=== PATIENT | female | born 1985 | race Caucasian/White ===

== ENCOUNTER 2020-07-30 17:44 | Emergency (ER) | payer MEDICAID, SELFPAY ==
[2020-07-30 18:57] LABS: COVID-19 Test Positive (Negative); IDNOW Serial# 9DD0AD1C
[2020-07-30 19:10] VITALS: BP 122/77; PULSE 105; RESP 18; TEMP 37.6; O2SAT 99; BMI 33.6
--- NOTE | 2020-07-30 19:12 | ED_ITS ---
HPI - URI/Sore Throat General Chief Complaint: Upper Respiratory Symptoms Stated Complaint: Flu like Time Seen by Provider: 07/30/20 19:10 Source: patient Mode of arrival: ambulatory Limitations: no limitations History of Present Illness HPI Narrative: 35-year-old female with no significant past medical history presents with upper respiratory symptoms consistent with COVID-19 as well as COVID-19 positive contacts. She presents with her 3 sons. MD elicited complaint: fever, cough, sore throat and nasal congestion Onset (ago): day(s) Consistency: constant Severity: moderate Description of mucous: clear and watery Able to tolerate fluids by mouth: Yes Relieving factors: nothing Context: sick contacts Associated symptoms: fever, chills, myalgias, headache, rhinorrhea, nasal congestion, sore throat and cough Related Data Previous Rx's Medication Instructions Recorded ibuprofen 600 mg PO Q6H PRN #30 tab 07/30/20 Allergies Allergy/AdvReac Type Severity Reaction Status Date / Time penicillin V Allergy Unknown convulsion Verified 12/15/13 00:00 Penicillins AdvReac Mild SEIZURES Unverified 01/22/20 17:28 A CHILD Review of Systems Review of Systems: Constitutional: positive Fever, positive Chills, positive fatigue, positive Malaise ENT/Mouth: positive sore throat, positive runny nose Eyes: No Discharge Cardiovascular: No Chest Pain, No SOB Respiratory: No Cough, No Sputum, No Wheezing, No Smoke Exposure, No Dyspnea Gastrointestinal: No Nausea, No Vomiting, No Diarrhea Genitourinary: no irregular bleeding, No Dysuria, No Urinary Frequency, No Hematuria, No Urinary Incontinence, No Urgency, No Flank Pain, Musculoskeletal: positive Myalgia Skin: No rash Neuro: No Headache Yes all other systems are reviewed and are negative [facility] Past Medical History Attestation statement: The following information was validated with the patient. Source: old records reviewed Medical History (Updated 07/30/20 @ 19:40 by Radha Anthony NP) No known health problems Social History Social History Smoked in Last 30 Days: No Use of substances other than those prescribed or required for medical reasons: No Advance Directives: No Advance Directives Information Provided: Yes Physical Exam Vital Signs: Vital Signs: Last Vital Signs Temp 99.7 F 07/30/20 19:10 Pulse 105 H 07/30/20 19:10 Resp 18 07/30/20 19:10 BP 122/77 07/30/20 19:10 Pulse Ox 99 07/30/20 19:10 Body Mass Index 33.6 Appearance: Alert. Oriented X3. No acute distress. Eyes: Pupils equal, round and reactive to light. ENT: Pharynx normal. Neck: Normal inspection. Neck supple. CVS: Normal heart rate and rhythm. Pulses normal. Respiratory: No respiratory distress. Breath sounds normal. Positive cough Abdomen: Soft and nontender. Skin: Skin warm and dry. Normal skin color. Normal skin turgor. Extremities: No lower extremity edema. Neuro: No motor deficit. No sensory deficit. Course Course Course Narrative: 35-year-old female presents with her family for positive COVID-19 contacts, upper respiratory symptoms consistent with COVID-19. Patient did test positive. Patient verbalizes understanding of and agrees to plan of care discharge home. MDM - URI/Sore Throat MDM Narrative Medical decision making narrative: COVID-19 Differential Diagnosis Differential diagnosis: Likely upper respiratory infection, sinusitis, viral infection, bronchitis, influenza and pharyngitis Medical Records Attestation: I reviewed the patient's medical records. Lab Data Attestation: I reviewed the patient's lab results. Labs: Lab Results 07/30/20 Range/Units 18:31 COVID-19 (ABDOUL) Positive A (Negative) COVID-19 Clin Com See Note Discharge Plan Discharge Clinical Impression: COVID-19 Patient Disposition: Home, Self-Care Instructions: COVID-19 (Coronavirus Disease 2019) (ED) Additional Instructions: Arden positivo para COVID-19. Por favor, mantenga el aislamiento social seg?n las directrices estatales y federales. Es garcia responsabilidad mantener estas directrices. Yasmine por elegir rowan departamento de emergencias para garcia evaluaci?n. Por favor, jakub un seguimiento con el m?dico de atenci?n primaria seg?n sea necesario. Regrese al servicio de emergencias para cualquier s?ntoma nuevo, preocupante o que empeore. You tested positive for COVID-19. Please maintain social isolation per State and Federal guidelines. Is your responsibility to maintain these guidelines. Thank you for choosing this emergency department for evaluation. Please follow-up with primary care physician as needed. Return to the emergency department for any new, concerning, or worsening symptoms. Prescriptions: New ibuprofen 600 mg tablet 600 mg PO Q6H PRN (Reason: fever or pain) Qty: 30 RF: 0 Interventions: ED Discharge Assessment Last Done: 07/30/20 20:29 Discharge Date/Time: 07/30/20 20:29
== END 2020-07-30 20:29 | disposition home or self-care (01) ==
PROVIDERS: Emergency Provider Emergency Medicine
DX: U07.1 COVID-19 (principal)
CPT/HCPCS: 36415; 87635; 99283; 99284

== ENCOUNTER 2020-08-05 13:07 | Emergency (ER) | payer MEDICAID, SELFPAY ==
--- NOTE | ~2020-08-05 | XR_ITS ---
EXAMINATION: XR CHEST CLINICAL INFORMATION: Cough and fever COMPARISON: 01/02/2019 TECHNIQUE: Frontal view of the chest was obtained. FINDINGS: Lung volumes are low. Patchy bilateral airspace opacities are seen with relative sparing at the apices. No pleural effusion or pneumothorax. The cardiomediastinal silhouette is normal in size. No acute osseous abnormality. XR/XR chest 1V IMPRESSION: Patchy bilateral airspace opacities are nonspecific. This could be infectious or inflammatory. Viral pneumonia is a consideration.
[2020-08-05 13:17] VITALS: BP 112/78; PULSE 116; O2SAT 96
[2020-08-05 14:20] VITALS: BP 122/77; PULSE 121; RESP 24; TEMP 38.4; O2SAT 95; BMI 33.6
[2020-08-05] MEDS: Albuterol Sulfate 90 MCG 8 GM INHALER 4 PUFF INHALE (14:59)
[2020-08-05 15:02] VITALS: PULSE 119; O2SAT 95
[2020-08-05 15:27] LABS: MANUAL DIFF FLAG NO
[2020-08-05] MEDS: ondansetron HCL 4 MG/2 ML VIAL IVPUSH (15:33)
[2020-08-05] MEDS: Acetaminophen 325 MG TABLET 650 MG PO (15:33)
[2020-08-05 15:36] LABS: Basophils Percent Auto 0.2 % (0-2); Hematocrit 33.8 % (37-47); Hemoglobin 11.7 g/dl (12.0-16.0); Imm Gran Abs Auto 0.03 X10*3/uL (0.00-0.03); Imm Gran Pct Auto 0.5 % (0.0-0.4); Lymphocytes Absolute Auto 1.1 X10*3/uL (1.2-4.9); Lymphocytes Percent Auto 17.2 % (20-40); Mean Corpuscular HGB Conc 34.6 g/dl (31.0-35.0); Mean Corpuscular Hemoglobin 30.8 pg (27.0-33.0); Mean Corpuscular Volume 88.9 fL (80-98); Mean Platelet Volume 10.4 fL (9.4-12.3); Monocytes Absolute Auto 0.2 X10*3/uL (0.1-1.2); Monocytes Percent Auto 2.8 % (2-11); Neutrophils Absolute Auto 4.8 X10*3/uL (2.0-8.3); Neutrophils Percent Auto 79.3 % (45-73); Platelet Count 230 X10*3/uL (160-400); Red Cell Distribution Width 13.2 % (11.0-16.0); White Blood Count 6.1 X10*3/uL (4.8-10.8)
--- NOTE | 2020-08-05 15:45 | PC.NURSE ---
patient has known covid, tested positive 07/30 at [facility] 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
[2020-08-05 15:52] LABS: Alanine Aminotransferase 25 U/L (0-31); Albumin Level 3.8 g/dL (3.5-5.0); Alkaline Phosphatase 41 U/L (39-117); Anion Gap 11 (12-20); Aspartate Amino Transferase 33 U/L (5-31); Bilirubin Total 0.3 mg/dL (0.0-1.0); Blood Urea Nitrogen 9 mg/dL (9-16); C Reactive Protein 6.49 mg/dL (< or = 0.50); Calcium 7.9 mg/dL (8.4-10.2); Carbon Dioxide 29 mmol/L (22-29); Chloride 101 mmol/L (96-108); Estimated Glomerular Filt Rate > 60; Glucose Random 112 mg/dL (60-115); Potassium 3.7 mmol/L (3.3-5.1); Sodium 137 mmol/L (135-145); Total Protein 7.4 g/dL (6.5-8.0)
[2020-08-05 15:58] LABS: Troponin-I High Sensitivity < 3.5 ng/L (<3.5-17.0)
[2020-08-05 16:02] LABS: Lactic Acid 0.8 mmol/L (0.5-2.0)
[2020-08-05 16:04] LABS: INTERNATIONAL NORM RATIO 1.2 (0.9-1.1); Prothrombin Time 14.3 SEC (10.8-13.0)
[2020-08-05 16:07] LABS: D Dimer < 200 NG/ML; Partial Thromboplastin Time 31.8 SEC (24.1-38.0)
[2020-08-05 16:13] LABS: Procalcitonin 0.05 ng/mL
[2020-08-05 16:15] LABS: Ferritin 316 ng/mL (10-122)
--- NOTE | 2020-08-05 17:33 | ED.URI ---
HPI - URI/Sore Throat General Chief Complaint: Abdominal Pain <Bonilla Dupree NP - Last Filed: 08/06/20 16:02> Stated Complaint: SOB, +COVID <Bonilla Dupree NP - Last Filed: 08/06/20 16:02> Time Seen by Provider: 08/05/20 14:22 <Bonilla Dupree NP - Last Filed: 08/06/20 16:02> Source: patient <Bonilla Dupree NP - Last Filed: 08/06/20 16:02> Mode of arrival: ambulatory <Bonilla Dupree NP - Last Filed: 08/06/20 16:02> Limitations: language barrier (checkout supervisor present) <Bonilla Dupree NP - Last Filed: 08/06/20 16:02> History of Present Illness HPI Narrative: States having chills and for full cough for the past 3 days the cough is making her vomit and given her pain in the upper abdomen. <Bonilla Dupree NP - Last Filed: 08/06/20 16:02> MD elicited complaint: cough <Bonilla Dupree NP - Last Filed: 08/06/20 16:02> Onset (ago): day(s) (3) <Bonilla Dupree NP - Last Filed: 08/06/20 16:02> Consistency: intermittent <Bonilla Dupree NP - Last Filed: 08/06/20 16:02> Severity: moderate <Bonilla Dupree NP - Last Filed: 08/06/20 16:02> Description of mucous: clear <Bonilla Dupree NP - Last Filed: 08/06/20 16:02> Able to tolerate fluids by mouth: Yes <Bonilla Dupree NP - Last Filed: 08/06/20 16:02> Exacerbating factors: nothing <Bonilla Dupree NP - Last Filed: 08/06/20 16:02> Relieving factors: nothing <Bonilla Dupree NP - Last Filed: 08/06/20 16:02> Associated symptoms: myalgias and cough <Bonilla Dupree NP - Last Filed: 08/06/20 16:02> Treatments prior to arrival: none <Bonilla Dupree NP - Last Filed: 08/06/20 16:02> Related Data Home Medications: Previous Rx's Medication Instructions Recorded ibuprofen 600 mg PO Q6H PRN #30 tab 07/30/20 benzonatate [Tessalon Perles] 100 mg PO BID PRN #14 cap 08/05/20 doxycycline monohydrate 100 mg PO BID 7 Days #14 cap 08/05/20 prednisone 60 mg PO DAILY 5 Days #15 tab 08/05/20 <Bonilla Dupree NP - Last Filed: 08/06/20 16:02> Allergies/Adverse Reactions: Allergies Allergy/AdvReac Type Severity Reaction Status Date / Time penicillin V Allergy Unknown convulsion Verified 12/15/13 00:00 Penicillins AdvReac Mild SEIZURES Unverified 01/22/20 17:28 A CHILD <ROOPA Baeza Last Filed: 08/06/20 16:02> Review of Systems Review of Systems: Constitutional: No Weight loss, No Fever, No Chills, No Night Sweats, No Fatigue, No Malaise ENT/Mouth: No Hearing loss, No Ear Pain, No Nasal Congestion, No Sinus Pain, No Hoarseness, No sore throat, No Rhinorrhea, No Swallowing Difficulty Eyes: No Eye Pain, No Swelling, No Redness, No Foreign Body, No Discharge, No Vision Changes Cardiovascular: + Chest Pain that is associated with cough, No SOB, No Dyspnea on Exertion, No Orthopnea, No Edema, No Palpitations Respiratory: + Cough, No Sputum, No Wheezing, No Smoke Exposure, No Dyspnea Gastrointestinal: No Diarrhea, No Constipation, No abdominal Pain, No Hematochezia, No Melena Genitourinary: no irregular bleeding, No Dysuria, No Urinary Frequency, No Hematuria, No Urinary Incontinence, No Urgency, No Flank Pain, No Urinary Flow Changes, No Hesitancy Musculoskeletal: No joint pain, No Myalgias, No Joint Swelling Skin: No Skin Lesions, No rash Neuro: No Weakness, No Numbness, No Paresthesias, No Loss of Consciousness, No Dizziness, No Headache Psych: No Social Issues Heme/Lymph: No Bruising, No Bleeding,No Lymphadenopathy Endocrine: No Polyuria, No Polydipsia, No Temperature Intolerance <ROOPA Baeza Last Filed: 08/06/20 16:02> Yes all other systems are reviewed and are negative <Bonilla Dupree NP - Last Filed: 08/06/20 16:02> [facility] Past Medical History Medical History: Medical History (Updated 08/06/20 @ 00:01 by Julio Slater) No known health problems <Bonilla Dupree NP - Last Filed: 08/06/20 16:02> Social History Social History: Social History Smoking Status: Never smoker <Bonilla Dupree NP - Last Filed: 08/06/20 16:02> Physical Exam Vital Signs: Vital Signs: Last Vital Signs Temp 99.3 F 08/05/20 17:55 Pulse 112 H 08/05/20 17:55 Resp 22 H 08/05/20 17:55 BP 100/62 08/05/20 17:55 Pulse Ox 94 08/05/20 17:55 Body Mass Index 33.6 Reviewed <Bonilla Dupree NP - Last Filed: 08/06/20 16:02> Vital Signs: Last Vital Signs Temp 99.3 F 08/05/20 17:55 Pulse 112 H 08/05/20 17:55 Resp 22 H 08/05/20 17:55 BP 100/62 08/05/20 17:55 Pulse Ox 94 08/05/20 17:55 Body Mass Index 33.6 <Marifer Currie NP - Last Filed: 08/09/20 16:54> Vital Signs: Last Vital Signs Temp 99.3 F 08/05/20 17:55 Pulse 112 H 08/05/20 17:55 Resp 22 H 08/05/20 17:55 BP 100/62 08/05/20 17:55 Pulse Ox 94 08/05/20 17:55 Body Mass Index 33.6 <Joshua Curtis MD - Last Filed: 08/24/20 09:14> Const: General: cooperative and healthy appearing; No acute distress or intoxicated appearing <Bonilla Dupree NP - Last Filed: 08/06/20 16:02> Nutritional Appearance: average body habitus <Bonilla Dupree NP - Last Filed: 08/06/20 16:02> Orientation/consciousness: patient oriented x3 <Bonilla Dupree NP - Last Filed: 08/06/20 16:02> HENMT: Head: Yes normal to inspection <[facility], [facility] Last Filed: 08/06/20 16:02> Ears: hearing grossly normal bilaterally <[facility] - Last Filed: 08/06/20 16:02> Eyes: General: appearance normal, both eyes and all related structures <[facility] Dupree[facility] Last Filed: 08/06/20 16:02> Visual Locke: normal visual locke by confrontation <[facility] - Last Filed: 08/06/20 16:02> Neck: Neck: Yes normal visual inspection, No positive Brudzinski's sign, No positive Kernig's sign and No tender <[facility] Last Filed: 08/06/20 16:02> Thyroid: Thyroid normal <[facility] Last Filed: 08/06/20 16:02> Chest: Chest palpation & inspection: normal inspection of the chest <[facility] Joon [facility] Last Filed: 08/06/20 16:02> Resp: Effort & Inspection: normal respiratory effort <[facility] Last Filed: 08/06/20 16:02> Auscultation: clear to auscultation bilaterally <[facility] Last Filed: 08/06/20 16:02> Cardio: Jugular venous distension: no JVD <[facility] Last Filed: 08/06/20 16:02> Rhythm: regular rhythm <[facility] Last Filed: 08/06/20 16:02> Heart sounds: S1 normal heart sound present and S2 normal heart sound present <[facility] - Last Filed: 08/06/20 16:02> GI: Inspection: Yes normal to inspection <[facility] Last Filed: 08/06/20 16:02> Palpation (GI): Soft to palpation <[facility] - Last Filed: 08/06/20 16:02> Percussion: Yes normal to percussion <[facility] Last Filed: 08/06/20 16:02> Auscultation: normal bowel sounds <[facility] - Last Filed: 08/06/20 16:02> : General: Yes no CVA tenderness <Bonilla Dupree NP - Last Filed: 08/06/20 16:02> Back/Spine/Pelvis: Back: no CVA tenderness <Bonilal Dupree NP - Last Filed: 08/06/20 16:02> Skin: General skin exam: no rashes or lesions noted <Bonilla Dupree NP - Last Filed: 08/06/20 16:02> Neuro: General: patient oriented x3 <Bonilla Dupree NP - Last Filed: 08/06/20 16:02> Extrem: General: Yes normal to inspection <Bonilla Dupree NP - Last Filed: 08/06/20 16:02> Course Course Course Narrative: Labs overall stable. Hemodynamically stable, pulse ox 100% on room air, no hypoxia with ambulation. She was COVID positive 5 days ago. D-dimer negative. Will discharge home with prednisone, supportive care, return, follow-up instructions. Comfortable plan. Stable for discharge. <Bonilla Dupree NP - Last Filed: 08/06/20 16:02> I have reviewed the chart <Joshua Curtis MD - Last Filed: 08/24/20 09:14> MDM - URI/Sore Throat Lab Data Result diagrams: : 08/05/20 15:20 08/05/20 15:20 <Bonilla Dupree NP - Last Filed: 08/06/20 16:02> Labs: Lab Results 08/05/20 08/05/20 08/05/20 Range/Units 15:19 15:20 15:20 WBC 6.1 (4.8-10.8) X10*3/uL RBC 3.80 L (4.20-5.50) X10*6/uL Hgb 11.7 L (12.0-16.0) g/dl Hct 33.8 L (37-47) % MCV 88.9 (80-98) fL MCH 30.8 (27.0-33.0) pg MCHC 34.6 (31.0-35.0) g/dl RDW 13.2 (11.0-16.0) % Plt Count 230 (160-400) X10*3/uL MPV 10.4 (9.4-12.3) fL Immature Gran % (Auto) 0.5 H (0.0-0.4) % Neut % (Auto) 79.3 H (45-73) % Lymph % (Auto) 17.2 L (20-40) % Parmer % (Auto) 2.8 (2-11) % Eos % (Auto) 0.0 (0-4) % Baso % (Auto) 0.2 (0-2) % Lymph # (Auto) 1.1 L (1.2-4.9) X10*3/uL Parmer # (Auto) 0.2 (0.1-1.2) X10*3/uL Eos # (Auto) 0.0 (0.0-0.4) X10*3/uL Baso # (Auto) 0.0 (0.0-0.2) X10*3/uL Abs Immat Gran (auto) 0.03 (0.00-0.03) X10*3/uL Absolute Neuts (auto) 4.8 (2.0-8.3) X10*3/uL Absolute Nucleated RBC 0.000 (0.0-0.012) X10*3/uL Nucleated RBC % (auto) 0.0 (0.0-0.2) /100WBC PT (10.8-13.0) SEC INR (0.9-1.1) APTT (24.1-38.0) SEC D-Dimer NG/ML Sodium 137 (135-145) mmol/L Potassium 3.7 (3.3-5.1) mmol/L Chloride 101 (96-108) mmol/L Carbon Dioxide 29 (22-29) mmol/L Anion Gap 11 L (12-20) BUN 9 (9-16) mg/dL Creatinine 0.75 (0.5-1.4) mg/dL Estim Creat Clear Calc 111.0 Estimated GFR > 60 Random Glucose 112 (60-115) mg/dL Lactic Acid 0.8 (0.5-2.0) mmol/L Calcium 7.9 L (8.4-10.2) mg/dL Ferritin 316 H (10-122) ng/mL Total Bilirubin 0.3 (0.0-1.0) mg/dL AST 33 H (5-31) U/L ALT 25 (0-31) U/L Alkaline Phosphatase 41 (39-117) U/L Troponin I High Sens (<3.5-17.0) ng/L C-Reactive Protein 6.49 H (< or = 0.50) mg/dL Total Protein 7.4 (6.5-8.0) g/dL Albumin 3.8 (3.5-5.0) g/dL Procalcitonin ng/mL 08/05/20 08/05/20 08/05/20 Range/Units 15:20 15:20 15:52 WBC (4.8-10.8) X10*3/uL RBC (4.20-5.50) X10*6/uL Hgb (12.0-16.0) g/dl Hct (37-47) % MCV (80-98) fL MCH (27.0-33.0) pg MCHC (31.0-35.0) g/dl RDW (11.0-16.0) % Plt Count (160-400) X10*3/uL MPV (9.4-12.3) fL Immature Gran % (Auto) (0.0-0.4) % Neut % (Auto) (45-73) % Lymph % (Auto) (20-40) % Parmer % (Auto) (2-11) % Eos % (Auto) (0-4) % Baso % (Auto) (0-2) % Lymph # (Auto) (1.2-4.9) X10*3/uL Parmer # (Auto) (0.1-1.2) X10*3/uL Eos # (Auto) (0.0-0.4) X10*3/uL Baso # (Auto) (0.0-0.2) X10*3/uL Abs Immat Gran (auto) (0.00-0.03) X10*3/uL Absolute Neuts (auto) (2.0-8.3) X10*3/uL Absolute Nucleated RBC (0.0-0.012) X10*3/uL Nucleated RBC % (auto) (0.0-0.2) /100WBC PT 14.3 H (10.8-13.0) SEC INR 1.2 H (0.9-1.1) APTT 31.8 (24.1-38.0) SEC D-Dimer < 200 NG/ML Sodium (135-145) mmol/L Potassium (3.3-5.1) mmol/L Chloride (96-108) mmol/L Carbon Dioxide (22-29) mmol/L Anion Gap (12-20) BUN (9-16) mg/dL Creatinine (0.5-1.4) mg/dL Estim Creat Clear Calc Estimated GFR Random Glucose (60-115) mg/dL Lactic Acid (0.5-2.0) mmol/L Calcium (8.4-10.2) mg/dL Ferritin (10-122) ng/mL Total Bilirubin (0.0-1.0) mg/dL AST (5-31) U/L ALT (0-31) U/L Alkaline Phosphatase (39-117) U/L Troponin I High Sens < 3.5 (<3.5-17.0) ng/L C-Reactive Protein (< or = 0.50) mg/dL Total Protein (6.5-8.0) g/dL Albumin (3.5-5.0) g/dL Procalcitonin 0.05 ng/mL <Bonilla Dupree NP - Last Filed: 08/06/20 16:02> Lab Results 08/05/20 08/05/20 08/05/20 Range/Units 15:19 15:20 15:20 WBC 6.1 (4.8-10.8) X10*3/uL RBC 3.80 L (4.20-5.50) X10*6/uL Hgb 11.7 L (12.0-16.0) g/dl Hct 33.8 L (37-47) % MCV 88.9 (80-98) fL MCH 30.8 (27.0-33.0) pg MCHC 34.6 (31.0-35.0) g/dl RDW 13.2 (11.0-16.0) % Plt Count 230 (160-400) X10*3/uL MPV 10.4 (9.4-12.3) fL Immature Gran % (Auto) 0.5 H (0.0-0.4) % Neut % (Auto) 79.3 H (45-73) % Lymph % (Auto) 17.2 L (20-40) % Parmer % (Auto) 2.8 (2-11) % Eos % (Auto) 0.0 (0-4) % Baso % (Auto) 0.2 (0-2) % Lymph # (Auto) 1.1 L (1.2-4.9) X10*3/uL Parmer # (Auto) 0.2 (0.1-1.2) X10*3/uL Eos # (Auto) 0.0 (0.0-0.4) X10*3/uL Baso # (Auto) 0.0 (0.0-0.2) X10*3/uL Abs Immat Gran (auto) 0.03 (0.00-0.03) X10*3/uL Absolute Neuts (auto) 4.8 (2.0-8.3) X10*3/uL Absolute Nucleated RBC 0.000 (0.0-0.012) X10*3/uL Nucleated RBC % (auto) 0.0 (0.0-0.2) /100WBC PT (10.8-13.0) SEC INR (0.9-1.1) APTT (24.1-38.0) SEC D-Dimer NG/ML Sodium 137 (135-145) mmol/L Potassium 3.7 (3.3-5.1) mmol/L Chloride 101 (96-108) mmol/L Carbon Dioxide 29 (22-29) mmol/L Anion Gap 11 L (12-20) BUN 9 (9-16) mg/dL Creatinine 0.75 (0.5-1.4) mg/dL Estim Creat Clear Calc 111.0 Estimated GFR > 60 Random Glucose 112 (60-115) mg/dL Lactic Acid 0.8 (0.5-2.0) mmol/L Calcium 7.9 L (8.4-10.2) mg/dL Ferritin 316 H (10-122) ng/mL Total Bilirubin 0.3 (0.0-1.0) mg/dL AST 33 H (5-31) U/L ALT 25 (0-31) U/L Alkaline Phosphatase 41 (39-117) U/L Troponin I High Sens (<3.5-17.0) ng/L C-Reactive Protein 6.49 H (< or = 0.50) mg/dL Total Protein 7.4 (6.5-8.0) g/dL Albumin 3.8 (3.5-5.0) g/dL Procalcitonin ng/mL 08/05/20 08/05/20 08/05/20 Range/Units 15:20 15:20 15:52 WBC (4.8-10.8) X10*3/uL RBC (4.20-5.50) X10*6/uL Hgb (12.0-16.0) g/dl Hct (37-47) % MCV (80-98) fL MCH (27.0-33.0) pg MCHC (31.0-35.0) g/dl RDW (11.0-16.0) % Plt Count (160-400) X10*3/uL MPV (9.4-12.3) fL Immature Gran % (Auto) (0.0-0.4) % Neut % (Auto) (45-73) % Lymph % (Auto) (20-40) % Parmer % (Auto) (2-11) % Eos % (Auto) (0-4) % Baso % (Auto) (0-2) % Lymph # (Auto) (1.2-4.9) X10*3/uL Parmer # (Auto) (0.1-1.2) X10*3/uL Eos # (Auto) (0.0-0.4) X10*3/uL Baso # (Auto) (0.0-0.2) X10*3/uL Abs Immat Gran (auto) (0.00-0.03) X10*3/uL Absolute Neuts (auto) (2.0-8.3) X10*3/uL Absolute Nucleated RBC (0.0-0.012) X10*3/uL Nucleated RBC % (auto) (0.0-0.2) /100WBC PT 14.3 H (10.8-13.0) SEC INR 1.2 H (0.9-1.1) APTT 31.8 (24.1-38.0) SEC D-Dimer < 200 NG/ML Sodium (135-145) mmol/L Potassium (3.3-5.1) mmol/L Chloride (96-108) mmol/L Carbon Dioxide (22-29) mmol/L Anion Gap (12-20) BUN (9-16) mg/dL Creatinine (0.5-1.4) mg/dL Estim Creat Clear Calc Estimated GFR Random Glucose (60-115) mg/dL Lactic Acid (0.5-2.0) mmol/L Calcium (8.4-10.2) mg/dL Ferritin (10-122) ng/mL Total Bilirubin (0.0-1.0) mg/dL AST (5-31) U/L ALT (0-31) U/L Alkaline Phosphatase (39-117) U/L Troponin I High Sens < 3.5 (<3.5-17.0) ng/L C-Reactive Protein (< or = 0.50) mg/dL Total Protein (6.5-8.0) g/dL Albumin (3.5-5.0) g/dL Procalcitonin 0.05 ng/mL <Marifer Currie, [employer] - Last Filed: 08/09/20 16:54> Lab Results 08/05/20 08/05/20 08/05/20 Range/Units 15:19 15:20 15:20 WBC 6.1 (4.8-10.8) X10*3/uL RBC 3.80 L (4.20-5.50) X10*6/uL Hgb 11.7 L (12.0-16.0) g/dl Hct 33.8 L (37-47) % MCV 88.9 (80-98) fL MCH 30.8 (27.0-33.0) pg MCHC 34.6 (31.0-35.0) g/dl RDW 13.2 (11.0-16.0) % Plt Count 230 (160-400) X10*3/uL MPV 10.4 (9.4-12.3) fL Immature Gran % (Auto) 0.5 H (0.0-0.4) % Neut % (Auto) 79.3 H (45-73) % Lymph % (Auto) 17.2 L (20-40) % Parmer % (Auto) 2.8 (2-11) % Eos % (Auto) 0.0 (0-4) % Baso % (Auto) 0.2 (0-2) % Lymph # (Auto) 1.1 L (1.2-4.9) X10*3/uL Parmer # (Auto) 0.2 (0.1-1.2) X10*3/uL Eos # (Auto) 0.0 (0.0-0.4) X10*3/uL Baso # (Auto) 0.0 (0.0-0.2) X10*3/uL Abs Immat Gran (auto) 0.03 (0.00-0.03) X10*3/uL Absolute Neuts (auto) 4.8 (2.0-8.3) X10*3/uL Absolute Nucleated RBC 0.000 (0.0-0.012) X10*3/uL Nucleated RBC % (auto) 0.0 (0.0-0.2) /100WBC PT (10.8-13.0) SEC INR (0.9-1.1) APTT (24.1-38.0) SEC D-Dimer NG/ML Sodium 137 (135-145) mmol/L Potassium 3.7 (3.3-5.1) mmol/L Chloride 101 (96-108) mmol/L Carbon Dioxide 29 (22-29) mmol/L Anion Gap 11 L (12-20) BUN 9 (9-16) mg/dL Creatinine 0.75 (0.5-1.4) mg/dL Estim Creat Clear Calc 111.0 Estimated GFR > 60 Random Glucose 112 (60-115) mg/dL Lactic Acid 0.8 (0.5-2.0) mmol/L Calcium 7.9 L (8.4-10.2) mg/dL Ferritin 316 H (10-122) ng/mL Total Bilirubin 0.3 (0.0-1.0) mg/dL AST 33 H (5-31) U/L ALT 25 (0-31) U/L Alkaline Phosphatase 41 (39-117) U/L Troponin I High Sens (<3.5-17.0) ng/L C-Reactive Protein 6.49 H (< or = 0.50) mg/dL Total Protein 7.4 (6.5-8.0) g/dL Albumin 3.8 (3.5-5.0) g/dL Procalcitonin ng/mL 08/05/20 08/05/20 08/05/20 Range/Units 15:20 15:20 15:52 WBC (4.8-10.8) X10*3/uL RBC (4.20-5.50) X10*6/uL Hgb (12.0-16.0) g/dl Hct (37-47) % MCV (80-98) fL MCH (27.0-33.0) pg MCHC (31.0-35.0) g/dl RDW (11.0-16.0) % Plt Count (160-400) X10*3/uL MPV (9.4-12.3) fL Immature Gran % (Auto) (0.0-0.4) % Neut % (Auto) (45-73) % Lymph % (Auto) (20-40) % Parmer % (Auto) (2-11) % Eos % (Auto) (0-4) % Baso % (Auto) (0-2) % Lymph # (Auto) (1.2-4.9) X10*3/uL Parmer # (Auto) (0.1-1.2) X10*3/uL Eos # (Auto) (0.0-0.4) X10*3/uL Baso # (Auto) (0.0-0.2) X10*3/uL Abs Immat Gran (auto) (0.00-0.03) X10*3/uL Absolute Neuts (auto) (2.0-8.3) X10*3/uL Absolute Nucleated RBC (0.0-0.012) X10*3/uL Nucleated RBC % (auto) (0.0-0.2) /100WBC PT 14.3 H (10.8-13.0) SEC INR 1.2 H (0.9-1.1) APTT 31.8 (24.1-38.0) SEC D-Dimer < 200 NG/ML Sodium (135-145) mmol/L Potassium (3.3-5.1) mmol/L Chloride (96-108) mmol/L Carbon Dioxide (22-29) mmol/L Anion Gap (12-20) BUN (9-16) mg/dL Creatinine (0.5-1.4) mg/dL Estim Creat Clear Calc Estimated GFR Random Glucose (60-115) mg/dL Lactic Acid (0.5-2.0) mmol/L Calcium (8.4-10.2) mg/dL Ferritin (10-122) ng/mL Total Bilirubin (0.0-1.0) mg/dL AST (5-31) U/L ALT (0-31) U/L Alkaline Phosphatase (39-117) U/L Troponin I High Sens < 3.5 (<3.5-17.0) ng/L C-Reactive Protein (< or = 0.50) mg/dL Total Protein (6.5-8.0) g/dL Albumin (3.5-5.0) g/dL Procalcitonin 0.05 ng/mL <Joshua Curtis MD - Last Filed: 08/24/20 09:14> Discharge Plan Discharge Clinical Impression: COVID-19, Asthma <Bonilla Dupree NP - Last Filed: 08/06/20 16:02> Patient Disposition: Home, Self-Care <Bonilla Dupree NP - Last Filed: 08/06/20 16:02> Instructions: Asthma (ED), COVID-19 (Coronavirus Disease 2019) (ED) <Bonilal Dupree NP - Last Filed: 08/06/20 16:02> Additional Instructions: Drink plenty fluids Supportive care discussed Return if any concerns or worsening symptoms Take medication prescribed Otherwise follow-up as instructed Self-isolation/social distancing Thank you <Bonilla Dupree NP - Last Filed: 08/06/20 16:02> Prescriptions: New doxycycline monohydrate 100 mg capsule 100 mg PO BID 7 Days Qty: 14 RF: 0 prednisone 20 mg tablet 60 mg PO DAILY 5 Days Qty: 15 RF: 0 benzonatate [Tessalon Perles] 100 mg capsule 100 mg PO BID PRN (Reason: cough) Qty: 14 RF: 0 No Action ibuprofen 600 mg tablet 600 mg PO Q6H PRN (Reason: fever or pain) Qty: 30 RF: 0 <Bonilla Dupree NP - Last Filed: 08/06/20 16:02> Referrals: [facility] [Primary Care Provider] - 1 week (Phone visit) <Bonilla Dupree NP - Last Filed: 08/06/20 16:02> Interventions: ED Discharge Assessment Last Done: 08/05/20 23:34 <Bonilla Dupree NP - Last Filed: 08/06/20 16:02> Discharge Date/Time: 08/05/20 23:45 <Bonilla Dupree NP - Last Filed: 08/06/20 16:02>
[2020-08-05 17:55] VITALS: BP 100/62; PULSE 112; RESP 22; TEMP 37.4; O2SAT 94
[2020-08-05] MEDS: predniSONE 20 MG TABLET 60 MG PO (18:26)
== END 2020-08-05 23:45 | disposition home or self-care (01) ==
PROVIDERS: Nurse Practitioner Primary Care; Emergency Provider Emergency Medicine Emergency Medical Services
DX: R78.81 Bacteremia (principal); U07.1 COVID-19; J45.909 Unspecified asthma, uncomplicated
CPT/HCPCS: 36415; 71045; 80053; 82728; 83605; 84145; 84484; 85025; 85379; 85610; 85730; 86140; 87040; 87147; 87205; 94640; 96374; 99284; J2405

== ENCOUNTER 2020-08-11 15:00 | Outpatient (REF) | payer MEDICAID, SELFPAY ==
[2020-08-11 15:43] LABS: COVID-19 Test Negative (Negative); IDNOW Serial# 55D5AD1C
== END 2020-08-11 15:01 | disposition home or self-care (01) ==
LOC: HO.LAB 15:00
PROVIDERS: Visit Provider Internal Medicine
DX: Z20.822 Contact with and (suspected) exposure to COVID-19 (principal)
CPT/HCPCS: 36415; 87635; C9803

== ENCOUNTER → 2021-10-06 15:03 | Outpatient (BNVA) | payer MEDICAID, SELFPAY | PROVIDERS: Visit Provider Advanced Practice Midwife | DX: Z32.01 Encounter for pregnancy test, result positive (principal) | CPT/HCPCS: 81025; 99202 ==

== ENCOUNTER 2021-10-21 09:08 | Outpatient (REF) | payer MEDICAID, SELFPAY ==
--- NOTE | ~2021-10-21 | US_ITS ---
EXAMINATION: OBSTETRICAL ULTRASOUND, FIRST TRIMESTER HISTORY: 36-year-old at 9.5 weeks of gestation Uncertain dates LMP: 08/14/2021 COMPARISON: None TECHNIQUE: Real time transabdominal imaging with color and M-mode Doppler. FINDINGS: A single, live IUP CRL of 3.0 mm c/w 10.0wks is noted. Heart Rate: 169 beats per minute. Both maternal ovaries are seen and appear normal. GESTATIONAL AGE: 1. GA from LMP: 9.5 wks 2. GA from AUA: 10.0 wks ESTIMATED DATE OF DELIVERY: 1. JAMEL from LMP: 05/21/2022 2. JAMEL from AUA: 05/19/2022 US/US OB <= 14 weeks fetus IMPRESSION: 1. A single live IUP 2. Size equals dates 3. Normal ovaries Thank you very much for this referral.
== END 2021-10-21 09:09 | disposition home or self-care (01) ==
LOC: HO.US 09:08
PROVIDERS: Visit Provider Advanced Practice Midwife
DX: Z34.91 Encounter for supervision of normal pregnancy, unspecified, first trimester (principal); Z3A.09 9 weeks gestation of pregnancy
CPT/HCPCS: 76801

== ENCOUNTER → 2021-11-08 13:56 | Outpatient (BNVA) | payer MEDICAID, SELFPAY | PROVIDERS: Visit Provider Advanced Practice Midwife | DX: O09.211 Supervision of pregnancy with history of pre-term labor, first trimester (principal); O09.291 Supervision of pregnancy with other poor reproductive or obstetric history, first trimester; Z3A.12 12 weeks gestation of pregnancy | CPT/HCPCS: 99212 ==

== ENCOUNTER 2021-11-11 09:19 | Outpatient (REF) | payer MEDICAID, SELFPAY ==
--- NOTE | ~2021-11-11 | US_ITS ---
EXAMINATION: OBSTETRICAL ULTRASOUND, FIRST TRIMESTER HISTORY: 36-year-old at 12.5 weeks of gestation NT screening AMA at delivery COMPARISON: 10/21/2021 TECHNIQUE: Real time transabdominal imaging with color and M-mode Doppler. FINDINGS: A single, live IUP CRL of 65.1 mm c/w 12.6wks is noted. Heart Rate: 145 beats per minute. Normal yolk sac seen. NT was 1.5.mm. NB Present The embryo appears sonographically wnl for this GA. Right ovary is normal. Left was not visualized. GESTATIONAL AGE: 1. Established GA: 12.5 wks 2. GA from AUA: 12.6 wks ESTIMATED DATE OF DELIVERY: 1. Established JAMEL: 05/21/2022 2. JAMEL from AUA: 05/20/2022 US/US OB 1T nuc measure IMPRESSION: 1. A single live IUP 2. Size equals dates 3. NT 1.5 mm MFM Consultation: I reviewed the ultrasound findings along with significance of NT measurement. The NT of less than 3mm is generally reassuring. However, the sensitivity for T21 detection is only 60%. I reviewed the availability of serum aneuploidy screening which includes cell-free DNA and placental protein based tests. I discussed the sensitivity, false-positive rate, and other limitations associated with each test. I also reviewed the availability of invasive diagnostic tests that are associated small but definite risk of miscarriage. We also reviewed the differences between screening tests and diagnostic tests. After our discussion, she opted for the First trimester screening that is based on cell-free DNA or non-invasive testing (NIPT). The result will be faxed to your office in approximately 7 days. A follow up at 18 weeks for survey has been scheduled. Thank you very much for this referral. Total time 30 minutes. The time spent was devoted to counseling the patient about the disease and diagnosis, coordinating care including reviewing her records, pertinent lab data and studies, as well as discussing diagnostic evaluation and workup, plan therapeutic interventions and future disposition of care. This includes any additional research needed to obtain further information in formulating the plan of care of this patient. This note was generated with a voice recognition program. Please excuse any errors which may have been overlooked during my review of this note. Sometimes these errors may affect the content or meaning of a given sentence.
== END 2021-11-11 09:20 | disposition home or self-care (01) ==
LOC: HO.US 09:19
PROVIDERS: Visit Provider Advanced Practice Midwife
DX: Z34.91 Encounter for supervision of normal pregnancy, unspecified, first trimester (principal); Z3A.12 12 weeks gestation of pregnancy
CPT/HCPCS: 76813

== ENCOUNTER 2022-01-14 15:58 | Emergency (ER) | payer MEDICAID, SELFPAY ==
[2022-01-14 16:23] VITALS: BP 144/82; PULSE 124; RESP 20; TEMP 37.4; O2SAT 94; BMI 38.9
--- NOTE | 2022-01-14 16:25 | ECG_ITS ---
Test Reason : TACHYCARDIA Blood Pressure : / mmHG Vent. Rate : 135 BPM Atrial Rate : 135 BPM P-R Int : 116 ms QRS Dur : 074 ms QT Int : 316 ms P-R-T Axes : 047 062 029 degrees QTc Int : 474 ms Sinus tachycardia Nonspecific ST abnormality Abnormal ECG No previous ECGs available Referred By: Generic ED Physician Electronically Signed By:YOEL TIERNEY
[2022-01-14 16:51] LABS: MANUAL DIFF FLAG NO
[2022-01-14 16:52] LABS: Basophils Absolute Auto 0.1 X10*3/uL (0.0-0.2); Basophils Percent Auto 0.4 % (0-2); Eosinophils Absolute Auto 0.1 X10*3/uL (0.0-0.4); Eosinophils Percent Auto 0.5 % (0-4); Hematocrit 32.3 % (37.0-47.0); Hemoglobin 11.1 g/dl (12.0-16.0); Imm Gran Abs Auto 0.24 X10*3/uL (0.00-0.03); Imm Gran Pct Auto 1.9 % (0.0-0.4); Lymphocytes Absolute Auto 1.8 X10*3/uL (1.2-4.9); Lymphocytes Percent Auto 14.3 % (20-40); Mean Corpuscular HGB Conc 34.4 g/dl (31.0-35.0); Mean Corpuscular Hemoglobin 31.5 pg (27.0-33.0); Mean Corpuscular Volume 91.8 fL (80.0-98.0); Mean Platelet Volume 11.1 fL (9.4-12.3); Monocytes Absolute Auto 0.8 X10*3/uL (0.1-1.2); Monocytes Percent Auto 6.6 % (2-11); Neutrophils Absolute Auto 9.7 x10*3/uL (2.0-8.3); Neutrophils Percent Auto 76.3 % (45-73); Platelet Count 222 X10*3/uL (160-400); Red Blood Count 3.52 X10*6/uL (4.20-5.50); Red Cell Distribution Width 14.4 % (11.0-16.0); White Blood Count 12.7 X10*3/uL (4.8-10.8)
[2022-01-14 17:05] LABS: Anion Gap 14 (12-20); Blood Urea Nitrogen 9 mg/dL (9-16); Calcium 8.8 mg/dL (8.4-10.2); Carbon Dioxide 20 mmol/L (22-29); Chloride 104 mmol/L (96-108); Creatinine Clr Calc Pharmacy 133.2; Estimated Glomerular Filt Rate > 60; Glucose Random 79 mg/dL (60-115); Potassium 3.8 mmol/L (3.3-5.1); Sodium 134 mmol/L (135-145)
[2022-01-14 17:14] LABS: COVID-19 Test Positive (Negative)
[2022-01-14 19:38] VITALS: BP 123/77; PULSE 119; RESP 20; TEMP 36.7; O2SAT 99
--- NOTE | 2022-01-14 22:55 | ED.GENADULT ---
HPI - General Adult General Chief complaint: Nausea/Vomiting/Diarrhea Stated complaint: 5 months preg, pain in throat , vomiting Time Seen by Provider: 01/14/22 22:46 Source: patient Mode of arrival: ambulatory Limitations: no limitations History of Present Illness HPI narrative: patient is a at 21 weeks of gestational age, comes emergency room complaining of 3 days of vomiting, sore throat, burning sensation in both lungs, no diarrhea, no abdominal pain. Related Data Previous Rx's Medication Instructions Recorded doxylamine succinate 25 mg tablet 25 mg PO BEDTIME PRN sleep #30 tabs 10/06/21 (Unisom (doxylamine)) vitamin with calcium 1 tab PO DAILY #90 tabs 10/06/21 no.72-iron 27 mg-folic acid 1 mg tablet ( Vitamins Plus Low Iron) pyridoxine (vitamin B6) 25 mg 25 mg PO TID #90 tabs 10/06/21 tablet prochlorperazine maleate 5 mg 5 mg PO TID PRN nausea and 01/15/22 tablet (Compazine) vomiting #14 tabs Allergies Allergy/AdvReac Type Severity Reaction Status Date / Time penicillin V Allergy Unknown convulsion Verified 11/08/21 14:09 Penicillins AdvReac Mild SEIZURES Unverified 11/08/21 14:09 A CHILD Review of Systems Review of Systems: Constitutional : No Weight loss, No Fever, No Chills, No Night Sweats, complaining of fatigue, generalized malaise ENT/Mouth : No Hearing loss, No Ear Pain, No Nasal Congestion, No Sinus Pain, No Hoarseness, No sore throat, No Rhinorrhea, No Swallowing Difficulty Eyes: No Eye Pain, No Swelling, No Redness, No Foreign Body, No Discharge, No Vision Changes Cardiovascular : No Chest Pain, No SOB, No Dyspnea on Exertion, No Orthopnea, No Edema, No Palpitations Respiratory : No Cough, No Sputum, No Wheezing, No Smoke Exposure, No Dyspnea Gastrointestinal : complaining of nausea and vomiting, No Diarrhea, No Constipation, No abdominal Pain, No Hematochezia, No Melena Genitourinary : no irregular bleeding, No Dysuria, No Urinary Frequency, No Hematuria, No Urinary Incontinence, No Urgency, No Flank Pain, No Urinary Flow Changes, No Hesitancy Musculoskeletal : No joint pain, No Myalgias, No Joint Swelling Skin : No Skin Lesions, No rash Neuro : No Weakness, No Numbness, No Paresthesias, No Loss of Consciousness, No Dizziness, No Headache Psych : No Anxiety/Panic, No Depression, No SI/HI/AH/VH, No Social Issues, Heme/Lymph: No Bruising, No Bleeding,No Lymphadenopathy Endocrine : No Polyuria, No Polydipsia, No Temperature Intolerance COUNT INCLUDES THE [facility] Past Medical History Medical History (Updated 01/14/22 @ 23:06 by Kalpana Franklin MD) Asthma COVID-19 Family History Family History (Updated 11/08/21 @ 15:14 by Ritika Ross LPN) Mother History of depression Diabetes Sister Sickle cell anemia Social History Social History (Updated 11/08/21 @ 15:15 by Ritika Ross LPN) Household Members: Spouse and Children Housing: Apartment Alcohol intake: never Patient Tobacco Use Status: Never used Tobacco Special ministerio needs: No Agree to transfusion: Yes Advance Directives: No Advance Directives Information Provided: No Gender identity: Female Physical Exam ED Vital Signs: Vital Signs - 24 hr 01/14/22 16:23 01/14/22 19:38 01/14/22 22:59 Temperature 99.4 F 98.0 F 98.9 F Pulse Rate 124 H 119 H 117 H Respiratory Rate 20 20 16 Blood Pressure 144/82 H 123/77 130/83 Pulse Oximetry 94 99 94 Oxygen Delivery Method Room Air Room Air Room Air 01/14/22 23:59 Temperature 98.6 F Pulse Rate 102 H Respiratory Rate 16 Blood Pressure 112/68 Pulse Oximetry 98 Oxygen Delivery Method Room Air BMI result Body Mass Index 38.9 Const Other: Appearance: Alert. Oriented X3. No acute distress. Eyes: Pupils equal, round and reactive to light. ENT: Pharynx normal. Neck: Normal inspection. Neck supple. No lymph nodes noted. No crepitus CVS: Normal heart rate and rhythm. Pulses normal. Normal S1 and S2 Respiratory: No respiratory distress. Breath sounds normal. No Wheezing. No rales Abdomen: Soft and nontender. No rigidity. No distention. Skin: Skin warm and dry. Normal skin color. Normal skin turgor. Extremities: No lower extremity edema. No Lacerations. No Rash Neuro: Oriented X 3. No motor deficit. No sensory deficit. Moving all extremities. No slurred speech. CN 2 through 12 grossly intact Psych: calm, cooperative, normal affect Course Course Course Narrative: I discussed with the patient that she will need IV fluids, Compazine. Then, patient will be referred to the monoclonal antibody clinic at [facility]. Patient agrees with plan. At this time, patient has no chest pain, no lower extremity pain, oxygen saturation 99% on room air with no desaturation. Pulmonary embolism not suspected. Patient is against her likely secondary to dehydration after IV fluids and Compazine, patient states that she feels much better. No longer having any pain, no nausea vomiting. I discussed with the patient that she would be a candidate for monoclonal antibody treatment since she is and has an elevated BMI. Referral has been sent to [facility], copy provided to the patient. Medical Decision Making Lab Data Result diagrams: 01/14/22 16:33 01/14/22 16:33 Labs: Lab Results 01/14/22 01/14/22 01/14/22 Range/Units 16:33 16:33 16:33 WBC 12.7 H (4.8-10.8) X10*3/uL RBC 3.52 L (4.20-5.50) X10*6/uL Hgb 11.1 L (12.0-16.0) g/dl Hct 32.3 L (37.0-47.0) % MCV 91.8 (80.0-98.0) fL MCH 31.5 (27.0-33.0) pg MCHC 34.4 (31.0-35.0) g/dl RDW 14.4 (11.0-16.0) % Plt Count 222 (160-400) X10*3/uL MPV 11.1 (9.4-12.3) fL Immature Gran % (Auto) 1.9 H (0.0-0.4) % Neut % (Auto) 76.3 H (45-73) % Lymph % (Auto) 14.3 L (20-40) % Edgar % (Auto) 6.6 (2-11) % Eos % (Auto) 0.5 (0-4) % Baso % (Auto) 0.4 (0-2) % Lymph # (Auto) 1.8 (1.2-4.9) X10*3/uL Edgar # (Auto) 0.8 (0.1-1.2) X10*3/uL Eos # (Auto) 0.1 (0.0-0.4) X10*3/uL Baso # (Auto) 0.1 (0.0-0.2) X10*3/uL Abs Immat Gran (auto) 0.24 H (0.00-0.03) X10*3/uL Absolute Neuts (auto) 9.7 H (2.0-8.3) x10*3/uL Absolute Nucleated RBC 0.000 (0.0-0.012) X10*3/uL Nucleated RBC % (auto) 0.0 (0.0-0.2) /100WBC Sodium 134 L (135-145) mmol/L Potassium 3.8 (3.3-5.1) mmol/L Chloride 104 (96-108) mmol/L Carbon Dioxide 20 L (22-29) mmol/L Anion Gap 14 (12-20) BUN 9 (9-16) mg/dL Creatinine 0.67 (0.5-1.4) mg/dL Estim Creat Clear Calc 133.2 Estimated GFR > 60 Random Glucose 79 (60-115) mg/dL Calcium 8.8 D (8.4-10.2) mg/dL Total Bilirubin 0.2 (0.0-1.0) mg/dL Direct Bilirubin < 0.2 (0.0-0.5) mg/dL AST 11 D (5-31) U/L ALT 11 (0-31) U/L Alkaline Phosphatase 57 D (39-117) U/L Total Protein 7.1 (6.5-8.0) g/dL Albumin 3.6 (3.5-5.0) g/dL Beta HCG, Quant 8047 mIU/mL COVID-19 (ABDOUL) Positive A (Negative) COVID-19 Clin Com See Note Scores Wells PE Heart rate > 100 p/min: 1.5 Score: 1.5 2-tier Risk: unlikely risk (5%) 3-tier Risk: low risk (3.4%) Discharge Plan Discharge Clinical Impression: Nausea & vomiting, COVID-19 affecting in second trimester Patient Disposition: Home, Self-Care Instructions: Nausea and Vomiting in (ED), COVID-19 (Coronavirus Disease 2019) (ED) Additional Instructions: Please follow-up with your primary care physician tomorrow. If you have any worsening or new symptoms, please return to the emergency room or call 911 Prescriptions: New prochlorperazine maleate [Compazine] 5 mg tablet 5 mg PO TID PRN (Reason: nausea and vomiting) Qty: 14 0RF No Action pyridoxine (vitamin B6) 25 mg tablet 25 mg PO TID Qty: 90 2RF Unisom (doxylamine) 25 mg tablet 25 mg PO BEDTIME PRN (Reason: sleep) Qty: 30 2RF Vitamin Plus Low Iron 27 mg iron- 1 mg tablet 1 tab PO DAILY Qty: 90 6RF
[2022-01-14 22:59] VITALS: BP 130/83; PULSE 117; RESP 16; TEMP 37.2; O2SAT 94
[2022-01-14 23:09] LABS: Alanine Aminotransferase 11 U/L (0-31); Albumin Level 3.6 g/dL (3.5-5.0); Alkaline Phosphatase 57 U/L (39-117); Aspartate Amino Transferase 11 U/L (5-31); Bilirubin Direct < 0.2 mg/dL (0.0-0.5); Bilirubin Total 0.2 mg/dL (0.0-1.0); Total Protein 7.1 g/dL (6.5-8.0)
[2022-01-14] MEDS: Prochlorperazine Edisylate 10 MG/2 ML VIAL IVPUSH (23:11)
[2022-01-14] MEDS: 0.9 % Sodium Chloride 1,000 ML 999 ML IVCONT (23:11)
[2022-01-14 23:15] LABS: HCG Quantitative 8047 mIU/mL
[2022-01-14 23:59] VITALS: BP 112/68; PULSE 102; RESP 16; TEMP 37; O2SAT 98
[2022-01-15 00:29] VITALS: BP 111/60; PULSE 100; RESP 16; TEMP 37.2; O2SAT 98
== END 2022-01-15 00:30 | disposition home or self-care (01) ==
PROVIDERS: Emergency Provider Emergency Medicine
DX: O98.512 Other viral diseases complicating pregnancy, second trimester (principal); U07.1 COVID-19; O21.8 Other vomiting complicating pregnancy; Z3A.21 21 weeks gestation of pregnancy
CPT/HCPCS: 36415; 80048; 80076; 84702; 85025; 87635; 93005; 96361; 96374; 99284; 99285

== ENCOUNTER 2023-01-11 14:49 | Emergency (ER) | payer MEDICAID, SELFPAY ==
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
[2023-01-11 15:19] VITALS: BP 111/75; PULSE 92; RESP 18; TEMP 36.9; O2SAT 100; BMI 35.4
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
--- OUTSIDE RECORDS SUMMARY | 2023-01-11 17:08 | XMS_ITS | Continuity of Care Document ---
Author Name Unknown Organization [facility] Address [address] [place] [id number]- Care Team Providers Care Police Stenographer Name Role Phone Jason Vitale MD, Pearl Petersen Primary Care Physici an Encounter [facility] Date(s): 05/26/22 - 08/09/[address] [address]- Attending Physician: Tiana Redmond CNM Admitting Physician: Tiana Redmond CNM Allergies, Adverse Reactions, Alerts Substance Reaction Severity Status penicillin Active Immunizations Given and Recorded Vaccine Date Status Refusal Reason tetanus/diphtheria/pertussis, acel(Tdap) 03/09/22 Given tetanus/diphtheria/pertussis, acel(Tdap) 02/13/17 Given tetanus/diphtheria/pertussis, acel(Tdap) 1 01/04/16 Given influenza virus vaccine, inactivated 03/09/22 Give n tetanus-diphtheria toxoids (Td) 01/22/17 Given 1Admin Note: VIS on TDAP given to patient in lao. Medications Nancy 0.35 mg oral tablet 1 tablet = 0.35 mg, By Mouth, Daily, # 84 tablet, 0 Refills, Maintenance, 05/28/22 7:28:00 EST, Tablet, [facility]/pharmacy #[id number], Partial fill upon patient request if the prescription is for a schedule II opioid drug., 160, cm, 05/28/22 0:09:00 EST, Height,... Start Date: 05/28/22 Status: Ordered ProAir HFA 2 puffs, Inhalation, Every 6 hours, PRN Wheezing/Shortness of Breath, 0 Refills, Maintenance, 05/25/22 14:50:00 EST, Partial fill upon patient request if the prescription is for a schedule II opioid drug. Start Date: 05/25/22 Status: Ordered Problem List Condition Confirmation Course Effective Dates Status Health St [facility] Informant Asthma Confirmed Active tubal ligation planned Confirmed Active Upper Sorbian speaking patient Confirmed Active Obese class II Confirmed Active Obesity Confirmed Active Hernia, umbilical Confirmed Active Social History Social History Type Response Smoking Status Never (less than 100 in lifetime) entered on: 06/02/22 Sex Patient Care team information Care Team Personnel Name: Pearl Chahal MD Position: [facility] Outreach Member Role: PCP Address: Address: [address] [place] [address]- Name: Vladimir Del Valle DO Position: [facility] SEO MANAGER MD Member Role: Lifetime SEO MANAGER Physician Address: Address: [address] [place], [place] [address] [facility] Supervisor [employer] [place] [place] [address]- Name: Michelle Anne RN Position: [facility] OB RN Member Role: Primary Care Nurse Care Team Related Persons Name: WALDO FORD Name: ROSCOE MENDEZ Address: [id number] Address: [address] [place] [address] [place] Name: MERARI DUNHAM Address: [address] [place] [address] Name: SAMARIA CHIANG Address: home [address] [place] [id number]
--- OUTSIDE RECORDS SUMMARY | 2023-01-11 17:08 | XMS_ITS | Continuity of Care Document ---
Author Name Unknown Organization [facility] Address [address] [place] [id number]- Care Team Providers Care Ocean Fishing Guide Name Role Phone Jason Vitale MD, Pearl Petersen Primary Care Physici an Encounter [facility] Date(s): 01/13/22 - 02/12/[address] [address]- Allergies, Adverse Reactions, Alerts Substance Reaction Severity Status penicillin Active Immunizations Given and Recorded Vaccine Date Status Refusal Reason tetanus/diphtheria/pertussis, acel(Tdap) 02/13/17 Given tetanus/diphtheria/pertussis, acel(Tdap) 1 01/04/16 Given tetanus-diphtheria toxoids (Td) 01/22/17 Given 1Admin Note: VIS on TDAP given to patient in kyrgyz. Medications aspirin 81 mg oral delayed release tablet 2 tablet = 162 mg, By Mouth, Daily, At bedtime, # 90 tablet, 0 Refills, Maintenance, 12/29/21 15:39:00 EDT, CR Tablet, [facility], Partial fill upon patient request if the prescription is for a schedule II opioid drug., 160, cm, 08... Start Date: 12/29/21 Status: Ordered famotidine 10 mg oral tablet 1 tablet = 10 mg, By Mouth, 2 times a day, # 60 tablet, 0 Refills, Maintenance, 02/10/22 11:34:00 EDT, Tablet, [facility], Partial fill upon patient request if the prescription isfor a schedule II opioid drug., 160, cm, 12/27/21 1... Start Date: 02/10/22 Status: Ordered Multivitamins with Folic Acid 1 mg oral tablet 1 tablet, By Mouth, Daily, # 90 tablet, 2 Refills, Maintenance, 11/24/21 18:18:00 EDT, Tablet, [facility], Partial fill upon patient request if the prescription is for a schedule II opioid drug., 1 tablet By Mouth Daily, 160, cm, 0... Start Date: 11/24/21 Status: Ordered promethazine 12.5 mg rectal suppository 1 supp = 12.5 mg, Rectally, Every 4 hours, PRN for nausea/vomiting, # 12 supp, 0 Refills, Maintenance, 01/24/22 23:52:00 EDT, Suppository, [facility], Partial fill upon patient request if the prescription is for a schedule II opioi... Start Date: 01/24/22 Status: Ordered Problem List Condition Confirmation Course Effective Dates Status Health St at[facility] Informant Asthma Confirmed Active GDM, class A1 Confirmed Active tubal ligation planned Confirmed Active Stateless speaking patient Confirmed Active Obese class II Confirmed Active Obesity Confirmed Active Hernia, umbilical Confirmed Active Social History Social History Type Response Smoking Status Former smoker, quit more than 30 days ago entered on: 11/22/21 Sex Patient Care team information Personnel Name: Jason Vitale MD, Pearl Petersen Address: Address: [address] [place] [address] [address] [place], [place] [address]
--- OUTSIDE RECORDS SUMMARY | 2023-01-11 17:08 | XMS_ITS | Continuity of Care Document ---
Author Name Unknown Organization [facility] Address [address] [place] [id number]- Care Team Providers Care Design Engineer Products Name Role Phone Jason Vitale MD, Pearl Petersen Primary Care Physici an [id number] Date(s): 12/27/21 - 03/25/[address] [address]- Attending Physician: Aury Retana CNM Admitting Physician: Aury Retana CNM Allergies, Adverse Reactions, Alerts Substance Reaction Severity Status penicillin Active Immunizations Given and Recorded Vaccine Date Status Refusal Reason tetanus/diphtheria/pertussis, acel(Tdap) 03/09/22 Given tetanus/diphtheria/pertussis, acel(Tdap) 02/13/17 Given tetanus/diphtheria/pertussis, acel(Tdap) 1 01/04/16 Given influenza virus vaccine, inactivated 03/09/22 Give n tetanus-diphtheria toxoids (Td) 01/22/17 Given 1Admin Note: VIS on TDAP given to patient in palauan. Medications aspirin 81 mg oral delayed release tablet 2 tablet = 162 mg, By Mouth, Daily, At bedtime, # 90 tablet, 0 Refills, Maintenance, 12/29/21 15:39:00 EDT, CR Tablet, [facility], Partial fill upon patient request if the prescription is for a schedule II opioid drug., 160, cm, 08... Start Date: 12/29/21 Status: Ordered famotidine 10 mg oral tablet 1 tablet = 10 mg, By Mouth, 2 times a day, # 60 tablet, 0 Refills, Maintenance, 02/10/22 11:34:00 EDT, Tablet, [facility], Partial fill upon patient request if the prescription isfor a schedule II opioid drug., 160, cm, 12/27/21 1... Start Date: 02/10/22 Status: Ordered famotidine 10 mg oral tablet 1 tablet = 10 mg, By Mouth, 2 times a day, # 60 tablet, 4 Refills, Maintenance, 03/09/22 13:53:00 EDT, Tablet, [facility], Partial fill upon patient request if the prescription isfor a schedule II opioid drug., 160, cm, 03/09/22 1... Start Date: 03/09/22 Status: Ordered Multivitamins with Folic Acid 1 mg oral tablet 1 tablet, By Mouth, Daily, # 90 tablet, 2 Refills, Maintenance, 11/24/21 18:18:00 EDT, Tablet, [facility], Partial fill upon patient request if the prescription is for a schedule II opioid drug., 1 tablet By Mouth Daily, 160, cm, 0... Start Date: 11/24/21 Status: Ordered promethazine 12.5 mg rectal suppository 1 supp = 12.5 mg, Rectally, Every 4 hours, PRN for nausea/vomiting, # 12 supp, 0 Refills, Maintenance, 01/24/22 23:52:00 EDT, Suppository, [facility], Partial fill upon patient request if the prescription is for a schedule II opioi... Start Date: 01/24/22 Status: Ordered Problem List Condition Confirmation Course Effective Dates Status Health St at[facility] Informant Asthma Confirmed Active GDM, class A1 Confirmed Active tubal ligation planned Confirmed Active Iranian speaking patient Confirmed Active Obese class II Confirmed Active Obesity Confirmed Active Hernia, umbilical Confirmed Active Social History Social History Type Response Smoking Status Former smoker, quit more than 30 days ago entered on: 11/22/21 Sex Patient Care team information Care Team Personnel Name: Pearl Chahal MD Position: [facility] Outreach Member Role: PCP Address: Address: [address] [place] [address] [address] [place] [address]- Name: Vladimir Del Valle DO Position: [facility] FAMILY MEDICINE RESIDENT MD Member Role: Lifetime FAMILY MEDICINE RESIDENT Physician Address: Address: [address] [place], [place] [address] [facility] Director Of Pupil Personnel Program [place] [address]- [place] Name: Dayana ISAACS, Michelle Position: S OB RN Member Role: Primary Care Nurse Care Team Related Persons Name: WALDO FORD Name: SAMARIA CHIANG Address: home [address] [place] [id number]
--- OUTSIDE RECORDS SUMMARY | 2023-01-11 17:08 | XMS_ITS | Continuity of Care Document ---
Author Name Unknown Organization [facility] Address [address] [place] [address]- Care Team Providers Care Assurance Analyst Name Role Phone Jason Vitale MD, Pearl Petersen Primary Care Physici an Encounter [facility] [place] Date(s): 04/05/21 - 05/12/[address] [address]- Attending Physician: Not on Staff, Attending MD Allergies, Adverse Reactions, Alerts Substance Reaction Severity Status penicillin Active Immunizations Given and Recorded Vaccine Date Status Refusal Reason tetanus/diphtheria/pertussis, acel(Tdap) 02/13/17 Given tetanus/diphtheria/pertussis, acel(Tdap) 1 01/04/16 Given tetanus-diphtheria toxoids (Td) 01/22/17 Given 1Admin Note: VIS on TDAP given to patient in serbian. Medications doxylamine 25 mg oral tablet See Instructions, one half tablet 2 x day, # 8 tablet, 0 Refills, Maintenance, 10/18/16 15:41:44 Start Date: 10/18/16 Status: Ordered ethinyl estradiol-norelgestromin 35 mcg-150 mcg/24 hr transdermal film, extended release 1 patch, Topically, Every week, apply a new patch weekly for 3 weeks, remove for 1 week, then repeat cycle, # 3 each, 11 Refills, Maintenance, 12/19/19 11:42:00 EDT, [facility], 1patch Topically Every week,Instr:apply a new patch... Start Date: 12/19/19 Status: Ordered ibuprofen 600 mg oral tablet 600 mg, 1, tablet, By Mouth, 4 times a day, PRN, # 40 tablet, Refills 1, Tot. Refills 1, Maintenance, Pain , Mild, 04/05/21 10:12:00 EST, Route to Pharmacy Electronically, [facility], Partial fill upon patient request if the prescr... Start Date: 04/05/21 Status: Ordered miSOPROStol 200 mcg oral tablet See Instructions, Place 4 tablets in your vagina and then place another 4 tablets in your vagina four hours later., # 8 tablet, 0 Refills, Soft Stop, 04/05/21 10:16:00 EST, Tablet, [facility], Partial fill upon patient request if t... Start Date: 04/05/21 Status: Ordered Multivitamins with Folic Acid 1 mg oral tablet 1 tablet, By Mouth, Daily, # 90 tablet, 3 Refills, Maintenance, 03/08/21 13:32:00 EDT, Tablet, [facility], Partial fill upon patient request if the prescription is for a schedule II opioid drug., 1 tablet By Mouth Daily, 160, cm, 0... Start Date: 03/08/21 Status: Ordered promethazine 12.5 mg oral tablet 1 tablet = 12.5 mg, By Mouth, Every 4 hours, PRN for nausea/vomiting, # 10 tablet, 0 Refills, Maintenance, 04/05/21 10:13:00 EST, Tablet, [facility], Partial fill upon patient request if the prescription is for a schedule II opioid... Start Date: 04/05/21 Status: Ordered Problem List Condition Effective Dates Status Health Status Inform ant Asthma(Confirmed) Active GDM, class A1(Confirmed) Active tubal ligation planned(Confirmed) Active Armenian speaking patient(Confirmed) Active Obese class II(Confirmed) Active Obesity(Confirmed) Active Hernia, umbilical(Confirmed) Active Social History Social History Type Response Smoking Status Current every day sm oker; Tobacco user in household: Yes entered on: 08/15/16 Sex
--- OUTSIDE RECORDS SUMMARY | 2023-01-11 17:08 | XMS_ITS | Continuity of Care Document ---
Author Name Unknown Organization [facility] Address [address], [address] [place] [address]- Care Team Providers Care Case Sealer Name Role Phone Jason Vitale MD, Pearl Petersen Primary Care Physici an [id number] Date(s): 01/10/22 - 02/09/22 [facility] [address], [address]th [place] [address]- Allergies, Adverse Reactions, Alerts Substance Reaction Severity Status penicillin Active Immunizations Given and Recorded Vaccine Date Status Refusal Reason tetanus/diphtheria/pertussis, acel(Tdap) 02/13/17 Given tetanus/diphtheria/pertussis, acel(Tdap) 1 01/04/16 Given tetanus-diphtheria toxoids (Td) 01/22/17 Given 1Admin Note: VIS on TDAP given to patient in icelandic. Medications aspirin 81 mg oral delayed release tablet 2 tablet = 162 mg, By Mouth, Daily, At bedtime, # 90 tablet, 0 Refills, Maintenance, 12/29/21 15:39:00 EDT, CR Tablet, [facility], Partial fill upon patient request if the prescription is for a schedule II opioid drug., 160, cm, 08... Start Date: 12/29/21 Status: Ordered Multivitamins with Folic Acid 1 mg oral tablet 1 tablet, By Mouth, Daily, # 90 tablet, 2 Refills, Maintenance, 11/24/21 18:18:00 EDT, Tablet, [facility], Partial fill upon patient request if the prescription is for a schedule II opioid drug., 1 tablet By Mouth Daily, 160, cm, 0... Start Date: 11/24/21 Status: Ordered promethazine 12.5 mg rectal suppository 1 supp = 12.5 mg, Rectally, Every 4 hours, PRN for nausea/vomiting, # 12 supp, 0 Refills, Maintenance, 01/24/22 23:52:00 EDT, Suppository, [facility], Partial fill upon patient request if the prescription is for a schedule II opioi... Start Date: 01/24/22 Status: Ordered Problem List Condition Confirmation Course Effective Dates Status Health [facility] Informant Asthma Confirmed Active GDM, class A1 Confirmed Active tubal ligation planned Confirmed Active Cambodian speaking patient Confirmed Active Obese class II Confirmed Active Obesity Confirmed Active Hernia, umbilical Confirmed Active Social History Social History Type Response Smoking Status Former smoker, quit more than 30 days ago entered on: 11/22/21 Sex Patient Care team information Personnel Name: Jason Vitale MD, Pearl Petersen Address: Address: [address] [place] [address] [address] [place], [place] [address]
--- OUTSIDE RECORDS SUMMARY | 2023-01-11 17:08 | XMS_ITS | Continuity of Care Document ---
Author Name Unknown Organization [facility] Address [address] [place] [address]- Care Team Providers Care Valve Technician Name Role Phone Jason Vitale MD, Pearl Petersen Primary Care Physici an Encounter [facility] [place] Date(s): 03/09/22 - 06/24/[address] [address] Attending Physician: Not on Staff, Attending MD Allergies, Adverse Reactions, Alerts Substance Reaction Severity Status penicillin Active Immunizations Given and Recorded Vaccine Date Status Refusal Reason tetanus/diphtheria/pertussis, acel(Tdap) 03/09/22 Given tetanus/diphtheria/pertussis, acel(Tdap) 02/13/17 Given tetanus/diphtheria/pertussis, acel(Tdap) 1 01/04/16 Given influenza virus vaccine, inactivated 03/09/22 Give n tetanus-diphtheria toxoids (Td) 01/22/17 Given 1Admin Note: VIS on TDAP given to patient in cambodian. Medications docusate sodium 100 mg oral capsule 1 capsule = 100 mg, By Mouth, 2 times a day, # 60 capsule, 0 Refills, Maintenance, 05/28/22 7:20:00EST, Capsule, [id number], Partial fill upon patient request if the prescription is for a schedule II opioid drug., 160, cm, 05/28/22 0:09:00 ES... Start Date: 05/28/22 Status: Ordered Nancy 0.35 mg oral tablet 1 tablet = 0.35 mg, By Mouth, Daily, # 84 tablet, 0 Refills, Maintenance, 05/28/22 7:28:00 EST, Tablet, [id number], Partial fill upon patient request if the prescription is for a schedule II opioid drug., 160, cm, 05/28/22 0:09:00 EST, Height,... Start Date: 05/28/22 Status: Ordered famotidine 20 mg oral tablet 20 mg, 1, tablet, By Mouth, 2 times a day, # 60 tablet, Refills 0, Tot. Refills 0, Maintenance, 04/06/22 12:22:00 EST, Route to Pharmacy Electronically, [facility], Partial fill upon patient request if the prescription is for a lindsey... Start Date: 04/06/22 Status: Ordered MiraLax oral powder for reconstitution = 17 Gm, By Mouth, Daily, dissolve in water before taking, # 527 Gm, 0 Refills, Maintenance, 06/02/22 6:47:00 EST, REC Powder, [facility], Partial fill upon patient request if theprescription is for a schedule II opioid drug., 17... Start Date: 06/02/22 Status: Ordered ProAir HFA 2 puffs, Inhalation, [...] Confirmed Active tubal ligation planned Confirmed Active [place] speaking patient Confirmed Active Obesity Confirmed Active Severe obesity Confirmed Active Hernia, umbilical Confirmed Active Social History Social History Type Response Smoking Status Never (less than 100 in lifetime) entered on: 06/02/22 Sex Patient Care team information Care Team Personnel Name: Pearl Chahal MD Position: [facility] Outreach Member Role: PCP Address: Address: [address] [place] [address] [address] [place] [address]- [place] Name: Vladimir Del Valle DO Position: [facility] BEAN WEIGHER Member Role: Lifetime BEAN WEIGHER Physician Address: Address: [address] [place] [address] [place] [address]- [place] Name: Dayana ISAACS, Michelle Position: [facility] OB RN Member Role: Primary Care Nurse Care Team Related Persons Name: WALDO FORD Name: ROSCOE MENDEZ Address: [address] Address: [address] [place] [address] Name: MERARI DUNHAM Address: [address] [place] [address] Name: SAMARIA CHIANG Address: home [address] [place] [id number]
--- OUTSIDE RECORDS SUMMARY | 2023-01-11 17:08 | XMS_ITS | Continuity of Care Document ---
Author Name Unknown Organization [facility] Address [address] [place] [address]- Care Team Providers Care Optometry Professor Name Role Phone Jason Vitale MD, Pearl Petersen Primary Care Physici an Encounter [facility] [place] Date(s): 12/19/19 - 01/18/20 [facility] [address] [address]- [facility] Attending Physician: Admamadou, Glynn Admitting Physician: AdmtrGlynn Referring Physician: Admtr, ArCamden Allergies, Adverse Reactions, Alerts Substance Reaction Severity Status penicillin Active Immunizations Given and Recorded Vaccine Date Status Refusal Reason tetanus/diphtheria/pertussis, acel(Tdap) 02/13/17 Given tetanus/diphtheria/pertussis, acel(Tdap) 1 01/04/16 Given tetanus-diphtheria toxoids (Td) 01/22/17 Given 1Admin Note: VIS on TDAP given to patient in tamazight. Medications doxylamine 25 mg oral tablet See [...] each, 11 Refills, Maintenance, 12/19/19 11:42:00 EDT, [facility], 1patch Topically Every week,Instr:apply a new patch... Start Date: 12/19/19 Status: Ordered Problem List Condition Effective Dates Status Health Status Inform ant Asthma(Confirmed) Active GDM, class A1(Confirmed) Active tubal ligation planned(Confirmed) Active Sudanese speaking patient(Confirmed) Active Obesity(Confirmed) Active Hernia, umbilical(Confirmed) Active Vital Signs Most recent to oldest [Reference Range]: 1 Height 157.20 cm (09/28/15 10:45 AM) Social History Social History Type Response Smoking Status Current every day mark allen; Tobacco user in household: Yes entered on: 08/15/16 Sex
--- OUTSIDE RECORDS SUMMARY | 2023-01-11 17:08 | XMS_ITS | Continuity of Care Document ---
Author Name Unknown Organization [facility] Address [address] [place] [address]- Care Team Providers Care Quality Assurance Supervisor Chassis Name Role Phone Jason Vitale MD, Pearl Petersen Primary Care Physici an [place] [facility] [place] [id number] Date(s): 01/07/22 - 02/12/[address] [address]- Attending Physician: Frank Pacheco MD Admitting Physician: Frank Pacheco MD Referring Physician: Annalee Haywood DO Allergies, Adverse Reactions, Alerts Substance Reaction Severity Status penicillin Active Immunizations Given and Recorded Vaccine Date Status Refusal Reason tetanus/diphtheria/pertussis, acel(Tdap) 02/13/17 Given tetanus/diphtheria/pertussis, acel(Tdap) 1 01/04/16 Given tetanus-diphtheria toxoids (Td) 01/22/17 Given 1Admin Note: VIS on TDAP given to patient in syrian. Medications aspirin 81 mg oral delayed release tablet 2 tablet = 162 mg, By Mouth, Daily, At bedtime, # 90 tablet, 0 Refills, Maintenance, 12/29/21 15:39:00 EDT, CR Tablet, [facility], Partial fill upon patient request if the prescription is for a schedule II opioid drug., 160, cm, 08... Start Date: 12/29/21 Status: Ordered famotidine 10 mg oral tablet 1 tablet = 10 mg, By Mouth, 2 times a day, # 60 tablet, 0 Refills, Maintenance, 02/10/22 11:34:00 EDT, Tablet, [facility], Partial fill upon patient request if the prescription isfor a schedule II opioid drug., 160, cm, 12/27/21 1... Start Date: 02/10/22 Status: Ordered Multivitamins with Folic Acid 1 mg oral tablet 1 tablet, By Mouth, Daily, # 90 tablet, 2 Refills, Maintenance, 11/24/21 18:18:00 EDT, Tablet, [facility], Partial fill upon patient request if the prescription is for a schedule II opioid drug., 1 tablet By Mouth Daily, 160, cm, 0... Start Date: 11/24/21 Status: Ordered promethazine 12.5 mg rectal suppository 1 supp = 12.5 mg, Rectally, Every 4 hours, PRN for nausea/vomiting, # 12 supp, 0 Refills, Maintenance, 01/24/22 23:52:00 EDT, Suppository, [facility], Partial fill upon patient request if the prescription is for a schedule II opioi... Start Date: 01/24/22 Status: Ordered Problem List Condition Confirmation Course Effective Dates Status Health [facility] Informant Asthma Confirmed Active GDM, class A1 Confirmed Active tubal ligation planned Confirmed Active Lao speaking patient Confirmed Active Obese class II Confirmed Active Obesity Confirmed Active Hernia, umbilical Confirmed Active Social History Social History Type Response Smoking Status Former smoker, quit more than 30 days ago entered on: 11/22/21 Sex Patient Care team information Personnel Name: Jason Vitale MD, Pearl Petersen Address: Address: [address] [place] [address] [address] [place] [id number]
--- OUTSIDE RECORDS SUMMARY | 2023-01-11 17:08 | XMS_ITS | Continuity of Care Document ---
Author Name Unknown Organization [facility] Address [address] [place] [address]- Care Team Providers Care Rail Switchman Name Role Phone aJson Vitale MD, Pearl Petersen Primary Care Physici an [place] [facility] [place]18[place] - 11/17/[address] [address] Attending Physician: Glynn Sosa Admitting Physician: Glynn Sosa Referring Physician: AdmtrGlynn Allergies, Adverse Reactions, Alerts Substance Reaction Severity Status penicillin Active Immunizations Given and Recorded Vaccine Date Status Refusal Reason tetanus/diphtheria/pertussis, acel(Tdap) 03/09/22 Given tetanus/diphtheria/pertussis, acel(Tdap) 02/13/17 Given tetanus/diphtheria/pertussis, acel(Tdap) 1 01/04/16 Given influenza virus vaccine, inactivated 03/09/22 Give n tetanus-diphtheria toxoids (Td) 01/22/17 Given 1Admin Note: VIS on TDAP given to patient in german. Medications Liletta 52 mg intrauterine device 1 each = 52 mg, Once, Inserted 10/16/22, 0 Refills, Maintenance, 10/16/22 13:37:00 EDT, Partial fillupon patient request if the prescription is for a schedule II opioid drug. Start Date: 10/16/22 Status: Ordered Problem List Condition Confirmation Course Effective Dates Status Health [facility] Informant Asthma Confirmed Active Croatian speaking patient Confirmed Active Obese class II Confirmed Active Hernia, umbilical Confirmed Active Vital Signs Most recent to oldest [Reference Range]: 1 Height 157.20 cm (09/28/15 10:45 AM) Social History Social History Type Response Smoking Status Never (less than 100 in lifetime) entered on: 06/02/22 Sex Patient Care team information Care Team Personnel Name: Pearl Chahal MD Position: [facility] Outreach Member Role: PCP Address: Address: [address] [place] [address]- Name: Vladimir Del Valle DO Position: [facility] MINE WIRER MD Member Role: Lifetime MINE WIRER Physician Address: Address: [address] [place] [address] [place] [address]- [place] Name: Michelle Anne RN Position: [facility] OB RN Member Role: Primary Care Nurse Care Team Related Persons Name: WALDO FORD Name: ROSCOE MENDEZ Address: [address] Address: [address] [place] [address] Name: MERARI DUNHAM Address: [address] [place] [address] Name: SAMARIA CHIANG Address: home [address] [place] [address]
--- OUTSIDE RECORDS SUMMARY | 2023-01-11 17:08 | XMS_ITS | Continuity of Care Document ---
Author Name Unknown Organization [facility] Address [address] [place] [address]- Care Team Providers Care Professor Of Geography Name Role Phone Jason Vitale MD, Pearl Petersen Primary Care Physici an [place] [facility] [place]/29[place] - 01/28/[address] [address]- Allergies, Adverse Reactions, Alerts Substance Reaction Severity Status penicillin Active Immunizations Given and Recorded Vaccine Date Status Refusal Reason tetanus/diphtheria/pertussis, acel(Tdap) 02/13/17 Given tetanus/diphtheria/pertussis, acel(Tdap) 1 01/04/16 Given tetanus-diphtheria toxoids (Td) 01/22/17 Given 1Admin Note: VIS on TDAP given to patient in azeri. Medications aspirin 81 mg oral delayed release tablet 2 tablet = 162 mg, By Mouth, Daily, At bedtime, # 90 tablet, 0 Refills, Maintenance, 12/29/21 15:39:00 EDT, CR Tablet, [facility], Partial fill upon patient request if the prescription is for a schedule II opioid drug., 160, cm, 08... Start Date: 12/29/21 Status: Ordered Multivitamins with Folic Acid 1 mg oral tablet 1 tablet, By Mouth, Daily, # 90 tablet, 2 Refills, Maintenance, 11/24/21 18:18:00 EDT, Tablet, [facility], Partial fill upon patient request if the prescription is for a schedule II opioid drug., 1 tablet By Mouth Daily, 160, cm, 0... Start Date: 11/24/21 Status: Ordered promethazine 12.5 mg rectal suppository 1 supp = 12.5 mg, Rectally, Every 4 hours, PRN for nausea/vomiting, # 12 supp, 0 Refills, Maintenance, 01/24/22 23:52:00 EDT, Suppository, [facility], Partial fill upon patient request if the prescription is for a schedule II opioi... Start Date: 01/24/22 Status: Ordered Problem List Condition Effective Dates Status Health Status Inform ant Asthma(Confirmed) Active GDM, class A1(Confirmed) Active tubal ligation planned(Confirmed) Active Tajik speaking patient(Confirmed) Active Obese class II(Confirmed) Active Obesity(Confirmed) Active Hernia, umbilical(Confirmed) Active Social History Social History Type Response Smoking Status Former smoker, quit more than 30 days ago entered on: 11/22/21 Sex Care Team Personnel Name: Jason Vitale MD, Pearl Petersen Address: [address] [place] [address] [address] [place] [id number]
--- OUTSIDE RECORDS SUMMARY | 2023-01-11 17:08 | XMS_ITS | Continuity of Care Document ---
Author Name Unknown Organization [facility] ter Address [address] [place] [id number]- Care Team Providers Care Education Faculty Member Name Role Phone Jason Vitale MD, Pearl Petersen Primary Care Physici an [place] [facility] [place]): [place] - 05/15/[address] [address]- Discharge Disposition: A-D/C Home Attending Physician: Venecia Frausto MD Admitting Physician: Venecia Frausto MD Referring Physician: Venecia Frausto MD Allergies, Adverse Reactions, Alerts Substance Reaction Severity Status penicillin Active Immunizations Given and Recorded Vaccine Date Status Refusal Reason tetanus/diphtheria/pertussis, acel(Tdap) 03/09/22 Given tetanus/diphtheria/pertussis, acel(Tdap) 02/13/17 Given tetanus/diphtheria/pertussis, acel(Tdap) 1 01/04/16 Given influenza virus vaccine, inactivated 03/09/22 Give n tetanus-diphtheria toxoids (Td) 01/22/17 Given 1Admin Note: VIS on TDAP given to patient in vincentian. Medications aspirin 81 mg oral delayed release tablet 2 tablet = 162 mg, By Mouth, Daily, At bedtime, # 90 tablet, 0 Refills, Maintenance, 12/29/21 15:39:00 EDT, CR Tablet, [facility], Partial fill upon patient request if the prescription is for a schedule II opioid drug., 160, cm, 08... Start Date: 12/29/21 Status: Ordered famotidine 20 mg oral tablet 20 mg, 1, tablet, By Mouth, 2 times a day, # 60 tablet, Refills 0, Tot. Refills 0, Maintenance, 04/06/22 12:22:00 EST, Route to Pharmacy Electronically, [facility], Partial fill upon patient request if the prescription is for a lindsey... Start Date: 04/06/22 Status: Ordered Multivitamins with Folic Acid 1 mg oral tablet 1 tablet, By Mouth, Daily, # 90 tablet, 2 Refills, Maintenance, 11/24/21 18:18:00 EDT, Tablet, [facility], Partial fill upon patient request if the prescription is for a schedule II opioid drug., 1 tablet By Mouth Daily, 160, cm, 0... Start Date: 11/24/21 Status: Ordered Sleep Aid (doxylamine) 25 mg tablet Sleep Aid (doxylamine) 25 mg tablet, 0.5, tablet, By Mouth, 3 times a day, PRN, # 45 each, 1 Refills, Maintenance, TAKE WITH vitamin b-6 TABLET, 04/28/22 10:54:00 EST, 160, cm, 04/06/22 11:25:00 EST,Height, 90.9, kg, 11/24/21 17:33:00 EDT, Dry Weight Start Date: 04/28/22 Status: Ordered Problem List Condition Confirmation Course Effective Dates Status Health St atus Informant Asthma Confirmed Active GDM, class A1 Confirmed Active tubal ligation planned Confirmed Active Burundian speaking patient Confirmed Active Obesity Confirmed Active Severe obesity Confirmed Active Hernia, umbilical Confirmed Active Vital Signs Most recent to oldest [Reference Range]: 1 Weight 105.2 kg (05/15/22 11:23 AM) Blood Pressure [90-138/55-84 mm Hg] 117/ 76mm Hg (05/15/22 11:45 AM) Respiratory Rate [16-30 br/min] 18 br/mi n (05/15/22 11:45 AM) Temperature [96.8-100.4 DegF] 97.9 DegF (05/15/22 11:23 AM) Mode of Delivery (Oxygen) Room air (05/15/22 11:45 AM) Blood pressure sites Arm, left (05/15/22 11:45 AM) Temperature Route Oral (05/15/22 11:23 AM) Dry Weight 105.2 kg (05/15/22 11:23 AM) Social History Social History Type Response Smoking Status Former smoker, quit more than 30 days ago entered on: 11/22/21 Sex Note * Allie Rivera: PERFORM Event Display: Discharge/Transfer Note Hospital Authored Date: [id number] Nursing Discharge Note Entered On: 05/15/2022 13:14 EST Performed On: 05/15/2022 13:13 EST by Allie Rivera Nursing Discharge Note 2 Discharge Time : 05/15/2022 13:09 EST Discharge Level of Care at Discharge : Home/Senior Care/Foster Care Patient Left Unit Via : Ambulatory Patient Accompanied Off Unit with : Other: Self DC Instructions Provided & Signed by Pt : Yes Patient Understands D/C Instructions : Yes Patient Instructions Discharge Signed : Yes Did Pt have Specialty Bed or Wound Vac : No Allie Rivera - 05/15/2022 13:13 EST * Allie Rivera: PERFORM Event Display: Patient Education/Instruction Authored Date: [id number] Inpatient Adult Discharge Instructions [address] [address] Name: CHENG CAMARA : 1985 Visit: 05/15/2022 10:26:00 Current Date: 05/15/2022 13:05 Account: [id number] Inpatient Adult Discharge Instructions We would like to thank you for allowing us to assist you with your healthcare needs. The following includes patient education materials and information regarding your injury/illness. Our entire staffstrives to provide an excellent experience for our patients and their families. PLEASE ENSURE YOU FOLLOW-UP PER THE INSTRUCTIONS BELOW! ?? YOUR OPINION IS IMPORTANT TO US! Please complete the survey you may receive by mail or email. Your feedback will be used to make improvements to the healthcare experiences of our patients and their families. Surveys are administered by [employer] ?? If further treatment with your primary care physician or another doctor is recommended, it is important for you to keep the appointment. Call your primary care physician or return to the Emergency Department immediately if your condition worsens, fails to improve, or new symptoms develop. If you need to find a doctor, you can call [facility] [employer] for a referral at [phone] or toll free at [phone] ([phone]) or log in to [email or web address].. ?? You can view and manage your care through the patient portal or by using a health care maida of your choosing. [employer] is a website that allows you to securely view your medical information including your hospital discharge summary, office visit summaries, medications and follow-up visits. You can also request appointments, renew medications, and request access to your medical information using a health care maida of your choosing, or just ask a question. You can enroll at [email or web address] or register during your next office visit. You have been discharged from [facility], Patient Care Unit: [id number]. If you have any questions regarding these instructions after you leave, please call us and we will be happy to assist you. [facility] Your Care Team Attending Physician Jett SHIELDS, Venecia Henderson Tests Performed Below is a partial list of the tests performed during your hospitalization. You may have had other tests and procedures not included in this list. Please discuss all test results with your provider. Primary Care Provider Jason Vitale MD, Pearl Petersen Advance Directive Health Care Proxy on File No Patient has a Designated Caregiver: No Discharge Vitals Temperature: 97.9 DegF Weight: 105.2 kg Respiratory Rate: 18 br/min ?? Systolic Blood Pressure: 117 mm Hg ?? Diastolic Blood Pressure: 76 mm Hg ?? Studies Pending All tests and labs ordered during this hospital stay have been completed unless listed below. Please discuss all pending results with your provider listed above in these instructions. ?? No incomplete studies found What to do next Instructions From Your Doctor Discharge Orders Scheduled Follow-Up Appointments Sunday 4:20 PM EST ?? With: Katie Ovalle DO Where: [facility] [address] [place] [address]- 2022 2:40 PM EST ?? With: Leeanna Gonsalez MD Where: [facility] [address] [place] [phone]- You Need to Schedule the Following Appointments Follow Up with??[facility] [phone] When?? Why: Please keep next scheduled appointment Where: Discharge Medications CHENG CAMARA :1985 Visit Date:05/15/2022 Medications: Please continue your medications until treatment is completed or stopped by your provider. Medications not listed below should be discontinued. Discuss any questions related to medications with your provider. What How Much When Instructions Next Dose Unchanged Aspirin (aspirin 81 mg oral delayed release tablet) 2 tab(s) Oral Daily At bedtime ?? Unchanged Famotidine (famotidine 20 mg oral tablet) 1 tab(s) Oral Twice a day Unchanged Miscellaneous Rx (Sleep Aid (doxylamine) 25 mg tablet) 0.5 tab(s) Oral 3 times a day as needed for NEEDED FOR NAUSEA AND VOMITING TAKE WITH vitamin b-6 TABLET ?? Unchanged Multivitamin, ( Multivitamins with Folic Acid 1 mg oral tablet) 1 tab(s) Oral Daily Test Results Below is a partial list of the most recent Laboratory test results done prior to this discharge. You may have had other tests and procedures not included in this list. Please discuss all test resultswith your provider. Allergies (NKA means No Known Allergies) penicillin Problems Active Problems??(11) Asthma?? Echogenic bowel of fetus on ultrasound?? GBS (group B streptococcus) UTI complicating ?? GDM, class A1?? Hernia, umbilical?? History of delivery, currently ?? Obesity?? tubal ligation planned? Severe obesity?? Burundian speaking patient?? Education Materials Below is the list of Educational Leaflet Providered with your Discharge Instructions. Labor and Childbirth: Active Labor?? How to Know You Are in Labor?? Recognizing Labor?? False Labor?? Kick Counts?? Valuables and Belongings I fully understand and agree that [facility] accepts no responsibility for all my personal property including clothing, toilet articles, radios, jewelry, dentures, hearing aids, rings, money, or any other property that is in my possession or is brought to me after admission. I understand certain valuables may be placed in a hospital safe for a short period of time. I understand that the hospital is not liable for loss or damage due to accident, fire, or other natural occurrence while said property is in the safe. I accept full responsibility for any personal property that I keep with me, and will not hold the hospital responsible in case of loss or disappearance. I acknowledge that i have been encouraged to send valuables and belongings home. ? Other Discharge Information ? Pulmonary Rehab Status?? Pulmonary Rehab Discharge Status?? Respiratory Rate: 18 br/min ? Common Emergency Awareness Tips IS IT A STROKE? Act FAST and Check for these signs: FACE Does the face look uneven? ARM Does one arm drift down? SPEECH Does their speech sound strange? TIME Call at any sign of stroke ?? Heart Attack Signs Chest discomfort: Most heart attacks involve discomfort in the center of the chest and lasts more than a few minutes, or goes away and comes back. It can feel like uncomfortable pressure, squeezing, fullness or pain. Discomfort in upper body: Symptoms can include pain or discomfort in one or both arms, back, neck, jaw or stomach. Shortness of breath: With or without discomfort. Other signs: Breaking out in a cold sweat, nausea, or lightheaded. Remember, MINUTES DO MATTER. If you experience any of these heart attack warning signs, call to get immediate medical attention! ?? Smoking can increase your chances of developing chronic health problems and can cause harmful effects to other family members in your house. If you smoke, you are strongly encouraged to quit. Please call [facility] [employer] at [phone] or [phone] [employer]rics ([phone]) or log in to [email or web address] for referrals to smoking cessation programs. ?? The National Suicide Prevention Hotline is available 27/11 if you or someone you know needs to find a reason to keep living. By calling 8-206-793-Design2Launch (4121) you'll be connected to a skilled, trained counselor at a crisis center in your area. INPATIENT DISCHARGE INSTRUCTIONS SIGNATURE PAGE CHENG CAMARA Location:[facility] Registration Date and Time:05/15/2022 10:26 [facility] Primary Care Physician: Jason Vitale MD, Pearl Petersen, Soni ELIZA CAMARAISA, have received the above patient education materials/instructions and have verbalized understanding. If ambulance or transport services are being used I further acknowledge being givena choice of service. ?? If you need to contact me, please call me at this number: . Patient/News Director Name: Patient/News Director Signature: Relationship to Patient: Witness Name/Signature: Date: * Allie Rivera: PERFORM Event Display: Patient Education Leaflets Authored Date: [id number] Labor and Childbirth: Active Labor ?? [address] El trabajo de parto y el parto: Trabajo de parto activo Ruth el trabajo de parto activo, las contracciones se hacen m??s silvino y m??s r??tmicas que enla etapa inicial. Alcanzan garcia punto de m??xima intensidad y luego disminuyen, delvis ondas. Pueden presentarse en intervalos de dos a dave minutos y johnson aproximadamente de 45 a 60 segundos. Esta etapa del trabajo de parto puede ser muy dif??cil. Arline suele ser m??s corta que la etapa inicial. Cuando alcanza la etapa del trabajo de parto activo, le jarrett??n ciertas pruebas para comprobar c??mo se encuentran usted y el beb??. Ruth el trabajo, el mateo uterino comienza a perder espesor y a dilatarse (abrirse). Evaluaci??n f??braxton suya y de garcia beb?? Un examen le dir?? c??mo est??n respondiendo usted y garcia beb?? a las contracciones. Le medir??n la presi??n arterial, la temperatura y el pulso. Tambi??n es posible que le tomen hawk muestra de orina. Se utilizar?? un monitor para vigilar la frecuencia card??tara de garcia beb??. En ciertos casos se utiliza hawk v??a IV (intravenosa) para administrarle l??quidos y medicamentos. ?? Evoluci??n del trabajo de parto Empezar?? a sentir las contracciones en todo el abdomen, en vez de sentirlas s??lo en la parte inferior (delvis en la etapa inicial). Si no se charles roto todav??a el saco amni??carmen, es probable que se rompa ahora. O shira, se lo romper??n. Para ayudar al beb?? a avanzar por el canal del parto, cambie deposici??n a menudo. Caminar o sentarse en hawk mecedora o un asiento reclinable puede proporcionar alivio. Es posible que le resulte dif??cil relajarse, a??n cuando est?? cansada. Tambi??n es posible que tenga menos ganas de??hablar que antes. Si le van a administrar anestesia, es posible que quierarecibirla en esta fase.? Problemas especiales ruth el trabajo de parto Si el trabajo de parto no progresa correctamente o surge alg??n problema, es posible que necesite hawk merlyn??david.??Arline samuel proveedores de atenci??n m??dica pueden priti alexa ciertas medidas para ayudar a evitar la merlyn??david: ??? Si el matoe uterino no se est?? dilatando, se puede usar un medicamento llamado oxitocina para estimular el trabajo de parto. ??? Si ruth el monitoreo se observa que el beb?? no est?? recibiendo suficiente ox??alicia, puede ser ??til que cambie la posici??n de garcia cuerpo. Tambi??n es posible que le den ox??alicia a usted a tali??s de hawk m??scara. ??? Si usted tiene preeclampsia??(un trastorno que causa hipertensi??n arterial, hinchaz??n y otros s??ntomas) es posible que le administren medicamentos por v??a intravenosa. Tambi??n es posible que le pidan que se acueste sobre el costado julieth. ?? C??mo responder a las contracciones Ruth las contracciones, trate de mantenerse relajada. Los m??sculos tensos consumen m??s ox??alicia, agotan la energ??a del cuerpo y aumentan el dolor. Utilice las t??cnicas de respiraci??n y relajaci??n que haya aprendido. Y explique a garcia persona que est?? a garcia lado, apoy??ndola, de qu?? forma puede ayudarla. Si charles tenido problemas en un parto anterior, conc??ntrese en el presente. Recuerde queno hay dos partos iguales. ?? Aviso para la persona de apoyo Usted puede ayudar de las siguientes maneras: ??? Pida a la madre que est?? dando a denisa que camine o cambie de posici??n al menos hawk vez por hora. [place] mejora la circulaci??n y ayuda a que el beb?? descienda. ??? Contin??e record??ndole que respire y se relaje ruth cada contracci??n. ??? Tranqui l??abdirizak. Intente evitar que se ponga ansiosa o se estrese demasiado. ??? Cu??dese usted tambi??n. Jakub hawk breve pausa para comer o vaya al ba??o cuando lo necesite. ??? Aproveche a descansar cuando la madre lo jakub; Ambos se beneficiar??n. ?? Last Reviewed Date: 2020 ?? 9317-5968 [employer]. Todos los derechos reservados. Esta informaci??n no pretende sustituir la atenci??n m??dica profesional. S??lo garcia m??dico puede diagnosticar y tratar un problema de rajendra. ?? * Tanner CNGASTON-Allie ISAACS: PERFORM Event Display: Patient Education Leaflets Authored Date: [id number] How to Know You Are in Labor ?? C??mo saber que est?? en trabajo de parto - Video La mayor??a de las mujeres entran en trabajo de parto hacia el final del embarazo. [place] generalmente ocurre alrededor de las 40 semanas de gestaci??n. To view the video go to this web address: [email or web address] Or, scan this QR code with your smart phone Last Reviewed Date: 2019 ?? 6891-9735 [employer]. All rights reserved. This information is not intended as a substitute for professional medical care. Always follow your healthcare professional's instructions. ?? * Tanner CNGASTON-Allie ISAACS: PERFORM Event Display: Patient Education Leaflets Authored Date: [id number] Recognizing Labor ?? [address] C??mo reconocer los s??ntomas del trabajo de parto El comienzo del trabajo de parto es el inicio del alumbramiento. Empezar?? a sentir contracciones silivno. Es decir, los m??sculos del ??tero se contraer??n para ayudar a empujar al beb?? hacia afuera ruth el parto. S??, es probable que haya empezado el trabajo de parto?? Signos del trabajo de parto: ??? Las contracciones son cada vez m??s silvino y m??s dolorosas, y nom??s d??zoraida. Jose Alfredo vez las sienta en todo el ??tero. ??? Las contracciones son regulares. [place] quiere decir que las siente m??s o menos cada 5??a??10??minutos. Y la frecuencia entre ellas es cada vezmenor. ??? Le sale de la vagina un l??quido prince o sanguinolento. ??? Siente que el beb?? charles desce ndido hacia la pelvis.? Se le rompe la radha. Puede ser hawk p??rdida repentina y abundante, olenta y mariposa de un l??quido johnnie de la vagina. ?? Probablemente no sea el trabajo de parto?? Signos de un falso trabajo de parto: ??? Las contracciones no son regulares ni silvino. ??? Siente las contracciones solo en la parte baja del ??tero. ??? Las contracciones desaparecen cuando camina o cambia de posici??n. ??? Las contracciones desaparecen despu??s de priti l??quidos. ?? Cu??ndo llamar a garcia proveedor de atenci??n m??dica Llame inmediatamente al proveedor de atenci??n m??dica o la cl??carrington si nota algo de lo siguiente: ??? Pierde l??quido de la vagina, con o sin contracciones. ??? Sangrado abundante delvis para necesitar hawk toalla sanitaria. ??? No siente que el beb?? se mueve tanto delvis antes. ?? Nota: Las contracciones se miden de dos maneras: ??? La duraci??n de cada contracci??n desde que empieza hasta que termina. ??? Cu??nto tiempo pasa entre hawk contracci??n y otra , es decir el tiempo entre el comienzo de hawk contracci??n y el comienzo de la siguiente. ?? Last Reviewed Date: 2019 ?? 5104-7733 [employer]. Todos los derechos reservados. Esta informaci??n no pretende sustituir la atenci??n m??dica profesional. S??lo garcia m??dico puede diagnosticar y tratar un problema de rajendra. ?? Patient Care team information Care Team Personnel Name: Pearl Chahal MD Position: [facility] Outreach Member Role: PCP Address: Address: [address] [place] [address] [address] [place] [address]- Name: Vladimir Del Valle DO Position: [facility] MATTRESS INSPECTOR MD Member Role: [employer] MATTRESS INSPECTOR Physician Address: Address: [address] [place], [place] [address]s Health Analytical Research Program Manager [place] [address]- Name: Dayana ISAACS, Michelle Position: [facility] OB RN Member Role: Primary Care Nurse Care Team Related Persons Name: WALDO FORD Name: MERARI DUNHAM Address: [address] [place] [address] Name: SAMARIA CHIANG Address: home [address] [place] [address]
--- OUTSIDE RECORDS SUMMARY | 2023-01-11 17:08 | XMS_ITS | Continuity of Care Document ---
Author Name Unknown Organization [facility] Address [address] [place] [address]- Care Team Providers Care Director Counseling Bureau Name Role Phone Pearl Chahal MD Primary Care Physici an [place] [facility] [place] 11[place]17/[place] [facility] [address] [address]- Attending Physician: Not on Staff, Attending MD Allergies, Adverse Reactions, Alerts Substance Reaction Severity Status penicillin Active Immunizations Given and Recorded Vaccine Date Status Refusal Reason tetanus/diphtheria/pertussis, acel(Tdap) 03/09/22 Given tetanus/diphtheria/pertussis, acel(Tdap) 02/13/17 Given tetanus/diphtheria/pertussis, acel(Tdap) 1 01/04/16 Given influenza virus vaccine, inactivated 03/09/22 Give n tetanus-diphtheria toxoids (Td) 01/22/17 Given 1Admin Note: VIS on TDAP given to patient in chilean. Medications Liletta 52 mg intrauterine device 1 each = 52 mg, Once, Inserted 10/16/22, 0 Refills, Maintenance, 10/16/22 13:37:00 EDT, Partial fillupon patient request if the prescription is for a schedule II opioid drug. Start Date: 10/16/22 Status: Ordered Problem List Condition Confirmation Course Effective Dates Status Health St [facility] Informant Asthma Confirmed Active Tunisian speaking patient Confirmed Active Obese class II Confirmed Active Hernia, umbilical Confirmed Active Social History Social History Type Response Smoking Status Never (less than 100 in lifetime) entered on: 06/02/22 Sex Patient Care team information Care Team Personnel Name: Pearl Chahal MD Position: [facility] Outreach Member Role: PCP Address: Address: [address] [address] [place] [address]- [place] Name: Vladimir Del Valle DO Position: [facility] SCIENTIFIC SOFTWARE DEVELOPER MD Member Role: [employer] SCIENTIFIC SOFTWARE DEVELOPER Physician Address: Address: [address] [facility] Gage Designer [place] [address]- [place] Name: Michelle Anne RN Position: [facility] OB RN Member Role: Primary Care Nurse Care Team Related Persons Name: WALDO FORD Name: ROSCOE MENDEZ Address: [address] Address: [address] [place] [address] [place] Name: MERARI DUNHAM Address: [address] [place] [address] Name: SAMARIA CHIANG Address: home [address] [place] [address]
--- OUTSIDE RECORDS SUMMARY | 2023-01-11 17:08 | XMS_ITS | Continuity of Care Document ---
Author Name Unknown Organization [facility] Address [address] [place] [address]- Care Team Providers Care Radio Equipment Installer Name Role Phone Jason Vitale MD, Pearl Petersen Primary Care Physici an Encounter [facility] [place] Date(s): 05/06/22 - 06/11/[address] [address]- Attending Physician: Frank Pacheco MD Admitting Physician: Frank Pacheco MD Referring Physician: Katie Ovalle DO Allergies, Adverse Reactions, Alerts Substance Reaction Severity Status penicillin Active Immunizations Given and Recorded Vaccine Date Status Refusal Reason tetanus/diphtheria/pertussis, acel(Tdap) 03/09/22 Given tetanus/diphtheria/pertussis, acel(Tdap) 02/13/17 Given tetanus/diphtheria/pertussis, acel(Tdap) 1 01/04/16 Given influenza virus vaccine, inactivated 03/09/22 Give n tetanus-diphtheria toxoids (Td) 01/22/17 Given 1Admin Note: VIS on TDAP given to patient in greenlandic. Medications docusate sodium 100 mg oral capsule 1 capsule = 100 mg, By Mouth, 2 times a day, # 60 capsule, 0 Refills, Maintenance, 05/28/22 7:20:00EST, Capsule, [id number], Partial fill upon patient request if the prescription is for a schedule II opioid drug., 160, cm, 05/28/22 0:09:00 ES... Start Date: 05/28/22 Status: Ordered Nancy 0.35 mg oral tablet 1 tablet = 0.35 mg, By Mouth, Daily, # 84 tablet, 0 Refills, Maintenance, 05/28/22 7:28:00 EST, Tablet, [facility] #[id number], Partial fill upon patient request if the prescription is for a schedule II opioid drug., 160, cm, 05/28/22 0:09:00 EST, Height,... Start Date: 05/28/22 Status: Ordered famotidine 20 mg oral tablet 20 mg, 1, tablet, By Mouth, 2 times a day, # 60 tablet, Refills 0, Tot. Refills 0, Maintenance, 04/06/22 12:22:00 EST, Route to Pharmacy Electronically, [facility], Partial fill upon patient request if the prescription is for a lindsey... Start Date: 04/06/22 Status: Ordered MiraLax oral powder for reconstitution = 17 Gm, By Mouth, Daily, dissolve in water before taking, # 527 Gm, 0 Refills, Maintenance, 06/02/22 6:47:00 EST, REC Powder, [facility], Partial fill upon patient [...] Confirmed Active tubal ligation planned Confirmed Active Bhutanese speaking patient Confirmed Active Obesity Confirmed Active Severe obesity Confirmed Active Hernia, umbilical Confirmed Active Social History Social History Type Response Smoking Status Never (less than 100 in lifetime) entered on: 06/02/22 Sex Patient Care team information Care Team Personnel Name: Pearl Chahal MD Position: [facility] Outreach Member Role: PCP Address: Address: [address] [place] [address] [address] [place] [address]- [place] Name: Vladimir Del Valle DO Position: [facility] PATTERN CHECKER MD Member Role: Lifetime PATTERN CHECKER Physician Address: Address: [address] [place] [address]s [facility] [place] [address]- [place] Name: Dayana ISAACS, Michelle Position: [facility] OB RN Member Role: Primary Care Nurse Care Team Related Persons Name: WALDO FORD Name: ROSCOE MENDEZ Address: [address] Address: [address] [place] [address] Name: MERARI DUNHAM Address: [address] [place] [address] Name: SAMARIA CHIANG Address: [address] [place] [address]
--- OUTSIDE RECORDS SUMMARY | 2023-01-11 17:08 | XMS_ITS | Continuity of Care Document ---
Author Name Unknown Organization [facility] Address [address] [place] [address]- Care Team Providers Care Nuclear Worker Technician Name Role Phone Jason Vitale MD, Pearl Petersen Primary Care Physici an [place] [facility] [place]11[place] - 04/10/[address] [address]- Allergies, Adverse Reactions, Alerts Substance Reaction Severity Status penicillin Active Immunizations Given and Recorded Vaccine Date Status Refusal Reason tetanus/diphtheria/pertussis, acel(Tdap) 02/13/17 Given tetanus/diphtheria/pertussis, acel(Tdap) 1 01/04/16 Given tetanus-diphtheria toxoids (Td) 01/22/17 Given 1Admin Note: VIS on TDAP given to patient in bahraini. Medications doxylamine 25 mg oral tablet See [...] each, 11 Refills, Maintenance, 12/19/19 11:42:00 EDT, [facility], 1patch Topically Every week,Instr:apply a new patch... Start Date: 12/19/19 Status: Ordered ibuprofen 600 mg oral tablet 600 mg, 1, tablet, By Mouth, 4 times a day, PRN, # 40 tablet, Refills 1, Tot. Refills 1, Maintenance, Pain , Mild, 04/05/21 10:12:00 EST, Route to Pharmacy Electronically, [facility], Partial fill upon patient request if the prescr... Start Date: 04/05/21 Status: Ordered miSOPROStol 200 mcg oral tablet See Instructions, Place 4 tablets in your vagina and then place another 4 tablets in your vagina four hours later., # 8 tablet, 0 Refills, Soft Stop, 04/05/21 10:16:00 EST, Tablet, [facility], Partial fill upon patient request if t... Start Date: 04/05/21 Status: Ordered Multivitamins with Folic Acid 1 mg oral tablet 1 tablet, By Mouth, Daily, # 90 tablet, 3 Refills, Maintenance, 03/08/21 13:32:00 EDT, Tablet, [facility], Partial fill upon patient request if the prescription is for a schedule II opioid drug., 1 tablet By Mouth Daily, 160, cm, 0... Start Date: 03/08/21 Status: Ordered promethazine 12.5 mg oral tablet 1 tablet = 12.5 mg, By Mouth, Every 4 hours, PRN for nausea/vomiting, # 10 tablet, 0 Refills, Maintenance, 04/05/21 10:13:00 EST, Tablet, [facility], Partial fill upon patient request if the prescription is for a schedule II opioid... Start Date: 04/05/21 Status: Ordered Problem List Condition Effective Dates Status Health Status Inform ant Asthma(Confirmed) Active GDM, class A1(Confirmed) Active tubal ligation planned(Confirmed) Active Portuguese speaking patient(Confirmed) Active Obese class II(Confirmed) Active Obesity(Confirmed) Active Hernia, umbilical(Confirmed) Active Social History Social History Type Response Smoking Status Current every day sm tiffany; Tobacco user in household: Yes entered on: 08/15/16 Sex
--- OUTSIDE RECORDS SUMMARY | 2023-01-11 17:08 | XMS_ITS | Continuity of Care Document ---
Author Name Unknown Organization [facility] Address [address] [place] [address]- Care Team Providers Care Roller Gold Leaf Name Role Phone Jaosn Vitale MD, Pearl Petersen Primary Care Physici an [place] [facility] [place] Date(s): 01/24/22 - 01/25/[address] [address]- Encounter Diagnosis Asthma exacerbation(Final) - 01/25/22 Discharge Disposition: A-D/C Home Attending Physician: Tiana Gary MD Admitting Physician: Tiana Gary MD Referring Physician: Not on Staff, Referring MD Allergies, Adverse Reactions, Alerts Substance Reaction Severity Status penicillin Active Immunizations Given and Recorded Vaccine Date Status Refusal Reason tetanus/diphtheria/pertussis, acel(Tdap) 02/13/17 Given tetanus/diphtheria/pertussis, acel(Tdap) 1 01/04/16 Given tetanus-diphtheria toxoids (Td) 01/22/17 Given 1Admin Note: VIS on TDAP given to patient in bengali. Medications aspirin 81 mg oral delayed release tablet 2 tablet = 162 mg, By Mouth, Daily, At bedtime, # 90 tablet, 0 Refills, Maintenance, 12/29/21 15:39:00 EDT, CR Tablet, [facility], Partial fill upon patient request if the prescription is for a schedule II opioid drug., 160, cm, 08... Start Date: 12/29/21 Status: Ordered predniSONE 20 mg oral tablet 1 tablet = 20 mg, By Mouth, 2 times a day, for 4 days, Start tomorrow 01/24 as first dose was givenin ED., # 8 tablet, 0 Refills, Acute 01/28/22 23:52:00 EDT, 01/24/22 23:52:00 EDT, Tablet, [facility], Partial fill upon patient re... Start Date: 01/24/22 Stop Date: 01/28/22 Status: Ordered Multivitamins with Folic Acid 1 mg oral tablet 1 tablet, By Mouth, Daily, # 90 tablet, 2 Refills, Maintenance, 11/24/21 18:18:00 EDT, Tablet, [facility], Partial fill upon patient request if the prescription is for a schedule II opioid drug., 1 tablet By Mouth Daily, 160, cm, 0... Start Date: 11/24/21 Status: Ordered promethazine 12.5 mg rectal suppository 1 supp = 12.5 mg, Rectally, Every 4 hours, PRN for nausea/vomiting, # 12 supp, 0 Refills, Maintenance, 01/24/22 23:52:00 EDT, Suppository, [facility], Partial fill upon patient request if the prescription is for a schedule II opioi... Start Date: 01/24/22 Status: Ordered Vitamin B6 25 mg oral tablet 1 tablet = 25 mg, By Mouth, 3 times a day, PRN Nausea & Vomiting, Take 1 tab three times a day with 1/2 tab of doxylamine for pevention of N/V in , # 90 tablet, 1 Refills, Acute 01/26/2218:18:00 EDT, 11/24/21 18:18:00 EDT, [facility]... Start Date: 11/24/21 Stop Date: 01/26/22 Status: Ordered Problem List Condition Effective Dates Status Health Status Inform ant Asthma(Confirmed) Active GDM, class A1(Confirmed) Active tubal ligation planned(Confirmed) Active Indonesian speaking patient(Confirmed) Active Obese class II(Confirmed) Active Obesity(Confirmed) Active Hernia, umbilical(Confirmed) Active Results Radiology Reports * Exam Date Time Procedure Performing Provider Status 01/24/22 6:09 PM Chest 2 Views Frontal and Lat Alireza Beckham; Auth (Verified) Notes: (Chest 2 Views Frontal and Lat) Reason For Exam: Chest Pain;Other: RESULT: Chest 2 Views Frontal and Lat Chest 2 Views Frontal and Lat CLINICAL INDICATION: Hx of Present Illness: pt states she is having an asthma exacerbation. Endorses increased SOB x 2 days, recent COVID infection on 01 10.; Reason: Other:; Chest Pain; Clinical Question(s): Other: COMPARISON: Chest x-ray, 01/23/2016. FINDINGS: The cardiac silhouette is within normal limits. Hilar and mediastinal contours are normal. The lungs are clear. There is no pleural effusion, pneumothorax, or evidence of CHF. No acute osseous abnormality is noted. IMPRESSION: No acute cardiopulmonary process. WSN: [id number] Ordering Physician: Lea Rae Dictated By: So Rodriguez MD Dictated Date/Time: 01/24/22 6:41 pm Reviewed By: So Rodriguez MD Signed By: So Rodriguez MD Signed Date/Time: 01/24/22 6:41 pm Transcribed By: FELICIANO Transcribed Date/Time: 01/24/22 6:41 pm Vital Signs Most recent to oldest [Reference Range]: 1 2 3 Oxygen Saturation [94-100 %] 100 % (01/24/22 11:16 PM) 100 % (01/24/22 10:17 PM) 100 % (01/24/22 3:38 PM) Pulse Rate [55-90 bpm] 88 bpm (01/24/22 11:16 PM) 64 bpm (01/24/22 10:17 PM) 114 bpm *H* (01/24/22 5:18 PM) Blood Pressure [90-138/55-84 mm Hg] 113/70mm Hg (01/24/22 11:16 PM) 115/71mm Hg (01/24/22 10:17 PM) 126/74mm Hg (01/24/22 5:18 PM) Respiratory Rate [16-30 br/min] 17 br/min (01/24/22 11:16 PM) 16 br/min (01/24/22 10:17 PM) 18 br/min (01/24/22 5:18 PM) Temperature [96.8-100.4 DegF] 98.3 DegF (01/24/22 10:17 PM) 98.0 DegF (01/24/22 5:18 PM) 98.3 DegF (01/24/22 3:38 PM) Mode of Delivery (Oxygen) Room air (01/24/22 11:16 PM) Room air (01/24/22 10:17 PM) Room air (01/24/22 5:18 PM) Blood pressure sites Arm, right (01/24/22 11:16 PM) Arm, right (01/24/22 10:17 PM) Arm, right (01/24/22 5:18 PM) Temperature Route Oral (01/24/22 10:17 PM) Oral (01/24/22 5:18 PM) Oral (01/24/22 3:38 PM) Social History Social History Type Response Smoking Status Former smoker, quit more than 30 days ago entered on: 11/22/21 Sex Note * BHSP[employer]ers[employer] , CIS S: TRANSCRIBE So Rodriguez MD: VERIFY Event Display: Result: Authored Date: Chest 2 Views Frontal and Lat CLINICAL INDICATION: Hx of Present Illness: pt states she is having an asthma exacerbation. Endorses increased SOB x 2 days, recent COVID infection on 01 10.; Reason: Other:; Chest Pain; Clinical Question(s): Other: COMPARISON: Chest x-ray, 01/23/2016. FINDINGS: The cardiac silhouette is within normal limits. Hilar and mediastinal contours are normal. The lungs are clear. There is no pleural effusion, pneumothorax, or evidence of CHF. No acute osseous abnormality is noted. IMPRESSION: No acute cardiopulmonary process. WSN: [id number] Ordering Physician: Lea Rae Dictated By: So Rodriguez MD Dictated Date/Time: 01/24/22 6:41 pm Reviewed By: So Rodriguez MD Signed By: So Rodriguez MD Signed Date/Time: 01/24/22 6:41 pm Transcribed By: FELICIANO Transcribed Date/Time: 01/24/22 6:41 pm Care Team Personnel Name: Pearl Chahal MD Address: [address] [place] [address] [address] [place] [address]-
--- OUTSIDE RECORDS SUMMARY | 2023-01-11 17:08 | XMS_ITS | Continuity of Care Document ---
Author Name Unknown Organization [facility] Address [address] [place] [address]- Care Team Providers Care Orchard Pruner Name Role Phone Jason Vitale MD, Pearl Petersen Primary Care Physici an [place] [facility] [place](s): 05/29/22 - 06/28/[address] [address]- Allergies, Adverse Reactions, Alerts Substance Reaction Severity Status penicillin Active Immunizations Given and Recorded Vaccine Date Status Refusal Reason tetanus/diphtheria/pertussis, acel(Tdap) 03/09/22 Given tetanus/diphtheria/pertussis, acel(Tdap) 02/13/17 Given tetanus/diphtheria/pertussis, acel(Tdap) 1 01/04/16 Given influenza virus vaccine, inactivated 03/09/22 Give n tetanus-diphtheria toxoids (Td) 01/22/17 Given 1Admin Note: VIS on TDAP given to patient in uzbek. Medications docusate sodium 100 mg oral capsule [...] 04/06/22 12:22:00 EST, Route to Pharmacy Electronically, [facility], Partial fill upon patient request if the prescription is for a lindsey... Start Date: 04/06/22 Status: Ordered MiraLax oral powder for reconstitution = 17 Gm, By Mouth, Daily, dissolve in water before taking, # 527 Gm, 0 Refills, Maintenance, 06/02/22 6:47:00 EST, REC Powder, [facility], Partial fill upon patient request [...] Confirmed Active tubal ligation planned Confirmed Active Bahraini speaking patient Confirmed Active Obesity Confirmed Active Severe obesity Confirmed Active Hernia, umbilical Confirmed Active Social History Social History Type Response Smoking Status Never (less than 100 in lifetime) entered on: 06/02/22 Sex Patient Care team information Care Team Personnel Name: Pearl Chahal MD Position: [facility] Outreach Member Role: PCP Address: Address: [address] [facility] [place] [address] [place] [address]- Name: Vladimir Del Valle DO Position: [facility] PAPER PROCESSING MACHINE HELPER MD Member Role: Lifetime PAPER PROCESSING MACHINE HELPER Physician Address: Address: [address] [place] [address] [place] [address]- Name: Michelle Anne RN Position: [facility] OB RN Member Role: Primary Care Nurse Care Team Related Persons Name: WALDO FORD Name: ROSCOE MENDEZ Address: [address] Address: [address] Name: MERARI DUNHAM Address: [address] [place] [address] Name: SAMARIA CHIANG Address: [address] [place] [address]
--- OUTSIDE RECORDS SUMMARY | 2023-01-11 17:08 | XMS_ITS | Continuity of Care Document ---
Author Name Unknown Organization [facility] Address [address] [place] [address]- Care Team Providers Care Deck Molder Name Role Phone Jason Vitale MD, Pearl Petersen Primary Care Physici an Encounter [facility] Date(s): 04/28/22 - 06/01/[address] [address]- Attending Physician: Frank Pacheco MD Admitting Physician: [...] VIS on TDAP given to patient in occitan. Medications acetaminophen 325 mg oral tablet 650 mg, By Mouth, Every 4 hours, PRN, for 14 days, (1-3), may give 325mg per patient preference lynn-dose with 325mg within 4 hours, if needed. Patient should only receive a total of 650mg of Acetaminophen every 4 hours., # 50 tablet, Refills 0, T... Start Date: 05/28/22 Stop Date: 06/11/22 Status: Ordered docusate sodium 100 mg oral capsule 1 [...] 0 Refills, Maintenance, 05/28/22 7:28:00 EST, Tablet, [facility] #[id number], Partial fill upon patient request if the prescription is for a schedule II opioid drug., 160, cm, 05/28/22 0:09:00 EST, Height,... Start Date: 05/28/22 Status: Ordered famotidine 20 mg oral tablet 20 mg, 1, tablet, By Mouth, 2 times a day, # 60 tablet, Refills 0, Tot. Refills 0, Maintenance, 04/06/22 12:22:00 EST, Route to Pharmacy Electronically, [facility], Partial fill upon patient request if the prescription is for a lindsey... Start Date: 04/06/22 Status: Ordered ibuprofen 800 mg oral tablet 800 mg, 1, tablet, By Mouth, Every 8 hours, PRN, for 14 days, (4-6), may give 400mg per patient preference and re-dose with 400mg within 8 hours if needed. Patient should only receive a total of 800mg of Ibuprofen every 8 hours., # 50 tablet, Refill... Start Date: 05/28/22 Stop Date: 06/11/22 Status: Ordered oxyCODONE 5 mg oral capsule 1 capsule = 5 mg, By Mouth, Every 6 hours, PRN as needed for pain, # 5 capsule, 0 Refills, Acute 06/04/22 7:30:00 EST, 05/28/22 7:22:00 EST, Capsule, [facility]/pharm[facility] #[id number], Partial fill upon patient request if the prescription is for a schedule II opioid... Start Date: 05/28/22 Stop Date: 06/04/22 Status: Ordered ProAir HFA 2 puffs, Inhalation, [...] Confirmed Active tubal ligation planned Confirmed Active Tanzanian speaking patient Confirmed Active Obesity Confirmed Active Severe obesity Confirmed Active Hernia, umbilical Confirmed Active Social History Social History Type Response Smoking Status Former smoker, quit more than 30 days ago entered on: 11/22/21 Sex Patient Care team information Care Team Personnel Name: Pearl Chahal MD Position: [facility] Outreach Member Role: PCP Address: Address: [address] [place] [address] [address] [place] [address]- Name: Vladimir Del Valle DO Position: [facility] STONE RUBBER MD Member Role: Lifetime STONE RUBBER Physician Address: Address: [address] [place] [address] [place] [address]- Name: Michelle Anne RN Position: [facility] OB RN Member Role: Primary Care Nurse Care Team Related Persons Name: WALDO FORD Name: ROSCOE MENDEZ Address: [id number] Address: [address] [place] [address] [place] Name: MERARI DUNHAM Address: [address] [place] [address] Name: SAMARIA CHIANG Address: [address] [place] [address]
--- OUTSIDE RECORDS SUMMARY | 2023-01-11 17:08 | XMS_ITS | Continuity of Care Document ---
Author Name Unknown Organization [facility] ter Address [address] [place] [id number]- Care Team Providers Care Foot Press Operator Name Role Phone Jason Vitale MD, Pearl Petersen Primary Care Physici an [place] [facility] [place]): [place] - 05/28/[address] [address]- Discharge Disposition: A-D/C Home Attending Physician: Julissa Winn MD Admitting Physician: Julissa Winn MD Referring Physician: Julissa Winn MD Allergies, Adverse Reactions, Alerts Substance Reaction Severity Status penicillin Active Immunizations Given and Recorded Vaccine Date Status Refusal Reason tetanus/diphtheria/pertussis, acel(Tdap) 03/09/22 Given tetanus/diphtheria/pertussis, acel(Tdap) 02/13/17 Given tetanus/diphtheria/pertussis, acel(Tdap) 1 01/04/16 Given influenza virus vaccine, inactivated 03/09/22 Give n tetanus-diphtheria toxoids (Td) 01/22/17 Given 1Admin Note: VIS on TDAP given to patient in german. Medications acetaminophen 325 mg oral tablet 650 mg, By Mouth, Every 4 hours, PRN, for 14 days, (1-3), may give 325mg per patient preference lynn-dose with 325mg within 4 hours, if needed. Patient should only receive a total of 650mg of Acetaminophen every 4 hours., # 50 tablet, Refills 0, T... Start Date: 05/28/22 Stop Date: 06/11/22 Status: Ordered Acetaminophen Tablet 650 mg, Tablet, By Mouth, Every 4 hours, PRN for Pain , Mild, (1-3), may give 325mg per patient preference and re-dose with 325mg within 4 hours, if needed. Patient should only receive a total of 650mg of Acetaminophen every 4 hours., Routine, 05/26... Start Date: 05/26/22 Stop Date: 05/29/22 Status: Discontinued docusate sodium 100 mg oral capsule 1 capsule = 100 mg, By Mouth, 2 times a day, # 60 capsule, 0 Refills, Maintenance, 05/28/22 7:20:00EST, Capsule, [facility]/pharmacy #[id number], Partial fill upon patient request if the prescription is for a schedule II opioid drug., 160, cm, 05/28/22 0:09:00 ES... Start Date: 05/28/22 Status: Ordered Nancy 0.35 mg oral tablet 1 tablet = 0.35 mg, By Mouth, Daily, # 84 tablet, 0 Refills, Maintenance, 05/28/22 7:28:00 EST, Tablet, [facility]/pharmacy #[id number], Partial fill upon patient request if the prescription is for a schedule II opioid drug., 160, cm, 05/28/22 0:09:00 EST, Height,... Start Date: 05/28/22 Status: Ordered famotidine 20 mg oral tablet 20 mg, 1, tablet, By Mouth, 2 times a day, # 60 tablet, Refills 0, Tot. Refills 0, Maintenance, 04/06/22 12:22:00 EST, Route to Pharmacy Electronically, [facility], Partial fill upon patient request if [...] Date: 05/28/22 Stop Date: 06/11/22 Status: Ordered Ibuprofen Tablet 800 mg, Tablet, By Mouth, Every 8 hours, PRN for Pain , Moderate, (4-6), may give 400mg per patientpreference and re-dose with 400mg within 8 hours if needed. Patient should only receive a total of 800mg of Ibuprofen every 8 hours., Routine, ... Start Date: 05/26/22 Stop Date: 05/29/22 Status: Discontinued oxyCODONE 5 mg oral capsule 1 capsule = 5 mg, By Mouth, Every 6 hours, PRN as needed for pain, # 5 capsule, 0 Refills, Acute 06/04/22 7:30:00 EST, 05/28/22 7:22:00 EST, Capsule, [facility]/pharmacy #[id number], Partial fill upon patient [...] Confirmed Active tubal ligation planned Confirmed Active [place] speaking patient Confirmed Active Obesity Confirmed Active Severe obesity Confirmed Active Hernia, umbilical Confirmed Active Results Radiology Reports * Exam Date Time Procedure Performing Provider Status 05/27/22 11:[address] Abd/Pelvis W/ Ora l Contrast Only Oksana Cedeno (Verified) Notes: (CT Abd/Pelvis W/ Oral Contrast Only) Reason For Exam: umbilical hernia;Other: RESULT: CT Abd/Pelvis W/ Oral Contrast Only CT Abd/Pelvis W/ Oral Contrast Only Reason: Other:; umbilical hernia; Clinical Question(s): Other:; incarcerated hernia; Order Comment: TECHNIQUE: Spiral CT through the abdomen and pelvis without IV contrast formatted in 3 planes. Thisstudy was performed with oral contrast. Weight-based protocol using automatic tube modulation was used to optimize exposure parameters. COMPARISON: No relevant prior studies FINDINGS: Slot Supervisor View Findings, Lines and Tubes: None. Visualized Chest: Lung bases are clear. No pleural effusion. The heart is normal in size. No pericardial effusion. Diaphragm: Intact. Liver: Unremarkable for noncontrast exam. Gallbladder: No CT evidence of gallbladder pathology. Bile ducts: No biliary ductal dilation. Spleen: Normal. Pancreas: Normal. Adrenal glands: Normal. Kidneys and ureters: No hydronephrosis, stones, or noncontrast evidence of suspicious masses. Bladder: Nondistended state. Reproductive organs: Diffusely enlarged uterus. No gas or fluid within the endometrial-cervical canal. Stomach, small bowel, and large bowel: Enteric contrast has reached the mid ileum. There is no evidence for a bowel obstruction. There is no wall thickening to indicate diverticulitis or colitis. No constipation. Appendix: A normal appendix is seen. Peritoneum and retroperitoneum: No free fluid or hemoperitoneum. No free air. No abscess. No omental or mesenteric lesions. Lymph nodes: No enlarged lymph nodes. Blood vessels: Normal. No aneurysm. Abdominal and pelvic wall: There is a tiny fat-containing umbilical hernia which measures only 1.4 x 1.1 x 1.2 cm on image 93 series 201. There is mild thickening of the skin overlying the umbilicus.No abscess or gas. Bones: No acute abnormality. IMPRESSION: There is a very small fat-containing umbilical hernia measuring 1.4 x 1.2 x 1.1 cm. There is mild thickening of the skin overlying the hernia which could be due to cellulitis. Diffusely enlarged uterus consistent with postgravid state. No endometrial- endocervical gas or fluid. No free fluid, free air or abscess. WSN: [id number] Ordering Physician: Mehul Dey Dictated By: Al Kovacs MD Dictated Date/Time: 05/27/22 11:30 p Reviewed By: Al Kovacs MD Signed By: Al Kovacs MD Signed Date/Time: 05/27/22 11:30 pm Transcribed By: FELICIANO Transcribed Date/Time: 05/27/22 11:23 pm Vital Signs Most recent to oldest [Reference Range]: 1 2 3 Height 160 cm (05/28/22 8:00 AM) 160 cm (05/28/22 12:09 AM) 160 cm (05/27/22 4:07 PM) Weight 105.1 kg (05/25/22 2:59 PM) 105.1 kg (05/25/22 11:24 AM) Oxygen Saturation [94-100 %] 100 % (05/28/22 8:00 AM) 99 % (05/28/22 12:09 AM) 100 % (05/27/22 4:07 PM) Pulse Rate [55-90 bpm] 95 bpm *H* (05/28/22 8:00 AM) 73 bpm (05/28/22 12:09 AM) 78 bpm (05/27/22 4:07 PM) Body Mass Index [18.5-24.99 kg/m2] 41.05 kg/m2 *>HHI* (05/25/22 2:59 PM) Blood Pressure [90-138/55-84 mm Hg] 108/59mm Hg (05/28/22 8:00 AM) 115/60mm Hg (05/28/22 12:09 AM) 112/61mm Hg (05/27/22 4:07 PM) Respiratory Rate [16-30 br/min] 20 br/min (05/28/22 10:30 AM) 20 br/min (05/28/22 10:30 AM) 18 br/min (05/28/22 8:00 AM) Temperature [96.8-100.4 DegF] 98.7 DegF (05/28/22 8:00 AM) 97.7 DegF (05/28/22 12:09 AM) 97.4 DegF (05/27/22 4:07 PM) Mode of Delivery (Oxygen) Room air (05/28/22 8:00 AM) Room air (05/28/22 12:09 AM) Room air (05/27/22 4:07 PM) Blood pressure sites Arm, right (05/28/22 8:00 AM) Arm, right (05/28/22 12:09 AM) Arm, left (05/27/22 4:07 PM) Temperature Route Oral (05/28/22 8:00 AM) Oral (05/28/22 12:09 AM) Oral (05/27/22 4:07 PM) Dry Weight 105.1 kg (05/25/22 2:59 PM) 105.1 kg (05/25/22 11:24 AM) Social History Social History Type Response Smoking Status Former smoker, quit more than 30 days ago entered on: 11/22/21 Sex History and physical note * Franny Couch MD: PERFORM Event Display: History and Physical Hospital Authored Date: [id number] Patient: ??ZAINAB CAMARA ? Age:??37 Years?Sex:??Female?:??1985?? OB Reason for Admission OB Reason for Admission Reason for admission: Labor LMP/EGA/JAMEL Gestational Age (EGA) and JAMEL? * Note: EGA calculated as of 05/25/2022 ?? JAMEL:??05/21/2022?EGA*:??40 weeks 4 days ? History?(4,1,1,5)?Method:??Last Menstrual Period??(08/14/2021) History of Present Illness Zainab is a 37 yo at 40+4 being admitted in labor. She is shiloh uncomfortably every 7 minutes. Review of Systems Denies loss of fluid, vaginal bleeding. Endorses good movement. Physical Exam Vitals & Measurements T:??98?F ?? HR:??84(Monitored)?? RR:??18?? BP:??100/61?? SpO2:??100%?? HT:??160??cm?? WT:??105.1??kg?? Constitutional:??No acute distress, resting comfortably. Respiratory:??Normal work of breathing. Lungs clear to auscultation bilaterally. Cardiovascular:??Regular rate and rhythm, no murmurs.? Abdomen/GI:??Gravid uterus. Soft, nontender. Extremities:??No calf tenderness or edema. Skin:??No rash or jaundice. Neurological/Psychiatric:??Mood and affect congruent and stable. OB Assessment /- Cephalic EFW 3900 Cat I tracing Assessment/Plan Assessment:??Zainab is a 37 yo at 40+4 being admitted in labor. GBS positive, allergic to penicillin. GBS susceptibility testing revealed clindamycin resistance, plan to treat with vancomycin. ?? Expectant management. Cat I tracing. Re-assess in 2 hours or PRN. ?? 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 -PCN Allergy, dutch resistant.? -Vancomycin 1 gram IV 12 hours ?? History of fourth degree perineal laceration (Z87.59):? G1: 4th degree episiotomy in 2006 Last delivery 2017, intact perineum ?? Labor without complication (O80):? - CBC, T&S, IV access - Expectant management - Continuous monitoring - Labor coping: PRN - PPH risk level:??High (BMI+grand multip) - GBS prophylaxis: Vancomycin prophylaxis - Rhogam: not indicated - Cephalic by US - EFW: 3900 - Reassess in 2hr or PRN ?? Obesity in (O99.210):? BMI 41 ?? Request for sterilization (Z30.2):? - Consents signed 03/09/22 - Pt had palpable umbilical hernia.??not a candidate for immediate salpingectomy via mini-laparotomy. Will need to consider laparoscopic or interval procedure. ?? Rubella non-immune status, antepartum (O09.899):? PP Rhogam if indicated ?? Umbilical hernia (K42.9):? - Has had the hernia since her last delivery but it has never been painful - met with GNS.??plan??to follow-up 6 months ??per pt report ? Patient history and plan discussed with OB team. ?? OB History History?(4,1,1,5)? # 1 ?Baby 1 ?Outcome Date:??2005 ?Outcome or Result:??Vaginal ?Gest Age:??40 weeks ? Outcome:??Live ? Sex:??Male ?Comment:??4 degree episiotomy ?? # 2 ?Baby 1 ?Outcome Date:??2010 ?Outcome or Result:??Vaginal ?Gest Age:??38 weeks ? Outcome:??Live ? Sex:??Male ?Comment:??vanishing twin ?? # 3 ?Baby 1 ?Outcome Date:??2012 ?Outcome or Result:??Spontaneous ?Gest Age:??-- ? Outcome:? Sex:??-- ?? # 4 ?Baby 1 ?Outcome Date:??2014 ?Outcome or Result:??Vaginal ?Gest Age:??34 weeks ? Outcome:??Live ? Sex:??Male ?Comment:??placenta abruption ?? # 5 ?Baby 1 ?Outcome Date:??02/06/2016?Outcome or Result:??Vaginal ?Gest Age:??40 weeks 1 days ? Outcome:??Live ? Sex:??Male ?? # 6 ?Baby 1 ?Outcome Date:??03/22/2017?Outcome or Result:??Vaginal ?Gest Age:??Fullterm ? Outcome:??Live ? Sex:??Male ?Maternal Complications:??High risk ?Hospital:??[facility] Labs Labs & Tests ABO: O (02/10/22) Antibody Screen: Negative (02/10/22) Chlamydia Trachomatis Amplified Probe: NEGATIVE (04/06/22) Creatinine-Blood: 0.6 mg/dL (01/24/22) Glucose 3hr Gest Veronika, +120 minutes: 135 mg/dL (03/21/22) Glucose 3hr Gest Veronika, +180 minutes: 95 mg/dL (03/21/22) Glucose 3hr Gest Veronika, +60 minutes: 174 mg/dL (03/21/22) Glucose 50 Gm, +60 Minutes:??143 mg/dL??High (03/09/22) Glucose Tolerance, Fastin mg/dL (03/21/22) Hct:??34 %??Low (05/25/22) Hemoglobinopathy Interpretation: Normal hemoglobins, with anemia. (02/10/22) Hepatitis B Surface Antigen: NEGATIVE (02/10/22) Hepatitis C Ab: NEGATIVE (02/10/22) Hgb:??11.3 Gm/dL??Low (05/25/22) HIV 4th Generation Ab-Ag Result: NEGATIVE (02/10/22) RH Test Only: Positive (02/10/22) RPR Titer Result: NOT INDICATED (03/09/22) Rubella IgG Ab: EQUIVOCAL (02/10/22) Syphilis Screen by HUMBERTO: NEGATIVE (03/09/22) Urine Culture: Urine Culture (02/10/22) Varicella IgG Ab: POSITIVE (02/10/22) Problem List Active Active Problem List Asthma: (Medical) Echogenic bowel of fetus on ultrasound: (Obstetric) GBS (group B streptococcus) UTI complicating : (Obstetric) Scanned records from [facility] (06/19/15) GDM, class A1: (Medical) Hernia, umbilical: (Medical) History of delivery, currently : (Obstetric) Obesity: (Medical) tubal ligation planned: (Medical) : (Obstetric) (08/14/21) Severe obesity: (Medical) [place] speaking patient: (Medical) Procedure/Surgical History No qualifying data available. Home Medications Aspirin: 162 mg = 2 tablet, By Mouth, Daily, At bedtime Famotidine: 20 mg = 1 tablet, By Mouth, 2 times a day Miscellaneous Rx (Sleep Aid (doxylamine) 25 mg tablet): 0.5 tablet, By Mouth, 3 times a day, PRN ( NEEDED FOR NAUSEA AND VOMITING), TAKE WITH vitamin b-6 TABLET Multivitamin, : 1 tablet, By Mouth, Daily Allergies penicillin Social History Alcohol Use: denies., 06/28/2013 Electronic Cigarette/Vaping Electronic Cigarette Use: Never., 11/22/2021 Employment/School Status: Employed., 11/24/2021 Exercise Self assessment: Good condition., 11/22/2021 Home/Environment Living situation: Home/Independent., 11/24/2021 Nutrition/Health Diet: Regular., 11/24/2021 Sexual Sexually involved in last 6 months: Yes. Gender identity: Identifies as female. Self described orientation: Straight or heterosexual. Preferred pronoun: She/her., 11/24/2021 Substance Abuse Use: denies., 06/28/2013 Tobacco Use: Former smoker, quit more than 30 days ago., 11/22/2021 Current every day smoker, Tobacco user in household: Yes., 08/15/2016 Family History Mother: Diabetes mellitus; Hypertension Plan OB Plan Feeding Plan: Breast milk & Formula (05/25/22) Labor Coping Mechanisms: Epidural (05/25/22) Patient Requests: Having a girl![facility] (05/25/22) * Yarely Glaser CNM: PERFORM Event Display: History and Physical Hospital Authored Date: [id number] This note was completed??by Dr Couch, ??I personally performed all components of the visit including a chart review, the HPI, ROS, examination, and medical decision making. The note has been verifiedfor accuracy and I agree as written above.?? Plan is for pt to get an epidural and re-evaluate whencomfortable. Hospital Progress note * Yin ISAACS, Linsey Elizabeth: PERFORM Event Display: Progress Note Hospital Authored Date: [id number] Patient alert and oriented x3. Tolerating walking and pain management. Voiding and passing. Bowel movement noted on05/27/2021, without complications. Discharge orders in and reviewed. Patient signed and placed copy in front of mom's chart. * Yarely Rai RN: PERFORM, SIGN, VERIFY Event Display: Progress Note Hospital Authored Date: [id number] Patient: ZAINAB CAMARA Age: 37 years Sex: Female : 1985 Associated Diagnoses: None Author: Yarely Rai RN Findings pt ob stable, abd soft, fundus firm and @ umbilicus . pt c/o umb hernia pain dr dey notified. pt reports +voiding without difficulty. +bm today. will cont to assess. Problem Related to Alteration in Comfort : Alteration in Comfort/new 05/27/2022 21:00 EST Alteration in Comfort Related to Other: vaginal delivery Goals & Outcomes: Comfort Pt will report acceptable level of comfort & pain control Interventions Implemented: Comfort Assess pain using appropriate pain scale/tools, Assess aggravating factors & prevent them accordingly, Assess alleviating factors & promote them accordingly BH Goals/Interventions, Comfort Yes Comfort, Problem Start 05/26/2022 11:00 Reviewed plan with, Comfort Patient Patient Progression, Comfort Pt progressing according to plan Comfort, Problem Ongoing Yes . * Frieda Naranjo RN: PERFORM, SIGN, VERIFY Event Display: Progress Note Hospital Authored Date: [id number] Patient: ZAINAB CAMARA Age: 37 years Sex: Female : 1985 Associated Diagnoses: None Author: Frieda Naranjo RN Findings Patient doing well. Denies the need for pain medication this morning. Increased cramping this afternoon- medicated with tylenol, motrin, and stool softners. Lochia is minimal, fundus firm. Peridium intact. IV catheter removed per pt request. EPDS left bedside. Pt plans to breastfeed and formula feed. Mostly formula feeding throughout the day- assist with this morning. Infant able tolatch and had a few sucks but had a formula feed 1hr prior. Will be seen by this afternoon. Plan of care discussed. will continue to monitor Discharge Information Case Management Discharge Plan : Case Management Discharge Plan Data 05/23/2022 8:45 EST Discharge Level of Care at Discharge Home/Longterm/Foster Care Note * Linsey Esqueda RN: PERFORM Event Display: Discharge/Transfer Note Hospital Authored Date: [id number] Nursing Discharge Note Entered On: 05/28/2022 14:37 EST Performed On: 05/28/2022 13:45 EST by Linsey Esqueda RN Nursing Discharge Note 2 Discharge Time : 05/28/2022 13:45 EST Discharge Level of Care at Discharge : Home/Longterm/Foster Care Patient Left Unit Via : Ambulatory Patient Accompanied Off Unit with : Significant other DC Instructions Provided & Signed by Pt : Yes Patient Understands D/C Instructions : Yes Patient Instructions Discharge Signed : Yes Did Pt have Specialty Bed or Wound Vac : No Yni ISAACS, Linsey Elizabeth - 05/28/2022 14:37 EST * Mehul Dey MD: PERFORM, MODIFY Event Display: Discharge/Transfer Note Hospital Authored Date: [id number] Patient: ??ZAINAB CAMARA ? Age:??37 Years?Sex:??Female?:??1985?? Admit Date Admission Date: 05/25/2022 OB Reason for Admission OB Reason for Admission Reason for admission: Labor [facility] Hospital Course Zainab is a 37 yo at 40+4 admitted in labor. Proceeded to uncomplicated 05/26 of F , no tears On PPD1 she c/o severe pain from her known hernia requirinf oxycodone for pain control. A CT was obtained to r/o incarceration or strangulation, which were ruled out. A CBC w differential is pending to rule out pp endometritis but she has no fever ?Patient would like to be discharged today.?Discussed self care, and depression. Patient was counseled on warning signs for calling or returning to care including but not limited to fever of 100.4 orgreater, heavy vaginal bleeding, foul-smelling vaginal discharge, difficulty or burning with urination, nausea and vomiting with inability to tolerate food, pain not controlled by medications, shortness of breath or chest pain, and depression. Counseled to place nothing in the vagina in the next 4-6wks. Patient verbalized understanding. ? Objective/Physical Exam on Day of Discharge Vitals & Measurements T:??97.7?F ?? HR:??83(Monitored)?? WV:??73?? RR:??18?? BP:??115/60?? SpO2:??99%?? HT:??160??cm?? WT:??3.148??kg?? BMI:??41.05?? General: pleasant, cooperative,??laying comfortably in bed, well appearing, in no acute distress Pulm: Patient is speaking unlabored, not coughing Abd: soft, appropriately tender, fundus firm, above umbilicus. 2-3cm hernia periumbilical is mildly??tender to palpation, not hot or red Machine Whitener: Minimal spotting on peripad. Psych: appropriate mood and affect. answering questions appropriately. Ext: non-tender, non-edematous ?? (05/27/2022 23:[address] Abd/Pelvis W/ Oral Contrast Only) There is a tiny fat-containing umbilical hernia which measures only 1.4 x 1.1 x 1.2 cm on image 93 series 201. There is mild thickening of the skin overlying the umbilicus. No abscess or gas. [1] Assessment/Plan/Discharge Diagnosis Assessment:??Pt is a 37 yo PPD2 after of F at 40+4. Pt is meeting appropriate milestones. Pain is well controlled with ibuprofen/Tylenol. Pt desires??OCPs and interval tubal ?? state (Z39.2):??Continue regular care Ibuprofen/Tylenol for pain control Breast/Bottle feeding: breast and bottle PPBC: OCPs--> BTL Plan for discharge: home Follow up at [facility] weeks ?? Request for sterilization (Z30.2):??- Consents signed 03/09/22 ??- Pt had palpable umbilical hernia. not a candidate for immediate salpingectomy via mini-laparotomy. Will need to consider laparoscopic or interval procedure or joint procedure ?? Rubella non-immune status, antepartum (O09.899):??[??] offer PP vax ?? Umbilical hernia (K42.9):??became painful and tender this admission, CT showing no incarceration orstrangulation CBC wnl, no concern for infection was given oxycodone for pain control pain improved by morning round ?? Uses [place] as primary spoken language (Z78.9):??clockmaker used for visit ?? Future Appointments Sunday 3:00 PM EST ?? With: Tiana Redmond CNM Where: [facility] - [facility] [address] [place] [address]- Delivery Summary Delivery Summary Maternal Information ??Labor Information ?Baby A ?Labor Onset Methods: ??Spontaneous, Augmented ?Augmentation Methods: ??Oxytocin infusion ??Delivery Information ?Gestational Age at Delivery: ??40W 5D ?Anesthesia OB: ??Epidural ??05/26/22 08:02:14, Epidural ??05/25/22 17:33:33, Epidural ??05/25/22 16:09:56, Epidural ??05/25/22 15:57:48, Epidural ??05/25/22 15:49:24 ?Blood Loss - Quantitative: ??100 mL ? Baby A ??Delivery Information ?Delivery Type: ??Vaginal ?Date, Time of : ??05/26/22 04:24:00 ? Position: ??Supine ?Foot of bed removed: ??Yes ?Delayed Cord Clamping: ??Yes ?Placenta Delivery Date/Time: ??05/26/22 04:34:00 ?Placenta Delivery Method: ??Assisted ?Placenta Appearance: ??Normal ?Placenta to Pathology: ??No ??Care Team ?Attending Provider: ??Xavier SHIELDS, Darryl Pace ?Delivery Physician: ??Ama Pina MD, Dwaine ?Eye Specialist Provider #1: ??Patrick SHIELDS, Lea Pace ?facing machine operator #1: ??Zackery ISAACS, Zoë ?facing machine operator #2: ??Eliezer ISAACS, Jazmin ?Identification Technician: ??Latrice SHIELDS, Renea Cruz ?Anesthesiology Attending: ??Gerry SHIELDS, Krystian Waller ??Labor Information ?ROM Date, Time: ??05/26/22 02:27:00 ?ROM to Delivery Total Time: ??117 min ?2nd Stage, Length of Labor: ??3 min ?3rd Stage, Length of Labor: ??10 min ? monitoring: ??External monitor ?? Information ? Outcome: ??Live ? Position: ??Occiput anterior ? Weight: ??3.148 kg ? Score 1 minute: ??8 ? Score 5 minute: ??9 ? Score 10 minute: ??9 ?Transferred To: ?? Care area with Family ?Umbilical Cord Description: ??3 vessel cord ? Complications: ??None ?Gender: ??Female ? Procedures Performed Vaginal delivery ? Discharge Medications ???Acetaminophen (acetaminophen 325 mg oral tablet)???Albuterol (ProAir HFA)???Docusate (docusate sodium 100 mg oral capsule)???Famotidine (famotidine 20 mg oral tablet)???Ibuprofen (ibuprofen 800 mgoral tablet)???Norethindrone (Nancy 0.35 mg oral tablet)???Oxycodone (oxyCODONE 5 mg oral capsule) Stop taking these medications ???Aspirin (aspirin 81 mg oral delayed release tablet)???Miscellaneous Rx (Sleep Aid (doxylamine) 25 mg tablet)???Multivitamin, ( Multivitamins with Folic Acid 1 mg oral tablet) Immunizations during Hospitalization Vaccine Date Status Commentstetanus/diphtheria/pertussis, acel(Tdap) 03/09/2022 Given influenza virus vaccine, inactivated 03/09/2022 Given tetanus/diphtheria/pertussis, acel(Tdap) 02/13/2017 Given tetanus-diphtheria toxoids (Td) 01/22/2017 Given tetanus/diphtheria/pertussis, acel(Tdap) 01/04/2016 Given VIS on TDAP given to patient in german. Contraception Interval tubal ligation ? Feeding Method Warrior Feeding Method: , Formula (05/26/22 04:45:00) Patient Instructions Discharge: home, Call your the office with any concerns including:?? Heavy vaginal bleeding?? Fever of 100.4 or greater Foul-smelling vaginal discharge Difficulty or burning with urination?? Nausea and vomiting with inability to tolerate food,?? Pain not controlled by your prescribed medications Shortness of breath or chest pain. Swelling of the extremities. ?? General Instructions: - Avoid lifting anything 15 lbs or greater until cleared by doctor. - Stairs are OK but avoid multiple trips/ skipping steps and go slowly. - Walk as often as you are able. - Do not put anything in the vagina. No intercourse, tampons, or douching - Continue your stool softeners (examples: colace/docusate, senna, miralax) - Shower as usual. Avoid tubs/ soaking/ pools. [1]??CT Abd/Pelvis W/ Oral Contrast Only; Bethanie SHIELDS, Al Olea 05/27/2022 23:22 EST * Scott SHIELDS, Noreen Snowden: PERFORM Event Display: Discharge/Transfer Note Hospital Authored Date: [id number] ?Attending Attestation:??I have seen and evaluated this patient. ??I have discussed the caseand its management with ?Lauren and agree with the findings and plan as documented in the note below. Plan for outpt interval tubal. * Yin ISAACS, Linsey Elizabeth: PERFORM Event Display: Patient Education/Instruction Authored Date: [id number] Inpatient Adult Discharge Instructions [address] [address] Name: ZAINAB CAMARA : 1985 Visit: 05/25/2022 13:05:00 Current Date: 05/28/2022 13:27 Account: [id number] Inpatient Adult Discharge Instructions We would like [...] and their families. Surveys are administered by [employer], [employer]. ?? If further treatment with your primary care physician or another doctor is recommended, it is important for you to keep the appointment. Call your primary care physician or return to the Emergency Department immediately if your condition worsens, fails to improve, or new symptoms develop. If you need to find a doctor, you can call [facility] bewarket for a referral at [phone] or toll free at [phone] or log in to [email or web address].. ?? You can view and manage your care through the patient portal or by using a health care maida of your choosing. [employer] is a website that allows you to securely view your medical information including your hospital discharge summary, office visit summaries, medications and follow-up visits. You can also request appointments, renew medications, and request access to your medical information using a health care maida of your choosing, or just ask a question. You can enroll at [email or web address] or register during your next office visit. You have been discharged from [facility], Patient Care Unit: WIN2. If you have any questions regarding these instructions after you leave, please call us and we will be happy to assist you. [facility] Your Care Team Attending Physician Pa SHIELDS, Julissa Henderson Discharging Providers Janet Toure MD Reason for Admission Labor Your Diagnosis Labor without complication GBS carrier Obesity in Request for sterilization Umbilical hernia Rubella non-immune status, antepartum History of fourth degree perineal laceration Uses [place] as primary spoken language state Tests Performed Below is a partial list of the tests performed during your hospitalization. You may have had other tests and procedures not included in this list. Please discuss all test results with your provider. CBC CBC w/ Differential Type and Screen CT Abd/Pelvis W/ Oral Contrast Only Primary Care Provider Pearl Chahal MD Advance Directive Health Care Proxy on File No Patient has a Designated Caregiver: No Discharge Vitals Temperature: 98.7 DegF Height: 160 cm Pulse Rate:??95 bpm??High Weight: 105.1 kg Respiratory Rate: 18 br/min Body Mass Index:??41.05 kg/m2??Critical Systolic Blood Pressure: 108 mm Hg Body surface area: 2.16 Diastolic Blood Pressure: 59 mm Hg ?? Oxygen Saturation: 100 % ?? Studies Pending All tests and labs ordered during this hospital stay have been completed unless listed below. Please discuss all pending results with your provider listed above in these instructions. ?? COVID-19 (2019 Novel Coronavirus) PCR RBCs on Hold What to do next Instructions From Your Doctor Discharge: home, Call your the office with any concerns including:?? Heavy vaginal bleeding?? Fever of 100.4 or greater Foul-smelling vaginal discharge Difficulty or burning with urination?? Nausea and vomiting with inability to tolerate food,?? Pain not controlled by your prescribed medications Shortness of breath or chest pain. Swelling of the extremities. ?? General Instructions: - Avoid lifting anything 15 lbs or greater until cleared by doctor. - Stairs are OK but avoid multiple trips/ skipping steps and go slowly. - Walk as often as you are able. - Do not put anything in the vagina. No intercourse, tampons, or douching - Continue your stool softeners (examples: colace/docusate, senna, miralax) - Shower as usual. Avoid tubs/ soaking/ pools. Discharge Orders Scheduled Follow-Up Appointments Sunday 3:00 PM EST ?? With: Tiana Redmond CNM Where: [facility] [address] [place] [address]- You Need to Schedule the Following Appointments Follow Up with??[facility] When??Within 1 to 2 days Why: prop setter Discharge Medications ZAINAB CAMARA :1985 Visit Date:05/25/2022 Medications: Please continue your medications until treatment is completed or stopped by your provider. Medications not listed below should be discontinued. Discuss any questions related to medications with your provider. What How Much When Instructions Next Dose New Acetaminophen (acetaminophen 325 mg oral tablet) 650 Milligram Oral Every 4 hours as needed for Pain , Mild Duration: 14 Days (1-3), may give 325mg per patient preference and re-dose with 325mg within 4 hours, if needed. ?? Patient should only receive a total of 650mg of Acetaminophen every 4 hours. ?? Pickup at [facility]/pharmacy #2070 New Docusate (docusate sodium 100 mg oral capsule) 1 capsule Oral Twice a day Pickup at [facility]/pharmacy #2070 tonight New Ibuprofen (ibuprofen 800 mg oral tablet) 1 tab(s) Oral Every 8 hours as needed for Pain , Moderate Duration: 14 Days (4-6), may give 400mg per patient preference and re-dose with 400mg within 8 hours if needed. ?? Patient should only receive a total of 800mg of Ibuprofen every 8 hours. ?? Pickup at [facility]/pharmacy #2070 New Norethindrone (Nancy 0.35 mg oral tablet) 1 tab(s) Oral Daily Pickup at [facility]/pharmacy #2070 daily New Oxycodone (oxyCODONE 5 mg oral capsule) 1 capsule Oral Every 6 hours as needed for as needed for pain Pickup at [facility]/pharmacy #2070 as needed Unchanged Albuterol (ProAir HFA) 2 puff(s) Inhalation Every 6 hours as needed for Wheezing/Shortness of Breath Unchanged Famotidine (famotidine 20 mg oral tablet) 1 tab(s) Oral Twice a day Pharmacy Information [facility]/pharmacy #2070: [address], [place] [id number] [phone] ?? What How Much When Comments Stop Taking Aspirin (aspirin 81 mg oral delayed release tablet) 2 tab(s) Oral Daily At bedtime ?? Stop Taking Miscellaneous Rx (Sleep Aid (doxylamine) 25 mg tablet) 0.5 tab(s) Oral 3 times a day as needed for NEEDED FOR NAUSEA AND VOMITING TAKE WITH vitamin b-6 TABLET ?? Stop Taking Multivitamin, ( Multivitamins with Folic Acid 1 mg oral tablet) 1 tab(s) Oral Daily Test Results Below is a partial list of the most recent Laboratory test results done prior to this discharge. You may have had other tests and procedures not included in this list. Please discuss all test resultswith your provider. RBC Available - RE (05/25/2022) RBC Unit ID - [id number] (05/25/2022) CBC (05/25/2022) ???WBC - 13.6 k/mm3???RBC - 3.63 m/mm3???Hgb - 11.3 Gm/dL???Hct - 34.0 %???MCV - 93.7 femtoliters???MCH - 31.1 pg???MCHC - 33.2 g/dL???Platelet Count - 208 k/mm3???RDW-SD - 47.8 femtoliters???MPV - 11.9 femtoliters???Nucleated RBC (Automated) - 0.0 #/100 WBC'S???Abs. NRBC - 0.0 k/mm3 CBC w/ Differential (05/28/2022) ???WBC - 9.4 k/mm3???RBC - 3.20 m/mm3???Hgb - 9.9 Gm/dL???Hct - 30.0 %???MCV - 93.8 femtoliters???MCH - 30.9 pg???MCHC - 33.0 g/dL???Platelet Count - 213 k/mm3???RDW-SD - 47.5 femtoliters???MPV - 11.6 femtoliters???Nucleated RBC (Automated) - 0.0 #/100 WBC'S???Abs. NRBC - 0.0 k/mm3???Abs. Neut - 6.1 k/mm3???Abs. Lymph - 2.4 k/mm3???Abs. [place] - 0.6 k/mm3???Abs. Eo - 0.2 k/mm3???Abs. Baso - 0.0 k/mm3???Neut % - 64.8 %???Lymph % - 25.1 %???[place] % - 6.2 %???Eos % - 2.4 %???Baso % - 0.3 %???Imm Gran- 1.2 %???Abs. Imm Gran - 0.1 k/mm3 Type and Screen (05/25/2022) ???Blood Type - O Positive???Antibody Screen - Negative Allergies (NKA means No Known Allergies) penicillin Problems Active Problems??(11) Asthma?? Echogenic bowel of fetus on ultrasound?? GBS (group B streptococcus) UTI complicating ?? GDM, class A1?? Hernia, umbilical?? History of delivery, currently ?? Obesity?? tubal ligation planned? Severe obesity?? [place] speaking patient?? Education Materials Below is the list of Educational Leaflet Providered with your Discharge Instructions. [facility]- Discharge Instructions?? COVID-19 Information for Families?? Valuables and Belongings I fully understand and agree that [facility] accepts no responsibility for all my personal [...] encouraged to send valuables and belongings home. ?? Date for Pt to Sign Valuables/Belongings: 05/25/22 21:21:00 ?? Other Discharge Information ? Pulmonary Rehab Status?? [...] are strongly encouraged to quit. Please call [facility] [employer] Link at [phone] or [phone] ([phone]) or log in to [email or web address] for referrals to smoking cessation programs. ?? The National Suicide Prevention Hotline is available 27/11 if you or someone you know needs to find a reason to keep living. By calling 8-748-303-[employer] (2073) you'll be connected to a skilled, trained counselor at a crisis center in your area. INPATIENT DISCHARGE INSTRUCTIONS SIGNATURE PAGE JAX ZAINAB Location:[facility] Registration Date and Time:05/25/2022 13:05 [facility] Primary Care Physician: Jason Vitale MD, Pearl Petersen, I ZAINAB CAMARA, have received the above patient education materials/instructions and have verbalized understanding. If ambulance or transport services are being used I further acknowledge being givena choice of service. ?? If you need to contact me, please call me at this number: . Patient/Software Applications Engineer Name: Patient/Software Applications Engineer Signature: Relationship to Patient: Witness Name/Signature: Date: * Linsey Esqueda RN: PERFORM, SIGN, VERIFY Event Display: Patient Education Handout Authored Date: [id number] * Linsey Esqueda RN: PERFORM Event Display: Patient Education Leaflets Authored Date: [id number] OB [facility]- Discharge Instructions ?? 209 Discharge Care Instructions for the New Mom and Baby Please take a few moments to read through these helpful instructions before you leave the hospital.?? Your nurse will be glad to answer any questions you may have.?? You can also find this and more information throughout the purple Becoming a Family booklet, [facility]???s New Beginnings Guide and the Consultation Services Guide given to you after the of your baby.?? You may also phone our nurses stations if you have further questions.?? [facility]:?? First Floor ([phone]), Second Floor ([phone]).?? Please call your provider if you have any questions or concerns?? before your next appointment. For ongoing support please ???Like?? us on our Facebook page ???[facility]???s New Beginnings?? andsign up for our email newsletter at [email or web address].?? News and information will besent to you until your baby???s third birthday. Instructions for the New Mother Activity: For the next 2 weeks at home ??? no heavy lifting, avoid unnecessary stair climbing, and no driving(especially if you are taking medicine that may make you sleepy or feel that you are sleep deprived).?? For the next 4-6 weeks - no tampons, no douches, no sexual intercourse. Use your ximena bottle to rinse your perineum until your vaginal flow stops.?? If you have stitches in your bottom, they generally dissolve within 7-10 days.?? Apply Tucks/witch korey pads until your soreness subsides.?? Use your bathroom at home every 3 to 4 hours, rinse, and change your pads. Warm showers feel great on achy muscles, sore backs and sore bottoms. Exercise: Walking is the best form of exercise.?? Wait until your follow up appointment with your provider in4-6 weeks before engaging in more strenuous activity. Diet: Drink plenty of fluids to avoid constipation and to help support your recovery. Eat plenty of iron rich foods such as red meat, iron fortified cereals like Total and Cream of Wheat, raisins, prunes, greens and spinach.?? These will help to build your blood count back up as all women lose some blood after delivery.?? Also add foods rich in Vitamin C such as strawberries, oranges, papayas, kale and jansen peppers. Continue to take your vitamins if you are .?? If you are not follow the instructions of your provider.?? If you were prescribed iron supplements such as ferrous sulfate, it is important to continue these until your doctor or weasand trimmer tells you to stop. Breast Care for Nursing Mothers: Wear a comfortable fitting, supportive nursing bra.?? An underwire bra is not recommended. Express drops of breast milk and rub over your nipples and areola (brown area) before and after each feeding to protect and heal sensitive skin and then air dry your nipples.?? If you are experiencing any soreness, you may purchase nipple cream such as TenderCare or Lansinoh.?? Use it in the following manner:?? finish your feeding or pumping session, self-express colostrum onto your nipple and air dry, apply the nipple cream to the nipple and areola.?? Use only small amounts for best results. If you are having difficulty getting the baby to latch onto the breast due to swelling of the areola, try applying pressure with your fingers for a couple of minutes above and below your nipple and walk your fingers outward softening the area and pushing the swelling away.?? This technique is knownas reverse pressure softening.?? For demonstrations of this and other techniques such as the [place] Hand Expression technique, please refer to the resources section of the Consultation Services Guide that you received from services. When your milk first comes in, usually within 3 to 5 days after delivery, you may experience engorgement.?? Your breasts may become swollen and very tender.?? Cold compresses work great to help with discomfort and reduce swelling. It will get better in a couple of days.?? Continue to nurse your baby frequently.?? Call [facility]???s Consultation Service at [phone], press 1 to schedule an outpatient appointment or press 3 and a it sales consultant will return your call that day or the next if you call after 3pm. Breast Care for Bottle Feeding Mothers: Engorgement may occur within the first week after delivery.?? Your breasts may become hard and verytender.?? A cool compress of cleaned raw green cabbage leaves applied to the breast and changed as leaves wilt has been proven helpful for many women.?? Ice packs or frozen bags of peas also work nicely to ease the discomfort.?? The soreness will only last a couple of days. Keep your back turned to the water while showering to decrease breast stimulation. Wear a snug fitting bra such as a sports bra. Incision Care Following Tubal or Section: You may shower as directed by your doctor or weasand trimmer.?? Pat your incision dry with a clean towel.??You will not need a bandage after the first day. Call your doctor or weasand trimmer with any signs of infection such as a hard, hot swollen tender incision, especially if the skin around the incision looks pink or red.?? Yellow drainage with an odor may also be a sign of infection to report. Call your doctor or weasand trimmer if the incision begins to separate. If you have steri-strips on the incision, they will likely fall off in the first week.?? If they have not fallen off by 10 days after delivery, you may remove them. Control: Your doctor or weasand trimmer will discuss control methods with you when you are discharged from thespital or at your checkup.?? Be sure to let your provider know if you are . You had a Paragard IUD placed on .?? This control method is effective for 10 years. You had a Liletta placed on .?? This control method is effective for up to 5 years. You had a Nexplanon placed on .?? This control method is effective for up to 3 years. You received a Depo Provera injection on .?? This control method is effective as longas you repeat it every 3 months.?? Schedule your next dose before . You have a prescription for control pills .?? It is important to take a pill everyday at around the same time of day for effective control protection.?? Pain Management: Cramping after is common and increases in strength with each baby you have.?? If you experience painful cramps, and have no allergies to acetaminophen (Tylenol) or ibuprofen (Motrin), you may continue to take these medications as you did in the hospital.?? Ibuprofen is also helpful with back aches following epidurals, perineal pain following a vaginal delivery, and moderate incisional pain after a section or a tubal ligation.?? If you experience gas distention, especially after surgery, you may take an over the counter medication called simethicone.?? Take these chewable tablets 4 times a day as needed and directed on the package.?? Keep moving.?? Walking or rocking in a chair, will help to move the gas along.?? Zachary tea made with heated zachary wendi (instead of water) and a tea bag, stirred to dissolve carbonation (bubbles) is a helpful drink to soothe a gassy stomach. Warning Signs of a Problem to Notify Your Doctor or Soft Shoe Dancer of: Heavy vaginal bleeding ??? which is soaking a pad every hour with bright red blood. Passing blood clots the size of an egg or larger. An incision that is not healing. A temperature greater than or equal to 100.4 especially if accompanied by any of the following symptoms ??? painful, frequent urination; extreme back or flank pain; lower belly pain with a foul smellto your vaginal flow; a red hard hot area on your breast.?? Severe headache that does not go away after taking acetaminophen or ibuprofen.?? A headache that changes your vision, including seeing spots or blurring. Right sided upper abdominal pain along the rib cage area. Pain in your legs that is warm and tender to the touch. depression signs may include ??? loss of interest in your baby, weepiness, difficulty focusing, weight loss with no appetite, exhaustion, feeling overwhelmed or anxious, feelings of despair, or thoughts of harming yourself or your baby.?? These symptoms are important and should be discussed with your doctor or weasand trimmer. depression may develop over a period of time and needs prompt medical attention.?? Do not suffer in silence.?? In both the Becoming a Family booklet and the[facility] New Beginnings Guide there is a screening tool used to identify women at risk, called the [place] Scale which you have taken in the office prior to delivery and again during your hospital s dany.?? Three to four weeks after your delivery, and before your check with your provider, take this test and share your results with your provider.?? Be sure to mention any score of 10 or more.?? Many women, and even some partners, may experience the ???baby blues?? .?? This is a state of feeling overwhelmed and weepy.?? Discomfort from childbirth, hormonal changes, exhaustion, changes to your body and lifestyle are a few of the things that contribute to the highs and lows new parents go through.?? Don???t be afraid to ask your partner or family and friends for some help at home so you can get some rest and a few minutes to yourself.?? The blues will quickly pass. Personal Safety: Every person has the right to feel safe at home and live free from physical or emotional harm.?? Ifyou have suffered mental or physical abuse at home, you are not alone.?? There is help.?? Please call HOTLINE or the [employer] ARCH Program at [phone]. CARE Bathing: Give your baby a sponge bath until the cord falls off in about 1-3 weeks.?? It is not necessary to bathe your baby every day, usually every few days is sufficient. ??Keep the cord area dry.?? Some baby girls will have a small bloody vaginal discharge. No need to worry as this is normal. It is not necessary to use lotions on the baby???s skin.?? Powders and oils are not recommended.?? Babies often get rash on their skin which comes and goes quickly and does not require any special care.?? Diaper rash can be treated with a zinc oxide preparation such as Desitin or Balmex diaper cream. Circumcision Care: Your nurse will teach you how to care for your baby???s circumcision depending on the type of circumcision your doctor or weasand trimmer performed.?? Most circumcisions require A&& ointment for about 4-5 days.?? Be generous with the amount of A&& used as this will prevent the diaper from sticking when you go to change it. If a plastibell circumcision was done, the plastic ring around the penis will fall off in a week orso. Diapers: After the 1st??few days, the baby will start wetting more often.?? A breast fed baby will wet about6-8 times a day once mom???s milk comes in ??? usually day 4 or 5.?? This is a good sign that the baby is getting plenty to eat.?? You may notice an orangey-pink stain in the diaper which is normal for the first few days. The baby???s first bowel movements are sticky, black and tarry.?? As the baby starts to feed more often over the next couple of days, the stool will change to a seedy yellowish green color and eventually a loose mustard like stool for a breast fed baby and a more formed yellow stool for a bottle fed baby. your Baby: ??Congratulations on deciding to breastfeed your baby! You are providing your baby with the most nourishing food source on the planet, your breast milk.?? Cues such as rooting, suckling, licking and fussing may be telling you that your baby is ready to eat ??? and it is time to offer your breasts. The first weeks following the are a time for you and your baby to learn.?? The baby may be sleepy the first day after with 8 to 12 attempts ??? including 2 to 4 good feedings.?? Over the next couple of days the baby will become more wakeful, feed 8 to 12 times a day and have more wet and poopy diapers.?? Cluster feeding, especially during the evening/night time, is normal. ?? Listen for swallowing sounds and watch the baby as they become more relaxed at the breast ??? both good signs that the baby is getting a good amount of milk.?? Refrain from smoking or eating edible marijuana while you are . Even though marijuana is legal in the state of [place],??it is harmful for your baby.??It stays in breast milk for along period of time and THC can be found in the baby's urine for up to 3 weeks. Second hand smoke can also increase the risk??of Sudden Infant Syndrome / SIDS. ?? Nursing is wonderful but many moms and babies have some degree of difficulty with at first. Don???t give up!?? There are many resources available to help you overcome these temporary problems. Your prop setter wants to hear from you if you are having difficulties and can offermany helpful suggestions.?? Some offices have consultants on staff. [facility]???s Consultation Service is available 7 days a week, 8am to 3pm at [phone].?? Press 1 to schedule an outpatient appointment.?? Press 3 to leave a message for the client care consultant, a it sales consultant will return your call that day or the next if you call after 3pm. Support Groups ??? [facility] offers free gatherings for moms and babies weekly.?? All groups meet at the [facility]???[facility] 2nd??floor, typically in the [facility] Conference Room, Sunday???s 1 to 2 pm.?? [employer] is a worldwide organization with local community support, mother to mother support.?? Information can be found at https://www.[employer]lusa.org Formula Feeding your Baby: Formula fed babies should eat every 3 to 4 hours.?? Look for cues that your baby is ready ??? such as rooting and sucking, licking and fussing.?? At the baby???s stomach is small and may take 10-15ml of formula.?? Over the next few days the baby will become more wakeful and feed more frequently, gradually increasing the amounts of formula taken at a feeding.?? Your prop setter will provideinstructions on how to increase the amount.?? Refer to packaging for formula preparation directions, depending on the type of formula you purchase ??? powder, concentrate or ready to feed. Safety: ALWAYS REMEMBER - BACK TO SLEEP! Babies sleep safest on their backs.?? Every sleep.?? Every time.?? Every nap. Babies need a firm sleep surface with a tight fitting bottom sheet.?? NO loose bedding.?? NO pillows.?? NO bumper pads or rolls.?? NO heavy or fluffy blankets. NO stuffed toys. It is not safe for your baby to sleep in your bed, in a chair, or on a sofa.?? Your baby should notsleep with you or anyone else. Car Seat: Always place your baby in a rear facing car seat in the backseat of the car. Car seat inserts that come with the car seat can be used as they are crash tested with the seat.?? You should not buy additional inserts.?? Dress the baby in a weather appropriate outfit.?? Avoid bulky clothing such as snowsuits or jackets as the baby may squirm in the seat, loosening the shoulder straps and come out of the top of the harness if you need to brake hard or are in an accident.?? Once the baby issecured in the seat you can cover your little one with a blanket if needed.?? If your baby was bornprematurely, follow the directions given to you.?? If you have not already done so, check to make sure your car seat is installed correctly. Check with your local Fire and Police Department to see if they offer car seat inspections at a location close to you. Babies Can Move: ?? Never leave your baby unattended on any surface, raised or flat, or while bathing.?? They can squirm, fall or hurt themselves.?? Always fasten the safety belt when using an infantseat or swing ??? as they may lean forward and fall. Good Handwashing is the number one way you can protect the baby from too?? many germs and prevent infection.?? When family and friends visit ask that they wash their hands before holding your baby.??Also avoid crowds the first month of your baby???s life to protect from colds and flus. Shaking a baby out of frustration can cause severe and lasting damage, even to a baby.?? If you feel you are becoming angry or overwhelmed, place the baby in a safe place and walk away.?? Call a friend or family member.?? If they are not able to offer immediate help call the Parental Stress Hotline at?? , an anonymous 27/11 source of help. Warning Signs to notify your prop setter of: Most babies develop a small amount of jaundice (a yellowish skin color) in the face and upper chest, by about 3 days of age.?? If the yellow color extends below the baby???s belly or if the baby is very sleepy and not feeding well, call your prop setter. A rectal temperature of 100.4F as it could be a sign of infection. Projectile vomiting that continues with each feeding could indicate reflux or a problem with the formula. Extreme sleepiness or very fussy. Cold symptoms with nasal stuffiness, especially if the baby is having difficulty feeding. Constipation with hard stools. Blue or dusky color, call 911. If Your Baby Needs to Remain in the Hospital: Please leave your baby???s ID bracelets on if your baby needs to remain in the hospital after you are discharged home. The phone number to NICU is [phone]. The phone number to [facility] is [phone]. The phone number to [facility] is [phone]. moms should pump every 2-3 hours or 8-12 times in 24 hours.?? If unable to place the baby to breast, if you are having difficulty getting the baby to latch on, or if the baby remains inthe hospital after you are discharged ??? bring the pumped milk to the hospital, labeled with name,date and time.?? Carry it in a small cooler or diaper bag with an ice pack and bring it the next time you visit your baby.?? Consultation Services is available if you need to rent or purchase a pump or products.?? Call and leave a message at [phone] ??? press 3 and a it sales consultant will return your call that day or the next if you call after 3pm. ? * Yin ISAACS, Linsey Elizabeth: PERFORM Event Display: Patient Education Leaflets Authored Date: [id number] COVID-19 Information for Families ?? 87 COVID-19 Information for Families Information from: www.cdc.gov/COVID19 ? What is coronavirus disease 2019 (COVID-19)? Coronavirus disease 2019 (COVID-19) is a respiratory illness that can spread from person to person.The virus that causes COVID-19 is a NEW coronavirus that [facility]. ?? How does COVID-19 spread? The virus that causes COVID-19 probably emerged from an animal source, but is now spreading from person to person. The virus spreads mainly between people who are in close contact with one another (within 6 feet) through respiratory droplets produced when an infected person coughs or sneezes. It may be possible that a person can get COVID-19 by touching a surface or object that has the virus on it and then touching their own mouth, nose or eyes. ?? What are the symptoms? (*Most common in children) ??? Fever* ??? Runny nose ??? Aching muscles ??? Cough* ??? Sore throat ??? Congestion ??? A few can have vomiting &&diarrhea ?? When should a symptomatic person seek medical care? When symptoms are getting worse ??? Breathing is more difficult ?? Call the doctor immediately if: ??? Breathing is labored ??? Tightness in chest ??? Bluish lips or face ??? New confusion or cannotarouse BEFORE seeking care, call your doctor and tell them you are Being evaluated for COVID-19. ?? What can I do to protect myself and my family from getting COVID-19? Avoid close contact with people who are sick ??? Avoid touching your eyes, nose and mouth with unwashed hands ??? Wash your hands often with soap and water for at least 20 seconds. Especially: - Before you eat, prepare food or feed your children - After diapering an infant or using the bathroom - Use an alcohol-based hand hoop riveting machine operator helper if soap and water are not available ?? For cleaning use: ? ? Soap &&water For disinfection use: ??? Most common EPA-registered household disinfectants should be effective ??? Alcohol solutions with at least 70% alcohol ??? Diluted bleach: - 1 tsp bleach - 1 cup of water ?? What if someone I live with has symptoms? Symptomatic people should: ??? Stay home: - In an area apart from family and pets - With a separate bathroom if possible ??? Restrict activities outside your home except for medical care ??? Cover coughs or sneezes with a tissue or your elbow (discard tissue immediately) ??? Clean and disinfect frequently touched objects and surfaces every day ??? Avoid sharing personal household items: food, drink, dishes, utensils, towels, and bedding ? Is it okay for a mother with symptoms to breastfeed her ? Breast milk is the best source of nutrition for most infants. However, much is unknown about COVID-19. Whether to start or continue should be determined by the mother in coordination with her healthcare provider. A mother with confirmed or symptoms of COVID-19 should take all possibleprecautions to avoid spreading the virus to her infant, including washing her hands before touchingthe and wearing a face mask, if possible, while feeding at the breast. If expressing breast milk with a manual or electric breast pump, the mother should wash her hands before touching any pump or bottle parts and follow recommendations for proper pump cleaning after each use. If possible, consider having someone who is well feed the expressed breast milk to the infant. ? * Lea Gomez RN: PERFORM Event Display: Care Team Progress Note Authored Date: [id number] Patient: ??ZAINAB CAMARA ? Age:??37 Years?Sex:??Female?:??1985?? Assessment/Plan IBCLC in to see patient 3 times throughout the day. First 2 times, patient was sleeping. 3rd time, patient was awake with visitors present. She said she'd like to both breast and formula feed and requested a visit tomorrow. OB Summary : 7 . Baby A - Weight: 3.148 kg Baby A - Date, Time of : 05/26/22 04:24:00 Baby A - Gender: Female Baby A - Complications: None EGA at Documented Date, Time: 40W 5D Weight at Delivery Baby A - Delivery Type: Vaginal OB History History?(4,1,1,5)? # 1 ?Baby 1 ?Outcome Date:??2005 ?Outcome or Result:??Vaginal ?Gest Age:??40 weeks ? Outcome:??Live ? Sex:??Male ?Comment:??4 degree episiotomy ?? # 2 ?Baby 1 ?Outcome Date:??2009 ?Outcome or Result:??Vaginal ?Gest Age:??38 weeks ? Outcome:??Live ? Sex:??Male ?Comment:??vanishing twin ?? # 3 ?Baby 1 ?Outcome Date:??2011 ?Outcome or Result:??Spontaneous ?Gest Age:??-- ? Outcome:? Sex:??-- ?? # 4 ?Baby 1 ?Outcome Date:??2013 ?Outcome or Result:??Vaginal ?Gest Age:??34 weeks ? Outcome:??Live ? Sex:??Male ?Comment:??placenta abruption ?? # 5 ?Baby 1 ?Outcome Date:??02/06/2016?Outcome or Result:??Vaginal ?Gest Age:??40 weeks 1 days ? Outcome:??Live ? Sex:??Male ?? # 6 ?Baby 1 ?Outcome Date:??03/22/2017?Outcome or Result:??Vaginal ?Gest Age:??Fullterm ? Outcome:??Live ? Sex:??Male ?Maternal Complications:??High risk ?Hospital:[facility] Active Problem List Active Problem List Asthma: (Medical) Echogenic bowel of fetus on ultrasound: (Obstetric) GBS (group B streptococcus) UTI complicating : (Obstetric) Scanned records from [facility] (06/19/15) GDM, class A1: (Medical) Hernia, umbilical: (Medical) History of delivery, currently : (Obstetric) Obesity: (Medical) tubal ligation planned: (Medical) : (Obstetric) (08/14/21) Severe obesity: (Medical) [place] speaking patient: (Medical) Home Medications Albuterol: 2 puffs, Inhalation, Every 6 hours, PRN (Wheezing/Shortness of Breath) Aspirin: 162 mg = 2 tablet, By Mouth, Daily, At bedtime Famotidine: 20 mg = 1 tablet, By Mouth, 2 times a day Miscellaneous Rx (Sleep Aid (doxylamine) 25 mg tablet): 0.5 tablet, By Mouth, 3 times a day, PRN ( NEEDED FOR NAUSEA AND VOMITING), TAKE WITH vitamin b-6 TABLET Multivitamin, : 1 tablet, By Mouth, Daily Medications Medications (11) Active SCHEDULED: (5) Docusate Sodium 100 mg Capsule (Docusate Sodium Capsule) ??100 mg 1 capsule, By Mouth, 2 times a day Multivitamin Tablet ( Multivitamin Tablet) ??1 tablet, By Mouth, Daily Senna Tablet (Senna 8.6 mg oral tablet) ??17.2 mg 2 tablet, By Mouth, Daily Simethicone 80 mg Chewable Tablet (simethicone 80 mg oral tablet, chewable) ??80 mg, Chew, 3 times a day Vancomycin 1 Gm / D5%W 200 mL (Vancomycin IVPB) ??1 Gm 200 mL, IVPB, Every 12 hours CONTINUOUS: (2) Lactated Ringers (1000 mL) Cont IV 1,000 mL (LR 1,000 mL) ??1,000 mL, IV Infusion, 125 mL/hr Lactated Ringers (1000 mL) Cont IV 1,000 mL (Lactated Ringers 1,000 mL) ??1,000 mL, IV Infusion, 125 mL/hr PRN: (4) Acetaminophen 325 mg Tablet (Acetaminophen Tablet) ??650 mg, By Mouth, Every 4 hours Calcium Carbonate 500 mg (Calcium 200 mg) Chewable Tablet (Tums 500 mg Tablet) ??1,000 mg 2 tablet,Chew, 3 times a day Ibuprofen 800 mg Tablet (Ibuprofen Tablet) ??800 mg, By Mouth, Every 8 hours Ondansetron 2mg/mL Inj (2mL Vial) (Ondansetron Inj) ??4 mg, IV Push, Every [address] Abdomen and Pelvis * BHSPowerscrimirna , CIS S: TRANSCRIBE Bethanie SHIELDS, Al Olea: VERIFY Event Display: Result: Authored Date: CT Abd/Pelvis W/ Oral Contrast Only Reason: Other:; umbilical hernia; Clinical Question(s): Other:; incarcerated hernia; Order Comment: TECHNIQUE: Spiral CT through the abdomen and pelvis without IV contrast formatted in 3 planes. Thisstudy was performed with oral contrast. Weight-based protocol using automatic tube modulation was used to optimize exposure parameters. COMPARISON: No relevant prior studies FINDINGS: Slot Supervisor View Findings, Lines and Tubes: None. Visualized Chest: Lung bases are clear. No pleural effusion. The heart is normal in size. No pericardial effusion. Diaphragm: Intact. Liver: Unremarkable for noncontrast exam. Gallbladder: No CT evidence of gallbladder pathology. Bile ducts: No biliary ductal dilation. Spleen: Normal. Pancreas: Normal. Adrenal glands: Normal. Kidneys and ureters: No hydronephrosis, stones, or noncontrast evidence of suspicious masses. Bladder: Nondistended state. Reproductive organs: Diffusely enlarged uterus. No gas or fluid within the endometrial-cervical canal. Stomach, small bowel, and large bowel: Enteric contrast has reached the mid ileum. There is no evidence for a bowel obstruction. There is no wall thickening to indicate diverticulitis or colitis. No constipation. Appendix: A normal appendix is seen. Peritoneum and retroperitoneum: No free fluid or hemoperitoneum. No free air. No abscess. No omental or mesenteric lesions. Lymph nodes: No enlarged lymph nodes. Blood vessels: Normal. No aneurysm. Abdominal and pelvic wall: There is a tiny fat-containing umbilical hernia which measures only 1.4 x 1.1 x 1.2 cm on image 93 series 201. There is mild thickening of the skin overlying the umbilicus.No abscess or gas. Bones: No acute abnormality. IMPRESSION: There is a very small fat-containing umbilical hernia measuring 1.4 x 1.2 x 1.1 cm. There is mild thickening of the skin overlying the hernia which could be due to cellulitis. Diffusely enlarged uterus consistent with postgravid state. No endometrial- endocervical gas or fluid. No free fluid, free air or abscess. WSN: [id number] Ordering Physician: Mehul Dye Dictated By: Al Kovacs MD Dictated Date/Time: 05/27/22 11:30 p Reviewed By: Al Kovacs MD Signed By: Al Kovacs MD Signed Date/Time: 05/27/22 11:30 pm Transcribed By: FELICIANO Transcribed Date/Time: 05/27/22 11:23 pm Patient Care team information Care Team Personnel Name: Pearl Chahal MD Position: [facility] Outreach Member Role: PCP Address: Address: [address] [place] [address]- [place] Name: Vladimir Del Valle DO Position: [facility] DEEP FAT FRY COOK MD Member Role: Lifetime DEEP FAT FRY COOK Physician Address: Address: [address] [place] [address]'s [facility] Computer Assistant [place] [address]- [place] Name: Michelle Anne RN Position: [facility] OB RN Member Role: Primary Care Nurse Name: Frieda Naranjo RN Position: [facility] OB RN Member Role: Patient Care Provider Care Team Related Persons Name: WALDO FORD Name: MERARI DUNHAM Address: [address] [place] [address] Name: ZAINAB CAMARA GIRL Address: [address] Address: [address] [place] [address] [place] Name: SAMARIA CHIANG Address: home [address] [place] [id number]
--- OUTSIDE RECORDS SUMMARY | 2023-01-11 17:08 | XMS_ITS | Continuity of Care Document ---
Author Name Unknown Organization [facility] Address [address] [place] [address]- Care Team Providers Care Clarifying Plant Operator Name Role Phone Jason Vitale MD, Pearl Petersen Primary Care Physici an [place] [facility] [place] 11/23/21 - 12/23/[address] [address]- Allergies, Adverse Reactions, Alerts Substance Reaction Severity Status penicillin Active Immunizations Given and Recorded Vaccine Date Status Refusal Reason tetanus/diphtheria/pertussis, acel(Tdap) 02/13/17 Given tetanus/diphtheria/pertussis, acel(Tdap) 1 01/04/16 Given tetanus-diphtheria toxoids (Td) 01/22/17 Given 1Admin Note: VIS on TDAP given to patient in [place]. Medications Multivitamins with Folic Acid 1 mg oral tablet 1 tablet, By Mouth, Daily, # 90 tablet, 2 Refills, Maintenance, 11/24/21 18:18:00 EDT, Tablet, [facility], Partial fill upon patient request if the prescription is for a schedule II opioid drug., 1 tablet By Mouth Daily, 160, cm, 0... Start Date: 11/24/21 Status: Ordered Unisom 25 mg oral tablet 1/2 tablet, By Mouth, 3 times a day, PRN Nausea & Vomiting, for 30 days, Take 1/2 a tab three times a day with one tab of pyridoxine for pevention of N/V in , # 45 tablet, 1 Refills, Acute 01/23/22 18:18:00 EDT, 11/24/21 18:18:00 EDT, [place]... Start Date: 11/24/21 Stop Date: 01/23/22 Status: Ordered Vitamin B6 25 mg oral tablet 1 tablet = 25 mg, By Mouth, 3 times a day, PRN Nausea & Vomiting, Take 1 tab three times a day with 1/2 tab of doxylamine for pevention of N/V in , # 90 tablet, 1 Refills, Acute 01/26/2218:18:00 EDT, 11/24/21 18:18:00 EDT, [facility]... Start Date: 11/24/21 Stop Date: 01/26/22 Status: Ordered Problem List Condition Effective Dates Status Health Status Inform ant Asthma(Confirmed) Active GDM, class A1(Confirmed) Active tubal ligation planned(Confirmed) Active [place] speaking patient(Confirmed) Active Obese class II(Confirmed) Active Obesity(Confirmed) Active Hernia, umbilical(Confirmed) Active Social History Social History Type Response Smoking Status Former smoker, quit more than 30 days ago entered on: 11/22/21 Sex
--- OUTSIDE RECORDS SUMMARY | 2023-01-11 17:08 | XMS_ITS | Continuity of Care Document ---
Author Name Unknown Organization [facility] Address [address] [place] [address]- Care Team Providers Care Group Segment Consultant Name Role Phone Jason Vitale MD, Pearl Petersen Primary Care Physici an Encounter [facility] Date(s): 04/12/21 - 05/12/[address] [address]- Attending Physician: Glynn Sosa Admitting Physician: AdmGlynn tobar Referring Physician: AdmtrGlynn Allergies, Adverse Reactions, Alerts Substance Reaction Severity Status penicillin Active Immunizations Given and Recorded Vaccine Date Status Refusal Reason tetanus/diphtheria/pertussis, acel(Tdap) 02/13/17 Given tetanus/diphtheria/pertussis, acel(Tdap) 1 01/04/16 Given tetanus-diphtheria toxoids (Td) 01/22/17 Given 1Admin Note: VIS on TDAP given to patient in [place]. Medications doxylamine 25 mg oral tablet See [...] each, 11 Refills, Maintenance, 12/19/19 11:42:00 EDT, [facility], 1patch Topically Every week,Instr:apply a new patch... Start Date: 12/19/19 Status: Ordered ibuprofen 600 mg oral tablet 600 mg, 1, tablet, By Mouth, 4 times a day, PRN, # 40 tablet, Refills 1, Tot. Refills 1, Maintenance, Pain , Mild, 04/05/21 10:12:00 EST, Route to Pharmacy Electronically, [facility], Partial fill upon patient request if the prescr... Start Date: 04/05/21 Status: Ordered miSOPROStol 200 mcg oral tablet See Instructions, Place 4 tablets in your vagina and then place another 4 tablets in your vagina four hours later., # 8 tablet, 0 Refills, Soft Stop, 04/05/21 10:16:00 EST, Tablet, [facility], Partial fill upon patient request if t... Start Date: 04/05/21 Status: Ordered Multivitamins with Folic Acid 1 mg oral tablet 1 tablet, By Mouth, Daily, # 90 tablet, 3 Refills, Maintenance, 03/08/21 13:32:00 EDT, Tablet, [facility], Partial fill upon patient request if the prescription is for a schedule II opioid drug., 1 tablet By Mouth Daily, 160, cm, 0... Start Date: 03/08/21 Status: Ordered promethazine 12.5 mg oral tablet 1 tablet = 12.5 mg, By Mouth, Every 4 hours, PRN for nausea/vomiting, # 10 tablet, 0 Refills, Maintenance, 04/05/21 10:13:00 EST, Tablet, [facility], Partial fill upon patient request if the prescription is for a schedule II opioid... Start Date: 04/05/21 Status: Ordered Problem List Condition Effective Dates Status Health Status Inform ant Asthma(Confirmed) Active GDM, class A1(Confirmed) Active tubal ligation planned(Confirmed) Active [place] speaking patient(Confirmed) Active Obese class II(Confirmed) Active Obesity(Confirmed) Active Hernia, umbilical(Confirmed) Active Vital Signs Most recent to oldest [Reference Range]: 1 Height 157.20 cm (09/28/15 10:45 AM) Social History Social History Type Response Smoking Status Current every day sm tiffany; Tobacco user in household: Yes entered on: 08/15/16 Sex
--- OUTSIDE RECORDS SUMMARY | 2023-01-11 17:09 | XMS_ITS | Continuity of Care Document ---
Author Name Unknown Organization [facility] ter Address [address] [place] [id number]- Care Team Providers Care Getter Welder Name Role Phone Jason Vitale MD, Pearl Petersen Primary Care Physici an Encounter [facility] Date(s): 06/02/22 - 06/02/[address] [address] Discharge Disposition: A-D/C Home Attending Physician: Negro SHIELDS [OB], Светлана Pace Admitting Physician: Negro SHIELDS [OB]Светлана Referring Physician: Negro SHIELDS [OB], Светлана Pace Allergies, Adverse Reactions, Alerts Substance Reaction Severity Status penicillin Active Immunizations Given and Recorded Vaccine Date Status Refusal Reason tetanus/diphtheria/pertussis, acel(Tdap) 03/09/22 Given tetanus/diphtheria/pertussis, acel(Tdap) 02/13/17 Given tetanus/diphtheria/pertussis, acel(Tdap) 1 01/04/16 Given influenza virus vaccine, inactivated 03/09/22 Give n tetanus-diphtheria toxoids (Td) 01/22/17 Given 1Admin Note: VIS on TDAP given to patient in azeri. Medications acetaminophen 325 mg oral tablet 650 [...] 0 Refills, Maintenance, 05/28/22 7:28:00 EST, Tablet, [facility] #[id number], Partial fill upon patient request if the prescription is for a schedule II opioid drug., 160, cm, 05/28/22 0:09:00 EST, Height,... Start Date: 05/28/22 Status: Ordered famotidine 20 mg oral tablet 20 mg, 1, tablet, By Mouth, 2 times a day, # 60 tablet, Refills 0, Tot. Refills 0, Maintenance, 04/06/22 12:22:00 EST, Route to Pharmacy Electronically, [facility], Partial fill upon patient [...] Date: 05/28/22 Stop Date: 06/11/22 Status: Ordered MiraLax oral powder for reconstitution = 17 Gm, By Mouth, Daily, dissolve in water before taking, # 527 Gm, 0 Refills, Maintenance, 06/02/22 6:47:00 EST, REC Powder, [facility], Partial fill upon patient request if theprescription is for a schedule II opioid drug., 17... Start Date: 06/02/22 Status: Ordered oxyCODONE 5 mg oral capsule 1 capsule = 5 mg, By Mouth, Every 6 hours, PRN as needed for pain, # 5 capsule, 0 Refills, Acute 06/04/22 7:30:00 EST, 05/28/22 7:22:00 EST, Capsule, [facility]/pharmacy #[id number], Partial fill upon patient request if [...] Confirmed Active tubal ligation planned Confirmed Active Maori speaking patient Confirmed Active Obesity Confirmed Active Severe obesity Confirmed Active Hernia, umbilical Confirmed Active Vital Signs Most recent to oldest [Reference Range]: 1 Height 160 cm (06/02/22 4:08 AM) Weight 101.2 kg (06/02/22 3:51 AM) Oxygen Saturation [94-100 %] 98 % (06/02/22 3:51 AM) Pulse Rate [55-90 bpm] 72 bpm (06/02/22 3:51 AM) Blood Pressure [90-138/55-84 mm Hg] 120/ 75mm Hg (06/02/22 3:51 AM) Respiratory Rate [16-30 br/min] 18 br/mi n (06/02/22 3:51 AM) Temperature [96.8-100.4 DegF] 97.4 DegF (06/02/22 3:56 AM) Mode of Delivery (Oxygen) Room air (06/02/22 3:51 AM) Blood pressure sites Arm, right (06/02/22 3:51 AM) Temperature Route Oral (06/02/22 3:56 AM) Dry Weight 101.2 kg (06/02/22 3:51 AM) Weight Obtained Via Standing scale (06/02/22 3:51 AM) Dry Weight Obtained Via Standing scale (06/02/22 3:51 AM) Social History Social History Type Response Smoking Status Never (less than 100 in lifetime) entered on: 06/02/22 Sex Note * Anne Marie Jarquin RN: PERFORM Event Display: Discharge/Transfer Note Hospital Authored Date: [id number] Nursing Discharge Note Entered On: 06/02/2022 5:39 EST Performed On: 06/02/2022 5:39 EST by Anne Marie Jarquin RN Nursing Discharge Note 2 Discharge Time : 06/02/2022 5:39 EST Discharge Level of Care at Discharge : Home/Assisted/Foster Care Patient Left Unit Via : Ambulatory Patient Accompanied Off Unit with : Responsible adult DC Instructions Provided & Signed by Pt : Yes Patient Understands D/C Instructions : Yes Patient Instructions Discharge Signed : Yes Did Pt have Specialty Bed or Wound Vac : No Anne Marie Jarquin RN - 06/02/2022 5:39 EST * Event Display: Discharge/Transfer Note Hospital Authored Date: * Anne Marie Jarquin RN: PERFORM Event Display: Patient Education/Instruction Authored Date: Inpatient Adult Discharge Instructions [address] [address] Name: CHENG CAMARA : 1985 Visit: 06/02/2022 03:33:00 Current Date: 06/02/2022 05:08 Account: [id number] Inpatient Adult Discharge Instructions We would like [...] and their families. Surveys are administered by [employer] ?? If further treatment with your primary care physician or another doctor is recommended, it is important for you to keep the appointment. Call your primary care physician or return to the Emergency Department immediately if your condition worsens, fails to improve, or new symptoms develop. If you need to find a doctor, you can call [facility] for a referral at [phone] or toll free at [phone] or log in to [email or web address].. ?? You can view and manage your care through the patient portal or by using a health care maida of your choosing. [employer] is a website that allows you to securely view your medical information including your hospital discharge summary, office visit summaries, medications and follow-up visits. You can also request appointments, renew medications, and request access to your medical information using a health care maida of your choosing, or just ask a question. You can enroll at [email or web address] or register during your next office visit. You have been discharged from [facility], Patient Care Unit: [id number]. If you have any questions regarding these instructions after you leave, please call us and we will be happy to assist you. [facility] Your Care Team Attending Physician Negro SHIELDS [OB], Светлана Pace Reason for Admission POST RIGHTSIDE ABD PAIN Tests Performed Below is a partial list of the tests performed during your hospitalization. You may have had other tests and procedures not included in this list. Please discuss all test results with your provider. Primary Care Provider Jason Vitale MD, Pearl Petersen Advance Directive Health Care Proxy on File Yes - Health Care Proxy No qualifying data available. Discharge Vitals Temperature: 97.4 DegF Height: 160 cm Pulse Rate: 72 bpm Weight: 101.2 kg Respiratory Rate: 18 br/min ?? Systolic Blood Pressure: 120 mm Hg ?? Diastolic Blood Pressure: 75 mm Hg ?? Oxygen Saturation: 98 % ?? Studies Pending All tests and labs ordered during this hospital stay have been completed unless listed below. Please discuss all pending results with your provider listed above in these instructions. ?? No incomplete studies found What to do next Instructions From Your Doctor Discharge Orders Scheduled Follow-Up Appointments Sunday 3:00 PM EST ?? With: Tiana Redmond CNM Where: [facility] [address] [place] [address]- You Need to Schedule the Following Appointments Follow Up with??[facility] [phone] When?? Discharge Medications CHENG CAMARA :1985 Visit Date:06/02/2022 Medications: Please continue your medications until treatment is completed or stopped by your provider. Medications not listed below should be discontinued. Discuss any questions related to medications with your provider. What How Much When Instructions Next Dose Unchanged Acetaminophen (acetaminophen 325 mg oral tablet) 650 Milligram Oral Every 4 hours as needed for Pain , Mild Duration: 14 Days (1-3), may give 325mg per patient preference and re-dose with 325mg within 4 hours, if needed. ?? Patient should only receive a total of 650mg of Acetaminophen every 4 hours. ?? Unchanged Albuterol (ProAir HFA) 2 puff(s) Inhalation Every 6 hours as needed for Wheezing/Shortness of Breath Unchanged Docusate (docusate sodium 100 mg oral capsule) 1 capsule Oral Twice a day Unchanged Famotidine (famotidine 20 mg oral tablet) 1 tab(s) Oral Twice a day Unchanged Ibuprofen (ibuprofen 800 mg oral tablet) 1 tab(s) Oral Every 8 hours as needed for Pain , Moderate Duration: 14 Days (4-6), may give 400mg per patient preference and re-dose with 400mg within 8 hours if needed. ?? Patient should only receive a total of 800mg of Ibuprofen every 8 hours. ?? Unchanged Norethindrone (Nancy 0.35 mg oral tablet) 1 tab(s) Oral Daily Unchanged Oxycodone (oxyCODONE 5 mg oral capsule) 1 capsule Oral Every 6 hours as needed for as needed for pain Test Results Below is a partial list of the most recent Laboratory test results done prior to this discharge. You may have had other tests and procedures not included in this list. Please discuss all test resultswith your provider. Allergies (NKA means No Known Allergies) penicillin Problems Active Problems??(10) Asthma?? Echogenic bowel of fetus on ultrasound?? GBS (group B streptococcus) UTI complicating ?? GDM, class A1?? Hernia, umbilical?? History of delivery, currently ?? Obesity?? tubal ligation planned?? Severe obesity?? Maori speaking patient?? Education Materials Below is the list of Educational Leaflet Providered with your Discharge Instructions. Treating Constipation?? Constipation (Adult)?? After a Vaginal ?? Valuables and Belongings I fully understand and agree that [facility] accepts no responsibility for all my [...] are strongly encouraged to quit. Please call [facility] [employer] [facility] at [phone] or [phone] or log in to [email or web address] for referrals to smoking cessation programs. ?? The National Suicide Prevention Hotline is available 27/11 if you or someone you know needs to find a reason to keep living. By calling 5-145-827-SmartH[employer]itat (6172) you'll be connected to a skilled, trained counselor at a crisis center in your area. INPATIENT DISCHARGE INSTRUCTIONS SIGNATURE PAGE CHENG CAMARA Location:[facility] Registration Date and Time:06/02/2022 03:33 EST Primary Care Physician: Jason Vitale MD, Pearl Petersen, CHENG SOLIMAN, have received the above patient education materials/instructions and have verbalized understanding. If ambulance or transport services are being used I further acknowledge being givena choice of service. ?? If you need to contact me, please call me at this number: . Patient/Portrait Photographer Name: Patient/Portrait Photographer Signature: Relationship to Patient: Witness Name/Signature: Date: * Milka ISAACS, Anne Marie Parker: PERFORM Event Display: Patient Education Leaflets Authored Date: [id number] Treating Constipation ?? [address] Tratamiento del estre??imiento El estre??imiento es un problema com??n y, a menudo, molesto. Significa que evac??a samuel intestinos menos de 3 veces a la semana. O que hace fuerza al ir al ba??o porque las heces son duras y secas. Puede durar poco tiempo. O puede ser un problema que parece no terminar nunca. La buena noticia es que, a menudo, puede tratarse y mantenerse bajo control. Coma m??s fibra Hawk de las mejores maneras de tratar el estre??imiento es aumentar la fibra que come. Usted puede hacer esto a tali??s de la dieta o mediante suplementos de fibra. La fibra (que est?? en los granos enteros, las frutas y los vegetales) se agranda en los intestinos y absorbe agua, lo cual ablanda lasheces. [place] ayuda a que las heces pasen m??s f??cilmente por el colon. Cuando coma m??s fibra, h??sandra poco a poco para evitar efectos secundarios tales delvis la hinchaz??n. Tambi??n debe priti m??s agua. Si come m??s de estos alimentos, estar?? agregando fibra a salguero dieta: ??? Cereales altos en fibra ??? Granos enteros, salvado y arroz integral ??? Vegetales tales delvis las zanahorias, el br??coli y las hojas verdes ??? Frutas frescas (en especial las manzanas y las peras, y frutas secas delvis lasuvas pasas y los albaricoques) ??? Bruno secos y legumbres (en especial, frijoles, lentejas, frijoles rojos y frijoles verdes) ?? Establezca hawk rutina adecuada ??? Vaya al ba??o cuando sienta la necesidad. No reprima la necesidad de evacuar los intestinos. ??? T??mese un tiempo despu??s de las comidas para ir al ba??o. ?? Noemi actividad f??braxton El ejercicio ayuda a mejorar el funcionamiento del colon, lo que puede aliviar el estre??imiento. Trate de hacer actividad f??braxton todos los d??as. Si no charles hecho actividad en alg??n tiempo, hable con salguero proveedor de atenci??n m??dica antes de volver a empezar. ?? Considere otras opciones ??? Laxantes. Es posible que salguero proveedor de atenci??n m??dica le sugiera usar alg??n producto de venta maryuri para aliviar el estre??imiento. Podr??a sugerir productos formadores de masa o laxantes. Los laxantes son comunes y seguros si se usan seg??n las indicaciones. Sigalas instrucciones al pie de la letra para usarlos. Visite al proveedor si tiene un estre??imiento reciente o de ochoa plazo. Es para descartar otras causas, delvis determinados medicamentos u otras afecciones. Consulte al proveedor si tiene sangrado rectal. ??? Entrenamiento del piso p??lvico. La biorretroalimentaci??n y la fisioterapia p??lvica pueden ser ??tiles. Pueden ayudarlo si tiene problemas del piso p??lvico que causen estre??imiento. En la biorretroalimentaci??n, el proveedor de atenci??n m??dica le coloca sensores dentro y fuera del ano. [place] le permite aprender c??mo encontrar y relajar los m??sculos braulio la evacuaci??n para no estre??irse. Con la fisioterapia, aprender?? ejercicios que le permitir??n tener evacuaciones normales y evitar el estre??imiento. Quiz?? le ense??en distintas posiciones para evitar el estre??imiento braulio la evacuaci??n. ?? Last Reviewed Date: 2021 ?? [id number] [employer]. Todos los derechos reservados. Esta informaci??n no pretende sustituir la atenci??n m??dica profesional. S??lo salguero m??dico puede diagnosticar y tratar un problema de rajendra. ?? * Milka ISAACS, Anne Marie D.: PERFORM Event Display: Patient Education Leaflets Authored Date: [id number] Constipation (Adult) ?? [id number] Estre??imiento (adultos) Si padece de estre??imiento, significa que evacua samuel intestinos con menos frecuencia que lo habitual. A menudo, las heces se vuelven muy duras y dif??ciles de evacuar. El estre??imiento es muy com??n. Afecta a jaime todas las personas en alg??n momento de salguero cody. Losh??bitos intestinales josé??an de hawk persona a otra y, por ello, lo que es estre??imiento en hawk puede no serlo en otra. El proveedor de atenci??n m??dica puede hacer algunas pruebas para diagnosticar el estre??imiento. Depender?? de los hallazgos cuando lo examinen. Los siguientes son algunos s??ntomas del estre??imiento: ??? Dolor abdominal ??? Hinchaz??n abdominal ??? V??mitos ??? Evacuaciones dolorosas ??? Comez??n, hinchaz??n, sangrado o dolor alrededor del ano Causas El estre??imiento puede tener muchas causas. Por ejemplo: ??? Alimentaci??n con poca fibra ??? Exceso de l??cteos ??? No beber suficiente cantidad de l??quidos ??? Falta de ejercicio o de actividad f??braxton (especialmente en los adultos mayores) ??? Cambios en el estilo de cody o la rutina, delvis embarazos, envejecimiento, trabajo y viajes ??? Uso frecuente o inadecuado de laxantes ??? Dejar pasar el momento en que siente la necesidad de evacuar los intestinos o demorarlo ??? Medicamentos, delvis algunos analg??sicos recetados, anne, anti??cidos, algunos antidepresivos y suplementos de calcio ??? Afecciones delvis el s??ndrome del intestino irritable, obstrucciones intestinales, derrame cerebral, diabetes, enfermedad de la tiroides, Parkinson, hemorroides y c??ncer de colon ?? Complicaciones Las siguientes son algunas complicaciones posibles del estre??imiento: ??? Hemorroides ??? Sangradorectal por hemorroides o fisuras anales (desgarros en la piel) ??? Hernias ??? Estre??imiento cr??cee ??? Impactaci??n fecal, hawk forma grave de estre??imiento en la que hay hawk gran cantidad de heces en el recto que no se puede evacuar ??? Obstrucci??n o perforaci??n de los intestinos ?? Cuidados en el hogar Consulte a salguero proveedor de atenci??n m??dica antes de comenzar un tratamiento. Siga esta recomendaci??n especialmente si tiene otra afecci??n m??dica, guicho medicamentos recetados o es un adulto mayor. El tratamiento a menudo requiere cambios en el estilo de cody. Tambi??n es posible que necesite administrarse medicamentos. Salguero proveedor de atenci??n m??dica le dir?? qu?? tipo de tratamiento es mejor para usted. Siga las recomendaciones a continuaci??n para prevenir rowan problema en el futuro. ?? Cambios en el estilo de cody Estos cambios en el estilo de cody pueden ayudar a prevenir el estre??imiento: ??? Dieta. Coma alimentos con alto contenido de fibra, con frutas y verduras frescas, y reduzca la ingesta de productos l??cteos, marisel y alimentos procesados ??? L??quidos. Es importante que tome suficientes l??quidos todos los d??as. Katie abundante agua cuando coma m??s fibra. Hable con salguero proveedor de atenci??n m??dica si lleva hawk alimentaci??n que limite la cantidad de l??quidos. ??? Actividad f??braxton regular. Hable con salguero proveedor de atenci??n m??dica alexa. ?? Medicamentos [place] todos los medicamentos seg??n le indiquen. Algunos laxantes son seguros solo si los guicho de vez en cuando. Otros pueden tomarse de manera frecuente. Los laxantes no causan dependencia en los intestinos, sino que tratan los s??ntomas. Por eso, podr??a estre??irse nuevamente si no incorpora otros cambios. Hable con salguero proveedor de atenci??n m??dica o farmac??utico si tiene dudas. Los analg??sicos recetados pueden causar estre??imiento. Si guicho rowan tipo de medicamento, preguntea salguero proveedor de atenci??n m??dica si es recomendable usar un ablandador de heces. Los siguientes son algunos medicamentos que puede priti para tratar el estre??imiento: ??? Suplementos de fibra ??? Ablandadores de heces ??? Laxantes ??? Enemas ??? Supositorios rectales ?? Visita de seguimiento Programe hawk visita de control con salguero proveedor de atenci??n m??dica si samuel s??ntomas no se alivianen los d??as siguientes. Scot vez deba realizarse otros an??lisis o emely a un especialista. ?? Cu??ndo llamar al?? 911 Llame al?? 911 si ocurre algo de lo siguiente: ??? Dificultad para respirar ??? Abdomen r??gido condolor jg al tocarlo ??? Cantidades grandes de junaid en las heces ??? Confusi??n ??? Desmayos o p??rdida del conocimiento ??? Frecuencia card??tara acelerada ??? Dolor de pecho ?? Cu??ndo buscar atenci??n m??dica Llame a salguero proveedor de atenci??n m??dica de inmediato ante cualquiera de las siguientes situaciones: ??? Fiebre de 100.4?F (38?C) o superior, o seg??n lo indicado por salguero proveedor de atenci??nm??dica ??? Imposibilidad de retomar las evacuaciones intestinales normales ??? Dolor en el abdomeno en la espalda que empeora ??? N??useas o v??mitos ??? Hinchaz??n abdominal ??? Cantidades rubi??as de junaid en las heces ??? Heces alquitranadas o negras ??? P??rdida de peso involuntaria ??? Debilidad ?? Last Reviewed Date: 2021 ?? [employer]. Todos los derechos reservados. Esta informaci??n no pretende sustituir la atenci??n m??dica profesional. S??lo salguero m??dico puede diagnosticar y tratar un problema de rajendra. ?? * Milka ISAACS, Anne Marie D.: PERFORM Event Display: Patient Education Leaflets Authored Date: [id number] After a Vaginal ?? [id number] Despu??s de un parto vaginal Despu??s de tener un beb??, es posible que salguero cuerpo est?? muy cansado. La recuperaci??n de un parto vaginal puede llevar tiempo. Es posible que tenga que permanecer en el hospital o en el centro de maternidad entre 1??y??4??d??as.??En algunos casos, scot vez pueda regresar a casa el mismo d??a. Inmediatamente despu??s del parto Le vigilar??n la temperatura y la presi??n arterial hasta que se hayan estabilizado. Un enfermero uotro proveedor de atenci??n m??dica la vigilar?? mientras descansa. Puede tener azucena posparto. Son calambres provocados por la contracci??n del ??tero. Se utilizan toallas sanitarias para absorberel flujo del endometrio (la mucosa que recubre el interior del ??tero). Se examinar?? la toalla sanitaria para controlar que no est?? sangrando demasiado. Tambi??n se revisar?? la firmeza del ??tero.Para esto, hawk enfermera le presionar?? suavemente el est??lachelle. Si le administraron anestesia, la vigilar??n con atenci??n hasta que pueda sentir y irrigation equipment remover los dedos de los pies. Si tiene dolor entre la vagina y el ano (dolor perineal), se puede aliviar con hawk compresa de hielo. ?? Cuidados del reci??n nacido Mientras permanezca en el hospital o en el centro de maternidad, aprender?? c??mo sostener y alimentar al beb??. Antes de salir del hospital, le brenda??n instrucciones sobre el cuidado del beb??, incluidas la higiene y la alimentaci??n.? Los preparativos para volver a casa Es posible que est?? ansiosa de regresar a casa lo antes posible. Antes de que usted y salguero beb?? regresen a casa, un proveedor de atenci??n m??dica los revisar?? para asegurarse de que usted ya est?? saludable para cuidarse y cuidar a salguero beb??. Usted estar?? lista para regresar a casa cuando: ??? Pueda caminar hasta el ba??o y usarlo sin ayuda. ??? Pueda comer alimentos s??lidos y tragar pastillas (en kiana de ser necesario). ??? No presente ludwig??n signo de infecci??n ni otros problemas de rajendra, incluida la fiebre.? Se le haya aliviado el dolor. ??? No tenga sangrado excesivo. ???Pueda cuidar al beb?? y est?? emocionalmente estable. Antes de ir a casa, le brenda??n instrucciones por escrito para el cuidado despu??s de un parto vaginal. Siga estas instrucciones cuidadosamente. Si tiene alguna pregunta o inquietud, resu??lvalas ahora. ?? Si le hicieron puntos Puede que haya necesitado puntos en la piel cerca de la vagina. Quiz??s le hicieron puntos para cerrar un tameka que se practic?? para agrandar la abertura de la vagina (episiotom??a). O quiz??s se usaron para reparar un desgarro de la piel. De cualquier forma, los puntos deber??an disolverse en unas semanas. Hasta entonces, es importante que los mantenga limpios. Puede priti medidas para aliviar el dolor leve, ayudar a la cicatrizaci??n y reducir el riesgo de infecci??n. Estos consejos pueden resultar ??tiles: ??? Limpie con cuidado de adelante hacia atr??s despu??s de orinar o evacuar los intestinos. ??? Despu??s de limpiar, collins??e la melva con agua tibia. O puede darse un ba??o de asiento. [place] significa sentarse en la grady con un poco de agua. Luego d?? golpecitos suaves en la melva parasecarla o use un secador de kavin en modo de aire fr??o. ??? No use jab??n ni otras soluciones enla melva, solo agua. ??? Puede priit hawk ducha, a menos que se le indique lo contrario. ??? C??mbiese las toallas sanitarias por lo menos cada 2??a??4??horas. ??? Aplique compresas fr??as o calientes en la melva, seg??n le indiquen los proveedores de atenci??n m??dica o el personal de enfermer??a. Ponga hawk toalla delgada entre la compresa y la piel. ??? Si??ntese sobre un asiento firme para que los puntos no se tensen demasiado. ?? Control posnatal Programe un examen de control posparto con el proveedor de atenci??n m??dica para 6??semanas despu??s del parto. En rowan examen, se revisar??n el ??tero y la vagina. Comun??quese con el proveedor de atenci??n m??dica si roberta que usted o salguero beb?? est??n teniendo alg??n problema. ?? Cu??ndo llamar a salguero proveedor de atenci??n m??dica Llame a salguero proveedor de atenci??n m??dica de inmediato ante cualquiera de las siguientes situaciones: ??? Fiebre de 100.4? F ( 38.0?C) o m??s, o seg??n le indique salguero proveedor ??? Sangrado que necesita hawk toalla sanitaria cada hawk hora, o co??gulos grandes ??? Dolor en la vagina que empeora y no se miriam con los medicamentos ??? Hinchaz??n, flujo o aumento de dolor del desgarro o de la episiotom??a vaginal ??? Ardor, dolor, estr??as allison o zonas con protuberancias en las mamas que pueden presentarse con s??ntomas delvis los de la gripe ??? [place]et[place], ampollas o junaid en los pezones ??? Ardor o dolor al orinar ??? N??useas o v??mitos ??? Mareos o desmayos ??? Sensaci??n de alanna tristeza o ansiedad, o de que no quiere estar con salguero beb? Dolor abdominal que no se miriam con los medicamentos ??? Secreci??n vaginal con olor desagradable ??? Falta de evacuaci??n por 5??d??as ??? Dolor al orinar o imposibilidad de retener la orina ??? Enrojecimiento, calor o dolor en la parte inferior de la pierna ??? Dolor en el pecho ?? Last Reviewed Date: 2019 ?? [id number] [employer]. Todos los derechos reservados. Esta informaci??n no pretende sustituir la atenci??n m??dica profesional. S??lo salguero m??dico puede diagnosticar y tratar un problema de rajendra. ?? Patient Care team information Care Team Personnel Name: Pearl Chahal MD Position: [facility] Outreach Member Role: PCP Address: Address: [address] [place] [address]- Name: Vladimir Del Valle DO Position: [facility] WARE FINISHER MD Member Role: Lifetime WARE FINISHER Physician Address: Address: [address] [place] [address]'s [facility] [place] [address]- Name: Dayana ISAACS, Michelle Position: [facility] OB RN Member Role: Primary Care Nurse Care Team Related Persons Name: WALDO FORD Name: ROSCOE MENDEZ Address: [id number] Address: [address] [place] [address] Name: MERARI DUNHAM Address: [address] [place] [address] Name: SAMARIA CHIANG Address: home [address] [place] [address]
--- OUTSIDE RECORDS SUMMARY | 2023-01-11 17:09 | XMS_ITS | Continuity of Care Document ---
Author Name Unknown Organization [facility] ter Address [address] [place] [address]- Care Team Providers Care Community Organization Director Name Role Phone Jason Vitale MD, Pearl Petersen Primary Care Physici an Encounter [facility] [place] Date(s): 06/02/22 - 06/02/[address] [address]- Discharge Disposition: Disch/Trans to a [facility] Attending Physician: Latrell Page MD Admitting Physician: Latrell Page MD Referring Physician: Not on Staff, Referring MD Allergies, Adverse Reactions, Alerts Substance Reaction Severity Status penicillin Active Immunizations Given and Recorded Vaccine Date Status Refusal Reason tetanus/diphtheria/pertussis, acel(Tdap) 03/09/22 Given tetanus/diphtheria/pertussis, acel(Tdap) 02/13/17 Given tetanus/diphtheria/pertussis, acel(Tdap) 1 01/04/16 Given influenza virus vaccine, inactivated 03/09/22 Give n tetanus-diphtheria toxoids (Td) 01/22/17 Given 1Admin Note: VIS on TDAP given to patient in lao. Medications acetaminophen 325 mg oral tablet 650 [...] 0 Refills, Maintenance, 05/28/22 7:20:00EST, Capsule, [id number], Partial fill upon patient request if the prescription is for a schedule II opioid drug., 160, cm, 05/28/22 0:09:00 ES... Start Date: 05/28/22 Status: Ordered Nancy 0.35 mg oral tablet 1 tablet = 0.35 mg, By Mouth, Daily, # 84 tablet, 0 Refills, Maintenance, 05/28/22 7:28:00 EST, Tablet, [id number], Partial fill upon patient request if the prescription is for a schedule II opioid drug., 160, cm, 05/28/22 0:09:00 EST, Height,... Start Date: 05/28/22 Status: Ordered famotidine 20 mg oral tablet 20 mg, 1, tablet, By Mouth, 2 times a day, # 60 tablet, Refills 0, Tot. Refills 0, Maintenance, 04/06/22 12:22:00 EST, Route to Pharmacy Electronically, [facility], Partial fill upon patient request [...] Refills, Maintenance, 06/02/22 6:47:00 EST, REC Powder, [facility], Partial fill upon patient request if theprescription is for a schedule II opioid drug., 17... Start Date: 06/02/22 Status: Ordered oxyCODONE 5 mg oral capsule 1 capsule = 5 mg, By Mouth, Every 6 hours, PRN as needed for pain, # 5 capsule, 0 Refills, Acute 06/04/22 7:30:00 EST, 05/28/22 7:22:00 EST, Capsule, [id number], Partial fill upon patient request [...] Confirmed Active tubal ligation planned Confirmed Active Lebanese speaking patient Confirmed Active Obesity Confirmed Active Severe obesity Confirmed Active Hernia, umbilical Confirmed Active Vital Signs Most recent to oldest [Reference Range]: 1 Oxygen Saturation [94-100 %] 94 % (06/02/22 3:11 AM) Pulse Rate [55-90 bpm] 67 bpm (06/02/22 3:11 AM) Mode of Delivery (Oxygen) Room air (06/02/22 3:11 AM) Social History Social History Type Response Smoking Status Never (less than 100 in lifetime) entered on: 06/02/22 Sex Patient Care team information Care Team Personnel Name: Pearl Chahal MD Position: [facility] Outreach Member Role: PCP Address: Address: [address] [place] [address] [address] [place] [address]- Name: Vladimir Del Valle DO Position: [facility] FINANCIAL SERVICES SPECIALIST MD Member Role: Lifetime FINANCIAL SERVICES SPECIALIST Physician Address: Address: [address] [place] [address]'s [facility] [place] [address]- Name: Michelle Anne RN Position: [facility] OB RN Member Role: Primary Care Nurse Care Team Related Persons Name: WALDO FORD Name: ROSCOE MENDEZ Address: [address] Address: home [address] [place] [address] [place] Name: MERARI DUNHAM Address: home [address] [place] [address] Name: SAMARIA CHIANG Address: home [address] [place] [address]
--- OUTSIDE RECORDS SUMMARY | 2023-01-11 17:09 | XMS_ITS | Continuity of Care Document ---
Author Name Unknown Organization [facility] Address [address] [place] [address]- Care Team Providers Care Nonfarm Animal Caretaker Name Role Phone Jason Vitale MD, Pearl Petersen Primary Care Physici an Encounter [facility] [place] Date(s): 12/27/21 - 04/22/[address] [address]- Attending Physician: Aury Retana CNM Admitting Physician: Aury Retana CNM Allergies, Adverse Reactions, Alerts Substance Reaction Severity Status penicillin Active Immunizations Given and Recorded Vaccine Date Status Refusal Reason tetanus/diphtheria/pertussis, acel(Tdap) 03/09/22 Given tetanus/diphtheria/pertussis, acel(Tdap) 02/13/17 Given tetanus/diphtheria/pertussis, acel(Tdap) 1 01/04/16 Given influenza virus vaccine, inactivated 03/09/22 Give n tetanus-diphtheria toxoids (Td) 01/22/17 Given 1Admin Note: VIS on TDAP given to patient in sao tomean. Medications aspirin 81 mg oral delayed release tablet 2 tablet = 162 mg, By Mouth, Daily, At bedtime, # 90 tablet, 0 Refills, Maintenance, 12/29/21 15:39:00 EDT, CR Tablet, [facility], Partial fill upon patient request if the prescription is for a schedule II opioid drug., 160, cm, 08... Start Date: 12/29/21 Status: Ordered famotidine 20 mg oral tablet 20 mg, 1, tablet, By Mouth, 2 times a day, # 60 tablet, Refills 0, Tot. Refills 0, Maintenance, 04/06/22 12:22:00 EST, Route to Pharmacy Electronically, [facility], Partial fill upon patient request if the prescription is for a lindsey... Start Date: 04/06/22 Status: Ordered Multivitamins with Folic Acid 1 mg oral tablet 1 tablet, By Mouth, Daily, # 90 tablet, 2 Refills, Maintenance, 11/24/21 18:18:00 EDT, Tablet, [facility], Partial fill upon patient request if the prescription is for a schedule II opioid drug., 1 tablet By Mouth Daily, 160, cm, 0... Start Date: 11/24/21 Status: Ordered Problem List Condition Confirmation Course Effective Dates Status Health St atus Informant Asthma Confirmed Active GDM, class A1 Confirmed Active tubal ligation planned Confirmed Active Costa Rican speaking patient Confirmed Active Obese class II Confirmed Active Obesity Confirmed Active Hernia, umbilical Confirmed Active Social History Social History Type Response Smoking Status Former smoker, quit more than 30 days ago entered on: 11/22/21 Sex Patient Care team information Care Team Personnel Name: Pearl Chahal MD Position: [facility] Outreach Member Role: PCP Address: Address: [address] [place] [address] [address] [place] [address]- Name: Vladimir Del Valle DO Position: [facility] SKIN PILER Member Role: Lifetime SKIN PILER Physician Address: Address: [address] [place] [address]'s Health Design Director [place] [address]- Name: Michelle Anne RN Position: [facility] OB RN Member Role: Primary Care Nurse Care Team Related Persons Name: WALDO FORD Name: SAMARIA CHIANG Address: home [address] [place] [address]
--- OUTSIDE RECORDS SUMMARY | 2023-01-11 17:09 | XMS_ITS | Continuity of Care Document ---
Author Name Unknown Organization [facility] Address [address] [place] [address]- Care Team Providers Care Field Operations Coordinator Name Role Phone Jason Vitale MD, Pearl Petersen Primary Care Physici an [place] [facility] [place](s): 05/25/22 - 06/24/[address] [address]- Allergies, Adverse Reactions, Alerts Substance Reaction Severity Status penicillin Active Immunizations Given and Recorded Vaccine Date Status Refusal Reason tetanus/diphtheria/pertussis, acel(Tdap) 03/09/22 Given tetanus/diphtheria/pertussis, acel(Tdap) 02/13/17 Given tetanus/diphtheria/pertussis, acel(Tdap) 1 01/04/16 Given influenza virus vaccine, inactivated 03/09/22 Give n tetanus-diphtheria toxoids (Td) 01/22/17 Given 1Admin Note: VIS on TDAP given to patient in romanian. Medications docusate sodium 100 mg oral capsule [...] 04/06/22 12:22:00 EST, Route to Pharmacy Electronically, [facility], Partial fill upon patient request if the prescription is for a lindsey... Start Date: 04/06/22 Status: Ordered MiraLax oral powder for reconstitution = 17 Gm, By Mouth, Daily, dissolve in water before taking, # 527 Gm, 0 Refills, Maintenance, 06/02/22 6:47:00 EST, REC Powder, [facility], Partial fill upon patient request [...] Confirmed Active tubal ligation planned Confirmed Active Yemeni speaking patient Confirmed Active Obesity Confirmed Active Severe obesity Confirmed Active Hernia, umbilical Confirmed Active Social History Social History Type Response Smoking Status Never (less than 100 in lifetime) entered on: 06/02/22 Sex Patient Care team information Care Team Personnel Name: Pearl Chahal MD Position: [facility] Outreach Member Role: PCP Address: Address: [address] [facility] [address] [place] [address]- Name: Vladimir Del Valle DO Position: [facility] HELP DESK ANALYST MD Member Role: Lifetime HELP DESK ANALYST Physician Address: Address: [address] [place] [address] Human Resources [place] [address]- Name: Michelle Anne RN Position: [facility] OB RN Member Role: Primary Care Nurse Care Team Related Persons Name: WALDO FORD Name: ROSCOE MENDEZ Address: [address] Address: [address] Name: MERARI DUNHAM Address: [address] [place] [address] Name: SAMARIA CHIANG Address: [address] [place] [address]
--- OUTSIDE RECORDS SUMMARY | 2023-01-11 17:09 | XMS_ITS | Continuity of Care Document ---
Author Name Unknown Organization [facility] Address [address] [place] [address]- Care Team Providers Care [id number] Consultant Name Role Phone aJson Vitale MD, Pearl Petersen Primary Care Physici an Encounter [facility] [place] Date(s): 05/23/22 - 05/23/[address] [address] Discharge Disposition: A-D/C Home Attending Physician: Negro SHIELDS [OB], Светлана Pace Admitting Physician: Negro SHIELDS [OB], Светлана Pace Referring Physician: Negro SHIELDS [OB], Светлана Pace Allergies, Adverse Reactions, Alerts Substance Reaction Severity Status penicillin Active Immunizations Given and Recorded Vaccine Date Status Refusal Reason tetanus/diphtheria/pertussis, acel(Tdap) 03/09/22 Given tetanus/diphtheria/pertussis, acel(Tdap) 02/13/17 Given tetanus/diphtheria/pertussis, acel(Tdap) 1 01/04/16 Given influenza virus vaccine, inactivated 03/09/22 Give n tetanus-diphtheria toxoids (Td) 01/22/17 Given 1Admin Note: VIS on TDAP given to patient in welsh. Medications aspirin 81 mg oral delayed release tablet 2 tablet = 162 mg, By Mouth, Daily, At bedtime, # 90 tablet, 0 Refills, Maintenance, 12/29/21 15:39:00 EDT, CR Tablet, [facility], Partial fill upon patient request if the prescription is for a schedule II opioid drug., 160, cm, 08... Start Date: 12/29/21 Status: Ordered famotidine 20 mg oral tablet 20 mg, 1, tablet, By Mouth, 2 times a day, # 60 tablet, Refills 0, Tot. Refills 0, Maintenance, 04/06/22 12:22:00 EST, Route to Pharmacy Electronically, [facility], Partial fill upon patient request if the prescription is for a lindsey... Start Date: 04/06/22 Status: Ordered Multivitamins with Folic Acid 1 mg oral tablet 1 tablet, By Mouth, Daily, # 90 tablet, 2 Refills, Maintenance, 11/24/21 18:18:00 EDT, Tablet, [facility], Partial [...] Confirmed Active tubal ligation planned Confirmed Active Australian speaking patient Confirmed Active Obesity Confirmed Active Severe obesity Confirmed Active Hernia, umbilical Confirmed Active Vital Signs Most recent to oldest [Reference Range]: 1 Weight 105.7 kg (05/23/22 7:28 AM) Oxygen Saturation [94-100 %] 99 % (05/23/22 7:42 AM) Blood Pressure [90-138/55-84 mm Hg] 114/ 72mm Hg (05/23/22 7:42 AM) Respiratory Rate [16-30 br/min] 18 br/mi n (05/23/22 7:42 AM) Temperature [96.8-100.4 DegF] 98.8 DegF (05/23/22 7:28 AM) Mode of Delivery (Oxygen) Room air (05/23/22 7:42 AM) Blood pressure sites Arm, left (05/23/22 7:42 AM) Temperature Route Oral (05/23/22 7:28 AM) Dry Weight 105.7 kg (05/23/22 7:28 AM) Weight Obtained Via Standing scale (05/23/22 7:28 AM) Dry Weight Obtained Via Standing scale (05/23/22 7:28 AM) Social History Social History Type Response Smoking Status Former smoker, quit more than 30 days ago entered on: 11/22/21 Sex Note * Rosanne Robledo RN: PERFORM Event Display: Discharge/Transfer Note Hospital Authored Date: [id number] Nursing Discharge Note Entered On: 05/23/2022 8:53 EST Performed On: 05/23/2022 8:45 EST by Rosanne Robledo RN Nursing Discharge Note 2 Discharge Time : 05/23/2022 8:45 EST Discharge Level of Care at Discharge : Home/Shelter/Foster Care Patient Left Unit Via : Ambulatory Patient Accompanied Off Unit with : Other: self DC Instructions Provided & Signed by Pt : Yes Patient Understands D/C Instructions : Yes Patient Instructions Discharge Signed : Yes Did Pt have Specialty Bed or Wound Vac : No Rosanne Robledo RN - 05/23/2022 8:53 EST * Rosanne Robledo RN: PERFORM Event Display: Patient Education/Instruction Authored Date: [id number] Inpatient Adult Discharge Instructions [address] [address] Name: CHENG CAMARA : 1985 Visit: 05/23/2022 07:07:00 Current Date: 05/23/2022 08:30 Account: [id number] Inpatient Adult Discharge Instructions We would like [...] and their families. Surveys are administered by [employer] ?? If further treatment with your primary care physician or another doctor is recommended, it is important for you to keep the appointment. Call your primary care physician or return to the Emergency Department immediately if your condition worsens, fails to improve, or new symptoms develop. If you need to find a doctor, you can call [facility] for a referral at [phone] or toll free at [phone] ([phone]) or log in to [email or web address].. ?? You can view and manage your care through the patient portal or by using a health care maida of your choosing. [employer] is a website that allows you to securely view your medical information including your hospital discharge summary, office visit summaries, medications and follow-up visits. You can also request appointments, renew medications, and request access to your medical information using a health care maida of your choosing, or just ask a question. You can enroll at [email or web address] or register during your next office visit. You have been discharged from [facility], Patient Care Unit: WETU1. If you have any questions regarding these instructions after you leave, please call us and we will be happy to assist you. [facility] Your Care Team Attending Physician Nergo SHIELDS [OB], Светлана Pace Tests Performed Below is a partial list of the tests performed during your hospitalization. You may have had other tests and procedures not included in this list. Please discuss all test results with your provider. Primary Care Provider Jason Vitale MD, Pearl Petersen Advance Directive Health Care Proxy on File No No qualifying data available. Discharge Vitals Temperature: 98.8 DegF Weight: 105.7 kg Respiratory Rate: 18 br/min ?? Systolic Blood Pressure: 114 mm Hg ?? Diastolic Blood Pressure: 72 mm Hg ?? Oxygen Saturation: 99 % ?? Studies Pending All tests and labs ordered during this hospital stay have been completed unless listed below. Please discuss all pending results with your provider listed above in these instructions. ?? No incomplete studies found What to do next Instructions From Your Doctor Discharge Orders Scheduled Follow-Up Appointments 2022 2:40 PM EST ?? With: Sofia Kilpatrick DO Where: [facility] - Consultant Nurse [address] [place] [address]- You Need to Schedule the Following Appointments Follow Up with??[facility] [phone] When?? Discharge Medications CHENG CAMARA :1985 Visit Date:05/23/2022 Medications: Please continue your medications until treatment [...] ?? Obesity?? tubal ligation planned? Severe obesity?? Australian speaking patient?? Education Materials Below is the list of Educational Leaflet Providered with your Discharge Instructions. Kick Counts?? Stages of Labor?? Recognizing Labor?? Valuables and Belongings I fully understand and agree that [facility] accepts no responsibility for all my personal [...] are strongly encouraged to quit. Please call [facility] [employer] [facility] at [phone] or [phone] ([phone]) or log in to [email or web address] for referrals to smoking cessation programs. ?? The National Suicide Prevention Hotline is available 27/11 if you or someone you know needs to find a reason to keep living. By calling 5-250-850-Izooble (1332) you'll be connected to a skilled, trained counselor at a crisis center in your area. INPATIENT DISCHARGE INSTRUCTIONS SIGNATURE PAGE CHENG CAMARA Location:[facility] Registration Date and Time:05/23/2022 07:07 EST Primary Care Physician: Jason Vitale MD, Pearl Petersen, CHENG SOLIMAN, have received the above patient education materials/instructions and have verbalized understanding. If ambulance or transport services are being used I further acknowledge being givena choice of service. ?? If you need to contact me, please call me at this number: . Patient/Box Lining Machine Feeder Name: Patient/Box Lining Machine Feeder Signature: Relationship to Patient: Witness Name/Signature: Date: * Rosanne Robledo RN: PERFORM Event Display: Patient Education Leaflets Authored Date: [id number] Kirill Herrera ?? [address] Conteo de patadas Es normal que le preocupe la rajendra de salguero beb??. Para saber si el beb?? est?? shira, hawk de las cosasque puede hacer es anotar los movimientos del beb?? hawk vez al d??a. A esto se le llama conteo de patadas. ??Recuerde llevar samuel anotaciones del conteo de patadas del beb?? a todas las citas con salguero proveedor de atenci??n m??dica. C??mo contar las patadas de salguero beb?? Cuente el tiempo que le lleva sentir 10??patadas, ondeos, vuelcos o giros. Lo ideal es que sienta al menos 10??movimientos en 2??horas. Es probable que sienta 10??movimientos en menos tiempo. A partir de las 28??semanas, cuente los movimientos del beb?? todos los d??as. Siga las instrucciones sobre conteo de patadas que le d?? salguero proveedor de atenci??n m??dica. Aqu?? tiene algunos consejos para contar las patadas de salguero beb??: ??? Escoja hawk hora cuando el beb?? est?? activo, delvis por ejemplo despu??s de hawk comida.? Si??ntese c??modamente o acu??stese de lado.? La primera vez que el beb?? se mueva, anote la hora.? Cuente cada movimiento hasta que el beb?? se haya movido?? 10??veces. Melfa puede llevar entre 20??minutos y 2??horas.? Si cuando termina la segunda hora no siente 10??patadas, espere unas horas. Luego vuelva a intentarlo. ??? Trate de hacer esto a la misma hora todos los d??as. ?? Cu??ndo llamar a salguero proveedor de atenci??n m??dica Llame?? de inmediato??a salguero proveedor de atenci??n m??dica en los siguientes casos: ??? Hace un par de series de conteo de patadas en el d??a y el beb?? se mueve menos de?? 10??veces en 2??horas. ??? El beb?? se mueve con alanna menos frecuencia que en d??as anteriores. ??? No charles sentido movimientos del beb?? en todo el d??a. ?? Last Reviewed Date: 2019 ?? 6091-1005 [employer]. Todos los derechos reservados. Esta informaci??n no pretende sustituir la atenci??n m??dica profesional. S??lo salguero m??dico puede diagnosticar y tratar un problema de rajendra. ?? * Meena ISAACS, Rosanne: PERFORM Event Display: Patient Education Leaflets Authored Date: [id number] Stages of Labor ?? [address] Etapas del parto El parto tiene dave etapas. Salguero proveedor de atenci??n m??dica puede describir el progreso de salguero trabajo de parto en t??rminos de la ???presentaci??n y posici??n?? del feto, as?? delvis en t??rminos del ???borramiento y dilataci??n?? del mateo del ??tero (c??rvix). A continuaci??n, emely?? m??s informaci??n sobre estos t??rminos y las dave etapas del trabajo de parto. El parto tiene 3??etapas. Salguero proveedor de atenci??n m??dica puede describir el progreso de salguero partoen determinados t??rminos. Eduardo de estos es la presentaci??n del beb??. Otro es la??etapa en la que se encuentre el beb??. Y se anotar?? el borramiento y la dilataci??n del mateo uterino. Anna a continuaci??n para conocer estos t??rminos y las 3??etapas del parto. Salguero beb?? se coloca en determinada posici??n La presentaci??n es la manera en que el feto est?? colocado dentro del ??tero. Puede estar con la charan hacia la izquierda o hacia la derecha. Puede estar de ilir o de nalgas hacia abajo. La posici??n es el lugar en que se encuentra en salguero desplazamiento (descenso) por la cavidad p??lvica. ?? Salome etapa del parto Ruth la primera etapa, las contracciones del ??tero provocan la p??rdida de espesor (borramiento) del mateo uterino. Tambi??n provocan el ensanchamiento (dilataci??n). Melfa ayudar?? al beb?? a pasar por la vagina (el canal del parto). Al principio, las contracciones no ser??n bustillo frecuentes ni durar??n tanto. Arline, a medida que pase el tiempo, ser??n m??s frecuentes, pueden resultar m??s dolorosas y durar m??s tiempo. Durar??n aproximadamente de 30??a??60??segundos cada hawk. La primera etapa del parto dura hasta que el mateo uterino est?? completamente dilatado. ?? Segunda etapa del parto Cuando el mateo uterino est?? completamente dilatado, comienza la segunda etapa. En esta etapa, tendr?? contracciones m??s silvino del ??tero que le ayudar??n al beb?? a descender por el canal de parto. Pueden presentarse cada 2??a??5??minutos. Adem??s pueden durar de?? 45??a??90??segundos cada hawk. Salguero proveedor de atenci??n m??dica le pedir?? que puje con cada contracci??n. Trate de descansar lo m??s posible ruth los intervalos entre contracciones. Salguero beb?? nacer?? cuando finalice esta etapa del parto. ?? Tercera etapa del parto La tercera etapa tiene lugar despu??s del alumbramiento. Aqu?? se produce la expulsi??n de la placenta fuera del ??tero. El ??tero sigue contray??ndose. Arline estas contracciones son m??s suaves y mucho menos molestas. ?? Last Reviewed Date: 2019 ?? [id number] [employer]. Todos los derechos reservados. Esta informaci??n no pretende sustituir la atenci??n m??dica profesional. S??lo salguero m??dico puede diagnosticar y tratar un problema de rajendra. ?? * Meena ISAACS, Rosanne: PERFORM Event Display: Patient Education Leaflets Authored Date: [id number] Recognizing Labor ?? [address] C??mo reconocer los s??ntomas del trabajo de parto El comienzo del trabajo de parto es el inicio del alumbramiento. Empezar?? a sentir contracciones silvino. Es decir, los m??sculos del ??tero se contraer??n para ayudar a empujar al beb?? hacia afuera ruth el parto. S??, es probable que haya empezado el trabajo de parto?? Signos del trabajo de parto: ??? Las contracciones son cada vez m??s silvino y m??s dolorosas, y nom??s d??zoraida. Jose Alfredo vez las sienta en todo el ??tero. ??? Las contracciones son regulares. Melfa quiere decir que las siente m??s o [...] de priti l??quidos. ?? Cu??ndo llamar a salguero proveedor de atenci??n m??dica Llame inmediatamente al [...] siguiente. ?? Last Reviewed Date: 2019 ?? [id number] [employer]. Todos los derechos reservados. Esta informaci??n no pretende sustituir la atenci??n m??dica profesional. S??lo salguero m??dico puede diagnosticar y tratar un problema de rajendra. ?? Patient Care team information Care Team Personnel Name: Pearl Chahal MD Position: [facility] Outreach Member Role: PCP Address: Address: [address] [place] [address] [address] [place] [address]- Name: Vladimir Del Valle DO Position: [facility] HOUSEKEEPING AND LAUNDRY TEAM LEADER MD Member Role: [employer] HOUSEKEEPING AND LAUNDRY TEAM LEADER Physician Address: Address: [address] [place] [address] [place] [address]- Name: Michelle Anne RN Position: [facility] OB RN Member Role: Primary Care Nurse Name: Rosanne Robledo RN Position: [facility] OB RN Member Role: Patient Care Provider Care Team Related Persons Name: WALDO FORD Name: MERARI DUNHAM Address: home [address] [place] [address] Name: SAMARIA CHIANG Address: home [address] [place] [address]
--- OUTSIDE RECORDS SUMMARY | 2023-01-11 17:09 | XMS_ITS | Continuity of Care Document ---
Author Name Unknown Organization [facility] Address [address] [place] [address]- Care Team Providers Care Double End Trimmer Name Role Phone Pearl Chahal MD Primary [facility]ici [id number] Date[facility]30/22 - 09/22/[address] [address]- Attending Physician: Not on Staff, Attending MD Referring Physician: Mehul Mcmillan MD Allergies, Adverse Reactions, Alerts Substance Reaction Severity Status penicillin Active Immunizations Given and Recorded Vaccine Date Status Refusal Reason tetanus/diphtheria/pertussis, acel(Tdap) 03/09/22 Given tetanus/diphtheria/pertussis, acel(Tdap) 02/13/17 Given tetanus/diphtheria/pertussis, acel(Tdap) 1 01/04/16 Given influenza virus vaccine, inactivated 03/09/22 Give n tetanus-diphtheria toxoids (Td) 01/22/17 Given 1Admin Note: VIS on TDAP given to patient in kyrgyz. Problem List Condition Confirmation Course Effective Dates Status Health [facility] Informant Asthma Confirmed Active Lithuanian speaking patient Confirmed Active Obese class II Confirmed Active Hernia, umbilical Confirmed Active Social History Social History Type Response Smoking Status Never (less than 100 in lifetime) entered on: 06/02/22 Sex Patient Care team information Care Team Personnel Name: Pearl Chahal MD Position: [facility] Outreach Member Role: PCP Address: Address: [address] [place] [address] [address] [place] [address]- [place] Name: Vladimir Del Valle DO Position: [facility] ASSEMBLING INSPECTOR MD Member Role: [employer] ASSEMBLING INSPECTOR Physician Address: Address: [address] [place] [address] [place] [address]- [place] Name: Dayana ISAACS, Michelle Position: S OB RN Member Role: Primary Care Nurse Care Team Related Persons Name: WALDO FORD Name: ROSCOE MENDEZ Address: [id number] Address: [address] Address: temporary 0 Name: MERARI DUNHAM Address: home [address] [place] [address] Name: SAMARIA CHIANG Address: home [address] [place] [address]
--- OUTSIDE RECORDS SUMMARY | 2023-01-11 17:09 | XMS_ITS | Continuity of Care Document ---
Author Name Unknown Organization [facility] Address [address] [place] [address]- Care Team Providers Care Sandwich Board Carrier Name Role Phone Jason Vitale MD, Pearl Petersen Primary Care Physici an Encounter [facility] Date(s): 02/23/22 - 05/21/[address] [address] Attending Physician: Not on Staff, Attending MD Allergies, Adverse Reactions, Alerts Substance Reaction Severity Status penicillin Active Immunizations Given and Recorded Vaccine Date Status Refusal Reason tetanus/diphtheria/pertussis, acel(Tdap) 03/09/22 Given tetanus/diphtheria/pertussis, acel(Tdap) 02/13/17 Given tetanus/diphtheria/pertussis, acel(Tdap) 1 01/04/16 Given influenza virus vaccine, inactivated 03/09/22 Give n tetanus-diphtheria toxoids (Td) 01/22/17 Given 1Admin Note: VIS on TDAP given to patient in macedonian. Medications aspirin 81 mg oral delayed release tablet 2 tablet = 162 mg, By Mouth, Daily, At bedtime, # 90 tablet, 0 Refills, Maintenance, 12/29/21 15:39:00 EDT, CR Tablet, [facility], Partial fill upon patient request if the prescription is for a schedule II opioid drug., 160, cm, 08... Start Date: 12/29/21 Status: Ordered famotidine 20 mg oral tablet 20 mg, 1, tablet, By Mouth, 2 times a day, # 60 tablet, Refills 0, Tot. Refills 0, Maintenance, 04/06/22 12:22:00 EST, Route to Pharmacy Electronically, [facility], Partial fill upon patient request if the prescription is for a lindsey... Start Date: 04/06/22 Status: Ordered Multivitamins with Folic Acid 1 mg oral tablet 1 tablet, By Mouth, Daily, # 90 tablet, 2 Refills, Maintenance, 11/24/21 18:18:00 EDT, Tablet, [facility], Partial fill upon patient request [...] Confirmed Active tubal ligation planned Confirmed Active Armenian speaking patient Confirmed Active Obesity Confirmed Active Severe obesity Confirmed Active Hernia, umbilical Confirmed Active Social History Social History Type Response Smoking Status Former smoker, quit more than 30 days ago entered on: 11/22/21 Sex Patient Care team information Care Team Personnel Name: Pearl Chahal MD Position: [facility] Outreach Member Role: PCP Address: Address: [address] [place] [address] [address] [place] [address]- Name: Vladimir Del Valle DO Position: [facility] IT SUPPORT ENGINEER Member Role: [employer] IT SUPPORT ENGINEER Physician Address: Address: [address] [place] [address] [facility] [employer] Trailer Moving [place] [address]- Name: Dayana ISAACS, Michelle Position: [facility] OB RN Member Role: Primary Care Nurse Care Team Related Persons Name: WALDO FORD Name: MERARI DUNHAM Address: [address] [place] [address] Name: SAMRAIA CHIANG Address: home [address] [place] [address]
--- OUTSIDE RECORDS SUMMARY | 2023-01-11 17:09 | XMS_ITS | Continuity of Care Document ---
Author Name Unknown Organization [facility] ter Address [address] [place] [address]- Care Team Providers Care Chopping Machine Operator Name Role Phone Jason Vitale MD, Pearl Petersen Primary Care Physici an Encounter [facility] Date(s): 05/03/22 - 06/08/[address] [address] Attending Physician: Frank Pacheco MD Admitting Physician: [...] VIS on TDAP given to patient in italian. Medications acetaminophen 325 mg oral tablet 650 [...] capsule, 0 Refills, Maintenance, 05/28/22 7:20:00EST, Capsule, [id number], Partial fill upon patient request if the prescription is for a schedule II opioid drug., 160, cm, 05/28/22 0:09:00 ES... Start Date: 05/28/22 Status: Ordered Nancy 0.35 mg oral tablet 1 tablet = 0.35 mg, By Mouth, Daily, # 84 tablet, 0 Refills, Maintenance, 05/28/22 7:28:00 EST, Tablet, [facility]/pharmacy #[id number], Partial fill upon patient request if the prescription is for a schedule II opioid drug., 160, cm, 05/28/22 0:09:00 EST, Height,... Start Date: 05/28/22 Status: Ordered famotidine 20 mg oral tablet 20 mg, 1, tablet, By Mouth, 2 times a day, # 60 tablet, Refills 0, Tot. Refills 0, Maintenance, 04/06/22 12:22:00 EST, Route to Pharmacy Electronically, [facility], Partial fill upon patient [...] Refills, Maintenance, 06/02/22 6:47:00 EST, REC Powder, [facility], Partial fill upon patient [...] Confirmed Active tubal ligation planned Confirmed Active Portuguese speaking patient Confirmed Active Obesity Confirmed Active Severe obesity Confirmed Active Hernia, umbilical Confirmed Active Social History Social History Type Response Smoking Status Never (less than 100 in lifetime) entered on: 06/02/22 Sex Patient Care team information Care Team Personnel Name: Pearl Chahal MD Position: [facility] Outreach Member Role: PCP Address: Address: [address] [place] [address] [address] [place] [address]- Name: Vladimir Del Valle DO Position: [facility] WELDING SETTER MD Member Role: [employer] WELDING SETTER Physician Address: Address: [address] [place] [address]'s [facility] [place] [address]- Name: Michelle Anne RN Position: [facility] OB RN Member Role: Primary Care Nurse Care Team Related Persons Name: WALDO FORD Name: ROSCOE MENDEZ Address: [address] Address: [address] [place] [address] [place] Name: MERARI DUNHAM Address: [address] [place] [address] Name: SAMARIA CHIANG Address: home [address] [place] [address]
--- OUTSIDE RECORDS SUMMARY | 2023-01-11 17:09 | XMS_ITS | Continuity of Care Document ---
Author Name Unknown Organization [facility] Address [address] [place] [address]- Care Team Providers Care Scourer Name Role Phone Jason Vitale MD, Pearl Petersen Primary Care Physici an Encounter [facility] Date(s): 01/13/22 - 02/12/22 [facility] [address] [place] [id number] Allergies, Adverse Reactions, Alerts Substance Reaction Severity Status penicillin Active Immunizations Given and Recorded Vaccine Date Status Refusal Reason tetanus/diphtheria/pertussis, acel(Tdap) 02/13/17 Given tetanus/diphtheria/pertussis, acel(Tdap) 1 01/04/16 Given tetanus-diphtheria toxoids (Td) 01/22/17 Given 1Admin Note: VIS on TDAP given to patient in algerian. Medications aspirin 81 mg oral delayed release tablet 2 tablet = 162 mg, By Mouth, Daily, At bedtime, # 90 tablet, 0 Refills, Maintenance, 12/29/21 15:39:00 EDT, CR Tablet, [facility], Partial fill upon patient request if the prescription is for a schedule II opioid drug., 160, cm, 08... Start Date: 12/29/21 Status: Ordered famotidine 10 mg oral tablet 1 tablet = 10 mg, By Mouth, 2 times a day, # 60 tablet, 0 Refills, Maintenance, 02/10/22 11:34:00 EDT, Tablet, [facility], Partial fill upon patient request if the prescription isfor a schedule II opioid drug., 160, cm, 12/27/21 1... Start Date: 02/10/22 Status: Ordered Multivitamins with Folic Acid 1 mg oral tablet 1 tablet, By Mouth, Daily, # 90 tablet, 2 Refills, Maintenance, 11/24/21 18:18:00 EDT, Tablet, [facility], Partial fill upon patient request if the prescription is for a schedule II opioid drug., 1 tablet By Mouth Daily, 160, cm, 0... Start Date: 11/24/21 Status: Ordered promethazine 12.5 mg rectal suppository 1 supp = 12.5 mg, Rectally, Every 4 hours, PRN for nausea/vomiting, # 12 supp, 0 Refills, Maintenance, 01/24/22 23:52:00 EDT, Suppository, [facility], Partial fill upon patient request if the prescription is for a schedule II opioi... Start Date: 01/24/22 Status: Ordered Problem List Condition Confirmation Course Effective Dates Status Health St [facility]us Informant Asthma Confirmed Active GDM, class A1 Confirmed Active tubal ligation planned Confirmed Active Solomon Islander speaking patient Confirmed Active Obese class II Confirmed Active Obesity Confirmed Active Hernia, umbilical Confirmed Active Social History Social History Type Response Smoking Status Former smoker, quit more than 30 days ago entered on: 11/22/21 Sex Patient Care team information Personnel Name: Jason Vitale MD, Pearl Petersen Address: Address: [address] [place] [address] [address] [place], [place] [address]
--- OUTSIDE RECORDS SUMMARY | 2023-01-11 17:09 | XMS_ITS | Continuity of Care Document ---
Author Name Unknown Organization [facility] Address [address] [place] [address]- Care Team Providers Care Charge Authorizer Name Role Phone Jason Vitale MD, Pearl Petersen Primary Care Physici an [place] [facility] [place](s): 03/23/22 - 04/22/[address] [address]- Allergies, Adverse Reactions, Alerts Substance Reaction Severity Status penicillin Active Immunizations Given and Recorded Vaccine Date Status Refusal Reason tetanus/diphtheria/pertussis, acel(Tdap) 03/09/22 Given tetanus/diphtheria/pertussis, acel(Tdap) 02/13/17 Given tetanus/diphtheria/pertussis, acel(Tdap) 1 01/04/16 Given influenza virus vaccine, inactivated 03/09/22 Give n tetanus-diphtheria toxoids (Td) 01/22/17 Given 1Admin Note: VIS on TDAP given to patient in guinean. Medications aspirin 81 mg oral delayed release tablet 2 tablet = 162 mg, By Mouth, Daily, At bedtime, # 90 tablet, 0 Refills, Maintenance, 12/29/21 15:39:00 EDT, CR Tablet, [facility] [...] 2 Refills, Maintenance, 11/24/21 18:18:00 EDT, Tablet, [facility], Partial fill upon patient request if the prescription is for a schedule II opioid drug., 1 tablet By Mouth Daily, 160, cm, 0... Start Date: 11/24/21 Status: Ordered Problem List Condition Confirmation Course Effective Dates Status Health St [facility] Informant Asthma Confirmed Active GDM, class A1 Confirmed Active tubal ligation planned Confirmed Active English speaking patient Confirmed Active Obese class II Confirmed Active Obesity Confirmed Active Hernia, umbilical Confirmed Active Social History Social History Type Response Smoking Status Former smoker, quit more than 30 days ago entered on: 11/22/21 Sex Patient Care team information Care Team Personnel Name: Pearl Chahal MD Position: [facility] Outreach Member Role: PCP Address: Address: [address] [place] [address] [address] [place] [address]- Name: Vladimir Del Valle DO Position: [facility] LOCOMOTIVE INSPECTOR Member Role: Lifetime LOCOMOTIVE INSPECTOR Physician Address: Address: [address] [place] [address]'s [facility] [place] [address]- [place] Name: Michelle Anne RN Position: [facility] OB RN Member Role: Primary Care Nurse Care Team Related Persons Name: WALDO FORD Name: SAMARIA CHIANG Address: home [address] [place] [address]
--- OUTSIDE RECORDS SUMMARY | 2023-01-11 17:09 | XMS_ITS | Continuity of Care Document ---
Author Name Unknown Organization [facility] Address [address] [place] [address]- Care Team Providers Care Medical Records Coder Name Role Phone Jason Vitale MD, Pearl Petersen Primary Care Physici an En[place] [facility] Date(s[place] 02/23/22 - 06/04/22 [facility] [address] [address]- Encounter Diagnosis Supervision of high risk , unspecified, third trimester(Final) - Discharge Disposition: A-D/C Home Attending Physician: Junior SHIELDS, Frank Ennis Admitting Physician: Not on Staff, Admitting MD Referring Physician: Not on Staff, Referring MD Allergies, Adverse Reactions, Alerts Substance Reaction Severity Status penicillin Active Immunizations Given and Recorded Vaccine Date Status Refusal Reason tetanus/diphtheria/pertussis, acel(Tdap) 03/09/22 Given tetanus/diphtheria/pertussis, acel(Tdap) 02/13/17 Given tetanus/diphtheria/pertussis, acel(Tdap) 1 01/04/16 Given influenza virus vaccine, inactivated 03/09/22 Give n tetanus-diphtheria toxoids (Td) 01/22/17 Given 1Admin Note: VIS on TDAP given to patient in moroccan. Medications acetaminophen 325 mg oral tablet 650 [...] capsule, 0 Refills, Maintenance, 05/28/22 7:20:00EST, Capsule, [id number], Partial fill upon patient request if the prescription is for a schedule II opioid drug., 160, cm, 05/28/22 0:09:00 ES... Start Date: 05/28/22 Status: Ordered Nancy 0.35 mg oral tablet 1 tablet = 0.35 mg, By Mouth, Daily, # 84 tablet, 0 Refills, Maintenance, 05/28/22 7:28:00 EST, Tablet, [id number], Partial fill upon patient request if the prescription is for a schedule II opioid drug., 160, cm, 05/28/22 0:09:00 EST, Height,... Start Date: 05/28/22 Status: Ordered famotidine 20 mg oral tablet 20 mg, 1, tablet, By Mouth, 2 times a day, # 60 tablet, Refills 0, Tot. Refills 0, Maintenance, 04/06/22 12:22:00 EST, Route to Pharmacy Electronically, [facility], Partial fill upon patient request [...] Refills, Maintenance, 06/02/22 6:47:00 EST, REC Powder, [facility], Partial fill upon patient request [...] Confirmed Active tubal ligation planned Confirmed Active Jamaican speaking patient Confirmed Active Obesity Confirmed Active Severe obesity Confirmed Active Hernia, umbilical Confirmed Active Vital Signs Most recent to oldest [Reference Range]: 1 Height 160 cm (04/28/22 2:52 PM) Weight 105.0 kg (04/28/22 2:52 PM) Body Mass Index [18.5-24.99 kg/m2] 41.02 kg/m2 *>HHI* (04/28/22 2:52 PM) Blood Pressure [90-138/55-84 mm Hg] 112/ 60mm Hg (04/28/22 2:52 PM) Blood pressure sites Arm, left (04/28/22 2:52 PM) Weight Obtained Via Standing scale (04/28/22 2:52 PM) Social History Social History Type Response Smoking Status Never (less than 100 in lifetime) entered on: 06/02/22 Sex Note * Janet Kidd: PERFORM, SIGN, VERIFY Event Display: Patient Education/Instruction Authored Date: [id number] [facility] Low Pressure Kettle Operator Clinical Summary Name CHENG CAMARA Age 37 Years 1985 PCP Pearl Chahal MD PCP Visit Date 04/28/2022 14:44:00 Additional Instructions: Scheduled Appointments?? Future Appointments ?[facility] ?Phone:??--?Fax:??-- ?Appt. Date:??05/05/2022?2:40 PM ?Scheduled Provider:??Generic 1 [facility] ?[facility] ?[address],??[place],??[address] ?Phone:??--?Fax:??-- ?Appt. Date:??05/15/2022?4:20 PM ?Scheduled Provider:??Yamile MICHEL, Katie ?*[facility] ?[address],??[place],??[address] ?Phone:??--?Fax:??-- ?Appt. Date:??05/25/2022?2:40 PM ?Scheduled Provider:??Leeanna Gonsalez MD Follow-Up Instructions ?? Diagnosis Supervision of elderly multigravida, unspecified trimester; Supervision of with history of pre-term labor, unspecified trimester; Abnormal chromosomal and genetic finding on screening of mother; Umbilical hernia without obstruction or gangrene; Other specified health status; Encounter for supervision of normal , unspecified, unspecified trimester; Trichomonal vulvovaginitis; Other specified related conditions, unspecified trimester; Insomnia, unspecified; Obesity complicating , unspecified trimester; Encounter for sterilization; Uterine size-date discrepancy, third trimester Medications: Please continue your medications until treatment is completed or stopped by your provider. Discuss any questions related to medications with your provider. Medications to Continue with No Changes These medications were not printed or sent to your pharmacy Aspirin (aspirin 81 mg oral delayed release tablet) 2 tab(s) Oral Daily. At bedtime. Refills: 0. Next Dose: Famotidine (famotidine 20 mg oral tablet) 1 tab(s) Oral twice a day. Refills: 0. Next Dose: Miscellaneous Rx (Sleep Aid (doxylamine) 25 mg tablet) 0.5 tab(s) Oral 3 times a day as needed NEEDED FOR NAUSEA AND VOMITING. TAKE WITH vitamin b-6 TABLET. Refills: 1. Next Dose: Multivitamin, ( Multivitamins with Folic Acid 1 mg oral tablet) 1 tab(s) Oral Daily. Refills: 2. Next Dose: Allergy Info:?? penicillin Medications Given This Visit Future Orders ?No future orders Vital Signs Height 160 cm Weight 105.0 kg BMI 41.02 kg/m2 Blood Pressure 112 mm Hg/60 mm Hg Temperature Pulse Rate Respiratory Rate 02 Sat Mode of Delivery / You can now view a summary of your hospital visit from the comfort of your home through a free online portal called [employer]. [employer] is a website that allows you to securely view your medical information including discharge summary, medications and follow-up visits. ??You can alsosend a secure electronic message to your doctor???s office to request appointments, renew medications or just ask a question. You can enroll at [email or web address] or register during your next office visit. Disclaimer:?? The information provided is of a general nature and is intended to be used in conjunction with the recommendations and advice of your health care practitioner. ??Every effort has been made to ensure that the information provided is accurate and complete at the time it is provided to you however, as your needs change, or, as new ??information becomes available, different or additional instructions may be required. If you have questions, please consult with your primary care provider or pharmacist, as appropriate. ??This information is not intended to serve as substitution for assessment and evaluation by a qualified health care provider. If you do not have a primary care provider, you may find a [facility] provider by calling [facility] at [phone]. For information about the plan of care including goals and instructions for your diagnosis, please see the patient education orders section of this document. Patient Education Materials?? The content of this educational material or handout may have been modified, supplemented, or adapted from its original content and format to support your individualized medical care. Patient Care team information Care Team Personnel Name: Pearl Chahal MD Position: [facility] Outreach Member Role: PCP Address: Address: [address] [place] [address]- Name: Vladimir Del Valle DO Position: [facility] SURVEY METHODOLOGIST MD Member Role: Lifetime SURVEY METHODOLOGIST Physician Address: Address: [address] [place], [place] [address]s [facility] [place] [address]- Name: Michelle Anne RN Position: [facility] OB RN Member Role: Primary Care Nurse Care Team Related Persons Name: WALDO FORD Name: ROSCOE MENDEZ Address: [facility] [address] Address: home [address] [place] [address] [place] Name: MERARI DUNHAM Address: [address] [place] [address] Name: SAMARIA CHIANG Address: home [address] [place] [address]
--- OUTSIDE RECORDS SUMMARY | 2023-01-11 17:09 | XMS_ITS | Continuity of Care Document ---
Author Name Unknown Organization [facility] Address [address] [place] [address]- Care Team Providers Care Remote Operations Producer Name Role Phone Jason Vitale MD, Pearl Petersen Primary Care Physici an Encounter [facility] Date(s): 05/15/22 - 06/14/[address] [address]- Allergies, Adverse Reactions, Alerts Substance Reaction Severity Status penicillin Active Immunizations Given and Recorded Vaccine Date Status Refusal Reason tetanus/diphtheria/pertussis, acel(Tdap) 03/09/22 Given tetanus/diphtheria/pertussis, acel(Tdap) 02/13/17 Given tetanus/diphtheria/pertussis, acel(Tdap) 1 01/04/16 Given influenza virus vaccine, inactivated 03/09/22 Give n tetanus-diphtheria toxoids (Td) 01/22/17 Given 1Admin Note: VIS on TDAP given to patient in azeri. Medications docusate sodium 100 mg oral capsule [...] 04/06/22 12:22:00 EST, Route to Pharmacy Electronically, [facility], Partial fill upon patient request if the prescription is for a lindsey... Start Date: 04/06/22 Status: Ordered MiraLax oral powder for reconstitution = 17 Gm, By Mouth, Daily, dissolve in water before taking, # 527 Gm, 0 Refills, Maintenance, 06/02/22 6:47:00 EST, REC Powder, [facility], Partial fill upon patient request [...] Confirmed Active tubal ligation planned Confirmed Active Eritrean speaking patient Confirmed Active Obesity Confirmed Active Severe obesity Confirmed Active Hernia, umbilical Confirmed Active Social History Social History Type Response Smoking Status Never (less than 100 in lifetime) entered on: 06/02/22 Sex Patient Care team information Care Team Personnel Name: Pearl Chahal MD Position: [facility] Outreach Member Role: PCP Address: Address: [address] [facility] [address] [place] [address]- Name: Vladimir Del Valle DO Position: [facility] CRAWLER CRANE OPERATOR MD Member Role: Lifetime CRAWLER CRANE OPERATOR Physician Address: Address: [address] [place] [address]'s [facility] [place] [address]- [place] Name: Michelle Anne RN Position: [facility] OB RN Member Role: Primary Care Nurse Care Team Related Persons Name: WALDO FORD Name: ROSCOE MENDEZ Address: [address] Address: [address] [place] [address] [place] Name: MERARI DUNHAM Address: [address] [place] [address] Name: SAMARIA CHIANG Address: home [address] [place] [address]
--- OUTSIDE RECORDS SUMMARY | 2023-01-11 17:09 | XMS_ITS | Continuity of Care Document ---
Author Name Unknown Organization [facility] Address [address] [place] [address]- Care Team Providers Care Licensed Home Inspector Name Role Phone Jason Vitale MD, Pearl Petersen Primary Care Physici an Encounter [facility] Date(s): 02/23/22 - 06/14/[address] [address] Attending Physician: Not on Staff, Attending MD Allergies, Adverse Reactions, Alerts Substance Reaction Severity Status penicillin Active Immunizations Given and Recorded Vaccine Date Status Refusal Reason tetanus/diphtheria/pertussis, acel(Tdap) 03/09/22 Given tetanus/diphtheria/pertussis, acel(Tdap) 02/13/17 Given tetanus/diphtheria/pertussis, acel(Tdap) 1 01/04/16 Given influenza virus vaccine, inactivated 03/09/22 Give n tetanus-diphtheria toxoids (Td) 01/22/17 Given 1Admin Note: VIS on TDAP given to patient in greek. Medications docusate sodium 100 mg oral capsule [...] 04/06/22 12:22:00 EST, Route to Pharmacy Electronically, [facility], Partial fill upon patient request if the prescription is for a lindsey... Start Date: 04/06/22 Status: Ordered MiraLax oral powder for reconstitution = 17 Gm, By Mouth, Daily, dissolve in water before taking, # 527 Gm, 0 Refills, Maintenance, 06/02/22 6:47:00 EST, REC Powder, [facility], Partial fill upon patient request [...] Confirmed Active tubal ligation planned Confirmed Active Paraguayan speaking patient Confirmed Active Obesity Confirmed Active Severe obesity Confirmed Active Hernia, umbilical Confirmed Active Social History Social History Type Response Smoking Status Never (less than 100 in lifetime) entered on: 06/02/22 Sex Patient Care team information Care Team Personnel Name: Pearl Chahal MD Position: [facility] Outreach Member Role: PCP Address: Address: [address] [place] [address] [address] [place] [address]- [place] Name: Vladimir Del Valle DO Position: [facility] UPPERS EDGE BURNISHER Member Role: Lifetime UPPERS EDGE BURNISHER Physician Address: Address: [address] [place] [address] [place] [address]- [place] Name: Dayana ISAACS, Michelle Position: [facility] OB RN Member Role: Primary Care Nurse Care Team Related Persons Name: WALDO FORD Name: ROSCOE MENDEZ Address: [address] Address: [address] [place] [address] Name: MERARI DUNHAM Address: [address] [place] [address] Name: SAMARIA CHIANG Address: home [address] [place] [address]
--- OUTSIDE RECORDS SUMMARY | 2023-01-11 17:09 | XMS_ITS | Continuity of Care Document ---
Author Name Unknown Organization [facility] Address [address] [place] [address]- Care Team Providers Care Television Analyzer Name Role Phone Jason Vitale MD, Pearl Petersen Primary Care Physici an Encounter [facility] [place] Date(s): 05/19/22 - 06/24/[address] [address]- Attending Physician: Frank Pacheco MD Admitting Physician: [...] VIS on TDAP given to patient in divehi. Medications docusate sodium 100 mg oral capsule 1 capsule = 100 mg, By Mouth, 2 times a day, # 60 capsule, 0 Refills, Maintenance, 05/28/22 7:20:00EST, Capsule, [id number], Partial fill upon patient request if the prescription is for a schedule II opioid drug., 160, cm, 05/28/22 0:09:00 ES... Start Date: 05/28/22 Status: Ordered Nancy 0.35 mg oral tablet 1 tablet = 0.35 mg, By Mouth, Daily, # 84 tablet, 0 Refills, Maintenance, 05/28/22 7:28:00 EST, Tablet, [facility][id number], Partial fill upon patient request if the prescription is for a schedule II opioid drug., 160, cm, 05/28/22 0:09:00 EST, Height,... Start Date: 05/28/22 Status: Ordered famotidine 20 mg oral tablet 20 mg, 1, tablet, By Mouth, 2 times a day, # 60 tablet, Refills 0, Tot. Refills 0, Maintenance, 04/06/22 12:22:00 EST, Route to Pharmacy Electronically, [facility], Partial fill upon patient request if the prescription is for a lindsey... Start Date: 04/06/22 Status: Ordered MiraLax oral powder for reconstitution = 17 Gm, By Mouth, Daily, dissolve in water before taking, # 527 Gm, 0 Refills, Maintenance, 06/02/22 6:47:00 EST, REC Powder, [facility], Partial fill upon patient request [...] Confirmed Active tubal ligation planned Confirmed Active Angolan speaking patient Confirmed Active Obesity Confirmed Active Severe obesity Confirmed Active Hernia, umbilical Confirmed Active Social History Social History Type Response Smoking Status Never (less than 100 in lifetime) entered on: 06/02/22 Sex Patient Care team information Care Team Personnel Name: Pearl Chahal MD Position: [facility] Outreach Member Role: PCP Address: Address: [address] [place] [address] [address] [place] [address]- [place] Name: Vladimir Del Valle DO Position: [facility] METAL SPRAYER PRODUCTION MD Member Role: Lifetime METAL SPRAYER PRODUCTION Physician Address: Address: [address] [place], [place] [address]s [facility] [place] [address]- [place] Name: Dayana ISAACS, Michelle Position: [facility] OB RN Member Role: Primary Care Nurse Care Team Related Persons Name: WALDO FORD Name: ROSCOE MENDEZ Address: [address] Address: [address] [place] [address] Name: MERARI DUNHAM Address: [address] [place] [address] Name: SAMARIA CHIANG Address: [address] [place] [address]
--- OUTSIDE RECORDS SUMMARY | 2023-01-11 17:09 | XMS_ITS | Continuity of Care Document ---
Author Name Unknown Organization [facility] Address [address] [place] [address]- Care Team Providers Care Mine Engineer Name Role Phone Jason Vitale MD, Pearl Petersen Primary Care Physici an Encounter [facility] Date(s): 11/14/19 - 12/14/19 [facility] [address] [address]- [facility] Allergies, Adverse Reactions, Alerts Substance Reaction Severity Status penicillin Active Immunizations Given and Recorded Vaccine Date Status Refusal Reason tetanus/diphtheria/pertussis, acel(Tdap) 02/13/17 Given tetanus/diphtheria/pertussis, acel(Tdap) 1 01/04/16 Given tetanus-diphtheria toxoids (Td) 01/22/17 Given 1Admin Note: VIS on TDAP given to patient in pashto. Medications doxylamine 25 mg oral tablet See Instructions, one half tablet 2 x day, # 8 tablet, 0 Refills, Maintenance, 10/18/16 15:41:44 Start Date: 10/18/16 Status: Ordered Nexplanon 68 mg subcutaneous implant 1 each = 68 mg, Subcutaneous Infusion, Once, # 1 each, 0 Refills, Soft Stop, 05/01/17 13:50:11 Start Date: 05/01/17 Status: Ordered Problem List Condition Effective Dates Status Health Status Inform ant Asthma(Confirmed) Active GDM, class A1(Confirmed) Active GBS carrier(Confirmed) Active tubal ligation planned(Confirmed) Active Arabic speaking patient(Confirmed) Active Obesity(Confirmed) Active Hernia, umbilical(Confirmed) Active Social History Social History Type Response Smoking Status Current every day sm oker; Tobacco user in household: Yes entered on: 08/15/16 Sex
--- OUTSIDE RECORDS SUMMARY | 2023-01-11 17:09 | XMS_ITS | Continuity of Care Document ---
Author Name Unknown Organization [facility] Address [address] [place] [address]- Care Team Providers Care Plow Holder Name Role Phone Jason Vitale MD, Pearl Petersen Primary Care Physici an [place] [facility] [place](s[place] 03/08/21 - 04/29/[address] [address]- Attending Physician: Not on Staff, Attending MD Allergies, Adverse Reactions, Alerts Substance Reaction Severity Status penicillin Active Immunizations Given and Recorded Vaccine Date Status Refusal Reason tetanus/diphtheria/pertussis, acel(Tdap) 02/13/17 Given tetanus/diphtheria/pertussis, acel(Tdap) 1 01/04/16 Given tetanus-diphtheria toxoids (Td) 01/22/17 Given 1Admin Note: VIS on TDAP given to patient in yi. Medications doxylamine 25 mg oral tablet See [...] each, 11 Refills, Maintenance, 12/19/19 11:42:00 EDT, [facility], 1patch Topically Every week,Instr:apply a new patch... Start Date: 12/19/19 Status: Ordered ibuprofen 600 mg oral tablet 600 mg, 1, tablet, By Mouth, 4 times a day, PRN, # 40 tablet, Refills 1, Tot. Refills 1, Maintenance, Pain , Mild, 04/05/21 10:12:00 EST, Route to Pharmacy Electronically, [facility], Partial fill upon patient request if the prescr... Start Date: 04/05/21 Status: Ordered miSOPROStol 200 mcg oral tablet See Instructions, Place 4 tablets in your vagina and then place another 4 tablets in your vagina four hours later., # 8 tablet, 0 Refills, Soft Stop, 04/05/21 10:16:00 EST, Tablet, [facility], Partial fill upon patient request if t... Start Date: 04/05/21 Status: Ordered Multivitamins with Folic Acid 1 mg oral tablet 1 tablet, By Mouth, Daily, # 90 tablet, 3 Refills, Maintenance, 03/08/21 13:32:00 EDT, Tablet, [facility], Partial fill upon patient request if the prescription is for a schedule II opioid drug., 1 tablet By Mouth Daily, 160, cm, 0... Start Date: 03/08/21 Status: Ordered promethazine 12.5 mg oral tablet 1 tablet = 12.5 mg, By Mouth, Every 4 hours, PRN for nausea/vomiting, # 10 tablet, 0 Refills, Maintenance, 04/05/21 10:13:00 EST, Tablet, [facility], Partial fill upon patient request if the prescription is for a schedule II opioid... Start Date: 04/05/21 Status: Ordered Problem List Condition Effective Dates Status Health Status Inform ant Asthma(Confirmed) Active GDM, class A1(Confirmed) Active tubal ligation planned(Confirmed) Active Gibraltarian speaking patient(Confirmed) Active Obese class II(Confirmed) Active Obesity(Confirmed) Active Hernia, umbilical(Confirmed) Active Social History Social History Type Response Smoking Status Current every day sm jessicaer; Tobacco user in household: Yes entered on: 08/15/16 Sex
--- OUTSIDE RECORDS SUMMARY | 2023-01-11 17:09 | XMS_ITS | Continuity of Care Document ---
Author Name Unknown Organization [facility] Address [address] [place] [address]- Care Team Providers Care Prop Cutter Name Role Phone Jason Vitale MD, Pearl Petersen Primary Care Physici an Encounter [facility] [place] Date(s): 01/23/22 - 02/22/[address] [address]- Allergies, Adverse Reactions, Alerts Substance Reaction Severity Status penicillin Active Immunizations Given and Recorded Vaccine Date Status Refusal Reason tetanus/diphtheria/pertussis, acel(Tdap) 02/13/17 Given tetanus/diphtheria/pertussis, acel(Tdap) 1 01/04/16 Given tetanus-diphtheria toxoids (Td) 01/22/17 Given 1Admin Note: VIS on TDAP given to patient in angolan. Medications aspirin 81 mg oral delayed release [...] Confirmed Active tubal ligation planned Confirmed Active Namibian speaking patient Confirmed Active Obese class II Confirmed Active Obesity Confirmed Active Hernia, umbilical Confirmed Active Social History Social History Type Response Smoking Status Former smoker, quit more than 30 days ago entered on: 11/22/21 Sex Patient Care team information Personnel Name: Jason Vitale MD, Pearl Petersen Address: Address: [address] [place] [address] [address] [place], [place] [address]
--- OUTSIDE RECORDS SUMMARY | 2023-01-11 17:09 | XMS_ITS | Continuity of Care Document ---
Author Name Unknown Organization [facility] ter Address [address] [place] [address]- Care Team Providers Care Sensor Operator Name Role Phone Jason Vitale MD, Pearl Petersen Primary Care Physici an [place] [facility] [place] 05/09/22 - 05/09/[address] [address] Discharge Disposition: A-D/C Home Attending Physician: Cecelia Fong MD Admitting Physician: Cecelia Fong MD Referring Physician: Cecelia Fong MD Allergies, Adverse Reactions, Alerts Substance Reaction Severity Status penicillin Active Immunizations Given and Recorded Vaccine Date Status Refusal Reason tetanus/diphtheria/pertussis, acel(Tdap) 03/09/22 Given tetanus/diphtheria/pertussis, acel(Tdap) 02/13/17 Given tetanus/diphtheria/pertussis, acel(Tdap) 1 01/04/16 Given influenza virus vaccine, inactivated 03/09/22 Give n tetanus-diphtheria toxoids (Td) 01/22/17 Given 1Admin Note: VIS on TDAP given to patient in cayman islander. Medications aspirin 81 mg oral delayed release tablet 2 tablet = 162 mg, By Mouth, Daily, At bedtime, # 90 tablet, 0 Refills, Maintenance, 12/29/21 15:39:00 EDT, CR Tablet, [facility], Partial fill upon patient request if the prescription is for a schedule II opioid drug., 160, cm, 08... Start Date: 12/29/21 Status: Ordered famotidine 20 mg oral tablet 20 mg, 1, tablet, By Mouth, 2 times a day, # 60 tablet, Refills 0, Tot. Refills 0, Maintenance, 04/06/22 12:22:00 EST, Route to Pharmacy Electronically, [facility], Partial fill upon patient request if the prescription is for a lindsey... Start Date: 04/06/22 Status: Ordered Multivitamins with Folic Acid 1 mg oral tablet 1 tablet, By Mouth, Daily, # 90 tablet, 2 Refills, Maintenance, 11/24/21 18:18:00 EDT, Tablet, [facility], Partial fill upon patient request [...] Confirmed Active tubal ligation planned Confirmed Active Chadian speaking patient Confirmed Active Obesity Confirmed Active Severe obesity Confirmed Active Hernia, umbilical Confirmed Active Vital Signs Most recent to oldest [Reference Range]: 1 2 Weight 104.5 kg (05/09/22 5:12 AM) Oxygen Saturation [94-100 %] 99 % (05/09/22 5:36 AM) 100 % (05/09/22 5:14 AM) Blood Pressure [90-138/55-84 mm Hg] 107/ 68mm Hg (05/09/22 5:14 AM) Respiratory Rate [16-30 br/min] 18 br/mi n (05/09/22 5:14 AM) Temperature [96.8-100.4 DegF] 98.3 DegF (05/09/22 5:12 AM) Blood pressure sites Arm, right (05/09/22 5:14 AM) Temperature Route Oral (05/09/22 5:12 AM) Dry Weight 104.5 kg (05/09/22 5:12 AM) Weight Obtained Via Standing scale (05/09/22 5:12 AM) Dry Weight Obtained Via Standing scale (05/09/22 5:12 AM) Social History Social History Type Response Smoking Status Former smoker, quit more than 30 days ago entered on: 11/22/21 Sex Note * Oksana Naik V: PERFORM Event Display: Discharge/Transfer Note Hospital Authored Date: [id number] Nursing Discharge Note Entered On: 05/09/2022 7:08 EST Performed On: 05/09/2022 7:08 EST by Oksana Naik V Nursing Discharge Note 2 Discharge Time : 05/09/2022 7:08 EST Discharge Level of Care at Discharge : Home/Half-Way/Foster Care Patient Left Unit Via : Ambulatory Patient Accompanied Off Unit with : Significant other DC Instructions Provided & Signed by Pt : Yes Patient Understands D/C Instructions : Yes Patient Instructions Discharge Signed : Yes Did Pt have Specialty Bed or Wound Vac : No Oksana Naik V - 05/09/2022 7:08 EST * Oksana Naik V: PERFORM Event Display: Patient Education/Instruction Authored Date: [id number] Inpatient Adult Discharge Instructions [place] [id number] Name: CHENG CAMARA : 1985 Visit: 05/09/2022 04:47:00 Current Date: 05/09/2022 07:04 Account: [id number] Inpatient Adult Discharge Instructions We would like [...] and their families. Surveys are administered by [employer] ?? If further treatment with your primary care physician or another doctor is recommended, it is important for you to keep the appointment. Call your primary care physician or return to the Emergency Department immediately if your condition worsens, fails to improve, or new symptoms develop. If you need to find a doctor, you can call [facility] [employer] [facility] for a referral at [phone] or toll free at [phone]) or log in to [email or web address].. ?? You can view and manage your care through the patient portal or by using a health care maida of your choosing. [email or web address] is a website that allows you to securely view your medical information including your hospital discharge summary, office visit summaries, medications and follow-up visits. You can also request appointments, renew medications, and request access to your medical information using a health care maida of your choosing, or just ask a question. You can enroll at [email or web address] or register during your next office visit. You have been discharged from [facility], Patient Care Unit: [id number]. If you have any questions regarding these instructions after you leave, please call us and we will be happy to assist you. [facility] Your Care Team Attending Physician Hetal SHIELDS, Cecelia Henderson Tests Performed Below is a partial list of the tests performed during your hospitalization. You may have had other tests and procedures not included in this list. Please discuss all test results with your provider. Primary Care Provider Pearl Chahal MD Advance Directive Health Care Proxy on File No Patient has a Designated Caregiver: No Discharge Vitals Temperature: 98.3 DegF Weight: 104.5 kg Respiratory Rate: 18 br/min ?? Systolic Blood Pressure: 107 mm Hg ?? Diastolic Blood Pressure: 68 mm Hg ?? Oxygen Saturation: 99 % [...] EST ?? With: Katie Ovalle DO Where: [facility] [address] [place] [address]- 2022 2:40 PM EST ?? With: Leeanna Gonsalez MD Where: [facility] [address] [place] [address]- You Need to Schedule the Following Appointments Follow Up with??[facility] When?? Where: [address] [place] [address] [place] [address]- Discharge Medications CHENG CAMARA :1985 Visit Date:05/09/2022 Medications: Please continue your medications until treatment [...] ?? Obesity?? tubal ligation planned? Severe obesity?? Chadian speaking patient?? Education Materials Below is the list of Educational Leaflet Providered with your Discharge Instructions. Kick Counts?? Recognizing Labor?? Valuables and Belongings I fully understand and agree that [facility] accepts no responsibility for all [...] are strongly encouraged to quit. Please call [facility] [employer] Link at [phone] or [phone] ([phone]) or log in to [email or web address] for referrals to smoking cessation programs. ?? The National Suicide Prevention Hotline is available 27/11 if you or someone you know needs to find a reason to keep living. By calling 8-827-720-Whiphand (8776) you'll be connected to a skilled, trained counselor at a crisis center in your area. INPATIENT DISCHARGE INSTRUCTIONS SIGNATURE PAGE CHENG CAMARA Location:[facility] Registration Date and Time:05/09/2022 04:47 EST Primary Care Physician: Jason Vitale MD, Pearl Petersen, CHENG SOLIMAN, have received the above patient education materials/instructions and have verbalized understanding. If ambulance or transport services are being used I further acknowledge being givena choice of service. ?? If you need to contact me, please call me at this number: . Patient/Rn Care Transition Name: Patient/Rn Care Transition Signature: Relationship to Patient: Witness Name/Signature: Date: * Oksana Naik V: PERFORM Event Display: Patient Education Leaflets Authored Date: [id number] Kirill Herrera ?? [id number] Conteo de patadas Es normal que le preocupe la rajendra de garcia beb??. Para saber si el beb?? est?? shira, hawk de las cosasque puede hacer es anotar los movimientos del beb?? hawk vez al d??a. A esto se le llama conteo de patadas. ??Recuerde llevar samuel anotaciones del conteo de patadas del beb?? a todas las citas con garcia proveedor de atenci??n m??dica. C??mo contar las patadas de garcia beb?? Cuente el tiempo que le lleva sentir 10??patadas, ondeos, vuelcos o giros. Lo ideal es que sienta al menos 10??movimientos en 2??horas. Es probable que sienta 10??movimientos en menos tiempo. A partir de las 28??semanas, cuente los movimientos del beb?? todos los d??as. Siga las instrucciones sobre conteo de patadas que le d?? garcia proveedor de atenci??n m??dica. Aqu?? tiene algunos consejos para contar las patadas de garcia beb??: ??? Escoja hawk hora cuando el beb?? est?? activo, delvis por ejemplo despu??s de hawk comida.? Si??ntese c??modamente o acu??stese de lado.? La primera vez que el beb?? se mueva, anote la hora.? Cuente cada movimiento hasta que el beb?? se haya movido?? 10??veces. [place] puede llevar entre 20??minutos y 2??horas.? Si cuando termina la segunda hora no siente 10??patadas, espere unas horas. Luego vuelva a intentarlo. ??? Trate de hacer esto a la misma hora todos los d??as. ?? Cu??ndo llamar a garcia proveedor de atenci??n m??dica Llame?? de inmediato??a garcia proveedor de atenci??n m??dica en los siguientes casos: ??? Hace un par de series de conteo de patadas en el d??a y el beb?? se mueve menos de?? 10??veces en 2??horas. ??? El beb?? se mueve con alanna menos frecuencia que en d??as anteriores. ??? No charles sentido movimientos del beb?? en todo el d??a. ?? Last Reviewed Date: 2019 ?? [id number] [employer]. Todos los derechos reservados. Esta informaci??n no pretende sustituir la atenci??n m??dica profesional. S??lo garcia m??dico puede diagnosticar y tratar un problema de rajendra. ?? * Oksana Naik V: PERFORM Event Display: Patient Education Leaflets Authored Date: [id number] Recognizing Labor ?? [address] C??mo reconocer los s??ntomas del trabajo de parto El comienzo del trabajo de parto es el inicio del alumbramiento. Empezar?? a sentir contracciones silvino. Es decir, los m??sculos del ??tero se contraer??n para ayudar a empujar al beb?? hacia afuera braulio el parto. S??, es probable que haya empezado el trabajo de parto?? Signos del trabajo de parto: ??? Las contracciones son cada vez m??s silvino y m??s dolorosas, y nom??s d??zoraida. Jose Alfredo vez las sienta en todo el ??tero. ??? Las contracciones son regulares. [place] quiere decir que las siente m??s o [...] siguiente. ?? Last Reviewed Date: 2019 ?? [id number] [employer]. Todos los derechos reservados. Esta informaci??n no pretende sustituir la atenci??n m??dica profesional. S??lo garcia m??dico puede diagnosticar y tratar un problema de rajendra. ?? Patient Care team information Care Team Personnel Name: Pearl Chahal MD Position: [facility] Outreach Member Role: PCP Address: Address: [address] [facility] [address] [place] [address]- Name: Vladimir Del Valle DO Position: [facility] LEARNING AND DEVELOPMENT ASSOCIATE MD Member Role: [employer] LEARNING AND DEVELOPMENT ASSOCIATE Physician Address: Address: [address] [place] [address] [employer] [place] [address]- Name: Michelle Anne RN Position: [facility] OB RN Member Role: Primary Care Nurse Care Team Related Persons Name: WALDO FORD Name: MERARI DUNHAM Address: [address] [place] [address] Name: SAMARIA CHIANG Address: [address] [place] [address]
--- OUTSIDE RECORDS SUMMARY | 2023-01-11 17:10 | XMS_ITS | Continuity of Care Document ---
Author Name Unknown Organization [facility] Address [address] [place] [address]- Care Team Providers Care Tennis Court Attendant Name Role Phone Jason Vitale MD, Pearl Petersen Primary Care Physici an Encounter [facility] [place] Date(s): 12/27/21 - 02/25/[address] [address]- Attending Physician: Aury Retana CNM Admitting Physician: Aury Retana CNM Allergies, Adverse Reactions, Alerts Substance Reaction Severity Status penicillin Active Immunizations Given and Recorded Vaccine Date Status Refusal Reason tetanus/diphtheria/pertussis, acel(Tdap) 02/13/17 Given tetanus/diphtheria/pertussis, acel(Tdap) 1 01/04/16 Given tetanus-diphtheria toxoids (Td) 01/22/17 Given 1Admin Note: VIS on TDAP given to patient in uzbek. Medications aspirin 81 mg oral delayed release tablet 2 tablet = 162 mg, By Mouth, Daily, At bedtime, # 90 tablet, 0 Refills, Maintenance, 12/29/21 15:39:00 EDT, CR Tablet, [facility], Partial fill upon patient request if the prescription is for a schedule II opioid drug., 160, cm, 08... Start Date: 12/29/21 Status: Ordered famotidine 10 mg oral tablet 1 tablet = 10 mg, By Mouth, 2 times a day, # 60 tablet, 0 Refills, Maintenance, 02/10/22 11:34:00 EDT, Tablet, [facility], Partial fill upon patient request if the prescription isfor a schedule II opioid drug., 160, cm, 12/27/21 1... Start Date: 02/10/22 Status: Ordered Multivitamins with Folic Acid 1 mg oral tablet 1 tablet, By Mouth, Daily, # 90 tablet, 2 Refills, Maintenance, 11/24/21 18:18:00 EDT, Tablet, [facility], Partial fill upon patient request if the prescription is for a schedule II opioid drug., 1 tablet By Mouth Daily, 160, cm, 0... Start Date: 11/24/21 Status: Ordered promethazine 12.5 mg rectal suppository 1 supp = 12.5 mg, Rectally, Every 4 hours, PRN for nausea/vomiting, # 12 supp, 0 Refills, Maintenance, 01/24/22 23:52:00 EDT, Suppository, [facility], Partial fill upon patient request if the prescription is for a schedule II opioi... Start Date: 01/24/22 Status: Ordered Problem List Condition Confirmation Course Effective Dates Status Health St [facility] Informant Asthma Confirmed Active GDM, class A1 Confirmed Active tubal ligation planned Confirmed Active Mongolian speaking patient Confirmed Active Obese class II Confirmed Active Obesity Confirmed Active Hernia, umbilical Confirmed Active Social History Social History Type Response Smoking Status Former smoker, quit more than 30 days ago entered on: 11/22/21 Sex Patient Care team information Personnel Name: Pearl Chahal MD Address: Address: [address] [place] [address] [address] [place] [id number]
--- OUTSIDE RECORDS SUMMARY | 2023-01-11 17:10 | XMS_ITS | Continuity of Care Document ---
Author Name Unknown Organization [facility] ter Address [address] [place] [address]- Care Team Providers Care Outside Machinist Name Role Phone Jason Vitale MD, Pearl Petersen Primary Care Physici an [place] [facility] [place](s): 05/17/22 - 06/27/[address] [address] Attending Physician: Marnie Vazquez MD Referring Physician: Molly Reyes MD Allergies, Adverse Reactions, Alerts Substance Reaction Severity Status penicillin Active Immunizations Given and Recorded Vaccine Date Status Refusal Reason tetanus/diphtheria/pertussis, acel(Tdap) 03/09/22 Given tetanus/diphtheria/pertussis, acel(Tdap) 02/13/17 Given tetanus/diphtheria/pertussis, acel(Tdap) 1 01/04/16 Given influenza virus vaccine, inactivated 03/09/22 Give n tetanus-diphtheria toxoids (Td) 01/22/17 Given 1Admin Note: VIS on TDAP given to patient in namibian. Medications docusate sodium 100 mg oral capsule [...] 04/06/22 12:22:00 EST, Route to Pharmacy Electronically, [facility], Partial fill upon patient request if the prescription is for a lindsey... Start Date: 04/06/22 Status: Ordered MiraLax oral powder for reconstitution = 17 Gm, By Mouth, Daily, dissolve in water before taking, # 527 Gm, 0 Refills, Maintenance, 06/02/22 6:47:00 EST, REC Powder, [facility], Partial fill upon patient [...] Active tubal ligation planned Confirmed Active St Helen[place] speaking patient Confirmed Active Obesity Confirmed Active Severe obesity Confirmed Active Hernia, umbilical Confirmed Active Social History Social History Type Response Smoking Status Never (less than 100 in lifetime) entered on: 06/02/22 Sex Patient Care team information Care Team Personnel Name: Pearl Chahal MD Position: [facility] Outreach Member Role: PCP Address: Address: [address] [facility] [address] [facility] [address] [place] [address]- Name: Vladimir Del Valle DO Position: [facility] SMOKE ROOM OPERATOR Member Role: [employer] SMOKE ROOM OPERATOR Physician Address: Address: [address] [place] [address]'s Health Patient Care [place] [address]- [place] Name: Dayana ISAACS, Michelle Position: [facility] OB RN Member Role: Primary Care Nurse Care Team Related Persons Name: WALDO FORD Name: ROSCOE MENDEZ Address: Address: [address] [place] [address] [place] Name: BEAR DUNHAMAR Address: [address] [place] [address] Name: SAMARIA CHIANG Address: home [address] [place] [address]
--- OUTSIDE RECORDS SUMMARY | 2023-01-11 17:10 | XMS_ITS | Continuity of Care Document ---
Author Name Unknown Organization [facility] Address [address] [place] [address]- Care Team Providers Care Dispatcher Bus And Trolley Name Role Phone Jason Vitale MD, Pearl Petersen Primary Care Physici an [place] [facility] [place] Date(s): 11/11/21 - 12/11/[address] [address]- Allergies, Adverse Reactions, Alerts Substance Reaction Severity Status penicillin Active Immunizations Given and Recorded Vaccine Date Status Refusal Reason tetanus/diphtheria/pertussis, acel(Tdap) 02/13/17 Given tetanus/diphtheria/pertussis, acel(Tdap) 1 01/04/16 Given tetanus-diphtheria toxoids (Td) 01/22/17 Given 1Admin Note: VIS on TDAP given to patient in kazakh. Medications Multivitamins with Folic Acid 1 mg oral tablet 1 tablet, By Mouth, Daily, # 90 tablet, 2 Refills, Maintenance, 11/24/21 18:18:00 EDT, Tablet, [facility], Partial fill upon patient [...] Acute 01/23/22 18:18:00 EDT, 11/24/21 18:18:00 EDT, [facility] Start Date: 11/24/21 Stop Date: 01/23/22 Status: Ordered Vitamin B6 25 mg oral tablet 1 tablet = 25 mg, By Mouth, 3 times a day, PRN Nausea & Vomiting, Take 1 tab three times a day with 1/2 tab of doxylamine for pevention of N/V in , # 90 tablet, 1 Refills, Acute 01/26/2218:18:00 EDT, 11/24/21 18:18:00 [facility]T, [facility]... Start Date: 11/24/21 Stop Date: 01/26/22 Status: Ordered Problem List Condition Effective Dates Status Health Status Inform ant Asthma(Confirmed) Active GDM, class A1(Confirmed) Active tubal ligation planned(Confirmed) Active Chinese speaking patient(Confirmed) Active Obese class II(Confirmed) Active Obesity(Confirmed) Active Hernia, umbilical(Confirmed) Active Social History Social History Type Response Smoking Status Former smoker, quit more than 30 days ago entered on: 11/22/21 Sex
--- OUTSIDE RECORDS SUMMARY | 2023-01-11 17:10 | XMS_ITS | Continuity of Care Document ---
Author Name Unknown Organization [facility] ter Address [address] [place] [id number]- Care Team Providers Care Relations Coordinator Name Role Phone Jason Vitale MD, Pearl Petersen Primary Care Physici an Encounter [facility] Date(s): 05/10/22 - 06/15/[address] [address] Attending Physician: Frank Pacheco MD [...] TDAP given to patient in icelandic. Medications docusate sodium 100 mg oral capsule [...] 04/06/22 12:22:00 EST, Route to Pharmacy Electronically, [facility], Partial fill upon patient request if the prescription is for a lindsey... Start Date: 04/06/22 Status: Ordered MiraLax oral powder for reconstitution = 17 Gm, By Mouth, Daily, dissolve in water before taking, # 527 Gm, 0 Refills, Maintenance, 06/02/22 6:47:00 EST, REC Powder, [facility], Partial fill upon patient request [...] Confirmed Active tubal ligation planned Confirmed Active Congolese speaking patient Confirmed Active Obesity Confirmed Active Severe obesity Confirmed Active Hernia, umbilical Confirmed Active Social History Social History Type Response Smoking Status Never (less than 100 in lifetime) entered on: 06/02/22 Sex Patient Care team information Care Team Personnel Name: Pearl Chahal MD Position: [facility] Outreach Member Role: PCP Address: Address: [address] [place] [address] [address] [place] [address]- [place] Name: Vladimir Del Valle DO Position: [facility] RESEARCH NURSE PRACTITIONER MD Member Role: Lifetime RESEARCH NURSE PRACTITIONER Physician Address: Address: [address] [place] [address] [place] [address]- [place] Name: Michelle Anne RN Position: [facility] OB RN Member Role: Primary Care Nurse Care Team Related Persons Name: WALDO FORD Name: ROSCOE MENDEZ Address: [address] Address: [address] Name: DUNHAMMERARI Address: [address] [place] [address] Name: SAMARIA CHIANG Address: home [address] [place] [address]
== END 2023-01-11 17:23 | disposition home or self-care (01) ==
PROVIDERS: Emergency Provider Student in an Organized Health Care Education/Training Program; PCP Internal Medicine
DX: S13.4XXA Sprain of ligaments of cervical spine, initial encounter (principal); M62.838 Other muscle spasm; M25.512 Pain in left shoulder; V43.52XA Car driver injured in collision with other type car in traffic accident, initial encounter; Y93.9 Activity, unspecified; Y92.410 Unspecified street and highway as the place of occurrence of the external cause; Y99.9 Unspecified external cause status
CPT/HCPCS: 73030; 99281; 99283

== ENCOUNTER 2023-02-05 12:34 | Outpatient (REF) | payer MEDICAID, SELFPAY ==
[2023-02-05 13:23] LABS: MANUAL DIFF FLAG NO
[2023-02-05 13:39] LABS: Basophils Absolute Auto 0.1 X10*3/uL (0.0-0.2); Basophils Percent Auto 0.5 % (0-2); Eosinophils Absolute Auto 0.1 X10*3/uL (0.0-0.4); Eosinophils Percent Auto 1.1 % (0-4); Hematocrit 35.8 % (37.0-47.0); Imm Gran Abs Auto 0.04 X10*3/uL (0.00-0.03); Imm Gran Pct Auto 0.4 % (0.0-0.4); Lymphocytes Absolute Auto 2.6 X10*3/uL (1.2-4.9); Lymphocytes Percent Auto 27.8 % (20-40); Mean Corpuscular HGB Conc 33.5 g/dl (31.0-35.0); Mean Corpuscular Hemoglobin 29.7 pg (27.0-33.0); Mean Corpuscular Volume 88.6 fL (80.0-98.0); Mean Platelet Volume 11.3 fL (9.4-12.3); Monocytes Absolute Auto 0.6 X10*3/uL (0.1-1.2); Monocytes Percent Auto 6.5 % (2-11); Neutrophils Absolute Auto 5.8 x10*3/uL (2.0-8.3); Neutrophils Percent Auto 63.7 % (45-73); Platelet Count 326 X10*3/uL (160-400); Red Blood Count 4.04 X10*6/uL (4.20-5.50); Red Cell Distribution Width 13.2 % (11.0-16.0); White Blood Count 9.2 X10*3/uL (4.8-10.8)
[2023-02-05 14:04] LABS: Estimated Average Glucose 108 mg/dL; Hemoglobin A1c % 5.4 % (<6.0)
[2023-02-05 14:20] LABS: Alanine Aminotransferase 9 U/L (0-31); Albumin Level 4.2 g/dL (3.5-5.0); Alkaline Phosphatase 71 U/L (39-117); Anion Gap 12 (12-20); Aspartate Amino Transferase 12 U/L (5-31); Bilirubin Direct 0.2 mg/dL (0.0-0.5); Bilirubin Total 0.5 mg/dL (0.0-1.0); Blood Urea Nitrogen 10 mg/dL (9-16); Calcium 9.4 mg/dL (8.4-10.2); Carbon Dioxide 23 mmol/L (22-29); Chloride 106 mmol/L (96-108); Cholesterol 170 mg/dL (<200); Estimated Glomerular Filt Rate > 60; Glucose Random 93 mg/dL (60-115); HDL Cholesterol 42 mg/dL (>40); LDL Cholesterol Calculated 101 mg/dL (<100); Potassium 3.5 mmol/L (3.3-5.1); Sodium 137 mmol/L (135-145); Total Protein 7.7 g/dL (6.5-8.0); Triglycerides 139 mg/dL (<150)
[2023-02-05 14:36] LABS: TSH reflex Free T4 1.39 uIU/mL (0.32-4.0)
== END 2023-02-05 12:35 | disposition home or self-care (01) ==
LOC: HO.HHCL 12:34
PROVIDERS: Visit Provider Internal Medicine
DX: E66.01 Morbid (severe) obesity due to excess calories (principal); Z68.36 Body mass index [BMI] 36.0-36.9, adult
CPT/HCPCS: 36415; 80048; 80061; 80076; 83036; 84443; 85025

== ENCOUNTER 2023-03-18 18:22 | Emergency (ER) | payer MEDICAID, SELFPAY ==
--- NOTE | 2023-03-18 18:40 | ED.GENADULT ---
HPI - General Adult General Chief complaint: Ear Problems Stated complaint: LT ear pain Time Seen by Provider: 03/18/23 18:37 Source: patient and medical interpreter Mode of arrival: ambulatory Limitations: language barrier History of Present Illness HPI narrative: Patient is a 38 year old assigned female at with a history of asthma and anxiety presenting to the emergency department today with left ear pain. Patient states that starting earlier she began to have left ear pain. Patient denies any dizziness, lightheadedness, abdominal pain, nausea, vomiting, fever, chills, blurry vision, double vision, loss of vision, chest pain, difficulty breathing, shortness of breath, back pain, night sweats, pain with urination, increased urinary frequency, increased urinary urgency, blood in her urine or stool, syncope or a near syncopal episode, recent trauma or falls, bowel incontinence, bladder incontinence, bowel retention, bladder retention, or any other complaints at this time. Onset (ago): hour(s) Location: left (ear) Radiation: non-radiation Severity: mild Severity scale (1-10): 3 Quality: aching and dull Pain Consistency: constant Relieving factors: none Exacerbating factors: none Associated symptoms: denies other symptoms Treatments prior to arrival: none Related Data Previous Rx's Medication Instructions Recorded doxylamine succinate 25 mg tablet 25 mg PO BEDTIME PRN sleep #30 tabs 10/06/21 (Unisom (doxylamine)) vitamin with calcium 1 tab PO DAILY #90 tabs 10/06/21 no.72-iron 27 mg-folic acid 1 mg tablet ( Vitamins Plus Low Iron) pyridoxine (vitamin B6) 25 mg 25 mg PO TID #90 tabs 10/06/21 tablet prochlorperazine maleate 5 mg 5 mg PO TID PRN nausea and 01/15/22 tablet (Compazine) vomiting #14 tabs cyclobenzaprine 5 mg tablet 5 mg PO TID #10 tabs 01/11/23 ibuprofen 600 mg tablet 600 mg PO Q6H PRN pain #30 tabs 01/11/23 lidocaine 5 % topical patch 1 patch topical DAILY #30 ea 01/11/23 (Lidoderm) cefuroxime axetil 250 mg tablet 250 mg PO BID 7 days #14 tabs 03/18/23 naproxen 500 mg tablet 500 mg PO BID 7 days #14 tabs 03/18/23 Allergies Allergy/AdvReac Type Severity Reaction Status Date / Time penicillin V Allergy Unknown convulsion Verified 11/08/21 14:09 Penicillins AdvReac Mild SEIZURES Unverified 11/08/21 14:09 A CHILD Review of Systems Constitutional: Constitutional: Reports no additional constitutional complaints, Denies chills, Denies fever(s) and Denies night sweats Eyes: Eyes: Reports no additional eye complaints, Denies blurry vision, Denies change in vision, Denies diplopia, Denies eye discharge, Denies loss of vision and Denies eye pain ENT: Denies dizziness Comments: left ear pain Cardiovascular: Cardiovascular: Reports no additional cardiovascular complaints, Denies chest pain, Denies lightheadedness, Denies Loss of Consciousness and Denies dyspnea Respiratory: Respiratory: Reports no additional respiratory complaints and Denies dyspnea Gastrointestinal: Gastrointestinal: Reports no additional gastrointestinal complaints, Denies abdominal pain, Denies melena, Denies hematochezia, Denies change in bowel habits and Denies change in stool character Genitourinary: Genitourinary: Denies hematuria, Denies urinary frequency, Denies dysuria, Denies urinary incontinence, Denies urinary hesitancy and Denies urinary urgency Musculoskeletal: Musculoskeletal: Reports no additional musculoskeletal complaints, Denies numbness and Denies tingling Neurologic: Denies dizziness, Denies loss of vision, Denies numbness and Denies tingling Psychiatric: Psychiatric: Reports no additional psychiatric complaints Endocrine: Endocrine: Reports no additional endocrine complaints Hematologic/Lymphatic: Hematologic/Lymphatic: Reports no additional hematologic/lymphatic complaints Allergic/Immunologic: Allergic/Immunologic: Reports no additional allergic/immunologic complaints [facility] Past Medical History Attestation statement: The following information was validated with the patient. Source: old records reviewed and nursing notes reviewed Medical History COVID-19 affecting in second trimester Asthma test positive Asthma COVID-19 Family History Family History Mother History of depression Diabetes Sister Sickle cell anemia Social History Social History Household Members: Spouse and Children Housing: Apartment Alcohol intake: never Patient Tobacco Use Status: Never used Tobacco Special ministerio needs: No Agree to transfusion: Yes Advance Directives: No Advance Directives Information Provided: No Gender identity: Female Physical Exam ED Vital Signs: Vital Signs - 24 hr 03/18/23 18:45 Temperature 98.2 F Pulse Rate 75 Respiratory Rate 18 Blood Pressure 111/67 Pulse Oximetry 99 Oxygen Delivery Method Room Air BMI result Body Mass Index 35.4 Const General: cooperative, no acute distress, alert and awake Nutritional Appearance: well nourished Orientation/consciousness: patient oriented x3 Limitations: no limitations HENMT Head: Yes normal to inspection and Yes atraumatic Ears: hearing grossly normal bilaterally, external ears normal and TM abnormal erythematous (with scant discharge in front of the left TM) on the left General nose exam: Normal external nose present, no nasal discharge noted and no epistaxis Face and sinus: Yes normal facial exam, No abrasion and No laceration Mouth: Normal oral and palatal mucosa present, no drooling and no muffled voice Eyes General: appearance normal, both eyes and all related structures Periorbital: periorbital findings normal Eyelids: Yes eyelids normal Conjunctivae: conjunctivae normal Pupils: Equal, round and reactive pupils present EOM: EOMs intact bilaterally Neck Neck: Yes normal visual inspection, Yes full ROM and Yes no lymphadenopathy Chest Chest palpation & inspection: normal inspection of the chest Resp Effort & Inspection: normal respiratory effort and able to speak in complete sentences GI Inspection: Yes normal to inspection Neuro General: patient oriented x3 and moves all extremities Cranial nerves: Yes Equal, round and reactive pupils present Cognition (Neuro): normal cognition Motor exam (neuro): 5/5 motor strength present throughout Sensory Exam: Normal double simultaneous stimulation for sensation Coordination: [id number] test normal Extrem General: Yes normal to inspection, Yes full ROM and Yes capillary refill normal Psych Appearance: grossly normal Mental Status: mental status grossly normal Affect: normal affect Attitude: cooperative Thought process: Normal thought process present Thought content: Normal thought content present Insight: Good insight present (Psych) Medications Administered Discontinued Medications Generic Name Dose Route Start Last Admin Trade Name Freq PRN Reason Stop Dose Admin Cefuroxime Axetil 250 mg 03/18/23 18:59 03/18/23 19:03 Cefuroxime Axetil 250 Mg Tablet PO 03/18/23 19:00 250 mg ONCE ONE Administration Naproxen 500 mg 03/18/23 18:59 03/18/23 19:03 Naproxen 500 Mg Tablet PO 03/18/23 19:00 500 mg ONCE ONE Administration Medical Decision Making Medical Decision Making MDM Narrative: Patient is a 38 year old assigned female at with a history of asthma presenting to the emergency department today with left ear pain. Patient's physical exam was as noted in the physical exam portion of this note. I explained my physical exam findings to the patient. I answered all questions asked by the patient. I stressed the importance of the patient taking his medication as prescribed. I stressed the importance of the patient following up with his primary care provider. I stressed the importance of the patient returning to the emergency department immediately if his symptoms were to worsen or if he were to develop any dizziness, shortness of breath, difficulty breathing, chest pain, blurry vision, loss of vision, nausea, vomiting, abdominal pain, fever, chills, back pain, or any other complaints. Patient verbalized agreement and understanding with this treatment plan and discharge. Differential Diagnosis Differential Diagnoses: The differential diagnosis associated with the presentation includes Otitis media Otitis externa Prescription Management I considered prescription management with: Antibiotic (patient prescribed an antibiotic for her otitis media) Discharge Plan Discharge Clinical Impression: Otitis media Patient Disposition: Home, Self-Care Instructions: Ear Infection (ED) Additional Instructions: Follow up with your primary care provider. Return to the emergency department immediately if your symptoms worsen or if you develop any dizziness, shortness of breath, difficulty breathing, chest pain, blurry vision, loss of vision, nausea, vomiting, abdominal pain, fever, chills, back pain, or any other complaints. Noemi un seguimiento con garcia proveedor de atenci?n primaria. Regrese al departamento de emergencias inmediatamente si samuel s?ntomas empeoran o si presenta mareos, dificultad para respirar, dificultad para respirar, dolor en el pecho, visi?n borrosa, p?rdida de la visi?n, n?useas, v?mitos, dolor abdominal, fiebre, escalofr?os, dolor de espalda o cualquier otras quejas. Prescriptions: New cefuroxime axetil 250 mg tablet 250 mg PO BID 7 Days Qty: 14 0RF naproxen 500 mg tablet 500 mg PO BID 7 Days Qty: 14 0RF No Action prochlorperazine maleate [Compazine] 5 mg tablet 5 mg PO TID PRN (Reason: nausea and vomiting) Qty: 14 0RF ibuprofen 600 mg tablet 600 mg PO Q6H PRN (Reason: pain) Qty: 30 0RF cyclobenzaprine 5 mg tablet 5 mg PO TID Qty: 10 0RF lidocaine [Lidoderm] 5 % adhesive patch,medicated 1 patch topical DAILY Qty: 30 0RF Rx Instructions: leave on most painful area for up to 12 hrs pyridoxine (vitamin B6) 25 mg tablet 25 mg PO TID Qty: 90 2RF Unisom (doxylamine) 25 mg tablet 25 mg PO BEDTIME PRN (Reason: sleep) Qty: 30 2RF Vitamin Plus Low Iron 27 mg iron- 1 mg tablet 1 tab PO DAILY Qty: 90 6RF Referrals: [facility] [Provider Group] (Call to establish and follow up with a primary care provider. If you already have a primary care provider, please follow up with them. Llame para establecer y realizar un seguimiento con un proveedor de atenci?n primaria. Si ya tiene un proveedor de atenci?n primaria, noemi un seguimiento con ?l.) [facility], [facility] [Provider Group] (Call to establish and follow up with a primary care provider. If you already have a primary care provider, please follow up with them.) [facility],Sita [Provider Group] (Call to establish and follow up with a primary care provider. If you already have a primary care provider, please follow up with them. Llame para establecer y realizar un seguimiento con un proveedor de atenci?n primaria. Si ya tiene un proveedor de atenci?n primaria, noemi un seguimiento con ?l.) Interventions: ED Discharge Assessment Last Done: 03/18/23 19:04 Discharge Date/Time: 03/18/23 19:04 Print Language: South African
[2023-03-18 18:45] VITALS: BP 111/67; PULSE 75; RESP 18; TEMP 36.8; O2SAT 99; BMI 35.4
[2023-03-18] MEDS: NaPROXEN 500 MG TABLET PO (19:03)
[2023-03-18] MEDS: cefuroxime axetiL 250 MG TABLET PO (19:03)
== END 2023-03-18 19:04 | disposition home or self-care (01) ==
PROVIDERS: Emergency Provider Student in an Organized Health Care Education/Training Program
DX: H66.92 Otitis media, unspecified, left ear (principal); H92.02 Otalgia, left ear
CPT/HCPCS: 99283

== ENCOUNTER 2023-04-03 01:11 | Emergency (ER) | payer MEDICAID, SELFPAY ==
[2023-04-03 01:39] VITALS: BP 117/65; PULSE 99; RESP 16; TEMP 36.4; O2SAT 100; BMI 35.4
--- NOTE | 2023-04-03 02:33 | ED.GENADULT ---
HPI - General Adult General Chief complaint: General Medical Stated complaint: neck to shoulder pain Time Seen by Provider: 04/03/23 02:33 Source: patient Mode of arrival: ambulatory Limitations: no limitations History of Present Illness HPI narrative: Patient with chronic pain and upper back her weeks no recent trauma no fever no chills taking ibuprofen without much relief Related Data Previous Rx's Medication Instructions Recorded doxylamine succinate 25 mg tablet 25 mg PO BEDTIME PRN sleep #30 tabs 10/06/21 (Unisom (doxylamine)) vitamin with calcium 1 tab PO DAILY #90 tabs 10/06/21 no.72-iron 27 mg-folic acid 1 mg tablet ( Vitamins Plus Low Iron) pyridoxine (vitamin B6) 25 mg 25 mg PO TID #90 tabs 10/06/21 tablet prochlorperazine maleate 5 mg 5 mg PO TID PRN nausea and 01/15/22 tablet (Compazine) vomiting #14 tabs cyclobenzaprine 5 mg tablet 5 mg PO TID #10 tabs 01/11/23 ibuprofen 600 mg tablet 600 mg PO Q6H PRN pain #30 tabs 01/11/23 lidocaine 5 % topical patch 1 patch topical DAILY #30 ea 01/11/23 (Lidoderm) cefuroxime axetil 250 mg tablet 250 mg PO BID 7 days #14 tabs 03/18/23 naproxen 500 mg tablet 500 mg PO BID 7 days #14 tabs 03/18/23 cyclobenzaprine 10 mg tablet 10 mg PO Q8H #20 tabs 04/03/23 Allergies Allergy/AdvReac Type Severity Reaction Status Date / Time penicillin V Allergy Unknown convulsion Verified 11/08/21 14:09 Penicillins AdvReac Mild SEIZURES Unverified 11/08/21 14:09 A CHILD Review of Systems Review of Systems: Yes all other systems are reviewed and are negative [facility] Past Medical History Medical History COVID-19 affecting in second trimester Asthma test positive Asthma COVID-19 Family History Family History Mother History of depression Diabetes Sister Sickle cell anemia Social History Social History Household Members: Spouse and Children Housing: Apartment Alcohol intake: never Patient Tobacco Use Status: Never used Tobacco Smoked in Last 30 Days: No Use of substances other than those prescribed or required for medical reasons: No Special ministerio needs: No Agree to transfusion: Yes Advance Directives: No Advance Directives Information Provided: Yes Patient : No Gender identity: Female Physical Exam ED Vital Signs: Vital Signs - 24 hr 04/03/23 01:39 Temperature 97.5 F Pulse Rate 99 Respiratory Rate 16 Blood Pressure 117/65 Pulse Oximetry 100 Oxygen Delivery Method Room Air BMI result Body Mass Index 35.4 Appearance: Alert. Oriented X3. No acute distress. Eyes: PERRLA, No Nystagmus ENT: Pharynx normal. Oral Mucosa moist Neck: Normal inspection. Neck supple. CVS: Normal heart rate and rhythm. Pulses normal. Respiratory: No respiratory distress. Equal air entry bilateral, no wheezing/rales/rhonchi Abdomen: Soft and nontender. Bowel sounds are present, no mass palpable, no CVA tenderness Skin: Skin warm and dry. Normal skin color. Normal skin turgor. Extremities: No lower extremity edema. No calf tenderness diffuse tendon upper trapezius areas Neuro: Oriented X 3. Medications Administered Discontinued Medications Generic Name Dose Route Start Last Admin Trade Name Freq PRN Reason Stop Dose Admin Tramadol HCl 50 mg 04/03/23 02:33 04/03/23 03:53 Tramadol Hcl 50 Mg Tablet PO 04/03/23 02:34 50 mg ONCE ONE Administration Medical Decision Making Medical Decision Making MDM Narrative: Patient clinical fibromyalgia discharge patient on Flexeril Discharge Plan Discharge Clinical Impression: Fibromyalgia Patient Disposition: Home, Self-Care Instructions: Fibromyalgia (ED) Additional Instructions: Take pain medication as prescribed likely your pain is because of fibromyalgia Prescriptions: New cyclobenzaprine 10 mg tablet 10 mg PO Q8H Qty: 20 0RF No Action prochlorperazine maleate [Compazine] 5 mg tablet 5 mg PO TID PRN (Reason: nausea and vomiting) Qty: 14 0RF cefuroxime axetil 250 mg tablet 250 mg PO BID 7 Days Qty: 14 0RF naproxen 500 mg tablet 500 mg PO BID 7 Days Qty: 14 0RF ibuprofen 600 mg tablet 600 mg PO Q6H PRN (Reason: pain) Qty: 30 0RF cyclobenzaprine 5 mg tablet 5 mg PO TID Qty: 10 0RF lidocaine [Lidoderm] 5 % adhesive patch,medicated 1 patch topical DAILY Qty: 30 0RF Rx Instructions: leave on most painful area for up to 12 hrs pyridoxine (vitamin B6) 25 mg tablet 25 mg PO TID Qty: 90 2RF Unisom (doxylamine) 25 mg tablet 25 mg PO BEDTIME PRN (Reason: sleep) Qty: 30 2RF Vitamin Plus Low Iron 27 mg iron- 1 mg tablet 1 tab PO DAILY Qty: 90 6RF Interventions: ED Discharge Assessment Last Done: 04/03/23 04:45 Discharge Date/Time: 04/03/23 05:30
--- NOTE | 2023-04-03 03:31 | PC.NURSE ---
went to give pt her ordered Tramadol. pt is sound asleep. med returned. will give when pt wakes up.
[2023-04-03] MEDS: traMADoL HCL 50 MG TABLET PO (03:53)
== END 2023-04-03 05:30 | disposition home or self-care (01) ==
PROVIDERS: Emergency Provider Internal Medicine
DX: M79.7 Fibromyalgia (principal)
CPT/HCPCS: 99283; 99284

== ENCOUNTER 2023-09-20 11:55 | Outpatient (REF) | payer MEDICAID, SELFPAY ==
[2023-09-23 08:53] LABS: TS Negative Control Passed; TS Panel A 1; TS Panel B 0; TS Positive Control Passed; TSpotTB Negative (Negative)
== END 2023-09-20 11:56 | disposition home or self-care (01) ==
LOC: HO.HHCL 11:55
PROVIDERS: Visit Provider Internal Medicine
DX: Z11.1 Encounter for screening for respiratory tuberculosis (principal)
CPT/HCPCS: 36415; 86481

== ENCOUNTER 2024-04-09 09:16 | Outpatient (REF) | payer MEDICAID, SELFPAY ==
--- NOTE | ~2024-04-09 | XR_ITS ---
EXAMINATION: XR LUMBOSACRAL SPINE CLINICAL INFORMATION: pain COMPARISON: None available. TECHNIQUE: Three views of the lumbosacral spine. FINDINGS: Vertebral body height and disc space heights are preserved. No fracture or destructive process or alignment abnormality. XR/XR lumbar spine 2-3V IMPRESSION: Unremarkable examination. Electronically signed by: Carlin Santos MD 04/09/2024 02:02 PM EST
== END 2024-04-09 09:17 | disposition home or self-care (01) ==
LOC: HO.HHCX 09:16
PROVIDERS: Visit Provider Internal Medicine
DX: M54.50 Low back pain, unspecified (principal)
CPT/HCPCS: 72100

== ENCOUNTER 2024-07-18 09:37 | Outpatient (REF) | payer MEDICAID, SELFPAY ==
--- NOTE | ~2024-07-18 | XR_ITS ---
EXAMINATION: XR HIP, LEFT CLINICAL INFORMATION: pain COMPARISON: None available. TECHNIQUE: Two views of the left hip. FINDINGS: No fracture. Alignment is anatomic. Hip joint space is maintained. There is mild posterior acetabular over coverage, finding which can be associated with pincer-type GALEN. Soft tissues are unremarkable. IUD noted within the central pelvis. XR/XR hip LT min 2V IMPRESSION: No acute findings left hip. See above. Electronically signed by: Sridhar Romo MD 07/18/2024 12:11 PM EDT
--- NOTE | ~2024-07-18 | XR_ITS ---
EXAMINATION: XR HIP, RIGHT CLINICAL INFORMATION: pain COMPARISON: None available. TECHNIQUE: Two views of the right hip. FINDINGS: No fracture. Alignment is anatomic. Hip joint space is maintained. There is mild posterior acetabular over coverage, finding which can be associated with pincer-type GALEN. Soft tissues are unremarkable. IUD noted within the central pelvis. XR/XR hip RT min 2V IMPRESSION: No acute findings right hip. See above. Electronically signed by: Sridhar Romo MD 07/18/2024 12:10 PM EDT
--- OUTSIDE RECORDS SUMMARY | 2024-07-18 10:34 | XMS_ITS | Encounter Summary ---
Author Organization [employer] Address [address] [facility] [facility] [address] [place] [address] Care Team Providers Care Tearoom Host/Hostess Name Role Phone Pearl Chahal MD Primary Care Provide r Encounter Details Date Type Department Care Team (Latest Contact Info) Description 07/17/2024 Travel Social History Tobacco Use Types Packs/Day Years Used Date Smoking Tobacco: Never Passive Smoke Exposure: Never Smokeless Tobacco: Never Alcohol Use Standard Drinks/Week Comments Never 0 (1 standard drink = 0.6 oz pur e alcohol) Depression Answer Date Recorded Patient Health Questionnaire-9 Score 0 02/08/2024 Patient Health Questionnaire-9 Score 0 02/08/2024 Last PHQ-9: Questionnaire Data Not on file 1 Housing Stability Answer Date Recorded What is your housing situation today? I have dominique flores 02/08/[address] you li ve. Do you have problems with any of the following? None of the above 02/08/2024 Food Insecurity Answer Date Recorded Within the past 12 months, y ou worried that your food would run out before you got money to buy more: Never True 02/08/2024 Within the past 12 months,th e food you bought just didn't last and you didn't have enough money to get more: Never True 08/2023 Transportation Answer Date Recorded In the past 12 months, has l ack of transportation kept you from medical appts, meetings, work or from getting things needed for daily living? No 02/08/2024 Utilities Answer Date Recorded In the past 12 months, has t he electric, gas, oil or water company threatened to shut off services in your home? No 02/08/2024 Depression Answer Date Recorded Patient Health Questionnaire-2 Score 0 02/08/2024 Internet Access Answer Date Recorded Internet Access Q1 No 02/08/2024 Internet Access Q2 I do not want or need it 08/2023 Comments No Sex and Gender Information Value Date Recorded Sex Assigned at Female 03/06/2022 10:19 AM EDT Legal Sex Female 10:19 AM EDT Gender Identity Choose not to disclose 10:19 AM EDT Sexual Orientation Choose not to disclose 2021 10:19 AM EDT documented as of this encounter Plan of Treatment Upcoming Encounters Date Type Department Care Team (Late st Contact Info) Description 08/12/2024 8:00 AM EDT Office Visit [facility] [address] [place] [address] Mihaela Gómez DDS [address] [place] [address] 09/11/2024 9:15 AM EDT Office Visit [facility] [address] [place] [address] Pearl Chahal MD [address] [place] [address] documented as of this encounter Visit Diagnoses Not on filedocumented in this encounter Additional Health Concerns Assessment Noted Time PHQ-9 Depression Total Score: 0 02/08/20 24 2:32 PM EDT documented as of this encounter Care Teams Tearoom Host/Hostess Relationship Specialty Start Date End Date Pearl Chahal MD [address] [place] [address] PCP - General Family Medicine 12/04/18 documented as of this encounter
--- OUTSIDE RECORDS SUMMARY | 2024-07-18 10:34 | XMS_ITS | Encounter Summary ---
Author Organization [facility] Address [address] [place] [address] Care Team Providers Care Automobile Service Station Attendant Name Role Phone Pearl Chahal MD Primary Care Provide r Encounter Details Date Type Department Care Team (Latest Contact Info) Description 03/13/2022 Abstract [facility] CONVERSIONS Dental, Provider, DDS Social History Tobacco Use Types Packs/Day Years Used Date Smoking Tobacco: Never Assessed Comments Unknown Sex and Gender Information Value Date Recorded [...] Description 08/12/2024 8:00 AM EDT Office Visit [facility] ADULT DENTAL [address] [place] [address] Vernon-MoscosoMihaela moreland, DDS [address] [place] [address] 09/11/2024 9:15 AM EDT Office Visit [facility] MED[facility]INE [address] [place] [address] Pearl Chahal MD [address] [place] [address] documented as of this encounter Visit Diagnoses Not on filedocumented in this encounter Care Teams Automobile Service Station Attendant Relationship Specialty Start Date End Date Pearl Chahal MD [address] [place] [address] PCP - General Family Medicine 12/04/18 documented as of this encounter
--- OUTSIDE RECORDS SUMMARY | 2024-07-18 10:34 | XMS_ITS | Encounter Summary ---
Author Organization [employer] Address [address] [place] [address] [address] [place] [address] Care Team Providers Care Fly Setter Name Role Phone Pearl Chahal MD Primary Care Provide r Reason for Referral * Consultation (Routine) - Closed Specialty Diagnoses / Procedures Referred By Contac t Referred To Contact Physical Therapy Diagnoses Chronic hip pain, bilateral Chronic bilateral low back pain without sciatica Pearl Chahal MD [address] [place] [address] Phone: tel: fax: [facility] [address] [place] [address] Phone: tel: fax: Referral ID Status Reason Start Date Expiration Date V isits Requested Visits Authorized [id number] Closed Specialty Services Required 07/17/2024 07/17/2025 20 20 * Consultation (Routine) - Pending Review Specialty Diagnoses / Procedures Referred By Contac t Referred To Contact Orthopaedic Surgery Diagnoses Chronic hip pain, bilateral Pearl Chahal MD [address] [place] [address] Phone: tel: fax: Referral ID Status Reason Start Date Expiration Date Visits Requested Visits Authorized [id number] Pending Review Specialty Services Required 07/17/2024 07/17/2025 1 1 Encounter Details Date Type Department Care Team (Late st Contact Info) Description 07/17/2024 9:15 AM EDT Office Visit [facility] [address] [facility] [place] [address] Pearl Chahal MD [address] [facility] [place] [address] Chronic hip pain, bilateral (Primary Dx); Chronic bilateral low back pain without sciatica; Class 2 severe obesity due to excess calories with serious comorbidity and body mass index (BMI) of 36.0 to 36.9 in adult (CMS/HCC); Anxiety with depression Social History Tobacco Use Types Packs/Day Years [...] is your housing situation today? I have dominiqueca flores 02/08/[address] you [...] AM EDT documented as of this encounter Last Filed Vital Signs Vital Sign Reading Time Taken Comments Blood Pressure 115/73 07/17/2024 9:34 AM EDT Pulse 63 07/17/2024 9:34 AM EDT Temperature 35.7 ??C (96.3 ??F) 07/17/2024 9:34 AM ED T Respiratory Rate 16 07/17/2024 9:34 AM EDT Oxygen Saturation - - Inhaled Oxygen Concentration - - Weight 92.5 kg (204 lb) 07/17/2024 9:34 AM EDT Height 160 cm (5' 3 ) 07/17/2024 9:34 AM EDT Body Mass Index 36.14 07/17/2024 9:34 AM EDT documented in this encounter Progress Notes * Pearl Vitale MD - 07/17/2024 9:15 AM EDT SUBJECTIVE: Zainab Beckwith is a 39 y.o. year old adult who presents for Follow up . Acute Concerns: Patient reports acute on chronic pain in both hips, more on the right side, patient reports that pain is 10/10 sometimes and it is very challenging for her to fall asleep because of this pain. Patient also reports she is difficult for her to stand up from a sitting position continues to take some time to do this Patient also reports she continues to have lower back pain patient reports for both pains of the hip and back she has been taking acetaminophen, ibuprofen she tried muscle relaxers and she already tried tramadol without any relief Patient today expresses concerns about her weight, she reports this is a factor for her back pain and hip pain and is looking for alternative on losing weight Patient also tells me her anxiety and depression are not controlled she reports fluoxetine used to help she was taking 20 mg daily but is not helping anymore Social History Social History Narrative Not on file Patient Active Problem List Diagnosis Constipation Moderate persistent asthma with acute exacerbation Pain in lower limb Chronic tension headache Anxiety with depression Class 2 severe obesity due to excess calories with serious comorbidity and body mass index (BMI) of36.0 to 36.9 in adult (CMS/HCC) Heartburn Neck pain Tympanic membrane perforation, left Class 2 obesity Hernia, umbilical Uses Kyrgyz as primary spoken language White classification A2 gestational diabetes mellitus (GDM) Severe obesity (CMS/HCC) Acute bilateral low back pain without sciatica Otitis of right ear Acute left-sided low back pain Chronic hip pain, bilateral Chronic bilateral low back pain without sciatica No family history on file. Review of Systems Constitutional: Negative. HENT: Negative. Respiratory: Negative. Cardiovascular: Negative. Musculoskeletal: Positive for arthralgias, back pain and myalgias. OBJECTIVE: Vitals: 07/17/24 0934 BP: 115/73 BP Location: Left arm Patient Position: Sitting BP Cuff Size: Large adult Pulse: 63 Resp: 16 Temp: 96.3 ??F (35.7 ??C) TempSrc: Oral Weight: 204 lb (92.5 kg) Height: 5' 3 (1.6 m) Physical Exam Constitutional: Appearance: Normal appearance. Cardiovascular: Rate and Rhythm: Normal rate and regular rhythm. Pulmonary: Effort: Pulmonary effort is normal. Breath sounds: Normal breath sounds. Abdominal: General: Abdomen is flat. Palpations: Abdomen is soft. Musculoskeletal: Lumbar back: Spasms and tenderness present. Right hip: Tenderness present. Decreased range of motion. Left hip: Tenderness present. Decreased range of motion. Neurological: Mental Status: Zainab is alert. Follow Up: Follow up in about 4 weeks (around 08/14/2024) for depression/weight. Current Outpatient Medications on File Prior to Visit Medication Sig Dispense Refill acetaminophen (Tylenol) 500 MG tablet Take 1 tablet (500 mg) by mouth every 6 (six) hours. 30 tablet 0 albuterol (2.5 MG/3ML) 0.083% nebulizer solution INHALE 1 AMPULE USING A NEBULIZER EVERY 8 HOURS 90mL 1 albuterol (ProAir HFA) 108 (90 Base) MCG/ACT inhaler Inhale. albuterol (Proventil HFA) 108 (90 Base) MCG/ACT inhaler INHALE 2 PUFFS BY MOUTH EVERY 4 TO 6 HOURS NEEDED 6.7 g 11 Arnuity Ellipta 200 MCG/ACT inhaler INHALE 1 PUFF BY MOUTH EVERY DAY AT THE SAME TIME RINSE MOUTH AFTER USING. 30 each 3 Docusate Sodium (DSS) 100 MG capsule Take 100 mg by mouth. doxylamine (Unisom) 25 MG tablet famotidine (Pepcid) 20 MG tablet TAKE 1 TABLET BY MOUTH TWICE DAILY 180 tablet 1 fluticasone (Flovent) 220 MCG/ACT inhaler Inhale 1 puff in the morning and at bedtime. Rinse mouth with water after use to reduce aftertaste and incidence of candidiasis. Do not swallow. 12 g 11 hydrocortisone 1 % cream apply by topical route 2 times every day a thin layer to the affected area(s) x 2 weeks ibuprofen 400 MG tablet Take 1 tablet (400 mg) by mouth every 6 (six) hours if needed for moderate pain or fever for up to 30 doses. 30 tablet 0 Levonorgestrel (Liletta, 52 MG,) 20.1 MCG/DAY intrauterine device 52 mg. lidocaine (Lidoderm) 5 % patch APPLY 1 PATCH TOPICALLY TO SKIN, LEAVE ON FOR 12 HOURS AND OFF FOR 12 HOURS DIRECTED 30 patch 1 [] meclizine (Antivert) 25 MG tablet Take 1 tablet (25 mg) by mouth if needed in the morning, at noon, and at bedtime for dizziness or nausea. 30 tablet 0 methocarbamol (Robaxin) 500 MG tablet Take 2 tablets (1,000 mg) by mouth every 8 (eight) hours if needed for muscle spasms for up to 10 days. 30 tablet 0 montelukast (Singulair) 10 MG tablet TAKE 1 TABLET BY MOUTH EVERY DAY AT BEDTIME 90 tablet 1 Nebulizers [facility] [place] nebulizer as instructed 1 each 0 Ldinwdlt-Wwkrkfnwl-UE 1 % solution Administer 3 drops into affected ear(s) 4 times daily. 10 mL 0 norethindrone (Nancy) 0.35 MG tablet Take 0.35 mg by mouth. ondansetron ODT (Zofran-ODT) 4 MG disintegrating tablet Take 2 tablets by mouth every 12 (twelve) hours. polyethylene glycol, PEG, 3350 (MiraLax) 17 GM/SCOOP powder Take 17 g by mouth. Xoncpgvo-Bkt-Ek-FA (/Iron) tablet Take 1 tablet by mouth at bed time. pyridoxine (B-6) 50 MG tablet senna (Senokot) 8.6 MG tablet Take 1 tablet (8.6 mg) by mouth at bedtime. 120 tablet 0 Sodium Fluoride (PreviDent) 1.1 % gel [place] teeth morning and night for two minutes. Spit, do not rinse. Do not eat or drink for 30 minutes after brushing. Spacer/Aero-Holding Chambers (OptiChamber Alesha) misc 1 each every 4 (four) hours if needed (asthma). 1 each 0 [DISCONTINUED] FLUoxetine (PROzac) 20 MG capsule TAKE 1 CAPSULE BY MOUTH EVERY MORNING 90 capsule 1 No current facility-administered medications on file prior to visit. Problem List Items Addressed This Visit Chronic hip pain, bilateral - Primary I will prescribe for patient acetaminophen plus ibuprofen to take as needed X-rays ordered today patient will be contacted with results Patient referred to physical therapy and orthopedics Relevant Medications acetaminophen (Tylenol Extra Strength) 500 MG tablet ibuprofen 600 MG tablet Other Relevant Orders XR Hip 2 or 3 Views Right XR Hip 2 or 3 Views Left Referral to Orthopaedic Surgery Referral to Physical Therapy Chronic bilateral low back pain without sciatica Relevant Medications acetaminophen (Tylenol Extra Strength) 500 MG tablet ibuprofen 600 MG tablet Other Relevant Orders Referral to Physical Therapy Class 2 severe obesity due to excess calories with serious comorbidity and body mass index (BMI) of36.0 to 36.9 in adult (CMS/[facility]) Extensive counseling done about healthy diet and exercise I will prescribe for patient phentermine, side effects were explained to patient I let her know this medication could cause palpitation, anxiety, dry mouth and even high blood pressure I advised to monitor her blood pressure and heart rate I will follow-up with patient in 4 weeks Relevant Medications phentermine 37.5 MG capsule Anxiety with depression Counseling done today, patient declines referral to therapist I will go up on her fluoxetine to 40 mg daily Relevant Medications FLUoxetine (PROzac) 40 MG capsule documented in this encounter Miscellaneous Notes * Assessment & Plan Note - Pearl Vitale MD - 07/17/2024 10:52 AM EDT Associated Problem(s): Anxiety with depression Counseling done today, patient declines referral to therapist I will go up on her fluoxetine to 40 mg daily * Assessment & Plan Note - Pearl Vitale MD - 07/17/2024 10:52 AM EDT Associated Problem(s): Class 2 severe obesity due to excess calories with serious comorbidity and body mass index (BMI) of 36.0 to 36.9 in adult ([facility]) Extensive counseling done about healthy diet and exercise I will prescribe for patient phentermine, side effects were explained to patient I let her know this medication could cause palpitation, anxiety, dry mouth and even high blood pressure I advised to monitor her blood pressure and heart rate I will follow-up with patient in 4 weeks * Assessment & Plan Note - Pearl Vitale MD - 07/17/2024 10:50 AM EDT Associated Problem(s): Chronic hip pain, bilateral I will prescribe for patient acetaminophen plus ibuprofen to take as needed X-rays ordered today patient will be contacted with results Patient referred to physical therapy and orthopedics documented in this encounter Plan of Treatment Upcoming Encounters Date Type Department Care Team (Late st Contact Info) Description 08/12/2024 8:00 AM EDT Office Visit [facility] [address] [place] [address] Vernon-Moscoso, Mihaela, DDS [address] [place] [address] 09/11/2024 9:15 AM EDT Office Visit [facility] [address] [place] [address] Pearl Chahal MD [address] [place] [address] Scheduled Orders Name Type Priority Associated Diagnoses Orde r Schedule XR Hip 2 or 3 Views Right Imaging Routine Chronic hip pain, bilateral Expected: 07/17/2024, Expires: 07/17/2025 XR Hip 2 or 3 Views Left Imaging Routine Chronic hip pain, bilateral Expected: 07/17/2024, Expires: 07/17/2025 Scheduled Referrals Name Type Priority Associated Diagnoses Order Schedule Referral to Orthopaedic Surgery Outpatient Referral Routine Chronic hip pain, bilateral Expected: 07/17/2024 (Approximate), Expires: 07/17/2025 Referral to Physical Therapy Outpatient Referral Routine Chronic hip pain, bilateral Chronic bilateral low back pain without sciatica Expected: 07/17/2024 (Approximate), Expires: 07/17/2025 documented as of this encounter Visit Diagnoses Diagnosis Chronic hip pain, bilateral- Primary Chronic bilateral low back pain without sciatica Class 2 severe obesity due to excess calories with serious comorbidity and body mass index (BMI) of 36.0 to 36.9 in adult (CMS/[facility]) Anxiety with depression documented in this encounter Additional Health Concerns Assessment Noted Time PHQ-9 Depression Total Score: 0 02/08/20 24 2:32 PM EDT documented as of this encounter Care Teams Fly Setter Relationship Specialty Start Date End Date Pearl Chahal MD [address] [place] [id number] PCP - General Family Medicine 12/04/18 documented as of this encounter
--- OUTSIDE RECORDS SUMMARY | 2024-07-18 10:34 | XMS_ITS | Encounter Summary ---
Author Organization [employer] [facility] Address [address] [facility] [address] [place] [address] Care Team Providers Care Programmer Developer Name Role Phone Pearl Chahal MD Primary Care Provide r Encounter Details Date Type Department Care Team ([facility] st Contact Info) Description 07/18/2024 Population Health Risk Score [facility] (C3) Department [address] [facility] [address] [place] [id number] Provider, Population Health Generic Social History Tobacco Use Types Packs/Day Years [...] the past 12 months, has t he [employer], gas, oil or water company threatened to [...] Description 08/12/2024 8:00 AM EDT Office Visit [facility] [address] [place] [address] Mihaela Gómez, DDS [address] [place] [address] 09/11/2024 9:15 AM EDT Office Visit [facility] [address] [place] [address] Pearl Chahal MD [address] [place] [address] documented as of this encounter Visit Diagnoses Not on filedocumented in this encounter Additional Health Concerns Assessment Noted Time PHQ-9 Depression Total Score: 0 02/08/20 24 2:32 PM EDT documented as of this encounter Care Teams Programmer Developer Relationship Specialty Start Date End Date Pearl Chahal MD [address] [place] [address] PCP - General Family Medicine 12/04/18 documented as of this encounter
--- OUTSIDE RECORDS SUMMARY | 2024-07-18 10:34 | XMS_ITS | Encounter Summary ---
Author Organization [employer] Address [address] [facility] [address] [place] [address] Care Team Providers Care Engine Service Repairer Name Role Phone Pearl Chahal MD Primary Care Provide r Encounter Details Date Type Department Care Team (Late Contact Info) Description 03/28/2022 Abstract [facility] [address] [place] [address] Con Maciel, DMD [address] [place] [address] Social History Tobacco Use Types Packs/Day Years [...] Description 08/12/2024 8:00 AM EDT Office Visit [facility] [address] [place] [address] Vernon-MoscosoMihaela moreland, DDS [address] [place] [address] 09/11/2024 9:15 AM EDT Office Visit [facility] [address] [place] [address] Pearl Chahal MD [address] [place] [address] Scheduled Orders Name Type Priority Associated Diagnoses Orde r Schedule 23 DF 23 DF RESIN-BASED COMPOSITE - 2 SURFACES, ANTERIOR Dental Routine [address] arting 03/26/2024 22 MF(V)L 22 MF(V)L RESIN-BASED COMPOSITE - 3 SURFACES, ANTERIOR Dental Routine 1 Occurrenc es starting 03/26/2024 documented as of this encounter Procedures Procedure Name Priority Date/Time Associated Diagnosis Comments 18 HIPOLITO RESIN-BASED COMPOSITE - 2 SURF, POSTERIOR Routine 03/27/2022 12:00 AM EST PROPHYLAXIS - ADULT Routine 03/20/2022 1 2:00 AM EST ORAL HYGIENE INSTRUCTIONS Routine 2021 12:00 AM EST INTRAORAL - COMPLETE SERIES OF RADIOGRAPHIC IMAGES Routine 03/13/2022 12:00 AM EST COMPREHENSIVE ORAL EVALUATION - NEW OR ESTABLISHED PATIENT Routine 03/13/2022 12:00 AM EST CARIES RISK ASSESSMENT AND DOCUMENTATION, HIGH RISK Routine 03/13/2022 12:00 AM EST documented in this encounter Visit Diagnoses Not on filedocumented in this encounter Care Teams Engine Service Repairer Relationship Specialty Start Date End Date Pearl Chahal MD [address] [place] [address] PCP - General Family Medicine 12/04/18 documented as of this encounter
--- OUTSIDE RECORDS SUMMARY | 2024-07-18 10:35 | XMS_ITS | Encounter Summary ---
Author Organization [employer] Address [address] [facility] [address] [place] [address] Care Team Providers Care Liquid Compounder Name Role Phone Pearl Chahal MD Primary Care Provide r Reason for Visit * Reason Onset Date Comments appt 02/19/2024 Encounter Details Date Type Department Care Team (Late st Contact Info) Description 02/19/2024 Telephone [facility] [address] [place] [address] Mihaela Gómez DDS [address] [place] [address] appt Social History Tobacco Use Types Packs/Day Years [...] AM EDT documented as of this encounter Miscellaneous Notes * Telephone Encounter - Jacinta Monsalve - 02/19/2024 3:48 PM EDT Patient active requested for yazidism with Elena Moscoso on 02/12. She is checking in on status of appt DR documented in this encounter Plan of Treatment Upcoming Encounters Date Type Department Care Team (Late st Contact Info) Description 08/12/2024 8:00 AM EDT Office Visit [facility] [address] [place] [address] Mihaela Gómez DDS [address] [place] [address] 09/11/2024 9:15 AM EDT Office Visit [facility] [address] [place] [address] Pearl Chahal MD [address] [place] [address] documented as of this encounter Visit Diagnoses Not on filedocumented in this encounter Additional Health Concerns Assessment Noted Time PHQ-9 Depression Total Score: 0 02/08/20 24 2:32 PM EDT documented as of this encounter Care Teams Liquid Compounder Relationship Specialty Start Date End Date Pearl Chahal MD [address] [place] [address] PCP - General Family Medicine 12/04/18 documented as of this encounter
--- OUTSIDE RECORDS SUMMARY | 2024-07-18 10:35 | XMS_ITS | Clinical Summary ---
Author Organization [employer] Address [address] [facility] [address] [place] [address] Care Team Providers Care Technical Business Systems Analyst Name Role Phone Pearl Chahal MD Primary Care Provide r Allergies Active Allergy Reactions Criticality Noted Date Comments Penicillin G 11/26/2023 Penicillin V 04/20/2010 Other reaction(s): convulsions Medications doxylamine (Unisom) 25 MG tablet Active hydrocortisone 1 % cream apply by topical route 2 times every day a thin layer to the affected area(s) x 2 weeks 01/11/20 22 Active ondansetron ODT (Zofran-ODT) 4 MG disintegrating tablet Take 2 tablets by mouth every 12 (twelve) hours. 06/03/19 20 Active Raxgodzu-Poq-Ep-F A (/Iron) tablet Take 1 tablet by mouth at bed time. Active pyridoxine (B-6) 50 MG tablet Active fluticasone (Flovent) 220 MCG/ACT inhalerIndication s:Moderate persistent asthma with acute exacerbation Inhale 1 puff in the morning and at bedtime. Rinse mouth with water after use to reduce aftertaste and incidence of candidiasis. Do not swallow. 12 g 11 02/06/20 23 Active Nebulizers miscIndications:M oderate persistent asthma with acute exacerbation Use nebulizer as instructed 1 each 02/07/20 23 Active senna (Senokot) 8.6 MG tabletIndications :Other constipation Take 1 tablet (8.6 mg) by mouth at bedtime. 120 tablet 03/07/20 23 Active albuterol (Proventil HFA) 108 (90 Base) MCG/ACT inhalerIndication s:Moderate persistent asthma with acute exacerbation INHALE 2 PUFFS BY MOUTH EVERY 4 TO 6 HOURS NEEDED 6.7 g 11 09/17/19 24 Active ibuprofen 400 MG tablet Take 1 tablet (400 mg) by mouth every 6 (six) hours if needed for moderate pain or fever for up to 30 doses. 30 tablet 09/17/19 24 Active Spacer/Aero-Holdi ng Chambers (OptiChamber Alesha) misc 1 each every 4 (four) hours if needed (asthma). 1 each 09/17/19 24 Active acetaminophen (Tylenol) 500 MG tablet Take 1 tablet (500 mg) by mouth every 6 (six) hours. 30 tablet 01/15/20 24 Active Neomycin-Polymyxi n-HC 1 % solutionIndicatio ns:Otitis of right ear Administer 3 drops into affected ear(s) 4 times daily. 10 mL 02/08/20 24 Active montelukast (Singulair) 10 MG tabletIndications :Moderate persistent asthma with acute exacerbation TAKE 1 TABLET BY MOUTH EVERY DAY AT BEDTIME 90 tablet 1 03/05/20 24 Active methocarbamol (Robaxin) 500 MG tabletIndications :Acute left-sided low back pain, unspecified whether sciatica present Take 2 tablets (1,000 mg) by mouth every 8 (eight) hours if needed for muscle spasms for up to 10 days. 30 tablet 03/25/20 24 Active albuterol (ProAir HFA) 108 (90 Base) MCG/ACT inhaler Inhale. 05/25/19 23 Active Docusate Sodium (DSS) 100 MG capsule Take 100 mg by mouth. 05/28/19 23 Active Levonorgestrel (Liletta, 52 MG,) 20.1 MCG/DAY intrauterine device 52 mg. 10/17/19 23 Active norethindrone (Nancy) 0.35 MG tablet Take 0.35 mg by mouth. 05/28/19 23 Active polyethylene glycol, PEG, 3350 (MiraLax) 17 GM/SCOOP powder Take 17 g by mouth. 06/02/19 23 Active Sodium Fluoride (PreviDent) 1.1 % gel Rosine teeth morning and night for two minutes. Spit, do not rinse. Do not eat or drink for 30 minutes after brushing. 03/20/20 22 Active albuterol (2.5 MG/3ML) 0.083% nebulizer solutionIndicatio ns:Moderate persistent asthma with acute exacerbation INHALE 1 AMPULE USING A NEBULIZER EVERY 8 HOURS 90 mL 1 04/25/20 24 Active Arnuity Ellipta 200 MCG/ACT inhaler INHALE 1 PUFF BY MOUTH EVERY DAY AT THE SAME TIME RINSE MOUTH AFTER USING. 30 each 3 05/15/19 25 Active lidocaine (Lidoderm) 5 % patchIndications: Acute left-sided low back pain, unspecified whether sciatica present APPLY 1 PATCH TOPICALLY TO SKIN, LEAVE ON FOR 12 HOURS AND OFF FOR 12 HOURS DIRECTED 30 patch 1 05/15/19 25 Active famotidine (Pepcid) 20 MG tabletIndications :Heartburn TAKE 1 TABLET BY MOUTH TWICE DAILY 180 tablet 1 06/12/19 25 Active phentermine 37.5 MG capsuleIndication s:Class 2 severe obesity due to excess calories with serious comorbidity and body mass index (BMI) of 36.0 to 36.9 in adult ([facility]) Take 1 capsule (37.5 mg) by mouth before breakfast. 30 capsule 07/18/19 25 2024 Active FLUoxetine (PROzac) 40 MG capsuleIndication s:Anxiety with depression Take 1 capsule (40 mg) by mouth Once per day. 30 capsule 11 07/18/19 25 2025 Active acetaminophen (Tylenol Extra Strength) 500 MG tabletIndications :Chronic hip pain, bilateral,Chronic bilateral low back pain without sciatica Take 2 tablets (1,000 mg) by mouth every 8 (eight) hours if needed for mild pain for up to 15 days. 30 tablet 2 07/18/19 25 2024 Active ibuprofen 600 MG tabletIndications :Chronic hip pain, bilateral,Chronic bilateral low back pain without sciatica Take 1 tablet (600 mg) by mouth every 8 (eight) hours if needed for mild pain for up to 20 days. 30 tablet 1 07/18/19 25 2024 Active meclizine (Antivert) 25 MG tablet Take 1 tablet (25 mg) by mouth if needed in the morning, at noon, and at bedtime for dizziness or nausea. 30 tablet 07/12/19 24 2024 FLUoxetine (PROzac) 20 MG capsuleIndication s:Anxiety with depression TAKE 1 CAPSULE BY MOUTH EVERY MORNING 90 capsule 1 06/12/19 25 2024 Discontinued Active Problems Problem Noted Date Diagnosed Date Chronic hip pain, bilateral 07/17/2024 Assessment & Plan (07/17/2024 10:50 AM EDT): I will prescribe for patient acetaminophen plus ibuprofen to take as needed X-rays ordered today patient will be contacted with results Patient referred to physical therapy and orthopedics Chronic bilateral low back pain without sciatica 07/17/2024 Acute left-sided low back pain 03/25/2024 Assessment & Plan (03/25/2024 4:29 PM EST): Apply heat on affected area Toradol 30mg IM today Acetaminophen PRN Robaxin 1000mg TID XRAY ordered patient will be contacted with results Acute bilateral low back pain without sciatica 1 Assessment & Plan (02/12/2024 4:33 PM EDT): Apply heat on affected area Alternate ibuprofen and acetaminophen PT referral Otitis of right ear 02/08/2024 Class 2 obesity 11/26/2023 Hernia, umbilical 11/26/2023 Uses Georgian as primary spoken language 11/26/19 24 White classification A2 gestational diabetes bill litus (GDM) 11/26/2023 Severe obesity 11/26/2023 Tympanic membrane perforation, left 07/12/2023 Heartburn 04/19/2023 Neck pain 04/19/2023 Chronic tension headache 02/05/2023 Anxiety with depression 02/05/2023 Assessment & Plan (07/17/2024 10:52 AM EDT): Counseling done today, patient declines referral to therapist I will go up on her fluoxetine to 40 mg daily Assessment & Plan (02/12/2024 4:33 PM EDT): Stable c/w current interventions Assessment & Plan (04/19/2023 12:26 PM EST): Counseling done I will increase prozac to 20mg daily I start her on hydroxyzine PRN RTC 4 weeks televisit Assessment & Plan (03/07/2023 10:32 AM EDT): I will discontinue sertraline and start her on fluoxetine Patient declines referral to therapist RTC 2 weeks televisit Assessment & Plan (02/05/2023 3:13 PM EDT): Extensive counseling done today She declines therapist referral RTC 2-3 weeks televisit Class 2 severe obesity due t o excess calories with serious comorbidity and body mass index (BMI) of 36.0 to 36.9 in adult 02/05/2023 Assessment & Plan (07/17/2024 10:52 AM EDT): Extensive counseling done about healthy diet and exercise I will prescribe for patient phentermine, side effects were explained to patient I let her know this medication could cause palpitation, anxiety, dry mouth and even high blood pressure I advised to monitor her blood pressure and heart rate I will follow-up with patient in 4 weeks Constipation 03/28/2022 Assessment & Plan (03/07/2023 10:32 AM EDT): I advise to drink more water and increase fiber on her diet Moderate persistent asthma with acute exacerbati on 03/28/2022 Pain in lower limb 03/28/2022 Resolved Problems Problem Noted Date Diagnosed Date Resolved Date Asthma 11/26/2023 11/26/2023 34 weeks gestation of 03/28/2022 10/31/2023 Encounters Date Type Department Care Team Description 07/18/2024 Population Health Risk Score [facility] () Department [address] [place] [phone] Provider, Population Health Generic 07/17/2024 9:15 AM EDT Office Visit [facility] [address] [place] [address] Pearl Chahal MD Chronic hip pain, bilateral (Primary Dx); Chronic bilateral low back pain without sciatica; Class 2 severe obesity due to excess calories with serious comorbidity and body mass index (BMI) of 36.0 to 36.9 in adult ([facility]); Anxiety with depression 07/17/2024 Travel 06/09/2024 Refill [facility] [address] [place] [address] Pearl Chahal MD Heartburn; Anxiety with depression 06/03/2024 Telephone [facility] [address] [place] [phone] Pearl Chahal MD Nurse Triage 05/30/2024 Telephone [facility] [address] [place] [phone] Pearl Chahal MD Nurse Triage 05/22/2024 11:00 AM EST Office Visit [facility] [address] [place] [phone] Dima Moss MD Acute otitis externa of left ear, unspecified type (Primary Dx) 05/22/2024 Travel 05/15/2024 Refill [facility] [address] [place] [phone] Pearl Chahal MD Acute left-sided low back pain, unspecified whether sciatica present 05/08/2024 3:40 PM EST Office Visit [facility] [address] [place] [phone] Franny Alejandra MD Acute bilateral low back pain without sciatica (Primary Dx) 05/08/2024 Telephone [facility] [address] [place] [phone] Pearl Chahal MD triage 04/25/2024 Refill [facility] [address] [place] [phone] Pearl Chahal MD Moderate persistent asthma with acute exacerbation from Last 3 Months Immunizations Name Administration Dates Next Due Hep B, adult 03/14/2019 Influenza injectable quadriv alent preservative free 03/14/2019 Influenza, IIV3, injectable 03/09/2022 Moderna Covid-19 Vaccine 12+ 11/15/2021 Pfizer Covid-19 Vaccine 12+ 05/31/2021, Pfizer Covid-19 Vaccine 12+ Bivalent 06/15/2022 Td (adult), 5 Lf tetanus tox oid, preservative free, adsorbed 10/12/2012 Td (adult), unspecified 01/22/2017 Tdap 03/09/2022, 9,02/13/2017,2015 Social History Tobacco Use Types Packs/Day Years Used Date Smoking Tobacco: Never Passive Smoke Exposure: Never Smokeless Tobacco: Never Tobacco Cessation:Counseling Given: Not Answered Alcohol Use Standard Drinks/Week Comments Never 0 [...] not to disclose 2021 10:19 AM EDT Last Filed Vital Signs Vital Sign Reading Time Taken Comments Blood Pressure 115/73 07/17/2024 9:34 AM EDT Pulse 63 07/17/2024 9:34 AM EDT Temperature 35.7 ??C (96.3 ??F) 07/17/2024 9:34 AM ED T Respiratory Rate 16 07/17/2024 9:34 AM EDT Oxygen Saturation 99% 05/22/2024 10:49 AM EST Inhaled Oxygen Concentration - - Weight 92.5 kg (204 lb) 07/17/2024 9:34 AM EDT Height 160 cm (5' 3 ) 07/17/2024 9:34 AM EDT Body Mass Index 36.14 07/17/2024 9:34 AM EDT Plan of Treatment Upcoming Encounters Date Type Department Care Team (Late st Contact Info) Description 08/12/2024 8:00 AM EDT Office Visit [facility] [address] [place] [address] Mihaela Gómez DDS [address] [place] [address] 09/11/2024 9:15 AM EDT Office Visit [facility] [address] [place] [address] Pearl Chahal MD [address] [place] [address] Health Maintenance Due Date Last Done Comments HIV Screening 1987 Family Planning (PISQ) 2002 Hepatitis C Screening 2005 Pneumococcal Vaccine: Pediatrics (0 to 5 Years) and At-Risk Patients (6 to 49) Years) (1 of 2 - PCV) 2006 Hepatitis B Vaccines (2 of 3 - 19+ 3-dose series) 04/11/2019 03/14/2019 COVID-19 Vaccine ( season) 2024 06/15/2022, 11/15/2021, 05/31/2021, Additional history exists Influenza Vaccine (#1) 2024 03/09/2022, 2018 Dental Oral Exam 05/02/2024 10/31/2023, 11/2021, 03/13/2022 Dental Prophylaxis 05/02/2024 10/31/2023, 1 05/20/2021, 03/20/2022 Dental X-Ray: Bitewings 10/31/2024 10/31/19 24, 03/13/2022, 03/13/2022 Pap Smear 12/27/2024 12/27/2021 Alcohol/Substance Use Screening 02/07/2025 02/08/2024 Depression Screening 02/07/2025 02/08/2024, 02/08/20 SDOH Screening 02/07/2025 02/08/2024 Dental X-Ray: Full Mouth 03/14/2025 03/13/2022, 11/2021 Tobacco Screening 07/17/2025 07/17/2024 Cervical Cancer Screening 12/27/2026 HPV/Cotest 12/27/2026 12/27/2021 Lipid Panel 02/06/2028 02/05/2023 DTaP/Tdap/Td Vaccines (6 - Td or Tdap) 03/09/2032 03/09/2022, 03/14/2019, 02/13/2017, Additional history exists Zoster Vaccines (1 of 2) 2037 RSV Patients and Patients Aged 60 years or older (1 - 1-dose 75+ series) 2062 HIB Vaccines Aged Out No longer eligi ble based on patient's age to complete this topic HPV Vaccines Aged Out No longer eligi ble based on patient's age to complete this topic Hepatitis A Vaccines Aged Out No long er eligible based on patient's age to complete this topic IPV Vaccines Aged Out No longer eligi ble based on patient's age to complete this topic Meningococcal Vaccine Aged Out No tereza lam eligible based on patient's age to complete this topic RSV under 20 months Aged Out No longe r eligible based on patient's age to complete this topic Rotavirus Vaccines Aged Out No longer eligible based on patient's age to complete this topic Procedures Procedure Name Priority Date/Time Associated Diagnosis Comments POCT URINALYSIS DIPSTICK Routine 05/08/2024 3:38 PM EST Acute bilateral low back pain without sciatica Full PROPHYLAXIS - ADULT Routine 10/31/2023 2:00 PM EDT Dental plaque Dental calculus BITEWINGS - 4 RADIOGRAPHIC IMAGES Routine 10/31/2023 2:00 PM EDT PERIODIC ORAL EVALUATION - ESTABLISHED PATIENT Routine 10/31/2023 2:00 PM EDT External resorption of root of tooth Dental plaque Dental calculus Encounter for dental examination Dental caries LIPID PANEL, STANDARD Routine 02/05/2023 12:39 PM EDT Class 2 severe obesity due to excess calories with serious comorbidity and body mass index (BMI) of 36.0 to 36.9 in adult INTRAORAL - COMPLETE SERIES OF RADIOGRAPHIC IMAGES Routine 03/13/2022 12:00 AM EST HM PAP/HPV Routine 12/27/2021 from Last 3 Months or Most Recently Relevant to Health Maintenance Results * POCT urinalysis dipstick manually resulted (05/08/2024 3:38 PM EST) Color, UA Yellow Clarity, UA Clear Glucose, UA Negative Bilirubin, UA Negative Ketones, UA Negative Spec Grav, UA 1.025 Blood, UA Negative Negative, None Detected pH, UA 6.5 Protein, UA Negative Urobilinogen, UA 1.0 Leukocytes, UA Trace Negative, Rare, Trace Comment:Small Nitrite, UA Negative Negative, None Detected Urine 05/08/2024 3:38 PM EST Franny Alejandra MD POINT OF CARE TEST ENTER/E DIT ORDERABLES Final Result * (ABNORMAL) Lipid Panel, Standard (02/05/2023 12:39 PM EDT) Triglycerides 139 <150 mg/dL [facility] Comment:Desirable Triglyceri de: less than 150 mg/dLBorderline High Triglyceride 150-199 mg/dLHigh Triglyceride: 200-499 mg/dLVery High Triglyceride: greater than or equal to 5OO mg/dL Cholesterol 170 <200 mg/dL [facility] Comment:Desirable Cholestero l: less than 200 mg/dLBorderline High Cholesterol: 200-239 mg/dLHigh Cholesterol: greater than 239 mg/dL LDL Cholesterol Calculated 101(H) <100 mg/dL [facility] Comment:Desirable LDL: less than 100 mg/dLNear Optimal/Above Optimal LDL: 110- 129 mg/dLBorderline High LDL: 130-159 mg/dLHigh LDL: 160-189 mg/dLVery High LDL: greater than or equal to 190 mg/dL HDL Cholesterol 42 >40 mg/dL [facility] Comment:Desirable HDL: great er than 40 mg/dL Note: This HDL assay may give artificially low results in patients with liver disease. Blood Venous blood specimen / Unknown 02/05/2023 12:39 PM EDT 02/05/2023 1:18 PM EDT us Pearl Vitale MD LAB BLOOD ORDERABLES Final Result [facility] [address] [place] [phone] * Pap Smear (12/27/2021) Pap Negative for intraephithelial lesion or malignancy Negative for intraephithelial lesion or malignancy, Other HPV Undetected Undetected, Indeterminate, Quantitative, Not Detected Historical Provider HEALTH MAINTENANCE Final Result from Last 3 Months or Most Recently Relevant to Health Maintenance [place] [address] [place] [address] STANDARD [place] STAND ADULT Care Teams Technical Business Systems Analyst Relationship Specialty Start Date End Date Pearl Chahal MD [address] [place] [phone] PCP - General Family Medicine 12/04/18
== END 2024-07-18 09:38 | disposition home or self-care (01) ==
LOC: HO.HHCX 09:37
PROVIDERS: Visit Provider Internal Medicine
DX: M25.551 Pain in right hip (principal); M25.552 Pain in left hip; G89.29 Other chronic pain
CPT/HCPCS: 73502

== ENCOUNTER → 2024-07-18 09:38 | Outpatient (BNV) | payer MEDICAID, SELFPAY | PROVIDERS: Visit Provider Radiology Diagnostic Radiology | DX: M25.552 Pain in left hip (principal); M25.551 Pain in right hip | CPT/HCPCS: 73502 ==

== ENCOUNTER 2024-09-09 | Outpatient (REF) | payer MEDICAID, SELFPAY ==
--- NOTE | ~2024-09-09 | XR_ITS ---
EXAMINATION: XR PELVIS CLINICAL INFORMATION: M25.559 - Pain in unspecified hip COMPARISON: Correlated to hip x-rays dated July 18, 2024.] TECHNIQUE: AP view of the pelvis. FINDINGS: Bony pelvis is intact. Sclerosis along the symphysis points. The hips are intact. Probable anomalies in the posterior elements of L5 and S1. There is a T-shaped contraceptive device overlapping the right midline sacrum. No lytic or blastic lesions. Patient's large body habitus/obesity. XR/XR pelvis 1-2V IMPRESSION: No acute fracture. Electronically signed by: Emile Panda MD 09/09/2024 03:17 PM EDT
--- OUTSIDE RECORDS SUMMARY | 2024-11-03 13:00 | XMS_ITS | Encounter Summary ---
Author Organization [employer] Address [address] [place] [address] 7 [place] [address] Care Team Providers Care Donation Worker Name Role Phone Pearl Chahal MD Primary Care Provide r Encounter Details Date Type Department Care Team ([facility] Contact Info) Description 03/28/2022 Abstract [facility] ADULT DENTAL [address] [place] [address] Maciel Andujar, DMD [address] [place] [address] Social History Tobacco Use Types Packs/Day Years [...] 11/12/2024 2:00 PM EDT Telemedicine [facility] [address] [place] [address] Pearl Chahal MD [address] [place], [place] [phone] 03/30/2025 3:00 PM EST Office Visit [facility] ADULT DENTAL [address] [place] [address] Linsey Tillman documented as of this encounter [...] on filedocumented in this encounter Care Teams Donation Worker Relationship Specialty Start Date End Date Pearl Chahal MD [address] [place] [phone] PCP - General Family Medicine 12/04/18 documented as of this encounter
== END 2024-09-09 00:01 | disposition home or self-care (01) ==
LOC: HO.HOSX
PROVIDERS: Visit Provider Physician Assistant
DX: M25.551 Pain in right hip (principal); M25.552 Pain in left hip; M70.61 Trochanteric bursitis, right hip; M54.50 Low back pain, unspecified
CPT/HCPCS: 20610; 72170; 99212; J1010; J2003

== ENCOUNTER 2024-09-09 15:02 | Outpatient (AMB) | payer MEDICAID, SELFPAY ==
--- NOTE | 2024-09-09 15:05 | A.OFFVIS_ITS ---
Vital Signs 09/09/24 15:12 Height 5 ft 3 in Weight 198 lb BMI 35.1 Intake Visit Reasons: New Pt - B/L hip pain Intake Note: Zainab is a 39 year old female who presents today as a new patient for a evolution of her bilateral hip pain. She reports that she took a fall on Dec 22 - she fell down the stairs, landing on her lower back. It was hard for her to get up after the fall. In May the pain worsened, with limited mobility of the back. She felt like there was a lump on the lateral aspect of the right hip. She has no groin pain and feels majority of her pain in her lower bacck, lateral hips and buttocks. 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 Tried and failed Tylenol, Ibuprofen and muscle relaxers. She had been working with physical therapy for about 1 months now, she feels better while working with her but the pain returns. Allergies penicillin V Allergy (Unknown, Verified 11/08/21 14:09) convulsion Penicillins Adverse Reaction (Mild, Unverified 11/08/21 14:09) SEIZURES A CHILD HPI HPI New Pt - B/L hip pain: Details: Ms. Beckwith is a 39 year old female who presents today as a new patient for a evolution of her bilateral hip pain. She reports that she took a fall on Dec 22 - she fell down the stairs, landing on her lower back. It was hard for her to get up after the fall. In May the pain worsened, with limited mobility of the back. She felt like there was a lump on the lateral aspect of the right hip. She has no groin pain and feels majority of her pain in her lower bacck, lateral hips and buttocks. 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 Tried and failed Tylenol, Ibuprofen and muscle relaxers. She had been working with physical therapy for about 1 months now, she feels better while working with her but the pain returns. [facility] Medical History COVID-19 affecting in second trimester Asthma test positive Asthma COVID-19 Family History Mother History of depression Diabetes Sister Sickle cell anemia Social History Household Members: Spouse and Children Both parents involved: Yes Housing: Apartment Alcohol intake: never Patient Tobacco Use Status: Never used Tobacco Special ministerio needs: No Agree to transfusion: Yes Gender identity: Female Female Reproductive History Menstrual Age of Menarche: 14 Review of Systems Const All systems reviewed & are unremarkable except as noted in HPI and below Physical Exam Vital Signs: BMI result Body Mass Index 35.1 Const General: cooperative, healthy appearing and no acute distress Resp Effort & Inspection: normal respiratory effort and able to speak in complete sentences Extrem Other: Rightt hip: Normal to inspection. No ecchymosis, erythema, or edema. Full hip ROM in all planes. Tenderness to palpation over the greater trochanteric bursa. Able to perform straight leg raise. NVI. Office Procedures AMB Joint Injection/Aspiration Joint Injection/Aspiration Primary Site: other (right hip greater troch bursa ) Prep: site was prepped using aseptic technique, ethochloride spray was applied and injection warnings given Injected: 80 mg of, DepoMedrol, with 8 mL of (2% plain lido ) and other (right hip greater troch bursa ) Approach Used: anterolateral Procedure: The patient tolerated the procedure well, but had some pain with the injection and there was some relief with the local anesthesia Coding 34685 - Large joint Procedure code (CPT) selection complete Assessment & Plan Assessment & Plan (1) Greater trochanteric bursitis of right hip: Code(s): M70.61 - Trochanteric bursitis, right hip Category: Medical (2) Low back pain: Code(s): M54.50 - Low back pain, unspecified Category: Medical Plan The patient was offered a cortisone injection in the right hip greater trochanteric bursda with 80 mg of DepoMedrol. The patient was explained the risks, benefits, and alternatives to receiving this injection. After receiving consent for the injection, the patient had the procedure done while in the office today. The patient tolerated the procedure well with no complications. I placed a referral to Dr. Flanagan for evaluation of lower back pain. X-rays of the pelvis which were obtained while in the office today and were reviewed by me, Shannan Herman PA-C, revealed no acute abnormality. Follow-up will be p.r.n., or sooner if needed Orders: Orders XR pelvis 1-2V Today M25.559 - Pain in unspecified hip Coding Level of Care Code New Pt Level 3 (53211) Diagnoses Greater trochanteric bursitis of right hip M70.61 Low back pain M54.50 CPT Codes Coding - 13798 Large joint: 00200 - Large joint ([id number])
[2024-09-09 15:12] VITALS: BMI 35.1
--- OUTSIDE RECORDS SUMMARY | 2024-09-09 16:14 | XMS_ITS | Encounter Summary ---
Author Organization [employer] [facility] Address [address] [place] [address] Care Team Providers Care Button Inspector Name Role Phone Pearl Chahal MD Primary Care Provide r Encounter Details Date Type Department Care Team (Latest Contact Info) Description 03/13/2022 Abstract [facility] CONVERSIONS Dental, Provider, DDS Social History Tobacco [...] Care Team (Late st Contact Info) Description 09/11/2024 9:15 AM EDT Office Visit [facility] [address] [place] [address] Pearl Chahal MD [address] [place] [address] 09/12/2024 9:00 AM EDT Office Visit [facility] [address] [place] [address] Mihaela Gómez, DDS [address] [place] [address] documented as of this encounter Visit Diagnoses Not on filedocumented in this encounter Care Teams Button Inspector Relationship Specialty Start Date End Date Pearl Ch[facility]al [facility] [address] [facility] [address] PCP - General Family Medicine 12/04/18 documented as of this encounter
--- OUTSIDE RECORDS SUMMARY | 2024-09-09 16:14 | XMS_ITS | Encounter Summary ---
Author Organization [employer] Address [address] [facility] 7t [place] [address] Care Team Providers Care Accounts Receivable Coordinator Name Role Phone Pearl Chahal MD Primary Care Provide r Encounter Details Date Type Department Care Team (Late Contact Info) Description 03/28/[address] [facility] ADULT DENTAL [address] [place] [address] Maciel Andujar, DMD [address] [place] [address] Social History Tobacco Use Types Packs/Day Years [...] Encounters Date Type Department Care Team (Late Contact Info) Description 09/11/2024 9:15 AM EDT Office Visit [facility] MEDICINE [address] [place] [address] Pearl Chahal MD [address] [place] [address] 09/12/2024 9:00 AM EDT Office Visit [facility] ADULT DENTAL [address] [place] [address] Mihaela Gómez DDS [address] [place] [address] Scheduled Orders Name Type Priority Associated Diagnoses [...] on filedocumented in this encounter Care Teams Accounts Receivable Coordinator Relationship Specialty Start Date End Date Pearl Chahal MD [address] [place] [address] PCP - General Family Medicine 12/04/18 documented as of this encounter
--- OUTSIDE RECORDS SUMMARY | 2024-09-09 16:15 | XMS_ITS | Clinical Summary ---
Author Organization [employer] Address [address] [facility] 7t [place] [address] Care Team Providers Care News Commentator Name Role Phone Pearl Chahal MD Primary Care Provide r Allergies Active Allergy Reactions Criticality Noted Date Comments Penicillin G 11/26/2023 Penicillin V 04/20/2010 Other reaction(s): convulsions Medications doxylamine (Unisom) 25 MG tablet Active hydrocortisone 1 % cream apply by topical route 2 times every day a thin layer to the affected area(s) x 2 weeks 2 Active ondansetron ODT (Zofran-ODT) 4 MG disintegrating tablet Take 2 tablets by mouth every 12 (twelve) hours. 0 Active Ppagsgcn-Gvb-Ri-FA (/Iron) tablet Take 1 tablet by mouth at bed time. Active pyridoxine (B-6) 50 MG tablet Active fluticasone (Flovent) 220 MCG/ACT inhalerIndications :Moderate persistent asthma with acute exacerbation Inhale 1 puff in the morning and at bedtime. Rinse mouth with water after use to reduce aftertaste and incidence of candidiasis. Do not swallow. 12 g 11 3 Active Nebulizers miscIndications:Mo derate persistent asthma with acute exacerbation Use nebulizer as instructed 1 each 3 Active senna (Senokot) 8.6 MG tabletIndications: Other constipation Take 1 tablet (8.6 mg) by mouth at bedtime. 120 tablet 3 Active albuterol (Proventil HFA) 108 (90 Base) MCG/ACT inhalerIndications :Moderate persistent asthma with acute exacerbation INHALE 2 PUFFS BY MOUTH EVERY 4 TO 6 HOURS NEEDED 6.7 g 11 4 Active ibuprofen 400 MG tablet Take 1 tablet (400 mg) by mouth every 6 (six) hours if needed for moderate pain or fever for up to 30 doses. 30 tablet 4 Active Spacer/Aero-Holdin g Chambers (OptiChamber Alesha) misc 1 each every 4 (four) hours if needed (asthma). 1 each 4 Active acetaminophen (Tylenol) 500 MG tablet Take 1 tablet (500 mg) by mouth every 6 (six) hours. 30 tablet 4 Active Neomycin-Polymyxin -HC 1 % solutionIndication s:Otitis of right ear Administer 3 drops into affected ear(s) 4 times daily. 10 mL 4 Active montelukast (Singulair) 10 MG tabletIndications: Moderate persistent asthma with acute exacerbation TAKE 1 TABLET BY MOUTH EVERY DAY AT BEDTIME 90 tablet 1 4 Active methocarbamol (Robaxin) 500 MG tabletIndications: Acute left-sided low back pain, unspecified whether sciatica present Take 2 tablets (1,000 mg) by mouth every 8 (eight) hours if needed for muscle spasms for up to 10 days. 30 tablet 4 Active albuterol (ProAir HFA) 108 (90 Base) MCG/ACT inhaler Inhale. 3 Active Docusate Sodium (DSS) 100 MG capsule Take 100 mg by mouth. 3 Active Levonorgestrel (Liletta, 52 MG,) 20.1 MCG/DAY intrauterine device 52 mg. 3 Active norethindrone (Nancy) 0.35 MG tablet Take 0.35 mg by mouth. 3 Active polyethylene glycol, PEG, 3350 (MiraLax) 17 GM/SCOOP powder Take 17 g by mouth. 3 Active Sodium Fluoride (PreviDent) 1.1 % gel Elliott teeth morning and night for two minutes. Spit, do not rinse. Do not eat or drink for 30 minutes after brushing. 2 Active albuterol (2.5 MG/3ML) 0.083% nebulizer solutionIndication s:Moderate persistent asthma with acute exacerbation INHALE 1 AMPULE USING A NEBULIZER EVERY 8 HOURS 90 mL 1 4 Active Arnuity Ellipta 200 MCG/ACT inhaler INHALE 1 PUFF BY MOUTH EVERY DAY AT THE SAME TIME RINSE MOUTH AFTER USING. 30 each 3 5 Active lidocaine (Lidoderm) 5 % patchIndications:A cute left-sided low back pain, unspecified whether sciatica present APPLY 1 PATCH TOPICALLY TO SKIN, LEAVE ON FOR 12 HOURS AND OFF FOR 12 HOURS DIRECTED 30 patch 1 5 Active famotidine (Pepcid) 20 MG tabletIndications: Heartburn TAKE 1 TABLET BY MOUTH TWICE DAILY 180 tablet 1 5 Active phentermine 37.5 MG capsuleIndications :Class 2 severe obesity due to excess calories with serious comorbidity and body mass index (BMI) of 36.0 to 36.9 in adult (CMS/HCC) Take 1 capsule (37.5 mg) by mouth before breakfast. 30 capsule 5 Active FLUoxetine (PROzac) 40 MG capsuleIndications :Anxiety with depression Take 1 capsule (40 mg) by mouth Once per day. 30 capsule 11 5 026 Active fluticasone (Flonase) 50 MCG/ACT nasal sprayIndications:F capri-like symptoms Administer 1 spray into each nostril Once per day. Shake gently. Before first use, prime pump. After use, clean tip and replace cap. 16 g 1 5 026 Active Active Problems Problem Noted Date Diagnosed Date [...] 2 obesity 11/26/2023 Hernia, umbilical 11/26/2023 Uses Romansh as primary spoken language 11/26/19 24 White [...] Encounters Date Type Department Care Team Description 09/01/2024 6:40 PM EDT Office Visit [facility] [address] [place] [id number] Irish Huang MD Right flank pain (Primary Dx) 09/01/2024 Travel 08/28/[address] [address] Luisana Rader, RN Results 08/27/2024 3:15 PM EDT Office Visit [address] [address] Latonya Campbell NP Flu-like symptoms (Primary Dx) 08/27/2024 Telephone [facility] [address] [place] [phone] Pearl Chahal MD 07/29/2024 Patient Outreach [address] [address] Pearl Chahal MD Pre-visit Planning ((Unable to reach for PVP screening, LVM)) 07/23/[address] [address] Pearl Chahal MD X-RAY RESULTS 07/22/[address] [address] Pearl Chahal MD telephone call 07/18/2024 Population Health Risk Score [facility] [address] [place] [phone] Provider, Population Health Generic 07/17/2024 9:15 AM EDT Office Visit [facility] [address] [place] [address] Pearl Chahal MD Chronic hip pain, bilateral (Primary Dx); Chronic bilateral low back pain without sciatica; Class 2 severe obesity due to excess calories with serious comorbidity and body mass index (BMI) of 36.0 to 36.9 in adult (CMS/HCC); Anxiety with depression 07/17/2024 Travel from Last 3 Months Immunizations Name Administration [...] Sign Reading Time Taken Comments Blood Pressure 132/75 09/01/2024 6:11 PM EDT Pulse 114 09/01/2024 6:11 PM EDT Temperature 36.7 ??C (98.1 ??F) 09/01/2024 6:11 PM ED T Respiratory Rate 17 09/01/2024 6:11 PM EDT Oxygen Saturation 98% 09/01/2024 6:11 PM EDT Inhaled Oxygen Concentration - - Weight 91.8 kg (202 lb 6.4 oz) 09/01/2024 6:11 P M EDT Height 160 cm (5' 3 ) 09/01/2024 6:11 PM EDT Body Mass Index 35.85 09/01/2024 6:11 PM EDT Plan of Treatment Upcoming Encounters Date Type Department Care Team (Late st Contact Info) Description 09/11/2024 9:15 AM EDT Office Visit [facility] [address] [place] [address] Pearl Chahal MD [address] [place] [address] 09/12/2024 9:00 AM EDT Office Visit [facility] ADULT DENTAL [address] [place] [address] VernonNehalMoscosoMihaela farnsworth, DDS [address] [place] [address] Health Maintenance Due Date Last Done Comments HIV Screening 1987 Family Planning (PISQ) 2002 Hepatitis C Screening 2005 Pneumococcal Vaccine: Pediatrics (0 to 5 Years) and At-Risk Patients (6 to 49) Years) (1 of 2 - PCV) 2006 Hepatitis B Vaccines (2 of 3 - 19+ 3-dose series) 04/11/2019 03/14/2019 COVID-19 Vaccine (2023- season) 2024 06/15/2022, 11/15/2021, 05/31/2021, Additional history exists Influenza Vaccine (#1) 2024 03/09/2022, 2018 Dental Oral Exam 05/02/2024 10/31/2023, 11/2021, 03/13/2022 Dental Prophylaxis 05/02/2024 10/31/2023, 1 05/20/2021, 03/20/2022 Dental X-Ray: Bitewings 10/31/2024 10/31/19 24, 03/13/2022, 03/13/2022 Pap Smear 12/27/2024 12/27/2021 Alcohol/Substance Use Screening 02/07/2025 02/08/2024 Depression Screening 02/07/2025 02/08/2024, 02/08/20 24 SDOH Screening 02/07/2025 02/08/2024 Dental X-Ray: Full Mouth 03/14/2025 03/13/2022, 11/2021 Tobacco Screening 09/01/2025 09/01/2024 Cervical Cancer Screening 12/27/2026 HPV/Cotest 12/27/2026 12/27/2021 [...] Name Priority Date/Time Associated Diagnosis Comments POCT INFLUENZA A Routine 08/27/2024 4:22 PM EDT Flu-like symptoms POCT COVID-19 AG MAGANA ID NOW Routine 08/27/2024 4:21 PM EDT Flu-like symptoms XR HIP 2 OR 3 VIEWS LEFT Routine 07/18/2024 9:38 AM EDT Chronic hip pain, bilateral XR HIP 2 OR 3 VIEWS RIGHT Routine 07/18/2024 9:38 AM EDT Chronic hip pain, bilateral Full PROPHYLAXIS - ADULT Routine 10/31/2023 2:00 [...] Recently Relevant to Health Maintenance Results * (ABNORMAL) POCT Rapid Influenza A OSOM (08/27/2024 4:22 PM EDT) [facility] Rapid Influenza A Ag Positive( A) Negative, Indeterminate QC Media Lot # [id number] Lot# Expiration Date [id number] Swab Nasopharyngeal structure / Unknown 08/27/2024 4:22 PM EDT Latonya Appra KISS SETTER HAND POINT OF CARE TEST ENTER/EDIT O RDERABLES Final Result * POCT Rapid Covid-19 MAGANA ID NOW (08/27/2024 4:21 PM EDT) [facility] Coronavirus Antigen PCR Negative Negative, Indeterminate, None Detected, Invalid, Specimen unsatisfactory for evaluation, Weakly Positive QC Media Lot # [id number] Lot# Expiration Date [id number] Swab 08/27/2024 4:21 PM EDT Latonya Kennedy KISS SETTER HAND POINT OF CARE TEST ENTER/EDIT O RDERABLES Final Result * XR Hip 2 or 3 Views Right (07/18/2024 9:38 AM EDT) Anatomical Region Laterality Modality Lower Extremities, Hip Right Radiograp hic Imaging 07/18/2024 9:3 8 AM EDT Narrative 07/18/2024 12:13 PM EDT ?[facility] ?[address] ?[place] [address] ?XRay Report ? Signed ? Patient: Tang,Zainab M ?MR#: [id number] ?? 9 ? : 1985 ?Acct:[id number] ? Age/Sex: 39 / F ?ADM Date: 03/14/25 ? Loc: HO.HHCX ? Attending Dr: Pearl Vitale MD ? Ordering Physician: Pearl Chahal MD ?? Date of Service: 07/18/24 ?? Procedure(s): XR hip RT min 2V ?? Accession Number(s): [id number] ? cc: Pearl Chahal MD ? EXAMINATION: ?? XR HIP, RIGHT ? CLINICAL INFORMATION: ?? pain ? COMPARISON: ?? None available. ? TECHNIQUE: ?? Two views of the right hip. ? FINDINGS: ?? No fracture. Alignment is anatomic. Hip joint space is maintained. ?? There is mild posterior acetabular over coverage, finding which can be ?? associated with pincer-type GALEN. ?? Soft tissues are unremarkable. ? IUD noted within the central pelvis. ? XR/XR hip RT min 2V ?? IMPRESSION: ?? No acute findings right hip. See above. ? Electronically signed by: ??Sridhar Romo MD ??07/18/2024 12:10 PM EDT RP ? Dictated By: ?Sridhar Romo MD ? Signed By: ?<Electronically signed by Sridhar Romo MD in OV> ?07/18/24 1210 ? DD/ 0938 ? TD/TT: 07/18/24 1000 ? Studio Receptionist: ? Procedure Note Jack, Image - 07/18/[address] [address] XRay Report Signed Patient: Zainab Beckwith MMR#: [id number] 9 : 1985Acct:[id number] Age/Sex: 39 / FADM Date: 07/18/24 Loc: HO.HHCX Attending Dr: Pearl Vitale MD Ordering Physician: Pearl Chahal MD Date of Service: 07/18/24 Procedure(s): XR hip RT min 2V Accession Number(s): [id number] cc: Pearl Chahal MD EXAMINATION: XR HIP, RIGHT CLINICAL INFORMATION: pain COMPARISON: None available. TECHNIQUE: Two views of the right hip. FINDINGS: No fracture. Alignment is anatomic. Hip joint space is maintained. There is mild posterior acetabular over coverage, finding which can be associated with pincer-type GALEN. Soft tissues are unremarkable. IUD noted within the central pelvis. XR/XR hip RT min 2V IMPRESSION: No acute findings right hip. See above. Electronically signed by: Sridhar Romo MD 07/18/2024 12:10 PM EDT Dictated By: Sridhar Romo MD Signed By: <Electronically signed by Sridhar Romo MD in OV> 07/18/24 1210 DD/ 0938 TD/TT: 07/18/24 1000 Studio Receptionist: us Pearl Vitale MD IMG XR PROCEDURES Fin al Result * XR Hip 2 or 3 Views Left (07/18/2024 9:38 AM EDT) Anatomical Region Laterality Modality Lower Extremities, Hip Left Radiograp hic Imaging 07/18/2024 9:38 AM EDT Narrative 07/18/2024 12:14 PM EDT ?[facility] ?[address] ?[place] [address] ?XRay Report ? Signed ? Patient: Zainab Beckwith ?MR#: [id number] ?? 9 ? : 1985 ?Acct:[id number] ? Age/Sex: 39 / F ?ADM Date: 07/18/24 ? Loc: HO.HHCX ? Attending Dr: Pearl Vitale MD ? Ordering Physician: Pearl Chahal MD ?? Date of Service: 07/18/24 ?? Procedure(s): XR hip LT min 2V ?? Accession Number(s): [id number] ? cc: Pearl Chahal MD ? EXAMINATION: ?? XR HIP, LEFT ? CLINICAL INFORMATION: ?? pain ? COMPARISON: ?? None available. ? TECHNIQUE: ?? Two views of the left hip. ? FINDINGS: ?? No fracture. Alignment is anatomic. Hip joint space is maintained. ?? There is mild posterior acetabular over coverage, finding which can be ?? associated with pincer-type GALEN. ?? Soft tissues are unremarkable. ? IUD noted within the central pelvis. ? XR/XR hip LT min 2V ?? IMPRESSION: ?? No acute findings left hip. See above. ? Electronically signed by: ??Sridhar Romo MD ??07/18/2024 12:11 PM EDT RP ? Dictated By: ?Sridhar Romo MD ? Signed By: ?<Electronically signed by Sridhar Romo MD in OV> ?07/18/24 1211 ? DD/ 0938 ? TD/TT: 07/18/24 1000 ? Studio Receptionist: ? Procedure Note Donotannieter, Image - 07/18/[address] [address] XRay Report Signed Patient: Zainab Beckwith MMR#: [id number] 9 : 1985Acct:[id number] Age/Sex: 39 / FADM Date: 07/18/24 Loc: HO.HHCX Attending Dr: Pearl Vitale MD Ordering Physician: Pearl Chahal MD Date of Service: 07/18/24 Procedure(s): XR hip LT min 2V Accession Number(s): [id number] cc: Pearl Chahal MD EXAMINATION: XR HIP, LEFT CLINICAL INFORMATION: pain COMPARISON: None available. TECHNIQUE: Two views of the left hip. FINDINGS: No fracture. Alignment is anatomic. Hip joint space is maintained. There is mild posterior acetabular over coverage, finding which can be associated with pincer-type GALEN. Soft tissues are unremarkable. IUD noted within the central pelvis. XR/XR hip LT min 2V IMPRESSION: No acute findings left hip. See above. Electronically signed by: Sridhar Romo MD 07/18/2024 12:11 PM EDT Dictated By: Sridhar Romo MD Signed By: <Electronically signed by Sridhar Romo MD in OV> 07/18/24 1211 DD/ 0938 TD/TT: 07/18/24 1000 Studio Receptionist: us Pearl Vitale MD IMG XR PROCEDURES Fin al Result * (ABNORMAL) Lipid Panel, Standard (02/05/2023 12:39 PM EDT) Triglycerides 139 <150 mg/dL [facility] Comment:Desirable Triglyceri de: less than 150 mg/dLBorderline High Triglyceride 150-199 mg/dLHigh Triglyceride: 200-499 mg/dLVery High Triglyceride: greater than or equal to 5OO mg/dL Cholesterol 170 <200 mg/dL [facility] Comment:Desirable Cholestero l: less than 200 mg/dLBorderline High Cholesterol: 200-239 mg/dLHigh Cholesterol: greater than 239 mg/dL LDL Cholesterol Calculated 101(H) <100 mg/dL [facility] Comment:Desirable LDL: less than 100 mg/dLNear Optimal/Above Optimal LDL: 110- 129 mg/dLBorderline High LDL: 130-159 mg/dLHigh LDL: 160-189 mg/dLVery High LDL: greater than or equal to 190 mg/dL HDL Cholesterol 42 >40 mg/dL [facility] Comment:Desirable HDL: great er than 40 mg/dL Note: This HDL assay may give artificially low results in patients with liver disease. Blood Venous blood specimen / Unknown 02/05/2023 12:39 PM EDT 02/05/2023 1:18 PM EDT Pearl Vitale MD LAB BLOOD ORDERABLES Final Result [facility] [address] [place] [address] [phone] * Pap Smear (12/27/2021) Pap Negative for intraephithelial lesion or malignancy Negative for intraephithelial lesion or malignancy, Other HPV Undetected Undetected, Indeterminate, Quantitative, Not Detected Victoria Provider HEALTH MAINTENANCE Final Result from Last 3 Months or Most Recently Relevant to Health Maintenance [place] [address] [place] [address] [employer] [facility] ST[place] AD[place] Care Teams News Commentator Relationship Specialty Start Date End Date Pearl Chahal MD [address] [place] [phone] PCP - General Family Medicine 12/04/18
--- OUTSIDE RECORDS SUMMARY | 2024-09-09 16:15 | XMS_ITS | Encounter Summary ---
Author Organization [employer] Address [address] [facility] 7t [place] [address] Care Team Providers Care Candy Decorator Name Role Phone Pearl Chahal MD Primary Care Provide r Reason for Visit * Reason Onset Date Comments appt 02/19/2024 Encounter Details Date Type Department Care Team (Late st Contact Info) Description 02/19/2024 Telephone [facility] ADULT DENTAL [address] [place] [address] Mihaela Gómez, DDS [address] [place] [address] appt Social History Tobacco Use Types Packs/Day [...] 3:48 PM EDT Patient active requested for cheondoism with Elena Moscoso on 02/12. She is checking in on status of appt DR documented in this encounter Plan of Treatment Upcoming Encounters Date Type Department Care Team (Late st Contact Info) Description 09/11/2024 9:15 AM EDT Office Visit [facility] MEDICINE [address] [place] [address] Pearl Chahal MD [address] [place] [address] 09/12/2024 9:00 AM EDT Office Visit [facility] ADULT [facility] [address] [place], [place] [phone] Mihaela Gómez DDS [address] [place] [address] documented as of this encounter Visit Diagnoses Not on filedocumented in this encounter Additional Health Concerns Assessment Noted Time PHQ-9 Depression Total Score: 0 02/08/20 24 2:32 PM EDT documented as of this encounter Care Teams Candy Decorator Relationship Specialty Start Date End Date Pearl Chahal MD [address] [place] [address] PCP - General Family Medicine 12/04/18 documented as of this encounter
== END 2024-09-09 16:14 | disposition home or self-care (01) ==
LOC: HO.HOS 15:03
PROVIDERS: Visit Provider Physician Assistant
DX: M70.61 Trochanteric bursitis, right hip (principal); M54.50 Low back pain, unspecified
CPT/HCPCS: 20610; 99203

== ENCOUNTER → 2024-09-09 15:05 | Outpatient (BNV) | payer MEDICAID, SELFPAY | PROVIDERS: Visit Provider Radiology Diagnostic Radiology | DX: M25.559 Pain in unspecified hip (principal) | CPT/HCPCS: 72170 ==

== ENCOUNTER 2024-09-26 09:35 | Outpatient (AMB) | payer MEDICAID, SELFPAY ==
--- NOTE | 2024-09-26 09:37 | MHC.OFFVIS ---
Vital Signs 09/26/24 09:42 Weight 199 lb BP 120/68 Blood Pressure Location Rt brachial Position Sitting Pulse 78 Pulse Source Pulse Oximeter Pulse Oximetry (%) 99 Intake Visit Reasons: Chronic low back pain Riprap Worker Required: Yes Riprap Worker Services: Riprap Worker Present Riprap Worker Name: [email or web address] [id number] Allergies penicillin V Allergy (Unknown, Verified 09/26/24 09:44) convulsion Penicillins Adverse Reaction (Mild, Verified 09/26/24 09:44) SEIZURES A CHILD HPI Comments Details: The patient is a 39-year-old female presenting with chronic lower back pain. She reports a history of scoliosis from childhood that was not treated. Significant back pain began worsening after a fall from a roof at age 14, with additional exacerbations following falls in 2009 and last December. 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 Although various treatments have been attempted, including Tylenol, NSAIDs, heat, massage and physical therapy, relief has been minimal. Sleep disturbances due to pain are reported, and the patient mentions having to adjust positions due to co-existing asthma. Overall, the pain has a substantial impact on her daily functioning and quality of life. Denies radiation of the pain down either lower extremity. Denies lower extremity weakness, numbness, tingling. Denies red flag symptoms including new loss of bowel, bladder or saddle anesthesia. Patient reports she does not like to take medication that makes her sleepy as she has a young child at home and wants to be alert in case of emergency. - Onset: Childhood due to scoliosis; worsened by falls at age 14, in 2009, and last December. - Quality and Character: Persistent, worsens with activity; described as severe and constant. - Primary Location: Lower back, with specific mention of pain on the right hip during physical exam. 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 - Relieving Factors: Sleeping facing down. - Interference with Functions: Causes issues in standing up after bending; disturbs sleep; difficulties in performing duties at work. - Affect: Pain adversely affects mood and quality of life; sleep disruptions and physical limitation noted. - Analgesia: Tried NSAIDs, Tylenol and Ibuprofen, which provided minimal relief; past right GTB injection was ineffective; current pain remains severe. - Adverse Effects: None specifically noted from medications. - Activities of Daily Living: Pain hampers ability to care for children and work efficiently as a MOLDING [employer] TR[employer] INSTALLER; difficulty in tasks requiring bending or lifting. - Aberrant Drug-Related Behaviors: None reported. [facility] Medical History COVID-19 affecting in second trimester Asthma test positive Asthma COVID-19 Family History Mother History of depression Diabetes Sister Sickle cell anemia Social History Household Members: Spouse and Children Both parents involved: Yes Housing: Apartment Alcohol intake: never Patient Tobacco Use Status: Never used Tobacco Special ministerio needs: No Agree to transfusion: Yes Gender identity: Female Female Reproductive History Menstrual Age of Menarche: 14 Review of Systems Const Details: - Musculoskeletal: Reports chronic back pain, difficulty to straighten after bending, and numbness during sleep. - Neurological: Reports numbness at night leading to sleep disturbances. - Respiratory: Reports asthma. - Gastrointestinal: Denies issues. - Cardiovascular: Denies issues. - Other systems: Denies additional symptoms not explicitly discussed. Physical Exam Vital Signs: Last Vital Signs Pulse 78 09/26/24 09:42 BP 120/68 09/26/24 09:42 Pulse Ox 99 09/26/24 09:42 General: awake, alert, oriented. Answers questions appropriately. Fully engaged in examination. Skin: warm, dry, intact HEENT: Normocephalic. Hearing intact. Cardiac: External chest normal in appearance. Respiratory: No cough, audible wheezing or stridor. Abdomen: without gross distension. MS: No obvious swelling or deformities. Able to transition from sit to stand unassisted. Ambulates with bilaterally normal heel strike and toe off SLR negative bilaterally Tenderness over midline lumbar vertebrae and lumbar paraspinal muscles Nontender over bilateral PSIS Tenderness over right GTB Patient reports she is unable to bend at the waist secondary to pain. Decreased extension to 5 degrees with pain Bilateral lower extremity strength 5/5 Neurological: Oriented to person, place, time and situation. Thought process intact. No gait abnormalities appreciated. Psychiatric: Appropriate mood and affect. Good judgment and insight. Results Reviewed Results Reviewed: 04/09/2024 XR/XR lumbar spine 2-3V IMPRESSION: Unremarkable examination. Assessment & Plan Assessment & Plan (1) Low back pain: Code(s): M54.50 - Low back pain, unspecified Category: Medical (2) Myofascial low back pain: Code(s): M54.50 - Low back pain, unspecified Category: Medical (3) Chronic pain syndrome: Code(s): G89.4 - Chronic pain syndrome Category: Medical Plan Diagnostic injections under radiographic guidance will be pursued to assess joint contribution to pain, pending insurance approval. This is based on minimal response to previous treatments, including NSAIDs, physical therapy, and muscle relaxers. The patient should consult orthopedics to evaluate alternative treatments after failed GTB injection. It's advised to limit aggravating activities at work and consider job modification to lessen physical strain. Follow-ups will be coordinated post-insurance approval for the procedures, aiming for enhanced pain management through targeted interventions. I discussed with the patient the option of diagnostic joint injections under x-ray guidance to identify potential sources of back pain and the possibility of further therapeutic treatments based on outcomes. The patient was made aware that previous treatments have been ineffective and that insurance approval is necessary before proceeding with injections. I explained the benefits, risks, including minimal discomfort, and reviewed her current pain management with a focus on activity modifications. We also covered the potential for less physically demanding employment to aid pain relief. Consent was implied for the management plan outlined. Will schedule for fluoroscopy guided bilateral L3-L4 DR L5 medial branch blocks with local anesthetic Patient was informed and verbally consented to the use of an ambient scribe for clinic note documentation during this visit. Patient Instructions: - Await a call to schedule diagnostic injections once insurance approves. - Avoid activities that worsen pain, such as heavy lifting or bending. - Consider exploring job opportunities with less physical demand. - Continue any prescribed medications as discussed. - Follow up with orthopedics to discuss alternative pain management options. - Report any significant changes or worsening of pain immediately. Coding Level of Care Code New Pt Level 4 (12976) Complex EM visit Add On G2211 Diagnoses Low back pain M54.50 Myofascial low back pain M54.50 Chronic pain syndrome G89.4
[2024-09-26 09:42] VITALS: BP 120/68; PULSE 78; O2SAT 99
--- OUTSIDE RECORDS SUMMARY | 2024-09-26 09:48 | XMS_ITS | Encounter Summary ---
Author Organization [employer] Address [address] [facility] 7t [place] [address] Care Team Providers Care Compounder Name Role Phone Pearl Chahal MD Primary Care Provide r Encounter Details Date Type Department Care Team (Late Contact Info) Description 03/28/2022 Abstract [facility] ADULT DENTAL [address] [place] [address] Maciel Andujar, DMD [address] [place], [place] [phone] Social History Tobacco Use Types Packs/Day Years [...] Department Care Team (Late Contact Info) Description 11/12/2024 2:00 PM EDT Telemedicine [facility] [address] [place] [address] Pearl Chahal MD [address] [place], [place] [phone] 03/30/2025 3:00 PM EST Office Visit [facility] [address] [place] [address] Linsey Tillman documented as of this encounter Procedures Procedure [...] on filedocumented in this encounter Care Teams Compounder Relationship Specialty Start Date End Date Pearl Chahal MD [address] [place] [phone] PCP - General Family Medicine 12/04/18 documented as of this encounter
== END 2024-09-26 10:17 | disposition home or self-care (01) ==
LOC: HO.PMC 09:35
PROVIDERS: PCP Internal Medicine; Visit Provider Registered Nurse Emergency
DX: M54.50 Low back pain, unspecified (principal); G89.4 Chronic pain syndrome
CPT/HCPCS: 99204

== ENCOUNTER → 2024-09-26 09:35 | Outpatient (BNVA) | payer MEDICAID, SELFPAY | PROVIDERS: PCP Internal Medicine; Visit Provider Registered Nurse Emergency | DX: M54.50 Low back pain, unspecified (principal); G89.4 Chronic pain syndrome | CPT/HCPCS: 99212 ==

== ENCOUNTER 2024-10-02 12:48 | Outpatient (REF) | payer MEDICAID, SELFPAY ==
--- OUTSIDE RECORDS SUMMARY | 2024-10-02 12:51 | XMS_ITS | Encounter Summary ---
Author Organization [employer] Address [address] [facility] 7t [place] [address] Care Team Providers Care Framing Mill Supervisor Name Role Phone Pearl Chahal MD Primary Care Provide r Encounter Details Date Type Department Care Team (Late Contact Info) Description 03/28/2022 Abstract [facility] ADULT DENTAL [address] [place] [address] Maciel Andujar, DMD [address] [place], [place] [phone] Social History Tobacco Use Types Packs/Day Years [...] Info) Description 11/12/2024 2:00 PM EDT Telemedicine [facility] MED[facility]INE [address] [place] [address] Pearl Chahal MD [address] [place], [place] [phone] 03/30/2025 3:00 PM EST Office Visit [facility] ADULT DENT[facility] [address] [place] [address] Linsey Tillman documented as of this encounter [...] on filedocumented in this encounter Care Teams Framing Mill Supervisor Relationship Specialty Start Date End Date Pearl Chahal MD [address] [place] [phone] PCP - General Family Medicine 12/04/18 documented as of this encounter
== END 2024-10-02 12:49 | disposition home or self-care (01) ==
LOC: HO.HHCLNP 12:48
PROVIDERS: Visit Provider Family Medicine
DX: M54.50 Low back pain, unspecified (principal); G89.29 Other chronic pain; R10.9 Unspecified abdominal pain
CPT/HCPCS: 87086

== ENCOUNTER → 2024-11-18 15:51 | Outpatient (REF) | payer MEDICAID, SELFPAY ==
--- OUTSIDE RECORDS SUMMARY | 2024-11-18 16:39 | XMS_ITS | Encounter Summary ---
Author Organization [email or web address] Address [address] [place] [address] 7 [place] [address] Care Team Providers Care Band Machine Operator Name Role Phone Pearl Chahal MD Primary Care Provide r Encounter Details Date Type Department Care Team (Late Contact Info) Description 03/28/2022 Abstract [facility] ADULT DENTAL [address] [place] [address] Maciel Andujar, DMD [address] [place] [address] Social History Tobacco Use Types Packs/Day Years [...] Care Team (Late st Contact Info) Description 01/16/2025 2:30 PM EDT Office Visit [facility] MED[facility]INE [address] [place], [place] [phone] Pearl Chahal MD [address] [place], [place] [phone] 03/30/2025 3:00 PM EST Office Visit [facility] ADULT DENTAL [address] [place] [address] Linsey Tillman documented as of this encounter [...] on filedocumented in this encounter Care Teams Band Machine Operator Relationship Specialty Start Date End Date Pearl Chahal MD [address] [place] [phone] PCP - General Family Medicine 12/04/18 documented as of this encounter
== END ==
LOC: HO.SL 15:51
PROVIDERS: PCP Internal Medicine; Visit Provider Internal Medicine
DX: R06.83 Snoring (principal); R06.81 Apnea, not elsewhere classified
CPT/HCPCS: 95806

== ENCOUNTER → 2024-11-18 21:00 | Outpatient (BNV) | payer MEDICAID, SELFPAY | PROVIDERS: PCP Internal Medicine; Visit Provider Internal Medicine | DX: R06.83 Snoring (principal) | CPT/HCPCS: 95806 ==

== ENCOUNTER 2024-11-25 10:02 | Outpatient (AMB) | payer MEDICAID, SELFPAY ==
--- NOTE | 2024-11-25 10:23 | A.OFFVIS_ITS ---
Vital Signs 11/25/24 10:24 Height 5 ft 3 in Weight 200 lb 9.93 oz BMI 35.5 BP 112/74 Blood Pressure Location Lt brachial Position Sitting Pulse 78 Pulse Source Pulse Oximeter Pulse Oximetry (%) 99 Oxygen Delivery Method Room Air Intake Visit Reasons: Asthma Allergies penicillin V Allergy (Unknown, Verified 11/25/24 10:28) convulsion Penicillins Adverse Reaction (Mild, Verified 11/25/24 10:28) SEIZURES A CHILD HPI Comments Details: The patient is here for pulmonary evaluation. The patient is a 39 year woman with lifelong asthma presenting with worsening asthma symptoms. The patient has been struggling with respiratory symptoms. She has had multiple hospitalizations while in [place] for the asthma and she continues to struggle at this time. She is not sure about her triggers. Sometimes the asthma symptoms are worse at nighttime. She is concerned that she is going to stop breathing at nighttime therefore she has a hard time falling asleep. Right now she is dealing with an issue with bedbugs and therefore she is having to sleep on the floor with her kids. This is very hard for her. She did undergo pulmonary function studies back in 2018 although appeared to be suboptimal. We are going to have to repeat them. There seemed to be some issues with restrictive lung disease and also there was a question of fasciculation from the vocal cords. In addition to that the patient has had a chest x-ray from 2020 when she had bad COVID. She did appear did have bilateral pneumonia during that hospitalization. Therefore, will plan to do her pulmonary function studies and also optimize her respiratory therapy at this time starting Trelegy. The patient will undergo blood work in addition to allergy testing to see if she will be a candidate for biologics specially if she does not respond to the maximum respiratory therapy. [facility] Medical History COVID-19 affecting in second trimester Asthma test positive Asthma COVID-19 Family History Mother History of depression Diabetes Sister Sickle cell anemia Social History Household Members: Spouse and Children Both parents involved: Yes Housing: Apartment Alcohol intake: never Patient Tobacco Use Status: Never used Tobacco Special ministerio needs: No Agree to transfusion: Yes Gender identity: Female Female Reproductive History Menstrual Age of Menarche: 14 Review of Systems Const Reports difficulty sleeping and Reports snoring ENT Reports nasal congestion Card Denies chest pain and Reports dyspnea Resp Reports cough, Reports dyspnea, Reports snoring and Reports wheezing GI Reports dyspepsia Musc Reports no additional complaints Skin/Breast Denies rash Neuro Reports no additional complaints Endo Reports no additional complaints George/Lymph Reports no additional complaints Aller/Immun Reports wheezing Physical Exam Vital Signs: Last Vital Signs Pulse 78 11/25/24 10:24 BP 112/74 11/25/24 10:24 Pulse Ox 99 11/25/24 10:24 Oxygen Delivery Method Room Air 11/25/24 10:24 BMI result Body Mass Index 35.5 Const General: comfortable HEENT Head: Yes normocephalic Neck Neck: Yes supple Chest Chest palpation & inspection: normal inspection of the chest Resp Effort & Inspection: normal respiratory effort Auscultation: diminished lung sounds Cardio Heart sounds: S1 normal heart sound present and S2 normal heart sound present GI Palpation (GI): Soft to palpation General: Yes no CVA tenderness Back/Spine/Pelvis Back: no CVA tenderness Skin General skin exam: no rashes or lesions noted Extrem General: Yes no clubbing, cyanosis or edema Assessment & Plan Assessment & Plan (1) Asthma: Code(s): J45.909 - Unspecified asthma, uncomplicated Category: Medical Qualifiers: Asthma severity: moderate Asthma persistence: persistent Asthma complication type: uncomplicated Qualified Code(s): J45.40 - Moderate persistent asthma, uncomplicated (2) Allergies: Code(s): T78.40XA - Allergy, unspecified, initial encounter Category: Medical Qualifiers: Encounter type: initial encounter Qualified Code(s): T78.40XA - Allergy, unspecified, initial encounter Plan Stop Arnuity Start Trelegy TAMIKO as needed Bloodwork and allergy testing PFTs Should sleep elevated with wedge pillow F/U 2-3 months Orders: Orders Immunoglobulin E Today J45.909 - Unspecified asthma, uncomplicated, T78.40XA - Allergy, unspecified, initial encounter Erythrocyte Sedimentation Rate Today J45.909 - Unspecified asthma, uncompl icated, T78.40XA - Allergy, unspecified, initial encounter PFT pulmonary function test Today J45.40 - Moderate persistent asthma, uncomplicated Resp Allergy Profile Region I Today J45.909 - Unspecified asthma, uncomplicated, R91.1 - Solitary pulmonary nodule, T78.40XA - Allergy, unspecified, initial encounter Complete Blood Count Auto Diff Today J45.909 - Unspecified asthma, uncomplicated, T78.40XA - Allergy, unspecified, initial encounter Hypersensitive Pneumonitis Prf Today J45.909 - Unspecified asthma, uncomplicated, R91.8 - Other nonspecific abnormal finding of lung field, T78.40XA - Allergy, unspecified, initial encounter Medications: New albuterol sulfate 90 mcg/actuation (Ventolin HFA) 2 puffs inhalation QID PRN 18 grams 11RF shortness of breath or wheezing 30 days wanvcekczov-ecxiveezl-thdnmtoy 200-62.5-25 mcg (Trelegy Ellipta) 1 inh inhalation DAILY 60 ea 12RF 30 days Coding Level of Care Code New Pt Level 4 (90989) Diagnoses Moderate persistent asthma without complication J45.40 Asthma severity: moderate Asthma persistence: persistent Asthma complication type: uncomplicated Allergy, initial encounter T78.40XA Encounter type: initial encounter Time Spent (min) 40
[2024-11-25 10:24] VITALS: BP 112/74; PULSE 78; O2SAT 99; BMI 35.5
--- OUTSIDE RECORDS SUMMARY | 2024-11-25 10:58 | XMS_ITS | Encounter Summary ---
Author Organization [employer] Address [address] [place] [address] [address] [place] [address] Care Team Providers Care Public Health Aides Teacher Name Role Phone Pearl Chahal MD Primary Care Provide r Encounter Details Date Type Department Care Team (Late Contact Info) Description 03/28/2022 Abstract [facility] ADULT DENTAL [address] [place] [address] Maciel Andujar, DMD [address] [place] [address] Social History Tobacco Use Types Packs/Day Years [...] Description 01/16/2025 2:30 PM EDT Office Visit [facility] [address] [place], [place] [phone] Pearl Chahal MD [address] [place], [place] [phone] 03/30/2025 3:00 PM EST Office Visit [facility] ADULT DENTAL [address] [place] [address] Linsey Tillman documented as of this encounter [...] on filedocumented in this encounter Care Teams Public Health Aides Teacher Relationship Specialty Start Date End Date Pearl Chahal MD [address] [place] [phone] PCP - General Family Medicine 12/04/18 documented as of this encounter
== END 2024-11-25 11:04 | disposition home or self-care (01) ==
LOC: HO.HPS 10:03
PROVIDERS: PCP Internal Medicine; Referring Provider Internal Medicine; Visit Provider Hospitalist
DX: J45.40 Moderate persistent asthma, uncomplicated (principal); T78.40XA Allergy, unspecified, initial encounter
CPT/HCPCS: 99204

== ENCOUNTER 2024-11-25 10:02 | Outpatient (REF) | payer MEDICAID, SELFPAY ==
[2024-11-25 11:31] LABS: MANUAL DIFF FLAG NO
[2024-11-25 11:43] LABS: Hematocrit 34.0 % (37.0-47.0); Hemoglobin 11.7 g/dl (12.0-16.0); Imm Gran Abs Auto 0.02 X10*3/uL (0.00-0.03); Imm Gran Pct Auto 0.3 % (0.0-0.4); Lymphocytes Absolute Auto 2.1 X10*3/uL (1.2-4.9); Mean Corpuscular HGB Conc 34.4 g/dl (31.0-35.0); Mean Corpuscular Hemoglobin 30.5 pg (27.0-33.0); Mean Corpuscular Volume 88.8 fL (80.0-98.0); NRBC Abs Auto 0.000 X10*3/uL (0.0-0.012); NRBC Pct Auto 0.0 /100WBC (0.0-0.2); Platelet Count 285 X10*3/uL (160-400); Red Blood Count 3.83 X10*6/uL (4.20-5.50); White Blood Count 6.9 X10*3/uL (4.8-10.8)
[2024-11-29 02:28] LABS: Class Alternaria alternata 0; Class Aspergillus fumigatus 0; Class Bermuda Grass 0; Class Birch 0; Class Cat Dander 0; Class Cladosporium herbarum 0; Class Cockroach 0; Class Common Ragweed 0; Class Cottonwood 0; Class Derm. pterony 0; Class Dermatophagoides farinae 0; Class Dog Dander 0; Class Elm 0; Class Maple Box Elder 0; Class Mountain Cedar 0; Class Mouse Urine Protein 0; Class Mugwort 0; Class Oak 0/1; Class Penicillium crysogenum 0; Class Rough Pigweed 0; Class Sheep Sorrel 0; Class Sycamore 0; Class Timothy Grass 0; Class Walnut Tree 0; Class White Ash 0; Class White Mulberry 0; D002 - IgE D farinae <0.10 kU/L; E001 - IgE Cat Dander <0.10 kU/L; E005 - IgE Dog Dander <0.10 kU/L; G006 - IgE Timothy Grass <0.10 kU/L; I006-IgE Cockroach, German <0.10 kU/L; M002 - IgE Cladosporium herbar <0.10 kU/L; M003 - IgE Aspergillus fumigat <0.10 kU/L; M006 - IgE Alternaria alternat <0.10 kU/L; T001 IgE Maple/Box Elder <0.10 kU/L; T006 - IgE Cedar, Mountain <0.10 kU/L; T007 - IgE Oak, White 0.29 kU/L; T008 IgE Elm, American <0.10 kU/L; T010 - IgE Walnut <0.10 kU/L; T011 - IgE Maple Leaf Sycamore <0.10 kU/L; T014 - IgE Cottonwood <0.10 kU/L; T015 - IgE Ash, White <0.10 kU/L; T070 - IgE White Mulberry <0.10 kU/L; W001 - IgE Ragweed, Short <0.10 kU/L; W006 - IgE Mugwort <0.10 kU/L; W014 IgE Pigweed, Common <0.10 kU/L; W018 IgE Sheep Sorrel <0.10 kU/L
[2024-11-30 13:24] LABS: Asperg fumigatus Precip Abs NEGATIVE (NEGATIVE); Micropoly faeni Abs NEGATIVE (NEGATIVE); Saccharo pora viridis Abs NEGATIVE (NEGATIVE); Thermo candidus Abs NEGATIVE (NEGATIVE)
== END 2024-11-25 10:03 | disposition home or self-care (01) ==
LOC: HO.LAB 10:02
PROVIDERS: PCP Internal Medicine; Referring Provider Internal Medicine; Visit Provider Hospitalist
DX: T78.40XA Allergy, unspecified, initial encounter (principal); J45.40 Moderate persistent asthma, uncomplicated; R91.1 Solitary pulmonary nodule; R91.8 Other nonspecific abnormal finding of lung field
CPT/HCPCS: 36415; 82785; 85025; 85652; 86003; 86331; 86606; 86609; 99202

== ENCOUNTER 2024-12-15 14:32 | Outpatient (REF) | payer MEDICAID, SELFPAY ==
--- NOTE | ~2024-12-15 | US_ITS ---
EXAMINATION: US RETROPERITONEAL LIMITED (RENAL ONLY) CLINICAL INFORMATION: [Left flank pain. Hematuria.. COMPARISON: None available. TECHNIQUE: Real-time ultrasound kidneys using grayscale technique. FINDINGS: RIGHT KIDNEY: 10 x 4 x 5 cm (SAG x AP x TRV). Volume: 113 cc. Normal echotexture. Normal renal cortical thickness. No hydronephrosis. No gross solid or cystic lesion. LEFT KIDNEY: 11 x 6 x 5 cm (SAG x AP x TRV). Volume: 137 cc. Normal echotexture. Normal renal cortical thickness. No hydronephrosis. No gross solid or cystic lesion detected. US/US renal BI IMPRESSION: No hydronephrosis. No gross nephrolithiasis based upon ultrasound.. Electronically signed by: Emile Panda MD 12/15/2024 03:03 PM EDT
--- OUTSIDE RECORDS SUMMARY | 2024-12-15 14:59 | XMS_ITS | Encounter Summary ---
Author Organization [employer] Address [address] [place] [address] [address] [place] [address] Care Team Providers Care Detailer Pharmaceuticals Name Role Phone Pearl Chahal MD Primary Care Provide r Encounter Details Date Type Department Care Team (Late Contact Info) Description 03/28/2022 Abstract [facility] ADULT DENTAL [address] [place] [address] Maciel Andujar, DMD [address] [place] [address] Social History Tobacco Use Types Packs/Day Years [...] Description 01/16/2025 2:30 PM EDT Office Visit [facility] MED[facility] [address] [place], [place] [phone] Pearl Chahal MD [address] [place], [place] [phone] 03/30/2025 3:00 PM EST Office Visit [facility] ADULT D[facility] [address] [place] [address] Linsey Tillman documented as of this encounter [...] on filedocumented in this encounter Care Teams Detailer Pharmaceuticals Relationship Specialty Start Date End Date Pearl Chahal MD [address] [place] [phone] PCP - General Family Medicine 12/04/18 documented as of this encounter
== END 2024-12-15 14:33 | disposition home or self-care (01) ==
LOC: HO.US 14:32
PROVIDERS: PCP Internal Medicine; Visit Provider Family Medicine
DX: R10.9 Unspecified abdominal pain (principal)
CPT/HCPCS: 76775

== ENCOUNTER → 2024-12-15 14:34 | Outpatient (BNV) | payer MEDICAID, SELFPAY | PROVIDERS: PCP Internal Medicine; Visit Provider Radiology Diagnostic Radiology | DX: R10.32 Left lower quadrant pain (principal) | CPT/HCPCS: 76775 ==

== ENCOUNTER 2024-12-30 06:13 | Outpatient (REF) | payer MEDICAID, SELFPAY ==
--- NOTE | ~2024-12-30 | FL_ITS ---
EXAMINATION: FL GUIDANCE ONLY HISTORY: M54.50 - Low back pain, unspecified COMPARISON: None available. TECHNIQUE: Fluoroscopy time: 0.4 minutes. Cumulative Dose: 5.37 mGy. DAP: 0.0934 mGym2 Images: 12. FINDINGS: Fluoroscopic spot films of the lumbar spine demonstrate needles and contrast material in the regions of the bilateral L3-4, L4-5, and L5-S1 facet joints. FL/FL guidance in treatment room IMPRESSION: Fluoroscopy during procedure. Please see procedure report for additional information. Electronically signed by: Lamont Barnhart MD 12/30/2024 03:59 PM EDT
--- OUTSIDE RECORDS SUMMARY | 2024-12-30 06:17 | XMS_ITS | Encounter Summary ---
Author Organization [employer] Address [address] [place] [address] 7 [place] [address] Care Team Providers Care Pharmacy Tech Customer Service Name Role Phone Pearl Chahal MD Primary Care Provide r Encounter Details Date Type Department Care Team (Latest Contact Info) Description 03/13/2022 Abstract [facility] CONVERSIONS Dental, Provider, DDS Social History Tobacco [...] Description 01/16/2025 2:30 PM EDT Office Visit [facility] MEDICINE [address] [place] [address] Pearl Chahal MD [address] [place] [address] 03/30/2025 3:00 PM EST Office Visit [facility] ADULT DENTAL [address] [place] [address] Linsey Tillman documented as of this encounter Visit Diagnoses Not on filedocumented in this encounter Care Teams Pharmacy Tech Customer Service Relationship Specialty Start Date End Date Pearl Chahal MD [address] [place] [address] PCP - General Family Medicine 12/04/18 documented as of this encounter
--- OUTSIDE RECORDS SUMMARY | 2024-12-30 06:17 | XMS_ITS | Encounter Summary ---
Author Organization [employer] Address [address] [facility] 7t [place] [address] Care Team Providers Care Sales Marketing Director Name Role Phone Pearl Chahal MD Primary Care Provide r Reason for Visit * Reason Onset Date Comments appt 02/19/2024 Encounter Details Date Type Department Care Team ([facility] st Contact Info) Description 02/19/2024 Telephone [facility] ADULT DENTAL [address] [place] [address] Mihaela Gómez, DDS [address] [place] [address] appt Social History Tobacco Use Types Packs/Day [...] is your housing situation today? I have doimnique flores 02/08/[address] you [...] 3:48 PM EDT Patient active requested for quaker with Elena Moscoso on 02/12. She is checking in on status of appt DR documented in this encounter Plan of Treatment Upcoming Encounters Date Type Department Care Team (Late st Contact Info) Description 01/16/2025 2:30 PM EDT Office Visit [facility] MEDICINE [address] [place] [address] Pearl Chahal MD [address] [place] [address] 03/30/2025 3:00 PM EST Office Visit [facility] ADULT DENTAL [address] [place], [place] [phone] Linsey Tillman documented as of this encounter Visit Diagnoses Not on filedocumented in this encounter Additional Health Concerns Assessment Noted Time PHQ-9 Depression Total Score: 0 02/08/20 24 2:32 PM EDT documented as of this encounter Care Teams Sales Marketing Director Relationship Specialty Start Date End Date Pearl Chahal MD [address] [facility] [place] [address] PCP - General Family Medicine 12/04/18 documented as of this encounter
--- OUTSIDE RECORDS SUMMARY | 2024-12-30 06:17 | XMS_ITS | Encounter Summary ---
Author Organization [employer] Address [address] [facility] [address] [facility] [address] [facility] [address] [place] [address] Care Team Providers Care Scout Sniper Name Role Phone Pearl Chahal MD Primary Care Provide r Reason for Visit * Reason Onset Date Comments Results 12/25/2024 Encounter Details Date Type Department Care Team ([facility] st Contact Info) Description 12/25/2024 Telephone [facility] [address], [place] [phone] Pearl Chahal MD [address] [place] [address] Results Social History Tobacco Use Types Packs/Day Years Used Date Smoking Tobacco: Never Passive Smoke Exposure: Never Smokeless Tobacco: Never Alcohol Use Standard Drinks/Week Comments Never 0 (1 standard drink = 0.6 oz pur e alcohol) Depression Answer Date Recorded Patient Health Questionnaire-9 Score 7 09/11/2024 Patient Health Questionnaire-9 Score 7 09/11/2024 Last PHQ-9: Questionnaire Data Not on file 0 09/11/2024 Housing Stability Answer Date Recorded What is your housing situation today? I have dominique flores 11/03/[address] you li ve. Do you have problems with any of the following? Pests such as bugs, ants, or mice 11/03/2024 Food Insecurity Answer Date Recorded Within the past 12 months, y ou worried that your food would run out before you got money to buy more: Often true 11/03/2024 Within the past 12 months,th e food you bought just didn't last and you didn't have enough money to get more: Often true Transportation Answer Date Recorded In the past [...] Answer Date Recorded Patient Health Questionnaire-2 Score 2 09/11/2024 Internet Access Answer Date Recorded Internet Access Q1 Yes 11/03/2024 Internet Access Q2 I do not want or need it 10/07 Comments No Sex and Gender Information Value Date Recorded Sex Assigned at Female 03/06/2022 10:19 AM EDT Legal Sex Female 10:19 AM EDT Gender Identity Choose not to disclose 10:19 AM EDT Sexual Orientation Choose not to disclose 2021 10:19 AM EDT documented as of this encounter Miscellaneous Notes * Telephone Encounter - Cesilia Jackson RN - 12/25/2024 3:41 PM EDT TC returned to pt. Informed pt. Renal US results returned showing no abnormalities. Pt. Verbalizes understanding and has no further questions or concerns * Telephone Encounter - Alanna Hall - 12/25/2024 1:51 PM EDT TC from pt requesting call back regarding Results. Type of results: u/s of kidneys Date when done: pt unsure Facility: [facility] Contact pt at [phone] documented in this encounter Plan of Treatment Upcoming Encounters Date Type Department Care Team (Late st Contact Info) Description 01/16/2025 2:30 PM EDT Office Visit [facility] [address], [place] [phone] Pearl Chahal MD [address] [place] [address] 03/30/2025 3:00 PM EST Office Visit [facility] [address] [place] [address] Linsey Tillman documented as of this encounter Visit Diagnoses Not on filedocumented in this encounter Additional Health Concerns Assessment Noted Time PHQ-9 Depression Total Score: 7 09/12/19 25 10:08 AM EDT documented as of this encounter Care Teams Scout Sniper Relationship Specialty Start Date End Date Pearl Chahal MD [address] [place] [address] PCP - General Family Medicine 12/04/18 documented as of this encounter
--- OUTSIDE RECORDS SUMMARY | 2024-12-30 06:17 | XMS_ITS | Clinical Summary ---
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 patients with liver disease. Blood Venous blood specimen / Unknown 02/05/2023 12:39 PM EDT 02/05/2023 1:18 PM EDT us Pearl Vitale MD LAB BLOOD ORDERABLES Final Result [facility] [address] [place] [phone] * Pap Smear (12/27/2021) Pap Negative for intraephithelial lesion or malignancy Negative for intraephithelial lesion or malignancy, Other HPV Undetected Undetected, Indeterminate, Quantitative, Not Detected us Historical Provider HEALTH MAINTENANCE Final Result from Last 3 Months or Most Recently Relevant to Health Maintenance Insurance STANDARD Member Subscriber Plan / Payer (Ef fective 2022-Present) Name:Zainab Beckwith Relation to Subscriber:Self Name:Zainab Beckwith Payer ID:Not on file Group ID:Not on file Type:Medicaid Address: [address] [place] [employer] Care Teams Repair Tech Relationship Specialty Start Date End Date Pearl Chahal MD [address] [place] [phone] PCP - General Family Medicine 12/04/18
--- OUTSIDE RECORDS SUMMARY | 2024-12-30 06:17 | XMS_ITS | Encounter Summary ---
Author Organization [employer] Address [address] [place] [address] 7 [place] [address] Care Team Providers Care Mail Distributor Name Role Phone Pearl Chahal MD Primary Care Provide r Encounter Details Date Type Department Care Team (Late Contact Info) Description 03/28/2022 Abstract [facility] ADULT DENTAL [address] [place] [address] Maciel Andujar, DMD [address] [place] [address] Social History Tobacco Use Types Packs/Day Years [...] Description 01/16/2025 2:30 PM EDT Office Visit [facility] MEDICINE [address] [place], [place] [phone] Pearl Chahal MD [address] [place], [place] [phone] 03/30/2025 3:00 PM EST Office Visit [facility] ADULT DENTAL [address] [place] [address] Linsey Tillman documented as of this encounter [...] on filedocumented in this encounter Care Teams Mail Distributor Relationship Specialty Start Date End Date Pearl Chahal MD [address] [place] [phone] PCP - General Family Medicine 12/04/18 documented as of this encounter
== END 2024-12-30 06:14 | disposition home or self-care (01) ==
LOC: CF 06:13
PROVIDERS: Visit Provider Anesthesiology
DX: M54.50 Low back pain, unspecified (principal); M47.816 Spondylosis without myelopathy or radiculopathy, lumbar region
CPT/HCPCS: 64493; 64494; J2003; J2795; Q9967

== ENCOUNTER 2024-12-30 13:49 | Outpatient (AMB) | payer MEDICAID, SELFPAY ==
[2024-12-30 13:59] VITALS: BP 97/57; PULSE 71; RESP 18; O2SAT 99
--- NOTE | 2024-12-30 13:59 | A.OFFVIS_ITS ---
Vital Signs 12/30/24 13:59 Weight 201 lb BP 97/57 L Blood Pressure Location Lt brachial Position Sitting Respiration 18 Pulse 71 Pulse Source Pulse Oximeter Pulse Oximetry (%) 99 Oxygen Delivery Method Room Air Intake Visit Reasons: BILATERAL DIAGNOSTIC L3, L4, DRL5 MBB Children'S Ministry Director Required: Yes Children'S Ministry Director Name: hospital inerpreter Allergies penicillin V Allergy (Unknown, Verified 11/25/24 10:28) convulsion Penicillins Adverse Reaction (Mild, Verified 11/25/24 10:28) SEIZURES A CHILD [facility] Medical History (Updated 12/30/24 @ 14:43 by Mohamud Gibson MD) Allergies COVID-19 affecting in second trimester Asthma test positive Asthma COVID-19 Family History Mother History of depression Diabetes Sister Sickle cell anemia Social History Household Members: Spouse and Children Both parents involved: Yes Housing: Apartment Alcohol intake: never Patient Tobacco Use Status: Never used Tobacco Special ministerio needs: No Agree to transfusion: Yes Gender identity: Female Female Reproductive History Menstrual Age of Menarche: 14 Physical Exam Vital Signs: Last Vital Signs Pulse 71 12/30/24 13:59 Resp 18 12/30/24 13:59 BP 97/57 L 12/30/24 13:59 Pulse Ox 99 12/30/24 13:59 Oxygen Delivery Method Room Air 12/30/24 13:59 Assessment & Plan Assessment & Plan (1) Spondylosis of lumbar region without myelopathy or radiculopathy: Code(s): M47.816 - Spondylosis without myelopathy or radiculopathy, lumbar region Category: Medical Plan Diagnostic medial branch block L3,L4 dorsal ramus L5 bilateral.? ? ?Informed consent was explained to the patient. All questions were explained and? answered.? The patient was taken inside the operating room where she was positioned prone on the operating table. Time-out was performed delineating correct site, side, the nature of the procedure, patient's allergy, . All operating room staff was participating in OR time-out procedure. ? ? The lower back was prepped with ChloraPrep and draped with sterile towels.? C- arm was brought over the operating field and sq picture of L4-, L5 vertebra and S1 AREA were delineated on the screen.? Point of interest were delineated as confluence of superior articular process of L4 and L5 vertebra bilaterally with corresponding transverse processes as well as confluence of the sacral alae bilaterally with superior articular process of S1.? The projection of the point of interest to the skin were injected with the small amount of local anesthetic lidocaine 2% mixed with ropivacaine 0.5% 1-1 approcimately 1 cc.? After that 22 gauge 3.5 inch spinal needle was driven sequentially to the points of interest in tunnel vision fashion. After needles gently contacted the bone at the point of interests the needle was injected with small amount of the contrast.? The injection of the contrast did not demonstrate any intravascular or intrathecal spread of the contrast.? After that injection of the? ropivacaine 0.5%-1cc was performed at each needle location. ?after that the needles were removed and Bandaids were applied. ? Upon completion of the injections? needle was? removed and sterile Band-Aids were applied.? The patient tolerated procedure very well. Orders: Orders FL guidance in treatment room Today M54.50 - Low back pain, unspecified Coding Level of Care Code Procedure Only Diagnoses Spondylosis of lumbar region without myelopathy or radiculopathy M47.816
--- OUTSIDE RECORDS SUMMARY | 2024-12-30 14:44 | XMS_ITS | Encounter Summary ---
Author Organization [employer] Address [address] [facility] 7 [place] [address] Care Team Providers Care Health Administration Teacher Name Role Phone Pearl Chahal MD Primary Care Provide r Reason for Visit * Reason Onset Date Comments Results 12/25/2024 Encounter Details Date Type Department Care Team ([facility] st Contact Info) Description 12/25/2024 Telephone [facility] MEDICINE [address] [place], [place] [phone] Pearl Chahal MD [address] [place] [phone] Results Social History Tobacco Use Types Packs/Day [...] kidneys Date when done: pt unsure Facility: [facility] Contact pt at [phone] documented in this encounter Plan of Treatment Upcoming Encounters Date Type Department Care Team (Late st Contact Info) Description 01/16/2025 2:30 PM EDT Office Visit [facility] MEDICINE [address] [place], [place] [phone] Pearl Chahal MD [address] [place] [phone] 03/30/2025 3:00 PM EST Office Visit [facility] ADULT DENTAL [address] [place] [address] Linsey Tillman documented as of this encounter Visit Diagnoses Not on filedocumented in this encounter Additional Health Concerns Assessment Noted Time PHQ-9 Depression Total Score: 7 09/12/19 25 10:08 AM EDT documented as of this encounter Care Teams Health Administration Teacher Relationship Specialty Start Date End Date Pearl Chahal MD [address] [place] [phone] PCP - General Family Medicine 12/04/18 documented as of this encounter
--- OUTSIDE RECORDS SUMMARY | 2024-12-30 14:44 | XMS_ITS | Encounter Summary ---
Author Organization [employer] Address [address] [facility] [address] [place] [address] Care Team Providers Care Needle Loom Weaver Name Role Phone Pearl Chahal MD Primary Care Provide r Reason for Visit * Reason Onset Date Comments appt 02/19/2024 Encounter Details Date Type Department Care Team ([facility] st Contact Info) Description 02/19/2024 Telephone [facility] ADULT DENTAL [address] [place] [address] Mihaela Gómez, DDS [address] [place] [address] appt Social History Tobacco Use Types Packs/Day [...] 3:48 PM EDT Patient active requested for hinduism with Elena Moscoso on 02/12. She is checking in on status of appt DR documented in this encounter Plan of Treatment Upcoming Encounters Date Type Department Care Team (Late st Contact Info) Description 01/16/2025 2:30 PM EDT Office Visit [facility] MEDICINE [address] [place] [address] Pearl Chahal MD [address] [place] [address] 03/30/2025 3:00 PM EST Office Visit [facility] ADULT DENTAL [address] [place], [place] [phone] Linsey Tillman documented as of this encounter Visit Diagnoses Not on filedocumented in this encounter Additional Health Concerns Assessment Noted Time PHQ-9 Depression Total Score: 0 02/08/20 24 2:32 PM EDT documented as of this encounter Care Teams Needle Loom Weaver Relationship Specialty Start Date End Date Pearl Chahal MD [address] [facility] [place] [phone] PCP - General Family Medicine 12/04/18 documented as of this encounter
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
--- OUTSIDE RECORDS SUMMARY | 2024-12-30 14:44 | XMS_ITS | Encounter Summary ---
Author Organization [employer] Address [address] [place] [address] 7 [place] [address] Care Team Providers Care Head Operator Name Role Phone Pearl Chahal MD Primary Care Provide r Encounter Details Date Type Department Care Team (Latest Contact Info) Description 03/13/2022 Abstract [facility] CONVERSIONS Dental, Provider, DDS Social History Tobacco [...] Description 01/16/2025 2:30 PM EDT Office Visit [facility] MEDICINE [address] [place] [phone] Pearl Chahal MD [address] [place] [address] 03/30/2025 3:00 PM EST Office Visit [facility] ADULT DENTAL [address] [place] [address] Linsey Tillman documented as of this encounter Visit Diagnoses Not on filedocumented in this encounter Care Teams Head Operator Relationship Specialty Start Date End Date Pearl Chahal MD [address] [place] [phone] PCP - General Family Medicine 12/04/18 documented as of this encounter
--- OUTSIDE RECORDS SUMMARY | 2024-12-30 14:44 | XMS_ITS | Encounter Summary ---
Author Organization [employer] Address [address] [place] [address] 7 [place] [address] Care Team Providers Care Tower Dragline Operator Name Role Phone Pearl Chahal MD Primary Care Provide r Encounter Details Date Type Department Care Team (Late Contact Info) Description 03/28/2022 Abstract [facility] [address] [place] [address] Maciel Andujar, DMD [address] [place] [address] Social History Tobacco Use Types Packs/Day Years [...] 01/16/2025 2:30 PM EDT Office Visit [facility] [address] [place], [place] [phone] Pearl Chahal MD [address] [place], [place] [phone] 03/30/2025 3:00 PM EST Office Visit [facility] [address] [place] [address] Linsey Tillman documented as of this encounter [...] on filedocumented in this encounter Care Teams Tower Dragline Operator Relationship Specialty Start Date End Date Pearl Chahal MD [address] [place] [phone] PCP - General Family Medicine 12/04/18 documented as of this encounter
== END 2024-12-30 14:42 | disposition home or self-care (01) ==
LOC: HO.PMCPRC 13:49
PROVIDERS: PCP Internal Medicine; Visit Provider Anesthesiology
DX: M47.816 Spondylosis without myelopathy or radiculopathy, lumbar region (principal)
CPT/HCPCS: 64493; 64494

== ENCOUNTER 2025-03-06 09:47 | Outpatient (AMB) | payer MEDICAID, SELFPAY ==
--- NOTE | 2025-03-06 09:48 | A.OFFVIS_ITS ---
Intake Visit Reasons: OV-RT hip busititis inj, last 09/09/24-F/U Intake Note: Zainab is a 39 year old female who presents today for a follow up of her right hip bursitis, last injection 09/09/24. Patient reports that she is having a lot of pain in her hip since the injection. She still feels the lump she had on her hip and pain is getting worse about a week ago. [employer]: [employer] Present ([id number]) Allergies penicillin V Allergy (Unknown, Verified 03/06/25 09:53) convulsion Penicillins Adverse Reaction (Mild, Verified 03/06/25 09:53) SEIZURES A CHILD HPI HPI OV-RT hip busititis inj, last 09/09/24-F/U: Details: Ms. Beckwith is a 40-year-old female who presents to the office today for bilateral hip pain as well as low back pain. She had a mechanical fall landing on her back on 12/22/2024. At her last appointment on 09/09/2024 she received a greater trochanteric bursa injection which did not give her much relief. [facility] Medical History (Updated 03/06/25 @ 10:15 by Shannan Herman PA-C) Allergies COVID-19 affecting in second trimester Asthma test positive Asthma COVID-19 Family History Mother History of depression Diabetes Sister Sickle cell anemia Social History Household Members: Spouse and Children Housing: Apartment Alcohol intake: never Patient Tobacco Use Status: Never used Tobacco Special ministerio needs: No Agree to transfusion: Yes Gender identity: Female Female Reproductive History Menstrual Age of Menarche: 14 Review of Systems Const All systems reviewed & are unremarkable except as noted in HPI and below Physical Exam Const General: cooperative, healthy appearing and no acute distress Resp Effort & Inspection: normal respiratory effort and able to speak in complete sentences Extrem Other: Rightt hip: Normal to inspection. No ecchymosis, erythema, or edema. Full hip ROM in all planes. Tenderness to palpation over the greater trochanteric bursa. Able to perform straight leg raise. NVI. Assessment & Plan Assessment & Plan (1) Greater trochanteric bursitis of right hip: Code(s): M70.61 - Trochanteric bursitis, right hip Category: Medical (2) Low back pain: Code(s): M54.50 - Low back pain, unspecified Category: Medical Plan Ms. Beckwith is a 40-year-old female who presents to the office today for bilateral hip pain as well as low back pain. She had a mechanical fall landing on her back on 12/22/2024. At her last appointment on 09/09/2024 she received a greater trochanteric bursa injection which did not give her much relief. While in the office today, we discussed obtaining an MRI for further evaluation of the right hip and surrounding structures. Patient is amenable to this. I have also recommended a follow up with Dr. Flanagan for further evaluation and treatment of her lower back. She will follow up after the MRI, sooner if needed. Orders: Orders MR hip RT wo con Today M25.551 - Pain in right hip, M54.50 - Low back pain, unspecified, M70.61 - Trochanteric bursitis, right hip Coding Level of Care Code Est Pt Level 3 (06326) Diagnoses Greater trochanteric bursitis of right hip M70.61 Low back pain M54.50
--- OUTSIDE RECORDS SUMMARY | 2025-03-06 10:57 | XMS_ITS | Encounter Summary ---
Author Organization [employer] Address [address] [facility] 7 [place] [address] Care Team Providers Care Clinic Office Coordinator Name Role Phone Pearl Chahal MD Primary Care Provide r Reason for Visit * Reason Onset Date Comments appt 02/19/2024 Encounter Details Date Type Department Care Team ([facility] st Contact Info) Description 02/19/2024 Telephone [facility] [address] [place] [address] Mihaela Gómez, DDS [address] [place] [address] appt Social History Tobacco Use Types Packs/Day [...] Care Team (Late st Contact Info) Description 03/24/2025 9:30 AM EST Office Visit [facility] [address] [place] [address] Pearl Chahal MD [address] [place] [address] 03/30/2025 3:00 PM EST Office Visit [facility] [address] [place] [address] Linsey Tillman documented as of this encounter Visit Diagnoses Not on filedocumented in this encounter Additional Health Concerns Assessment Noted Time PHQ-9 Depression Total Score: 0 02/08/20 24 2:32 PM EDT documented as of this encounter Care Teams Clinic Office Coordinator Relationship Specialty Start Date End Date Pearl Chahal MD [address] [place] [address] PCP - General Family Medicine 12/04/18 documented as of this encounter
--- OUTSIDE RECORDS SUMMARY | 2025-03-06 10:57 | XMS_ITS | Clinical Summary ---
Author Organization [employer] Address [address] [place] [address] [address] [place] [address] Care Team Providers Care Intellectual Property Manager Name Role Phone Pearl Chahal MD Primary [...] mouth every 12 (twelve) hours. 020 Active Cqlgufvq-Icv-Hg-F A (/Iron) tablet Take 1 tablet by mouth at bed time. Active pyridoxine (B-6) 50 MG tablet Active Nebulizers miscIndications:M oderate persistent asthma with acute exacerbation Use nebulizer as instructed 1 each 023 Active senna (Senokot) 8.6 MG tabletIndications :Other constipation Take 1 tablet (8.6 mg) by mouth at bedtime. 120 tablet 023 Active albuterol (Proventil HFA) 108 (90 Base) MCG/ACT inhalerIndication s:Moderate persistent asthma with acute exacerbation INHALE 2 PUFFS BY MOUTH EVERY 4 TO 6 HOURS NEEDED 6.7 g 11 024 Active Spacer/Aero-Holdi ng Chambers (OptiChamber Alesha) misc 1 each every 4 (four) hours if needed (asthma). 1 each 024 Active Neomycin-Polymyxi n-HC 1 % solutionIndicatio ns:Otitis of right ear Administer 3 drops into affected ear(s) 4 times daily. 10 mL 024 Active Docusate Sodium (DSS) 100 MG capsule Take 100 mg by mouth. 023 Active Levonorgestrel (Liletta, 52 MG,) 20.1 MCG/DAY intrauterine device 52 mg. 023 Active norethindrone (Nancy) 0.35 MG tablet Take 0.35 mg by mouth. 023 Active polyethylene glycol, PEG, 3350 (MiraLax) 17 GM/SCOOP powder Take 17 g by mouth. 023 Active Sodium Fluoride (PreviDent) 1.1 % gel Honeydew teeth morning and night for two minutes. Spit, do not rinse. Do not eat or drink for 30 minutes after brushing. 022 Active albuterol (2.5 MG/3ML) 0.083% nebulizer solutionIndicatio ns:Moderate persistent asthma with acute exacerbation INHALE 1 AMPULE USING A NEBULIZER EVERY 8 HOURS 90 mL 1 024 Active lidocaine (Lidoderm) 5 % patchIndications: Acute left-sided low back pain, unspecified whether sciatica present APPLY 1 PATCH TOPICALLY TO SKIN, LEAVE ON FOR 12 HOURS AND OFF FOR 12 HOURS DIRECTED 30 patch 1 025 Active famotidine (Pepcid) 20 MG tabletIndications :Heartburn TAKE 1 TABLET BY MOUTH TWICE DAILY 180 tablet 1 025 Active FLUoxetine (PROzac) 40 MG capsuleIndication s:Anxiety with depression Take 1 capsule (40 mg) by mouth Once per day. 30 capsule 11 025 2025 Active Diclofenac Sodium 1 % gel Apply 2 g topically if needed in the morning, at noon, in the evening, and at bedtime (pain). 150 g 3 025 Active montelukast (Singulair) 10 MG tabletIndications :Moderate persistent asthma with acute exacerbation TAKE 1 TABLET BY MOUTH EVERY DAY AT BEDTIME 90 tablet 025 Active Zepbound 2.5 MG/0.5ML solution auto-injectorIndi cations:Class 2 severe obesity due to excess calories with serious comorbidity and body mass index (BMI) of 35.0 to 35.9 in adult INJECT ONE PEN (=2.5MG) SUBCUTANEOUSLY ONCE A WEEK DIRECTED 2 mL 025 Active Tirzepatide-Weigh t Management (Zepbound) 2.5 MG/0.5ML solution auto-injectorIndi cations:Class 2 severe obesity due to excess calories with serious comorbidity and body mass index (BMI) of 35.0 to 35.9 in adult Inject 0.5 mL (2.5 mg) under the skin 1 (one) time per week. 2 mL 025 Active Incruse Ellipta 62.5 MCG/ACT aerosol powder INHALE 1 PUFF BY MOUTH EVERY DAY AT THE SAME TIME RINSE MOUTH AFTER USING 025 Active Breo Ellipta 200-25 MCG/ACT aerosol powder INHALE 1 PUFF BY MOUTH EVERY DAY AT THE SAME TIME RINSE MOUTH AFTER USING 025 Active fluticasone (Flonase) 50 MCG/ACT nasal sprayIndications: Nasal congestion Administer 1 spray into each nostril Once per day. 48 g 025 Active Tirzepatide-Weigh t Management (Zepbound) 5 MG/0.5ML solution auto-injectorIndi cations:Class 1 obesity due to excess calories with serious comorbidity and body mass index (BMI) of 34.0 to 34.9 in adult Inject 0.5 mL (5 mg) under the skin 1 (one) time per week. 2 mL 025 Active polyethylene glycol, PEG, 3350 (MiraLax) 17 GM/SCOOP powderIndications :Slow transit constipation Take 17 g by mouth Once per day. 527 g 2 025 2024 Active amitriptyline (Elavil) 10 MG tablet TAKE 1 TABLET BY MOUTH AT BEDTIME 30 tablet 2 025 Active acetaminophen (Tylenol 8 Hour) 650 MG ER tablet TAKE 1 TABLET BY MOUTH EVERY 8 HOURS NEEDED FOR PAIN. DO NOT BREAK, CRUSH, DISSOLVE OR CHEW 40 tablet 1 025 Active baclofen (Lioresal) 10 MG tablet TAKE 1 TABLET BY MOUTH THREE TIMES DAILY IN THE MORNING, AT NOON, AND AT BEDTIME NEEDED FOR MUSCLE SPASMS 60 tablet 1 Active naproxen (Naprosyn) 500 MG tablet TAKE 1 TABLET BY MOUTH TWICE DAILY IN THE MORNING AND AT BEDTIME NEEDED FOR PAIN (leve) 40 tablet 1 Active Tirzepatide-Weigh t Management (Zepbound) 7.5 MG/0.5ML solution auto-injector Inject 0.5 mL (7.5 mg) under the skin every 7 (seven) days. 2 mL Active acetaminophen (Tylenol 8 Hour) 650 MG ER tablet TAKE 1 TABLET BY MOUTH EVERY 8 HOURS NEEDED FOR PAIN (LEVE). DO NOT BREAK, CRUSH, DISSOLVE OR CHEW 40 tablet 1 025 2024 Discontinued naproxen (Naprosyn) 500 MG tablet TAKE 1 TABLET BY MOUTH EVERY MORNING AND AT BEDTIME NEEDED FOR PAIN (leve) 40 tablet 1 025 2024 Discontinued baclofen (Lioresal) 10 MG tablet TAKE 1 TABLET BY MOUTH THREE TIMES DAILY IN THE MORNING, AT NOON, AND AT BEDTIME NEEDED FOR MUSCLE SPASMS 60 tablet 1 025 2024 Discontinued Active Problems Problem Noted Date Diagnosed Date Class 1 obesity due to exces s calories with serious comorbidity and body mass index (BMI) of 34.0 to 34.9 in adult 01/16/2025 Slow transit constipation 01/16/2025 Upper back pain 01/16/2025 Assessment & Plan (01/16/2025 3:00 PM EDT): Apply heat on affected area I will refer her to physical therapy Clarissabug bite 01/16/2025 Assessment & Plan (01/16/2025 3:00 PM EDT): Apply hydrocortisone on affected areas no more than 2 weeks Counseling about changing of sheets, bed dressing, washing it with hot water and reaching out to housing done today Class 2 severe obesity due t o [...] trochanteric bursitis, right 09/11/2024 Assessment & Plan (01/16/2025 2:59 PM EDT): I will refer patient back to orthopedics Assessment & Plan (09/11/2024 10:33 AM EDT): [...] pain without sciatica 07/17/2024 Assessment & Plan (01/16/2025 2:59 PM EDT): Apply heat on affected area I will refer her to physical therapy Assessment & Plan (09/11/2024 10:34 AM EDT): [...] right ear 02/08/2024 Class 2 obesity 11/26/2023 Assessment & Plan (01/16/2025 2:59 PM EDT): Extensive counseling about healthy diet and exercise done today I will increase her Zepbound to 5 mg weekly I will continue to monitor her weight and for side effects Hernia, umbilical 11/26/2023 Uses Pakistani as primary spoken language 11/26/19 24 White classification A2 gestational diabetes bill litus (GDM) 11/26/2023 Severe obesity (CMS/HCC) 11/26/2023 Tympanic membrane perforation, left 07/12/2023 Heartburn [...] Encounters Date Type Department Care Team Description 2025 Refill [facility] [address] [place] [address] Pearl Chahal MD 02/15/2025 Refill [facility] [address] [place], [place] [phone] Pearl Chahal MD 02/09/2025 Refill [facility] [address] [place], [place] [phone] Pearl Chahal MD 01/31/2025 Refill [facility] [address] [place] [phone] Elise JazminDO 01/16/2025 2:30 PM EDT Office Visit [facility] MED[facility] [address] [place] [phone] Pearl Chahal MD Upper back pain (Primary Dx); Class 1 obesity due to excess calories with serious comorbidity and body mass index (BMI) of 34.0 to 34.9 in adult; Slow transit constipation; Chronic bilateral low back pain without sciatica; Greater trochanteric bursitis, right; Bedbug bite, initial encounter; Class 2 obesity 01/16/2025 Travel 01/15/2025 Telephone [facility] [address] [place] [address] Pearl Chahal MD NOV RECALL 01/15/2025 Telephone [facility] [address] [place] [phone] Pearl Chahal MD chart prep 01/09/2025 10:20 AM EDT Office Visit [facility] [address] [address] Judy Joyce ANP Moderate persistent asthma, unspecified whether complicated (Primary Dx); Viral URI; Nasal congestion 01/09/2025 Travel 12/25/2024 Telephone [facility] [address] [place] [phone] Pearl Chahal MD Results 12/16/2024 Refill [facility] [address] [place] [phone] Pearl Chahal MD Class 2 severe obesity due to excess calories with serious comorbidity and body mass index (BMI) of 35.0 to 35.9 in adult ([facility]) 12/15/2024 Refill [facility] [address] [place] [phone] Pearl Chahal MD Class 2 severe obesity due to excess calories with serious comorbidity and body mass index (BMI) of 35.0 to 35.9 in adult ([facility]) from Last 3 Months Immunizations Immunization Administration Dates Next Due Hep B, adult 03/14/2019 Influenza injectable quadriv alent preservative free 03/14/2019 Influenza, IIV3, injectable 03/09/2022 Moderna Covid-19 Vaccine 12+ 11/15/2021 Pfizer Covid-19 Vaccine 12+ 05/31/2021, 1 Pfizer Covid-19 Vaccine 12+ Bivalent 06/15/2022 Td [...] Answer Date Recorded Internet Access Q1 Yes 02/08/2025 Internet Access Q2 Not on file 02/08/2025 Comments No Sex and Gender Information Value Date Recorded Sex Assigned at Female 03/06/2022 10:19 AM EDT Legal Sex Female 10:19 AM EDT Gender Identity Choose not to disclose 10:19 AM EDT Sexual Orientation Choose not to disclose 2021 10:19 AM EDT Last Filed Vital Signs Vital Sign Reading Time Taken Comments Blood Pressure 112/72 01/16/2025 2:29 PM EDT Pulse 95 01/16/2025 2:29 PM EDT Temperature 36.6 C (97.8 F) 01/16/2025 2:29 PM EDT Respiratory Rate 13 01/16/2025 2:29 PM EDT Oxygen Saturation 99% 01/16/2025 2:29 PM EDT Inhaled Oxygen Concentration - - Weight 89 kg (196 lb 3.2 oz) 01/16/2025 2:29 PM EDT Height 160 cm (5' 3 ) 01/16/2025 2:29 PM EDT Body Mass Index 34.76 01/16/2025 2:29 PM EDT Plan of Treatment Upcoming Encounters Date Type Department Care Team (Late st Contact Info) Description 03/24/2025 9:30 AM EST Office Visit [facility] [address] [place] [phone] Pearl Chahal MD [address] [place] [address] 03/30/2025 3:00 PM EST Office Visit [facility] ADULT DENTAL [address] [place] [address] Linsey Tillman Health Maintenance Due Date Last Done Comments HIV Screening 1987 Alcohol/Substance Use Screening 1999 Family Planning (PISQ) 2002 HPV Vaccines (1 - 3-dose series) 2002 Hepatitis C Screening 2005 Pneumococcal Vaccine: Pediatrics (0 to 5 Years) and At-Risk Patients (6 to 49) Years (1 of 2 - PCV) 2006 Hepatitis B Vaccines (2 of 3 - 19+ 3-dose series) 04/11/2019 03/14/2019 Dental Oral Exam 05/02/2024 10/31/2023, 11/2021, 03/13/2022 Dental Prophylaxis 05/02/2024 10/31/2023, 1 05/20/2021, 03/20/2022 Dental X-Ray: Bitewings 10/31/2024 10/31/19 24, 03/13/2022, 03/13/2022 Cervical Cancer Screening 12/27/2024 HPV/Cotest 12/27/2024 12/27/2021 Pap Smear 12/27/2024 12/27/2021 COVID-19 Vaccine ( season) 2025 06/15/2022, 11/15/2021, 05/31/2021, Additional history exists Influenza Vaccine (#1) 2025 , 03/09/2022, 03/14/2019 Dental X-Ray: Full Mouth 03/14/2025 03/13/2022, 11/2021 Depression Screening 09/11/2025 09/11/2024, 09/12/19 25 Disability Screening 09/11/2025 09/11/2024 SDOH Screening 11/03/2025 11/03/2024 Tobacco Screening 01/16/2026 01/16/2025 Lipid Panel 02/06/2028 02/05/2023 DTaP/Tdap/Td Vaccines (6 [...] Date/Time Associated Diagnosis Comments POCT INFLUENZA A (ID NOW RAPID MOLECULAR) Routine 01/09/2025 10:41 AM EDT Viral URI POCT RAPID STREP A Routine 01/09/2025 10 :41 AM EDT Viral URI POCT RAPID COVID ANTIGEN Routine 01/09/2025 10:41 AM EDT Viral URI POCT INFLUENZA B (ID NOW RAPID MOLECULAR) Routine 01/09/2025 10:34 AM EDT Viral URI US RENAL COMPLETE Routine 12/15/2024 2:4 0 PM EDT Full PROPHYLAXIS - ADULT Routine 10/31/2023 2:00 [...] Recently Relevant to Health Maintenance Results * Influenza A (ID NOW Rapid Molecular) (01/09/2025 10:41 AM EDT) Influenza A Negative Negative, Indeterminate [facility] Swab 01/09/2025 10:4 1 AM EDT us [facility] POINT OF CARE TEST ENTER/EDIT OR DERABLES Final Result Performing Organization Address [facility] Co de Phone Number [facility] [address] [place] [phone] * POCT Rapid COVID Ag (01/09/2025 10:41 AM EDT) Pathologist [facility] Rapid COVID Ag Negative [facility] Swab 01/09/2025 10:4 1 AM EDT us Judy Joyce ANP POINT OF CARE TEST ENTER/EDIT OR DERABLES Final Result Performing Organization Address [facility] de Phone Number [facility] [address] [place] [phone] * POCT rapid strep A manually resulted (01/09/2025 10:41 AM EDT) [facility] Rapid Strep A Screen Negative Negative, None Detected [facility] Swab 01/09/2025 10:4 1 AM EDT us Judy PAYNE POINT OF CARE TEST ENTER/EDIT OR DERABLES Final Result Performing Organization Address [facility] de Phone Number [facility] [address] [place] [phone] * Influenza B (ID NOW Rapid Molecular) (01/09/2025 10:34 AM EDT) [facility] Influenza B Negative Negative, Indeterminate [facility] Swab 01/09/2025 10:3 4 AM EDT us Judy Joyce ANP POINT OF CARE TEST ENTER/EDIT OR DERABLES Final Result Performing Organization Address [facility] de Phone Number [facility] [address] [place] [phone] * US Renal Complete (12/15/2024 2:40 PM EDT) Anatomical Region Laterality Modality Kidney Ultrasound 12/15/2024 2:40 PM EDT Narrative 12/15/2024 3:06 PM EDT [address] [address] Ultrasound Report Signed Patient: Zainab Beckwith MR#: [id number] 9 : 1985 Acct:[id number] Age/Sex: 39 / F ADM Date: 12/15/24 Loc: HO.US Attending Dr: Jazmin Olivares DO Ordering Physician: Jazmin Olivares DO Date of Service: 12/15/24 Procedure(s): US renal BI Accession Number(s): [id number] cc: Pearl Chahal MD; Jazmin Olivares DO [...] Emile Panda MD 12/15/2024 03:03 PM EDT Dictated By: Emile Arriaga MD Signed By: <Electronically signed by Emile Heredia MD in OV> 12/15/24 1503 DD/ 1440 TD/TT: 12/15/24 1445 Pile Driving Technician: Procedure Note Donotuseinterpreter, Image - 12/15/[address] [address] Ultrasound Report Signed Patient: Zainab Beckwith MMR#: [id number] 9 : 1985Acct:[id number] Age/Sex: 39 / FADM Date: 12/15/24 Loc: HO.US Attending Dr: Jazmin Olivares DO Ordering Physician: Jazmin Olivares DO Date of Service: 12/15/24 Procedure(s): US renal BI Accession Number(s): [id number] cc: Pearl Chahal MD; Jazmin Olivares DO [...] Emile Panda MD 12/15/2024 03:03 PM EDT Dictated By: Emile Arriaga MD Signed By: <Electronically signed by Emile Heredia MDin OV> 12/15/24 1503 DD/ 1440 TD/TT: 12/15/24 1445 Pile Driving Technician: us Jazmin Olivares DO IMG US PROCEDURES Final Resu lt * (ABNORMAL) Lipid Panel, Standard (02/05/2023 12:39 PM EDT) Triglycerides 139 <150 mg/dL [facility] Comment:Desirable Triglyceri de: less than 150 mg/dLBorderline High Triglyceride 150-199 mg/dLHigh Triglyceride: 200-499 mg/dLVery High Triglyceride: greater than or equal to 5OO mg/dL Cholesterol 170 <200 mg/dL [facility] Comment:Desirable Cholestero l: less than 200 mg/dLBorderline High Cholesterol: 200-239 mg/dLHigh Cholesterol: greater than 239 mg/dL LDL Cholesterol Calculated 101(H) <100 mg/dL [facility] Comment:Desirable LDL: less than 100 mg/dLNear Optimal/Above Optimal LDL: 110- 129 mg/dLBorderline High LDL: 130-159 mg/dLHigh LDL: 160-189 mg/dLVery High LDL: greater than or equal to 190 mg/dL HDL Cholesterol 42 >40 mg/dL [facility] Comment:Desirable HDL: great er than 40 mg/dL Note: This HDL assay may give artificially low results in patients with liver disease. Blood Venous blood specimen / Unknown 02/05/2023 12:39 PM EDT 02/05/2023 1:18 PM EDT Pearl Vitale MD LAB BLOOD ORDERABLES Final Result [facility] [address] [place] [phone] * Pap Smear (12/27/2021) Pap Negative for intraephithelial lesion or malignancy Negative for intraephithelial lesion or malignancy, Other HPV Undetected Undetected, Indeterminate, Quantitative, Not Detected Historical Provider HEALTH MAINTENANCE Final Result from Last 3 Months or Most Recently Relevant to Health Maintenance Insurance [employer] [facility] [facility] [employer] Care Teams Intellectual Property Manager Relationship Specialty Start Date End Date Pearl Chahal MD [address] [place] [address] PCP - General Family Medicine 12/04/18
--- OUTSIDE RECORDS SUMMARY | 2025-03-06 10:57 | XMS_ITS | Encounter Summary ---
Author Organization [employer] Address [address] [place] [address] 7 [place] [address] Care Team Providers Care Reimbursement Manager Name Role Phone Pearl Chahal MD Primary Care Provide r Encounter Details Date Type Department Care Team ([facility] Contact Info) Description 03/28/2022 Abstract [facility] ADULT DENTAL [address] [place] [address] Maciel Andujar, DMD [address] [place] [address] Social History Tobacco Use Types Packs/Day Years [...] Department Care Team (Late Contact Info) Description 03/24/2025 9:30 AM EST Office Visit [facility] MEDICINE [address] [place] [address] Pearl Chahal MD [address] [place], [place] [phone] 03/30/2025 3:00 PM EST Office Visit [facility] ADULT DENT[facility] [address] [place] [address] Linsey Tillman documented as of this encounter [...] on filedocumented in this encounter Care Teams Reimbursement Manager Relationship Specialty Start Date End Date Pearl Chahal MD [address] [place] [phone] PCP - General Family Medicine 12/04/18 documented as of this encounter
--- OUTSIDE RECORDS SUMMARY | 2025-03-06 10:57 | XMS_ITS | Encounter Summary ---
Author Organization [email or web address] Address [address] [place] [address] 7 [place] [address] Care Team Providers Care Loan Auditor Name Role Phone Pearl Chahal MD Primary Care Provide r Encounter Details Date Type Department Care Team (Latest Contact Info) Description 03/13/2022 Abstract [facility] CONVERSIONS Dental, Provider, DDS Social History Tobacco [...] Description 03/24/2025 9:30 AM EST Office Visit [facility] MED[facility] [address] [place] [address] Pearl Chahal MD [address] [place] [address] 03/30/2025 3:00 PM EST Office Visit [facility] ADULT DENTAL [address] [place] [address] Linsey Tillman documented as of this encounter Visit Diagnoses Not on filedocumented in this encounter Care Teams Loan Auditor Relationship Specialty Start Date End Date Pearl Chahal MD [address] [place] [phone] PCP - General Family Medicine 12/04/18 documented as of this encounter
--- OUTSIDE RECORDS SUMMARY | 2025-03-06 10:57 | XMS_ITS | Encounter Summary ---
Author Organization [employer] Address [address] [facility] 7 [place] [address] Care Team Providers Care Yield Engineer Name Role Phone Pearl Chahal MD Primary Care Provide r Reason for Visit * Reason Onset Date Comments Med Refill 2025 Encounter Details Date Type Department Care Team ([facility] st Contact Info) Description 2025 Refill [facility] [address] [place] [address] Pearl Chahal MD [address] [place] [address] Social History Tobacco Use Types Packs/Day Years [...] encounter Miscellaneous Notes * Telephone Encounter - Barbara Hickey LPN - 2025 10:52 AM EDT Last seen 01/16/25. NEXT DOSE PENDED PLEASE REVIEW documented in this encounter Plan of Treatment Upcoming Encounters Date Type Department Care Team (Late st Contact Info) Description 03/24/2025 9:30 AM EST Office Visit [facility] MEDICINE [address] [place] [address] Pearl Chahal MD [address] [place] [address] 03/30/2025 3:00 PM EST Office Visit [facility] ADULT DENTAL [address] [place] [address] Linsey Tillman documented as of this encounter Visit Diagnoses Not on filedocumented in this encounter Additional Health Concerns Assessment Noted Time PHQ-9 Depression Total Score: 7 09/12/19 25 10:08 AM EDT documented as of this encounter Care Teams Yield Engineer Relationship Specialty Start Date End Date Pearl Chahal MD [address] [place] [address], [place] [address] PCP - General Family Medicine 12/04/18 documented as of this encounter
== END 2025-03-06 10:21 | disposition home or self-care (01) ==
LOC: HO.HOS 09:48
PROVIDERS: PCP Internal Medicine; Visit Provider Physician Assistant
DX: M70.61 Trochanteric bursitis, right hip (principal); M54.50 Low back pain, unspecified
CPT/HCPCS: 99213

== ENCOUNTER → 2025-03-06 09:47 | Outpatient (BNVA) | payer MEDICAID, SELFPAY | PROVIDERS: PCP Internal Medicine; Visit Provider Physician Assistant | DX: M25.552 Pain in left hip (principal); M25.551 Pain in right hip; M70.61 Trochanteric bursitis, right hip; M54.50 Low back pain, unspecified | CPT/HCPCS: 99212 ==

== ENCOUNTER → 2025-03-25 18:58 | Outpatient (BNV) | payer MEDICAID, SELFPAY | PROVIDERS: PCP Internal Medicine; Visit Provider Radiology Diagnostic Ultrasound | DX: M70.61 Trochanteric bursitis, right hip (principal); M76.01 Gluteal tendinitis, right hip | CPT/HCPCS: 73721 ==

== ENCOUNTER 2025-03-25 19:05 | Outpatient (REF) | payer MEDICAID, SELFPAY ==
--- NOTE | ~2025-03-25 | MR_ITS ---
EXAMINATION: MR HIP WITHOUT CONTRAST, RIGHT CLINICAL INFORMATION: Trochanter bursitis COMPARISON: X-ray pelvis 09/09/2024 TECHNIQUE: MRI of the right hip was obtained using routine sequences on a high-field strength magnet. FINDINGS: BONE/JOINTS: Hip joint alignment is anatomic. No evidence of acute fracture, avascular necrosis or stress reaction. No significant chondral loss. No aggressive marrow replacing lesion. LABRUM: Subtle T2 signal extending into the base of the lateral labrum at the 12:00 location (4:13-14). This is an equivocal finding, could represent a physiological variant sulcus versus a subtle undisplaced tear. The remainder of the labrum appears intact. MUSCLES/TENDONS: Mild gluteus minimus and medius tendinosis. Remainder of the tendons appear intact. No measurable muscle tear. JOINT FLUID/BURSA: Small joint fluid. No significant greater trochanteric or iliopsoas bursitis. Additional findings:: Normal right groin lymphadenopathy. On the coronal T1 sequence of the pelvis, there is normal left hip articulation. SI joints and symphysis pubis are intact.. MR/MR hip RT wo con IMPRESSION: 1. No acute osseous findings. No evidence of acute fracture, avascular necrosis or stress reaction. 2. Subtle findings of the lateral labrum at the 12:00 position, could represent physiological variant sulcus versus a subtle undisplaced tear. 3. Mild gluteus minimus and medius tendinosis. Electronically signed by: Eben Duvall MD 03/26/2025 02:29 PM [facility]
--- OUTSIDE RECORDS SUMMARY | 2025-03-26 05:13 | XMS_ITS | Encounter Summary ---
Author Organization [employer] Address [address] [facility] 7 [place] [address] Care Team Providers Care Swatch Checker Name Role Phone Pearl Chahal MD Primary Care Provide r Reason for Visit * Reason Onset Date Comments Chart Prep 03/23/2025 Encounter Details Date Type Department Care Team ([facility] Contact Info) Description 03/23/2025 Telephone [facility] [address] [place], [place] [phone] Pearl Chahal MD [address] [place] [address] Chart Prep Social History Tobacco Use Types Packs/Day Years [...] encounter Miscellaneous Notes * Telephone Encounter - Keerthi Rader [place] - 03/23/2025 9:41 AM EST Chart Prep Labs: not applicable Images: not applicable Referrals: appointment pending Vaccines due: Covid, Flu, PCV20, Hep B, and HPV Screenings: pap smear, LMP, PISQ, and Hep C Screening, HIV Screening Overdue care gaps: SBIRT, PHQ-9, and YARELIS-7 documented in this encounter Plan of Treatment Upcoming Encounters Date Type Department Care Team (Late st Contact Info) Description 03/30/2025 3:00 PM EST Office Visit [facility] ADULT DENTAL [address] [place] [address] Linsey Tillman 05/15/2025 9:00 AM EST Office Visit [facility] [address] [place] [address] Pearl Chahal MD [address] [place] [address] documented as of this encounter Visit Diagnoses Not on filedocumented in this encounter Additional Health Concerns Assessment Noted Time PHQ-9 Depression Total Score: 7 09/12/19 25 10:08 AM EDT documented as of this encounter Care Teams Swatch Checker Relationship Specialty Start Date End Date Pearl Chahal MD [address] [place] [address] PCP - General Family Medicine 12/04/18 documented as of this encounter
--- OUTSIDE RECORDS SUMMARY | 2025-03-26 05:13 | XMS_ITS | Encounter Summary ---
Author Organization [employer] Address [address] [place] [address] 7 [place] [address] Care Team Providers Care Digital Advertising Analyst Name Role Phone Pearl Chahal MD Primary Care Provide r Encounter Details Date Type Department Care Team (Latest Contact Info) Description 03/13/2022 Abstract [facility] CONVERSIONS Dental, Provider, DDS Social History [...] Description 03/30/2025 3:00 PM EST Office Visit [facility] ADULT DENTAL [address] [place] [address] Linsey Tillman 05/15/2025 9:00 AM EST Office Visit [facility] MED[facility]INE [address] [place] [address] Pearl Chahal MD [address] [place] [address] documented as of this encounter Visit Diagnoses Not on filedocumented in this encounter Care Teams Digital Advertising Analyst Relationship Specialty Start Date End Date Pearl Chahal MD [address] [place] [address] PCP - General Family Medicine 12/04/18 documented as of this encounter
--- OUTSIDE RECORDS SUMMARY | 2025-03-26 05:13 | XMS_ITS | Encounter Summary ---
Author Organization [employer] Address [address] [place] [address] 7 [place] [address] Care Team Providers Care Community Marketing Coordinator Name Role Phone Pearl Chahal MD Primary Care Provide r Encounter Details Date Type Department Care Team (Late Contact Info) Description 03/28/2022 Abstract [facility] ADULT DENTAL [address] [place] [address] Maciel Andujar, DMD [address] [place] [address] Social History Tobacco Use Types Packs/Day Years [...] Department Care Team (Late Contact Info) Description 03/30/2025 3:00 PM EST Office Visit [facility] ADULT DENTAL [address] [place] [address] Linsey Tillman 05/15/2025 9:00 AM EST Office Visit [facility] MED[facility] [address] [place] [address] Pearl Chahal MD [address] [place] [address] documented as of this encounter Procedures Procedure [...] on filedocumented in this encounter Care Teams Community Marketing Coordinator Relationship Specialty Start Date End Date Pearl Chahal MD [address] [place] [phone] PCP - General Family Medicine 12/04/18 documented as of this encounter
--- OUTSIDE RECORDS SUMMARY | 2025-03-26 05:13 | XMS_ITS | Encounter Summary ---
Author Organization [employer] Address [address] [facility] 7 [place] [address] Care Team Providers Care Heat And Frost Insulator Helper Name Role Phone Pearl Chahal MD Primary Care Provide r Reason for Visit * Reason Onset Date Comments appt 02/19/2024 Encounter Details Date Type Department Care Team ([facility] st Contact Info) Description 02/19/2024 Telephone [facility] ADULT DENTAL [address] [place] [address] Mihaela Gómez, DDS [address] [place] [address] appt Social History Tobacco Use Types Packs/Day [...] 3:48 PM EDT Patient active requested for jainism with Elena Moscoso on 02/12. She is checking in on status of appt DR documented in this encounter Plan of Treatment Upcoming Encounters Date Type Department Care Team (Late st Contact Info) Description 03/30/2025 3:00 PM EST Office Visit [facility] ADULT DENTAL [address] [place] [address] Linsey Tillman 05/15/2025 9:00 AM EST Office Visit [facility] MED[facility]INE [address] [place] [address] Pearl Chahal MD [address] [place] [address] documented as of this encounter Visit Diagnoses Not on filedocumented in this encounter Additional Health Concerns Assessment Noted Time PHQ-9 Depression Total Score: 0 02/08/20 24 2:32 PM EDT documented as of this encounter Care Teams Heat And Frost Insulator Helper Relationship Specialty Start Date End Date Pearl Chahal MD [address] [place] [address] PCP - General Family Medicine 12/04/18 documented as of this encounter
--- OUTSIDE RECORDS SUMMARY | 2025-03-26 05:13 | XMS_ITS | Clinical Summary ---
Author Organization [employer] Address [address] [place] [address] 7[address] [place] [address] Care Team Providers Care Senior Lead Software Engineer Name Role Phone Pearl Chahal MD [...] every 12 (twelve) hours. 06/03/19 20 Active Bzgtddyn-Hvb-Bs-FA (/Iron) tablet Take 1 tablet by mouth at bed time. Active pyridoxine (B-6) 50 MG tablet Active Nebulizers miscIndications:Mo derate persistent asthma with acute exacerbation Use nebulizer as instructed 1 each 02/07/20 23 Active senna (Senokot) 8.6 MG tabletIndications: Other constipation Take 1 tablet (8.6 mg) by mouth at bedtime. 120 tablet 03/07/20 23 Active albuterol (Proventil HFA) 108 (90 Base) MCG/ACT inhalerIndications :Moderate persistent asthma with acute exacerbation INHALE 2 PUFFS BY MOUTH EVERY 4 TO 6 HOURS NEEDED 6.7 g 11 09/17/19 24 Active Spacer/Aero-Holdin g Chambers (OptiChamber Alesha) misc 1 each every 4 (four) hours if needed (asthma). 1 each 09/17/19 24 Active Neomycin-Polymyxin -HC 1 % solutionIndication s:Otitis of right ear Administer 3 drops into affected ear(s) 4 times daily. 10 mL 02/08/20 24 Active Docusate Sodium (DSS) 100 MG capsule Take 100 mg by mouth. 05/28/19 23 Active Levonorgestrel (Liletta, 52 MG,) 20.1 MCG/DAY intrauterine device 52 mg. 10/17/19 23 Active norethindrone (Nancy) 0.35 MG tablet Take 0.35 mg by mouth. 05/28/19 23 Active polyethylene glycol, PEG, 3350 (MiraLax) 17 GM/SCOOP powder Take 17 g by mouth. 06/02/19 23 Active Sodium Fluoride (PreviDent) 1.1 % gel [place] teeth morning and night for two minutes. Spit, do not rinse. Do not eat or drink for 30 minutes after brushing. 03/20/20 22 Active albuterol (2.5 MG/3ML) 0.083% nebulizer solutionIndication s:Moderate persistent asthma with acute exacerbation INHALE 1 AMPULE USING A NEBULIZER EVERY 8 HOURS 90 mL 1 04/25/20 24 Active lidocaine (Lidoderm) 5 % patchIndications:A cute left-sided low back pain, unspecified whether sciatica present APPLY 1 PATCH TOPICALLY TO SKIN, LEAVE ON FOR 12 HOURS AND OFF FOR 12 HOURS DIRECTED 30 patch 1 05/15/19 25 Active famotidine (Pepcid) 20 MG tabletIndications: Heartburn TAKE 1 TABLET BY MOUTH TWICE DAILY 180 tablet 1 06/12/19 25 Active FLUoxetine (PROzac) 40 MG capsuleIndications :Anxiety with depression Take 1 capsule (40 mg) by mouth Once per day. 30 capsule 11 07/18/19 25 026 Active Diclofenac Sodium 1 % gel Apply 2 g topically if needed in the morning, at noon, in the evening, and at bedtime (pain). 150 g 3 10/03/19 25 Active montelukast (Singulair) 10 MG tabletIndications: Moderate persistent asthma with acute exacerbation TAKE 1 TABLET BY MOUTH EVERY DAY AT BEDTIME 90 tablet 10/15/19 25 Active Zepbound 2.5 MG/0.5ML solution auto-injectorIndic ations:Class 2 severe obesity due to excess calories with serious comorbidity and body mass index (BMI) of 35.0 to 35.9 in adult INJECT ONE PEN (=2.5MG) SUBCUTANEOUSLY ONCE A WEEK DIRECTED 2 mL 12/17/19 25 Active Tirzepatide-Weight Management (Zepbound) 2.5 MG/0.5ML solution auto-injectorIndic ations:Class 2 severe obesity due to excess calories with serious comorbidity and body mass index (BMI) of 35.0 to 35.9 in adult Inject 0.5 mL (2.5 mg) under the skin 1 (one) time per week. 2 mL 12/17/19 25 Active Incruse Ellipta 62.5 MCG/ACT aerosol powder INHALE 1 PUFF BY MOUTH EVERY DAY AT THE SAME TIME RINSE MOUTH AFTER USING 11/28/19 25 Active Breo Ellipta 200-25 MCG/ACT aerosol powder INHALE 1 PUFF BY MOUTH EVERY DAY AT THE SAME TIME RINSE MOUTH AFTER USING 11/28/19 25 Active fluticasone (Flonase) 50 MCG/ACT nasal sprayIndications:N tash congestion Administer 1 spray into each nostril Once per day. 48 g 01/10/20 25 Active Tirzepatide-Weight Management (Zepbound) 5 MG/0.5ML solution auto-injectorIndic ations:Class 1 obesity due to excess calories with serious comorbidity and body mass index (BMI) of 34.0 to 34.9 in adult Inject 0.5 mL (5 mg) under the skin 1 (one) time per week. 2 mL 01/17/20 25 Active polyethylene glycol, PEG, 3350 (MiraLax) 17 GM/SCOOP powderIndications: Slow transit constipation Take 17 g by mouth Once per day. 527 g 2 01/17/20 25 025 Active amitriptyline (Elavil) 10 MG tablet TAKE 1 TABLET BY MOUTH AT BEDTIME 30 tablet 2 02/03/20 25 Active acetaminophen (Tylenol 8 Hour) 650 MG ER tablet TAKE 1 TABLET BY MOUTH EVERY 8 HOURS NEEDED FOR PAIN. DO NOT BREAK, CRUSH, DISSOLVE OR CHEW 40 tablet 1 02/10/20 25 Active baclofen (Lioresal) 10 MG tablet TAKE 1 TABLET BY MOUTH THREE TIMES DAILY IN THE MORNING, AT NOON, AND AT BEDTIME NEEDED FOR MUSCLE SPASMS 60 tablet 1 10/13/20 25 Active naproxen (Naprosyn) 500 MG tablet TAKE 1 TABLET BY MOUTH TWICE DAILY IN THE MORNING AND AT BEDTIME NEEDED FOR PAIN (leve) 40 tablet 1 02/17/20 Active Tirzepatide-Weight Management (Zepbound) 7.5 MG/0.5ML solution auto-injector Inject 0.5 mL (7.5 mg) under the skin every 7 (seven) days. 2 mL 03/02/20 Active Active Problems Problem Noted Date Diagnosed Date Class 1 obesity due to exces s calories with serious comorbidity and body mass index (BMI) of 34.0 to 34.9 in adult 01/16/2025 Slow transit constipation 01/16/2025 Upper back pain 01/16/2025 Assessment & Plan (01/16/2025 3:00 PM EDT): Apply heat on affected area I will refer her to physical therapy Bedbug bite 01/16/2025 Assessment & Plan (01/16/2025 3:00 [...] for side effects Hernia, umbilical 11/26/2023 Uses Kiswahili as primary spoken language 11/26/19 24 White [...] Encounters Date Type Department Care Team Description 03/23/2025 Telephone [facility] [address] [place] [phone] Pearl Chahal MD Chart Prep 03/17/2025 Patient Outreach [facility] [address] [place] [phone] Pearl Chahal MD Pre-visit Planning ((PVP screening completed, no concerns) SDOH completed November 03 2024) 2025 Refill [facility] [address] [place] [address] Pearl Chahal MD 02/15/2025 Refill [facility] [address] [place] [phone] Pearl Chahal MD 02/09/2025 Refill [facility] [address] [place] [phone] Pearl Chahal MD 01/31/2025 Refill [facility] [address] [place] [phone] Jazmin Olivares DO 01/16/2025 2:30 PM EDT Office Visit [facility] [address] [place] [address] Pearl Chahal MD Upper back pain (Primary Dx); Class 1 obesity due to excess calories with serious comorbidity and body mass index (BMI) of 34.0 to 34.9 in adult; Slow transit constipation; Chronic bilateral low back pain without sciatica; Greater trochanteric bursitis, right; Bedbug bite, initial encounter; Class 2 obesity 01/16/2025 Travel 01/15/2025 Telephone [facility] [address] [place] [address] Pearl Chahal MD NOV RECALL 01/15/2025 Telephone [facility] [address] [place], [place] [phone] Pearl Chahal MD chart prep 01/09/2025 10:20 AM EDT Office Visit [facility] [address] [place] [phone] Judy Joyce ANP Moderate persistent asthma, unspecified whether complicated (Primary Dx); Viral URI; Nasal congestion 01/09/2025 Travel 12/25/2024 Telephone [facility] [address] [place], [place] [phone] Pearl Chahal MD Results from Last 3 Months Immunizations Immunization Administration [...] Description 03/30/2025 3:00 PM EST Office Visit [facility] ADULT DENTAL [address] [place] [address] Linsey Tillman 05/15/2025 9:00 AM EST Office Visit [facility] [address] [place], [place] [phone] Pearl Chahal MD [address] [place] [address] Health Maintenance Due Date Last Done Comments [...] Additional history exists Influenza Vaccine (#1) 2025 2, 03/09/2022, 03/14/2019 Dental X-Ray: Full Mouth 03/14/2025 022, 03/13/2022, 03/13/2022 Depression Screening 09/11/2025 09/11/2024, 09/12/19 25 Disability [...] Routine 01/09/2025 10:34 AM EDT Viral URI Full PROPHYLAXIS - ADULT Routine 10/31/2023 2:00 [...] NOW Rapid Molecular) (01/09/2025 10:41 AM EDT) [facility] Influenza A Negative Negative, Indeterminate [facility] Swab 01/09/2025 10:4 1 AM EDT us Judy PAYNE POINT OF CARE TEST ENTER/EDIT OR DERABLES Final Result Performing Organization Address [facility] Co de Phone Number [facility] [address] [place] [phone] * POCT Rapid COVID Ag (01/09/2025 10:41 AM EDT) [facility] Rapid COVID Ag Negative [facility] Swab 01/09/2025 10:4 1 AM EDT us Judy PAYNE POINT OF CARE TEST ENTER/EDIT OR DERABLES Final Result Performing Organization Address [facility] [place] [facility] Co de Phone Number [facility] [address] [place] [phone] * POCT rapid strep A manually resulted (01/09/2025 10:41 AM EDT) Rapid Strep A Screen Negative Negative, None Detected [facility] Swab 01/09/2025 10:4 1 AM EDT Judy Joyce ANP POINT OF CARE TEST ENTER/EDIT OR DERABLES Final Result Performing Organization Address City/[facility]/ZIP Co de Phone Number [facility] [address] [place] [address] [phone] * Influenza B (ID NOW Rapid Molecular) (01/09/2025 10:34 AM EDT) Influenza B Negative Negative, Indeterminate [facility] Swab 01/09/2025 10:3 4 AM EDT Judy Joyce ANP POINT OF CARE TEST ENTER/EDIT OR DERABLES Final Result Performing Organization Address [facility]/ZIP Co de Phone Number [facility] [address] [place] [address] [phone] * (ABNORMAL) Lipid Panel, Standard (02/05/2023 12:39 PM EDT) Triglycerides 139 <150 mg/dL [facility] Comment:Desirable Triglyceri de: less than 150 mg/dLBorderline High Triglyceride 150-199 mg/dLHigh Triglyceride: 200-499 mg/dLVery High Triglyceride: greater than or equal to 5OO mg/dL Cholesterol 170 <200 mg/dL [facility] Comment:Desirable Cholestero l: less than 200 mg/dLBorderline High Cholesterol: 200-239 mg/dLHigh Cholesterol: greater than 239 mg/dL LDL Cholesterol Calculated 101(H) <100 mg/dL [facility] Comment:Desirable LDL: less than 100 mg/dLNear Optimal/Above Optimal LDL: 110- 129 mg/dLBorderline High LDL: 130-159 mg/dLHigh LDL: 160-189 mg/dLVery High LDL: greater than or equal to 190 mg/dL HDL Cholesterol 42 >40 mg/dL [facility] Comment:Desirable HDL: great er than 40 mg/dL Note: This HDL assay may give artificially low results in patients with liver disease. Blood Venous blood specimen / Unknown 02/05/2023 12:39 PM EDT 02/05/2023 1:18 PM EDT us Pearl Vitale MD LAB BLOOD ORDERABLES Final Result [facility] [address] [place] [phone] [phone] * Pap Smear (12/27/2021) Pap Negative for intraephithelial lesion or malignancy Negative for intraephithelial lesion or malignancy, Other HPV Undetected Undetected, Indeterminate, Quantitative, Not Detected us Historical Provider HEALTH MAINTENANCE Final Result from Last 3 Months or Most Recently Relevant to Health Maintenance Insurance [facility] C3 DENTAL-[facility] MEDICAID [employer] Care Teams Senior Lead Software Engineer Relationship Specialty Start Date End Date Pearl Chahal MD [address] [place] [phone] PCP - General Family Medicine 12/04/18
== END 2025-03-25 19:06 | disposition home or self-care (01) ==
LOC: HO.MRI 19:05
PROVIDERS: PCP Internal Medicine; Visit Provider Physician Assistant
DX: M70.61 Trochanteric bursitis, right hip (principal); M54.50 Low back pain, unspecified; M25.551 Pain in right hip
CPT/HCPCS: 73721